=== PATIENT | male | born 1955 | race Caucasian/White ===

== ENCOUNTER 2016-07-09 15:53 | Emergency (ER) | payer MEDICARE, MEDICAID ==
[~2016-07-09] VITALS: Ht 180.3 cm; Wt 83.9 kg
[~2016-07-09 15:53] MED LIST: /DIVA50TA PO; /ERYT5OPO OS; /HALO5TAB; /HALO5TAB PO; /OL10DISTA; /QUET10TA OR; /RISPSOL3; ALLE25CA OR; AMBI5TAB; ARTANE PO; ASTE137S; ATIV0.5T; ATIV0.5T3 PO; ATIV2TAB PO; BACL10TA2; BENZ2TA PO; BENZ5TA PO; BUSP30TA; CELE100C; CELE40TA; CLAR10CA3 PO; COGE1INJ PO; DEPA250T32 PO; DEPA500T2 OR; DEPA500T2 PO; FERR325T; FOLI1TAB86 PO; HALD100I2 IM; HALDOL DECANOATE; HALO10TA PO; HALO2TA PO; HYDR-4274 PO; Haldol PO; JANT5TAB; LASI40TA; LISI10TA4; MOISCRE4 EXT; MONT10TA2 PO; MORP60TA3; MULTIVIT; NEUR100C; NEUR300C; NICO21DI26 EXT; NICO21DI4; NICO21DI5 TD; NICO21PAT TD; NYSTATIN; NYSTATIN TOP; No Historical Meds; OMEP20TA7; OXCA15HATB; REME15TA2; RISP12.5 IM; RISP1TAB3 PO; RISP37INJ IM; RISP3TAB16 OR; RISP3TAB18 PO; RISP4TAB33 PO; RISPERDAL CONSTA; RISPERDAL CONSTA IM; SERO1TAB PO; SERO200T PO; SITA50TAB PO; TRAZ50TA; TRIH2TA PO; TRIL600T OR; TRILAFON; VIST50CA; VITA100T2 PO; VITMTA PO; ZOLO50TA PO; ZYPR10TA; ZYPR10TA PO; ZYPR15TA; ZYPR15TA3; ZYPR20TA; ZYPR5TAB OR; ZYPR5TAB2 PO; no home medications
[2016-07-09] MEDS ORDERED: TRIH5TAB PO (16:15)
[2016-07-09] MEDS ORDERED: HYDR-4274 PO (16:15)
[2016-07-09] MEDS ORDERED: HALD5INJ2 IM (16:21)
[2016-07-09 18:09] VITALS: BP 133/74
== END 2016-07-09 18:12 | disposition home or self-care (01) ==
LOC: M ED 15:53
DX: F12.90 Cannabis use, unspecified, uncomplicated (principal); Z79.899 Other long term (current) drug therapy; Z88.8 Allergy status to other drugs, medicaments and biological substances; Z87.891 Personal history of nicotine dependence

== ENCOUNTER 2016-09-17 02:57 | Emergency (ER) | payer MEDICARE, MEDICAID ==
[~2016-09-17] VITALS: Ht 180.3 cm; Wt 81.6 kg
[~2016-09-17 02:57] MED LIST changes: +HALD5INJ2 IM; -TRIH2TA PO; +TRIH2TAB3 PO; +TRIH5TAB PO
[2016-09-17] MEDS ORDERED: HYDR50CA2 PO (05:13)
[2016-09-17 06:10] VITALS: BP 128/84
[2016-09-17] MEDS ORDERED: TRIHEXYPHENIDYL 2 MG TAB PO ONE ×2 (06:15→06:30)
[2016-09-17] MEDS ORDERED: hydrOXYzine 50 MG TAB PO ONE (06:15)
== END 2016-09-17 06:39 | disposition home or self-care (01) ==
LOC: M ED 03:47
DX: Z76.0 Encounter for issue of repeat prescription (principal)

== ENCOUNTER 2017-07-21 00:57 | Emergency (ER) | payer MEDICARE, MEDICAID ==
[2017-07-21] MEDS: hydrOXYzine 50 MG TAB PO (02:00)
[2017-07-21] MEDS: TRIHEXYPHENIDYL 2 MG TAB PO (02:00)
== END 2017-07-21 02:38 | disposition home or self-care (01) ==
LOC: M ED 00:57
DX: F41.1 Generalized anxiety disorder (principal); F17.210 Nicotine dependence, cigarettes, uncomplicated; Z79.899 Other long term (current) drug therapy
CPT/HCPCS: 99283

== ENCOUNTER 2017-08-05 01:55 | Emergency (ER) | payer MEDICARE, MEDICAID | END 2017-08-05 05:49 | disposition home or self-care (01) | LOC: M ED 01:55 | DX: Z76.0 Encounter for issue of repeat prescription (principal); F20.9 Schizophrenia, unspecified; F41.9 Anxiety disorder, unspecified; F17.200 Nicotine dependence, unspecified, uncomplicated; Z79.899 Other long term (current) drug therapy | CPT/HCPCS: 99283 ==

== ENCOUNTER 2018-12-31 13:17 | Inpatient (IN) | payer MEDICARE, MEDICAID ==
[~2018-12-31] VITALS: Ht 180.3 cm; Wt 82.3 kg
[~2018-12-31 13:17] MED LIST changes: -/DIVA50TA PO; -/ERYT5OPO OS; -/HALO5TAB; -/HALO5TAB PO; -/OL10DISTA; -/QUET10TA OR; -/RISPSOL3; -BENZ2TA PO; +BENZ2TAB33 PO; +DEPA1TAB3 PO; +ERYT1OIN4 OS; -HALO10TA PO; +HALO1TAB21; +HALO1TAB21 PO; +HALO1TAB29 PO; -HALO2TA PO; +HALO2TAB26 PO; -HYDR-4274 PO; +HYDR50CA2 PO; +HYDR50TA70 PO; +INVE234I IM; +NICO21DI3 TD; -NICO21DI5 TD; +NICO21DI6 TD; -NICO21PAT TD; -OXCA15HATB; +OXCA1TAB; +PROP20TA72 PO; +RISP1SOL15; +RISP2TAB3; -RISP3TAB18 PO; +RISP3TAB20 PO; +SERO1TAB OR; +ZYPR1TAB4
[2018-12-31 14:22] LABS: HEMATOCRIT 37.5 % (42.0-52.0); HEMOGLOBIN 12.8 g/dl (13.5-17.5); MEAN CORPUSCULAR HEMOGLOBIN 31.6 pg (27.0-33.0); MEAN CORPUSCULAR HGB CONC 34.1 g/dl (32.0-36.5); MEAN CORPUSCULAR VOLUME 92.6 fl (80.0-96.0); PLATELET COUNT, AUTOMATED 221 10^3/uL (150-450); RED BLOOD COUNT 4.05 10^6/uL (4.30-6.10); WHITE BLOOD COUNT 6.4 10^3/uL (4.0-10.0)
[2018-12-31 14:54] LABS: ACETAMINOPHEN LEVEL < 2.0 UG/ML (10.0-30.0); ALBUMIN 3.4 GM/DL (3.2-5.2); ALT/SGPT 24 U/L (12-78); BILIRUBIN,DIRECT 0.2 MG/DL (0.0-0.2); BILIRUBIN,TOTAL 0.4 MG/DL (0.2-1.0); BLOOD UREA NITROGEN 10 MG/DL (7-18); CALCIUM LEVEL 9.1 MG/DL (8.8-10.2); CARBON DIOXIDE LEVEL 27 MEQ/L (21-32); CHLORIDE LEVEL 108 MEQ/L (98-107); CREATININE FOR GFR 0.82 MG/DL (0.70-1.30); ETHYL ALCOHOL (ETHANOL) < 0.003 % (0.000-0.010); GLOMERULAR FILTRATION RATE > 60.0 (>49); GLUCOSE, FASTING 124 MG/DL (70-100); POTASSIUM SERUM 3.7 MEQ/L (3.5-5.1); SALICYLATE LEVEL 3.6 MG/DL (5.0-30.0); SODIUM LEVEL 139 MEQ/L (136-145); TOTAL PROTEIN 6.4 GM/DL (6.4-8.2)
[2018-12-31 14:56] LABS: AMPHETAMINES LEVEL URINE NEGATIVE (NEGATIVE); BARBITURATES URINE NEGATIVE (NEGATIVE); BENZODIAZEPINES URINE NEGATIVE (NEGATIVE); CANNABINOIDS URINE NEGATIVE (NEGATIVE); COCAINE METABOLITE URINE NEGATIVE (NEGATIVE); METHADONE URINE NEGATIVE (NEGATIVE); OPIATES URINE NEGATIVE (NEGATIVE); PHENCYCLIDINE URINE NEGATIVE (NEGATIVE)
[2018-12-31] MEDS ORDERED: MAALOX 30 ML SUSP *UDC PO PRN (15:30)
[2018-12-31] MEDS ORDERED: HALOPERIDOL 5 MG TAB PO PRN (15:30)
[2018-12-31] MEDS ORDERED: MOM 30ML SUSPENSION UDC PO PRN (15:30)
[2018-12-31] MEDS ORDERED: INVE1.75 IM (16:10)
[2018-12-31 18:30] VITALS: BP 139/87
[2018-12-31] MEDS ORDERED: PROPRANOLOL 20 MG TAB PO PRN (19:45)
[2018-12-31] MEDS: hydrOXYzine 50 MG TAB PO PRN (21:00)
[2019-01-01 06:45] VITALS: BP 115/65
--- NOTE | 2019-01-01 12:08 | MHHPEPDOC ---
General Date Of Admission: Dec 31, 2018 Legal Status: 9.39 Chief Complaint "I've got bad anxiety and a lot of anger issues." History of Present Illness HISTORY OF THE PRESENT ILLNESS: Patient is a 63 -year-old , male, with a history of paranoid schizophrenia, multiple admissions to [facility] in past with last 04/2015 for psychosis who brought to ED via police after his AOT coordinator (Aurelia Mckay) from [facility] issued the 9.60 nut picker order due to pt being psychotic, delusional, responding to internal stimuli secondary to being noncompliant on his medications, AOT intervention, and outpatient appts, refusing his invega trinza dose b/c he was "didn't want it anymore". Per AOT coordinator to ED, pt has been isolating in his apt and only leaving to frequent the muslim close to his apt while delusional and appearing to respond to internal stimuli. Pt is a very poor historian due to his current psychosis and therefore much of history gathered from previous records. Psychiatric Review of Systems Depression (2 or more weeks): denies Abbey (4 or more days of): denies Psychosis: auditory hallucination, delusions, disorganization, denies PTSD: denies Anxiety: gen/non-specific anxiety ("I get a lot of anxiety from the evil until I started helping those families"), situational anxiety, stressor related anxiety Anxiety/ 6 months or more of: restlessness, keyed up, difficulty concentrating Past Psychiatric History Previous Psychiatric Diagnosis: Paranoid Schizophrenia Previous Psychiatric Admissions: multiple admission to [facility] in past, last 04/2015 for psychosis Suicide Attempts: none known Psychiatric Follow-up: [facility] AOT Psychiatric medications: Invega Trinza Past Medical History Medical Problems denies Head Injury: No Seizures: No Hospitalizations: Yes Surgeries: Yes (Inguinal hernia repair) Family Medical/Psychiatric HX Medical Problems noncontributory Psychiatric Disorders: No Addiction: No Suicide Attemps/Completions: No Addiction History nicotine (1-2 packs/day "I could smoke 12 packs a day if they'd let me"), other (utox neg. stated in ED "uppers, downers, and ciggarettes") Social History Per previous records: Pt born and raised in [place], [place]. He denied any history of physical or sexual abuse. Currently lives alone in an apt in [facility]. No leg al history. He is single, never and has no kids. He has a high school education although do not known if he finish and graduated. Mental Status Examination General Appearance: appears stated age, hospital scubs/clothing, other (soaking wet after having just gotten out of the shower, didn't towel off, put clothes on) Build: average Demeanor: preoccupied (Needed to "protect us from the evil"), very figety Eye Contact: intense Activity: anxious Behavior: cooperative, restless Speech: rapid, reg/rate,rhythm,volume (multiple tangents), non-spontaneous Mood: anxious Mood "I've got a lot of anxiety and anger issues" Affect: full Thought Process: incoherent (Preoccupied with "the evil" and pentecostal), concrete, tangential (Frequently ), loose, associative, flight of ideas Thought Content (Delusions): grandiose, bizarre (Multiple references to " the evil," the protestant muslim and "fighting a war against 'them' "), delusions, other (religiousity) Thought Content (Other): preoccupied, ideas of reference, internal-stimuli Thought Content (Aggressive): none reported Perception (Hallucinations): auditory ("Used to hear evil voices all around me, Shinto saved me from that") Perception (Other): none reported Cognition (Impairment of): orientation (Not oriented to time), attention/concentration, ability to abstract Cognition(Intelligence Est.): borderline Oriented: Awake, Alert Insight: poor Judgment: Poor Psychosis: Associations, Abstract Thinking, Psychotic Perceptions (References to evil "voices, conspiracies, overlords") Diagnoses 1. Paranoid Schizophrenia 2. Anxiety Disorder A-FIB/CHADSVASC A-FIB History Current/History of A-Fib/PAF?: No Current PO Anticoag Therapy: No Treatment Treatment ordered: NONE Reason Anticoagulant not given: Not indicated/[id number] Assessment Pt seen and is making bizarre, delusional comments to me about being people in reference to an orange color pencil I saw in the day room. He was pleasant and cooperative. My student saw pt who stated "I was fighting in a war in the [place] ([facility]) against the evil" and referenced the police in some aspect. Came into my office soaking wet after he got out of the shower and threw clothes on without toweling off first. States he's glad to be here and is agreeable to restarting his meds and invega sustenna. Agreeable it helps him. He is delusional, bizarre, responding AH yet pleasant and cooperative. Denies SI/HI. He is not agitated and is easily directed by staff. He is a very poor historian given his level of psychosis. Initial Treatment Plan 1. Patient was admitted on a status. 2. Complete history was obtained. 3. With patients permission, family will be contacted and database will be expanded. 4. Patients medication regimen will be reviewed and changed accordingly. 5. Patient will be provided with protected environment. 6. Patient will be treated with individual, group, and milieu therapies. 7. Patient will receive supportive psych-education. 8. Discharge planning will commence immediately. 9. Outpatient follow-up treatment will be strongly recommended. 10. The initial treatment plan will focus initially on: * Depression. * Risk for suicide. * Substance abuse. 11. restart outpatient meds. ESTIMATED LENGTH OF STAY: 5-7 DAYS. TIME SPENT COUNSELING AND COORDINATING INITIAL CARE: 60 minutes. Vital Signs Vital Signs Date Time Temp Pulse Resp B/P (MAP) Pulse Ox O2 Delivery O2 Flow Rate FiO2 01/01/19 06:45 99.4 79 18 115/65 (82) 12/31/18 18:30 100 12/31/18 16:46 Room Air Laboratory Data 24H Labs Laboratory Tests 2 12/31/18 13:57: Anion Gap 4L, Glomerular Filtration Rate > 60.0, Calcium Level 9.1, Aspartate Amino Transf (AST/SGOT) 23, Alanine Aminotransferase (ALT/SGPT) 24, Alkaline Phosphatase 60, Total Bilirubin 0.4, Direct Bilirubin 0.2, Total Protein 6.4, Albumin 3.4, Albumin/Globulin Ratio 1.13, Thyroid Stimulating Hormone (TSH) 1 .090, Salicylates Level 3.6L, Acetaminophen Level < 2.0L, Ethyl Alcohol Level < 0.003 12/31/18 14:00: Nucleated Red Blood Cells % (auto) 0.0, Urine Amphetamines Screen NEGATIVE, U rine Benzodiazepines Screen NEGATIVE, Urine Opiates Screen NEGATIVE, Urine Methadone Screen NEGATIVE, Urine Barbiturates Screen NEGATIVE, Urine Phencyclidine Screen NEGATIVE, Urine Cocaine Metabolite Screen NEGATIVE, Urine Cannabinoids Screen NEGATIVE CBC/BMP Laboratory Tests 12/31/18 13:57 12/31/18 14:00 Red Blood Count 4.05 L, Mean Corpuscular Volume 92.6, Mean Corpuscular Hemoglobin 31.6, Mean Corpuscular Hemoglobin Concent 34.1, Red Cell Distribution Width 12.6 Medications Scheduled Paliperidone Palmitate (Invega Trinza) 819 Mg/2.625 Ml Syringe, 819 MG IM Q3M, (Reported) Scheduled PRN Hydroxyzine Pamoate (Hydroxyzine Pamoate) 50 Mg Cap, 50 MG PO DAILY PRN for ANXIETY, (Reported) Propranolol HCl (Propranolol HCl) 20 Mg Tab, 20 MG PO DAILY PRN for ANXIETY, (Reported) Allergies Coded Allergies: No Known Allergies (Unverified , 12/31/18) STARLA MEDINA DO Jan 01, 2019 11:44 am
[2019-01-01] MEDS ORDERED: PALIPERIDONE 6 MG ER TAB (INVEGA) PO ONE (13:00)
[2019-01-01] MEDS ORDERED: PALIPERIDONE PALMITATE 234MG/1.5ML INJ (INVEGA)(J2426)(FREE PSY INPT ONLY) IM ONE (14:00)
[2019-01-01 18:37] VITALS: BP 116/74
[2019-01-02 06:48] VITALS: BP 123/75
[2019-01-02] MEDS: HALOPERIDOL 10 MG TAB PO PRN ×2 (11:08→17:13)
[2019-01-02] MEDS: NICOTINE 21MG/24HR 1 EA TRANSDERMAL TD SCH (11:55)
--- NOTE | 2019-01-02 15:16 | MHIPNPDOC ---
[facility] Progress Note Progress Note Date of Service: 01/02/2019 History of Present Illness Patient, a 63-year-old man with an extensive history of schizophrenia who has been admitted multiple times, presents in a psychotic episode. He is currently treated by Dr. Bowden on the unit. Interval History Patient is met with. He reports that he is feeling "good" on his combination of Invega and his second antipsychotic. He denies any side effects of tremors, GI upset, or any other concerns. Staff have noted that he is generally amenable on the unit, at times he makes bizarre activity by staring outside of a window or walking other's rooms. However, he is easily redirectable and generally pleasant. No behavioral problems overnight noted. Review Of Systems Appears to continue to have bizarre ideation that he is "with Vaughn" and refers to himself in the royal "we." However, his delusions appear generally fixed, as per notes. Psychotherapy None on this visit. Vital Signs Reviewed. Mental Status Examination General: Well dressed with good hygiene Speech: Fluid Thought processes: Linear and logical MSK: Smooth and coordinated gait, no signs of tremors or involuntary orofacial movements Thought content: Bizarre Abstract reasoning, and computation: Impaired Description of associations: Loose Description of abnormal or psychotic thoughts: Denies any suicidal or homicidal ideation. Denies any auditory or visual hallucinations. Does not appear to be responding to internal stimuli Judgment: fair Insight: poor Orientation: Alert and orientated 3 Cognition: Grossly normal Recent and remote memory: Intact Attention span and concentration: Intact Fund of knowledge: Adequate Mood: "fine" Affect: Euthymic with a mildly constricted range Diagnoses Schizophrenia. Assessment and Plan Patient appears to be making sufficient progress on his current medication regimen. Will continue at this time as he has a long history of schizophrenia and will likely take some time to resolve. Disposition Patient will need a longer in-patient admission due to his psychosis that is significantly impairing, and thus will need further time in order to recover and plan for a safe discharge. Time Spent 15 minutes [id number]. Friday Vital Signs Vital Signs Date Time Temp Pulse Resp B/P (MAP) Pulse Ox O2 Delivery O2 Flow Rate FiO2 01/02/19 06:48 96.6 92 18 123/75 (91) 12/31/18 18:30 100 12/31/18 16:46 Room Air Current Medications Current Medications Medications (Trade) Dose Ordered Sig/Marcelino Route PRN Reason Start Time Stop Time Status Last Admin Dose Admin Acetaminophen (Tylenol Tab) 650 mg Q6HP PRN PO HEADACHE or DISCOMFORT 12/31/18 15:30 Al Hydrox/Mg Hydrox/Simethicone (Mylanta) 30 ml Q4HP PRN PO HEARTBURN/INDIGESTION 12/31/18 15:30 Haloperidol (Haldol) 10 mg Q6HP PRN PO ANXIETY/AGITATION 12/31/18 15:30 01/01/19 11:51 DC 01/01/19 08:54 Haloperidol (Haldol) 10 mg Q6HP PRN PO ANXIETY/AGITATION 01/01/19 12:00 01/02/19 11:08 Home Med (Med Rec Complete!) ASDIRECTED XX 12/31/18 16:15 12/31/18 16:15 DC Hydroxyzine HCl (Atarax) 50 mg DAILY PRN PO ANXIETY 12/31/18 19:45 12/31/18 21:00 Magnesium Hydroxide (Milk Of Magnesia) 30 ml DAILYPRN PRN PO CONSTIPATION 12/31/18 15:30 Nicotine (Nicoderm Cq 21mg) 1 patch DAILY TD 01/02/19 11:45 01/02/19 11:55 Propranolol HCl (Inderal) 20 mg DAILYPRN PRN PO ANXIETY 12/31/18 19:45 Trazodone HCl (Desyrel) 50 mg QHSP PRN PO INSOMNIA 12/31/18 15:30 Allergies Coded Allergies: No Known Allergies (Unverified , 12/31/18) BISHOP CLARK DO Jan 02, 2019 15:16
[2019-01-02 18:00] VITALS: BP 108/65
[2019-01-02] MEDS: hydrOXYzine 50 MG TAB PO PRN (20:48)
[2019-01-03] MEDS: ACETAMINOPHEN TAB 650MG DOSE (2X325MG) PO PRN (05:15)
[2019-01-03 06:55] VITALS: BP 108/70
[2019-01-03] MEDS: NICOTINE 21MG/24HR 1 EA TRANSDERMAL TD SCH (09:33)
--- NOTE | 2019-01-03 17:57 | MHIPNPDOC ---
[facility] Progress Note Progress Note Date of Service: 01/03/2019 History of Present Illness Patient, a 63-year-old man with an extensive history of schizophrenia who has been admitted multiple times, presents in a psychotic episode. He is currently treated by Dr. Bowden on the unit. Interval History The patient is met with today. He describes he is feeling "great" and reports feeling very thankful. He denies any tremors, GI side effects or other concerning side effects from his current medications. At times in the hallway, he does appear to make unusual and bizarre statements about the devil. At times, he becomes more distressed by them. Review Of Systems As above. Psychotherapy None on this visit. Vital Signs Reviewed. Mental Status Examination General: Well dressed with good hygiene Speech: Fluid Thought processes: Linear and logical MSK: Smooth and coordinated gait, no signs of tremors or involuntary orofacial movements Thought content: Bizarre Abstract reasoning, and computation: Impaired Description of associations: Loose Description of abnormal or psychotic thoughts: Denies any suicidal or homicidal ideation. Denies any auditory or visual hallucinations. Does not appear to be responding to internal stimuli Judgment: fair Insight: poor Orientation: Alert and orientated 3 Cognition: Grossly normal Recent and remote memory: Intact Attention span and concentration: Intact Fund of knowledge: Adequate Mood: "fine" Affect: Euthymic with a mildly constricted range Diagnoses Schizophrenia. Assessment and Plan Continue current plan as below. Disposition Patient will need a further inpatient admission as still psychotic and is currently on an AOT. Need coordination with outpatient team. Time Spent Ten minutes. Friday Vital Signs Vital Signs Date Time Temp Pulse Resp B/P (MAP) Pulse Ox O2 Delivery O2 Flow Rate FiO2 01/03/19 06:55 97.9 70 12 108/70 (83) 12/31/18 18:30 100 12/31/18 16:46 Room Air Current Medications Current Medications Medications (Trade) Dose Ordered Sig/Marcelino Route PRN Reason Start Time Stop Time Status Last Admin Dose Admin Acetaminophen (Tylenol Tab) 650 mg Q6HP PRN PO HEADACHE or DISCOMFORT 12/31/18 15:30 01/03/19 05:15 Al Hydrox/Mg Hydrox/Simethicone (Mylanta) 30 ml Q4HP PRN PO HEARTBURN/INDIGESTION 12/31/18 15:30 Haloperidol (Haldol) 10 mg Q6HP PRN PO ANXIETY/AGITATION 12/31/18 15:30 01/01/19 11:51 DC 01/01/19 08:54 Haloperidol (Haldol) 10 mg Q6HP PRN PO ANXIETY/AGITATION 01/01/19 12:00 01/02/19 17:13 Home Med (Med Rec Complete!) ASDIRECTED XX 12/31/18 16:15 12/31/18 16:15 DC Hydroxyzine HCl (Atarax) 50 mg DAILY PRN PO ANXIETY 12/31/18 19:45 01/02/19 20:48 Magnesium Hydroxide (Milk Of Magnesia) 30 ml DAILYPRN PRN PO CONSTIPATION 12/31/18 15:30 Nicotine (Nicoderm Cq 21mg) 1 patch DAILY TD 01/02/19 11:45 01/03/19 09:33 Propranolol HCl (Inderal) 20 mg DAILYPRN PRN PO ANXIETY 12/31/18 19:45 Trazodone HCl (Desyrel) 50 mg QHSP PRN PO INSOMNIA 12/31/18 15:30 Allergies Coded Allergies: No Known Allergies (Unverified , 12/31/18) BISHOP CLARK DO Jan 03, 2019 17:57
[2019-01-03 18:00] VITALS: BP 120/71
[2019-01-04 06:58] VITALS: BP 117/71
[2019-01-04] MEDS ORDERED: PALIPERIDONE PALMITATE 156MG/1ML INJ(INVEGA)(J2426)(FREE PSY INPT ONLY) IM ONE (08:00)
[2019-01-04] MEDS: NICOTINE 21MG/24HR 1 EA TRANSDERMAL TD SCH (10:24)
--- NOTE | 2019-01-04 12:28 | MHIPNPDOC ---
[facility] Progress Note Progress Note DATE OF SERVICE: 01/04/19 HISTORY: Patient is a 63 -year-old , male, with a history of paranoid schizophrenia, multiple admissions to [facility] in past with last 04/2015 for psycho sis who brought to ED via police after his AOT coordinator (Aurelia Mckay) from [facility] issued the 9.60 olive picker order due to pt being psychotic, delusional, responding to internal stimuli secondary to being noncompliant on his medications, AOT intervention, and outpatient appts, refusing his invega trinza dose b/c he was "didn't want it anymore". Per AOT coordinator to ED, pt has been isolating in his apt and only leaving to frequent the synagogue close to his apt while delusional and appearing to respond to internal stimuli. Pt is a very poor historian due to his current psychosis and therefore much of history gathered from previous records. VITAL SIGNS: See below. NEW TEST RESULTS: See below. CURRENT MEDICATIONS: See below. MENTAL STATUS EXAMINATION: Roughly little change from Friday General Appearance: appears stated age, hospital scrubs/clothing Build: average Demeanor: preoccupied (Needed to "protect us from the evil"), very fidgety Eye Contact: intense Activity: anxious Behavior: cooperative, restless Speech: rapid, reg/rate,rhythm,volume (multiple tangents), non-spontaneous Mood: anxious Mood "Your the only one I can let into my mind b/c of all the violence" Affect: full range, euthymic Thought Process: incoherent (Preoccupied with "the evil" and hyper-pentecostal), concrete, tangential, loose, associative, flight of ideas Thought Content (Delusions): grandiose, bizarre (Multiple references to " the evil," the yazidism synagogue and "fighting a war against 'them' "), delusions, other (religiousity) Thought Content (Other): preoccupied, ideas of reference, internal-stimuli Thought Content (Aggressive): none reported Perception (Hallucinations): auditory ("Just God's voice and she also believes in God" and asked who and stated "you" very random and bizarre) Perception (Other): none reported Cognition (Impairment of): orientation (Not oriented to time), attention/concentration, ability to abstract Cognition(Intelligence Est.): borderline Oriented: Awake, Alert Insight: poor Judgment: Poor Psychosis: Associations, Abstract Thinking, Psychotic Perceptions (References to evil "voices, conspiracies, overlords") DIAGNOSES: 1. Paranoid Schizophrenia 2. Anxiety Disorder ASSESSMENT:Pt seen and is continuing to make bizarre, delusional comments to me about "Your the only one I can let into my mind b/c of all the violence". Continues to reference God (States he only hears "God's voice"). He did take Invega sustenna on Friday and last dose just recently today and advised we will monitor for improvement in symptoms to see if he need to do any other med adjustments in the future. States "the serum was good" in reference to tolerating them and he feels they're helpful although really have yet to see as he is still quite psychotic and delusional. He is pleasant and cooperative. He is delusional, bizarre, responding AH. Denies SI/HI. He is not agitated and is easily directed by staff. He is a very poor historian given his level of psychosis. MANAGEMENT PLAN: Continue plan and monitor for improvement in psychosis. Continue med adjustments if there is no change in symptoms after second invega sustenna given. inderal 20mg tid invega sustenna 234mg 07/04/18 invega sustenna 156mg today haldol 10mg q6hr prn anxiety/agitation trazodone 50mg qhs prn insomnia TIME SPENT: 30 minutes. Vital Signs Vital Signs Date Time Temp Pulse Resp B/P (MAP) Pulse Ox O2 Delivery O2 Flow Rate FiO2 01/04/19 06:58 98.2 71 14 117/71 (86) 12/31/18 18:30 100 12/31/18 16:46 Room Air Current Medications Current Medications Medications (Trade) Dose Ordered Sig/Marcelino Route PRN Reason Start Time Stop Time Status Last Admin Dose Admin Acetaminophen (Tylenol Tab) 650 mg Q6HP PRN PO HEADACHE or DISCOMFORT 12/31/18 15:30 01/03/19 05:15 Al Hydrox/Mg Hydrox/Simethicone (Mylanta) 30 ml Q4HP PRN PO HEARTBURN/INDIGESTION 12/31/18 15:30 Haloperidol (Haldol) 10 mg Q6HP PRN PO ANXIETY/AGITATION 12/31/18 15:30 01/01/19 11:51 DC 01/01/19 08:54 Haloperidol (Haldol) 10 mg Q6HP PRN PO ANXIETY/AGITATION 01/01/19 12:00 01/02/19 17:13 Home Med (Med Rec Complete!) ASDIRECTED XX 12/31/18 16:15 12/31/18 16:15 DC Hydroxyzine HCl (Atarax) 50 mg DAILY PRN PO ANXIETY 12/31/18 19:45 01/02/19 20:48 Magnesium Hydroxide (Milk Of Magnesia) 30 ml DAILYPRN PRN PO CONSTIPATION 12/31/18 15:30 Nicotine (Nicoderm Cq 21mg) 1 patch DAILY TD 01/02/19 11:45 01/04/19 10:24 Propranolol HCl (Inderal) 20 mg DAILYPRN PRN PO ANXIETY 12/31/18 19:45 Trazodone HCl (Desyrel) 50 mg QHSP PRN PO INSOMNIA 12/31/18 15:30 Allergies Coded Allergies: No Known Allergies (Unverified , 12/31/18) STARLA MEDINA DO Jan 04, 2019 12:28 pm
[2019-01-04 18:18] VITALS: BP 122/76
[2019-01-04] MEDS: traZODone 50 MG TAB PO PRN (21:27)
[2019-01-05] MEDS: HALOPERIDOL 10 MG TAB PO PRN ×2 (06:00→17:15)
[2019-01-05 06:39] VITALS: BP 114/67
[2019-01-05] MEDS: ACETAMINOPHEN TAB 650MG DOSE (2X325MG) PO PRN (08:28)
[2019-01-05] MEDS: NICOTINE 21MG/24HR 1 EA TRANSDERMAL TD SCH (08:29)
--- NOTE | 2019-01-05 10:10 | MHIPNPDOC ---
[facility] Progress Note Progress Note DATE OF SERVICE: 01/05/19 HISTORY: Patient is a 63 -year-old , male, with a history of paranoid schizophrenia, multiple admissions to [facility] in past with last 04/2015 for psycho sis who brought to ED via police after his AOT coordinator (Aurelia Mckay) from [facility] issued the 9.60 pickle pumper order due to pt being psychotic, delusional, responding to internal stimuli secondary to being noncompliant on his medications, AOT intervention, and outpatient appts, refusing his invega trinza dose b/c he was "didn't want it anymore". Per AOT coordinator to ED, pt has been isolating in his apt and only leaving to frequent the sabianist close to his apt while delusional and appearing to respond to internal stimuli. Pt is a very poor historian due to his current psychosis and therefore much of history gathered from previous records. VITAL SIGNS: See below. NEW TEST RESULTS: See below. CURRENT MEDICATIONS: See below. MENTAL STATUS EXAMINATION: Roughly little change from Friday General Appearance: appears stated age, hospital scrubs/clothing Build: average Demeanor: preoccupied (Needed to "protect us from the evil"), very fidgety Eye Contact: intense Activity: anxious Behavior: cooperative, restless Speech: rapid, reg/rate,rhythm,volume (multiple tangents), non-spontaneous Mood: anxious Mood "Your the only one I can let into my mind b/c of all the violence" Affect: full range, euthymic Thought Process: incoherent (Preoccupied with "the evil" and hyper-rastafari), concrete, tangential, loose, associative, flight of ideas Thought Content (Delusions): grandiose, bizarre (Multiple references to " the evil," the buddhist sabianist and "fighting a war against 'them' "), delusions, other (religiousity) Thought Content (Other): preoccupied, ideas of reference, internal-stimuli Thought Content (Aggressive): none reported Perception (Hallucinations): auditory ("Just God's voice and she also believes in God" and asked who and stated "you" very random and bizarre) Perception (Other): none reported Cognition (Impairment of): orientation (Not oriented to time), attention/concentration, ability to abstract Cognition(Intelligence Est.): borderline Oriented: Awake, Alert Insight: poor Judgment: Poor Psychosis: Associations, Abstract Thinking, Psychotic Perceptions (References to evil "voices, conspiracies, overlords") DIAGNOSES: 1. Paranoid Schizophrenia 2. Anxiety Disorder ASSESSMENT:Pt seen and is making less bizarre, delusional comments after receiving second dose of invega sustenna yesterday that he tolerated well. Complains though that the "shots hurt a lot" which makes him ambilent about taking them outpatient and was the reason he was noncompliant on his invega sustenna prior admission. Pt may benefit from having topical lidocaine applied to his skin prior giving him his IM injections to limit pain and allow for pt to be more compliant on it outpatient. Will discuss with his AOT care outpatient about this being possible. Continues to endorse AH which he states are of his "family and friends" who telling him he's doing good. Continues to reference G od (States he only hears "God's voice"). He is still quite psychotic and delusional although it is slowly improving. He is pleasant and cooperative. He is mildly less delusional, bizarre, responding AH. Denies SI/HI. He is not agitated and is easily directed by staff. He is a very poor historian given his level of psychosis. MANAGEMENT PLAN: Continue plan and monitor for improvement in psychosis. Continue med adjustments if there is no change in symptoms after second invega sustenna given. Will add haldol 5mg bid for continued psychosis after invega sustenna given inderal 20mg tid invega sustenna 234mg 01/01/19 invega sustenna 156mg 01/04/19 Haldol 5mg bid haldol 10mg q6hr prn anxiety/agitation trazodone 50mg qhs prn insomnia TIME SPENT: 30 minutes. Vital Signs Vital Signs Date Time Temp Pulse Resp B/P (MAP) Pulse Ox O2 Delivery O2 Flow Rate FiO2 01/05/19 06:39 97.2 83 18 114/67 (83) 12/31/18 18:30 100 12/31/18 16:46 Room Air Current Medications Current Medications Medications (Trade) Dose Ordered Sig/Marcelino Route PRN Reason Start Time Stop Time Status Last Admin Dose Admin Acetaminophen (Tylenol Tab) 650 mg Q6HP PRN PO HEADACHE or DISCOMFORT 12/31/18 15:30 01/05/19 08:28 Al Hydrox/Mg Hydrox/Simethicone (Mylanta) 30 ml Q4HP PRN PO HEARTBURN/INDIGESTION 12/31/18 15:30 Haloperidol (Haldol) 10 mg Q6HP PRN PO ANXIETY/AGITATION 12/31/18 15:30 01/01/19 11:51 DC 01/01/19 08:54 Haloperidol (Haldol) 10 mg Q6HP PRN PO ANXIETY/AGITATION 01/01/19 12:00 01/05/19 06:00 Home Med (Med Rec Complete!) ASDIRECTED XX 12/31/18 16:15 12/31/18 16:15 DC Hydroxyzine HCl (Atarax) 50 mg DAILY PRN PO ANXIETY 12/31/18 19:45 01/02/19 20:48 Magnesium Hydroxide (Milk Of Magnesia) 30 ml DAILYPRN PRN PO CONSTIPATION 12/31/18 15:30 Nicotine (Nicoderm Cq 21mg) 1 patch DAILY TD 01/02/19 11:45 01/05/19 08:29 Propranolol HCl (Inderal) 20 mg DAILYPRN PRN PO ANXIETY 12/31/18 19:45 Trazodone HCl (Desyrel) 50 mg QHSP PRN PO INSOMNIA 12/31/18 15:30 01/04/19 21:27 Allergies Coded Allergies: No Known Allergies (Unverified , 12/31/18) STARLA MEDINA DO Jan 05, 2019 10:10 am
[2019-01-05] MEDS ORDERED: HALOPERIDOL 5 MG TAB PO ONE (10:15)
[2019-01-05 18:00] VITALS: BP 142/83
[2019-01-05] MEDS: HALOPERIDOL 5 MG TAB PO SCH (22:16)
[2019-01-05] MEDS: traZODone 50 MG TAB PO PRN (22:16)
[2019-01-06 06:47] VITALS: BP 141/67
[2019-01-06] MEDS: hydrOXYzine 50 MG TAB PO PRN (08:58)
[2019-01-06] MEDS: HALOPERIDOL 5 MG TAB PO SCH ×2 (08:58→21:00)
[2019-01-06] MEDS: NICOTINE 21MG/24HR 1 EA TRANSDERMAL TD SCH (08:59)
--- NOTE | 2019-01-06 11:29 | MHIPNPDOC ---
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 Per AOT coordinator to ED, pt has been isolating in his apt and only leaving to frequent the zoroastrian close to his apt while delusional and appearing to respond to internal stimuli. Pt is a very poor historian due to his current psychosis and therefore much of history gathered from previous records. VITAL SIGNS: See below. NEW TEST RESULTS: See below. CURRENT MEDICATIONS: See below. MENTAL STATUS EXAMINATION: Roughly little change from yesterday General Appearance: appears stated age, hospital scrubs/clothing Build: average Demeanor: preoccupied (Needed to "protect us from the evil"), very fidgety Eye Contact: intense Activity: anxious Behavior: cooperative, restless Speech: reg/rate,rhythm,volume (multiple tangents), non-spontaneous Mood: less anxious Mood "alright" Affect: full range, euthymic Thought Process: incoherent (Preoccupied with "the evil" and hyper-catholic), concrete. Less tangential, loose, associative, flight of ideas Thought Content (Delusions): less grandiose, bizarre (Multiple references to " the evil," the orthodoxy zoroastrian and "fighting a war against 'them' "), delusions, other (religiosity) Thought Content (Other): preoccupied, ideas of reference, internal-stimuli Thought Content (Aggressive): none reported Perception (Hallucinations): auditory ("Just God's voice and she also believes in God" and asked who and stated "you" very random and bizarre) Perception (Other): none reported Cognition (Impairment of): orientation (Not oriented to time), attention/con centration, ability to abstract Cognition(Intelligence Est.): borderline Oriented: Awake, Alert Insight: poor Judgment: Poor Psychosis: Associations, Abstract Thinking, Psychotic Perceptions (References to evil "voices, conspiracies, overlords") DIAGNOSES: 1. Paranoid Schizophrenia 2. Anxiety Disorder ASSESSMENT:Pt seen and only able to speak with me very briefly as he was attempting to get to group quickly and unwilling to stop going for a minute to continue to talk longer. Per treatment team he remains psychotic, delusions, religiously preoccupied, and responding to internal stimuli that is less with treatment. Will continue to monitor to see if symptoms continue to improve after invega sustenna given and oral haldol started. He is making less bizarre, delusional comments after receiving second dose of invega sustenna that he tolerated well. Per yesterday's note "Complains though that the "shots hurt a lot" which makes him ambilent about taking them outpatient and was the reason he was noncompliant on his invega sustenna prior admission. Pt may benefit from having topical lidocaine applied to his skin prior giving him his IM injections to limit pain and allow for pt to be more compliant on it outpatient. Will discuss with his AOT care outpatient about this being possible." Continues to endorse AH which he stated yesterday are of his "family and friends" who telling him he's doing good. Continues to reference God (States he only hears "God's voice"). He is pleasant and cooperative. He is mildly less delusional, bizarre, responding AH. Denies SI/HI. He is not agitated and is easily directed by staff. He is a very poor historian given his level of psychosis. MANAGEMENT PLAN: Continue plan and monitor for improvement in psychosis. Continue med adjustments if there is no change in symptoms after second invega sustenna given. Will add haldol 5mg bid for continued psychosis after invega sustenna given inderal 20mg tid invega sustenna 234mg 01/01/19 invega sustenna 156mg 01/04/19 Haldol 5mg bid haldol 10mg q6hr prn anxiety/agitation trazodone 50mg qhs prn insomnia TIME SPENT: 30 minutes. Vital Signs Vital Signs Date Time Temp Pulse Resp B/P (MAP) Pulse Ox O2 Delivery O2 Flow Rate FiO2 01/06/19 06:47 98.8 81 16 141/67 (91) 12/31/18 18:30 100 12/31/18 16:46 Room Air Current Medications Current Medications Medications (Trade) Dose Ordered Sig/Marcelino Route PRN Reason Start Time Stop Time Status Last Admin Dose Admin Acetaminophen (Tylenol Tab) 650 mg Q6HP PRN PO HEADACHE or DISCOMFORT 12/31/18 15:30 01/05/19 08:28 Al Hydrox/Mg Hydrox/Simethicone (Mylanta) 30 ml Q4HP PRN PO HEARTBURN/INDIGESTION 12/31/18 15:30 Haloperidol (Haldol) 5 mg BID PO 01/05/19 21:00 01/06/19 08:58 Haloperidol (Haldol) 10 mg Q6HP PRN PO ANXIETY/AGITATION 12/31/18 15:30 01/01/19 11:51 DC 01/01/19 08:54 Haloperidol (Haldol) 10 mg Q6HP PRN PO ANXIETY/AGITATION 01/01/19 12:00 01/05/19 17:15 Home Med (Med Rec Complete!) ASDIRECTED XX 12/31/18 16:15 12/31/18 16:15 DC Hydroxyzine HCl (Atarax) 50 mg DAILY PRN PO ANXIETY 12/31/18 19:45 01/06/19 08:58 Magnesium Hydroxide (Milk Of Magnesia) 30 ml DAILYPRN PRN PO CONSTIPATION 12/31/18 15:30 Nicotine (Nicoderm Cq 21mg) 1 patch DAILY TD 01/02/19 11:45 01/06/19 08:59 Propranolol HCl (Inderal) 20 mg DAILYPRN PRN PO ANXIETY 12/31/18 19:45 Trazodone HCl (Desyrel) 50 mg QHSP PRN PO INSOMNIA 12/31/18 15:30 01/05/19 22:16 Allergies Coded Allergies: No Known Allergies (Unverified , 12/31/18) STARLA MEDINA DO Jan 06, 2019 11:29 am
[2019-01-06 19:17] VITALS: BP 114/67
[2019-01-07 06:50] VITALS: BP 109/68
[2019-01-07] MEDS: NICOTINE 21MG/24HR 1 EA TRANSDERMAL TD SCH (09:04)
[2019-01-07] MEDS: HALOPERIDOL 5 MG TAB PO SCH ×2 (09:04→21:49)
--- NOTE | 2019-01-07 11:55 | MHIPNPDOC ---
[facility] Progress Note Progress Note DATE OF SERVICE: 01/07/19 HISTORY: Patient is a 63 -year-old , male, with a history of paranoid schizophrenia, multiple admissions to [facility] in past with last 04/2015 for psycho sis who brought to ED via police after his AOT coordinator (Aurelia Mckay) from [facility] issued the 9.60 chicken picker order due to pt being psychotic, delusional, responding to internal stimuli secondary to being noncompliant on his medications, AOT intervention, and outpatient appts, refusing his invega trinza dose b/c he was "didn't want it anymore". Per AOT coordinator to ED, pt has been isolating in his apt and only leaving to frequent the mosque close to his apt while delusional and appearing to respond to internal stimuli. Pt is a very poor historian due to his current psychosis and therefore much of history gathered from previous records. VITAL SIGNS: See below. NEW TEST RESULTS: See below. CURRENT MEDICATIONS: See below. MENTAL STATUS EXAMINATION: Roughly little change from yesterday General Appearance: appears stated age, hospital scrubs/clothing Build: average Demeanor: preoccupied (Needed to "protect us from the evil"), very fidgety Eye Contact: intense Activity: anxious Behavior: cooperative, restless Speech: reg/rate,rhythm,volume (multiple tangents), non-spontaneous Mood: less anxious Mood "alright" Affect: full range, euthymic Thought Process: incoherent (Preoccupied with "the evil" and hyper-confucianist), concrete. Less tangential, loose, associative, flight of ideas Thought Content (Delusions): less grandiose, bizarre (Multiple references to " the evil," the bahai mosque and "fighting a war against 'them' "), delusions, other (religiosity) Thought Content (Other): preoccupied, ideas of reference, internal-stimuli Thought Content (Aggressive): none reported Perception (Hallucinations): auditory ("Just God's voice and she also believes in God" and asked who and stated "you" very random and bizarre) Perception (Other): none reported Cognition (Impairment of): orientation (Not oriented to time), attention/conc entration, ability to abstract Cognition(Intelligence Est.): borderline Oriented: Awake, Alert Insight: poor Judgment: Poor Psychosis: Associations, Abstract Thinking, Psychotic Perceptions (References to evil "voices, conspiracies, overlords") DIAGNOSES: 1. Paranoid Schizophrenia 2. Anxiety Disorder ASSESSMENT:Pt seen and states "I have women with me" meaning those he has as friends and in relationships the he hears and sees during the day when here. Appears to being meaning he's have AH and VH with them. States he thinks he's getting better and asked me if I think so and told him we are working toward him being able to go home soon and he does appear better than he had been doing. He does remain psychotic, delusions, religiously preoccupied, and responding to internal stimuli that is less with treatment. Will continue to monitor to see if symptoms continue to improve after invega sustenna given and oral haldol started. He is making less bizarre, delusional comments after receiving second dose of invega sustenna that he tolerated well. Per yesterday's note "Complains though that the "shots hurt a lot" which makes him ambilent about taking them outpatient and was the reason he was noncompliant on his invega sustenna prior admission. Pt may benefit from having topical lidocaine applied to his skin prior giving him his IM injections to limit pain and allow for pt to be more compliant on it outpatient. Will discuss with his AOT care outpatient about this being possible." Continues to endorse AH which he stated yesterday are of his "family and friends" who telling him he's doing good. Continues to reference God (States he only hears "God's voice"). He is pleasant and cooperative. He is mildly less delusional, bizarre. He is having and responding to AH. Denies SI/HI. He is not agitated and is easily directed by staff. He is a very poor historian given his level of psychosis. MANAGEMENT PLAN: Continue plan and monitor for improvement in psychosis. inderal 20mg tid invega sustenna 234mg 01/01/19 invega sustenna 156mg 01/04/19 Haldol 5mg bid haldol 10mg q6hr prn anxiety/agitation trazodone 50mg qhs prn insomnia TIME SPENT: 30 minutes. Vital Signs Vital Signs Date Time Temp Pulse Resp B/P (MAP) Pulse Ox O2 Delivery O2 Flow Rate FiO2 01/07/19 06:50 98.4 81 14 109/68 (82) Current Medications Current Medications Medications (Trade) Dose Ordered Sig/Marcelino Route PRN Reason Start Time Stop Time Status Last Admin Dose Admin Acetaminophen (Tylenol Tab) 650 mg Q6HP PRN PO HEADACHE or DISCOMFORT 12/31/18 15:30 01/05/19 08:28 Al Hydrox/Mg Hydrox/Simethicone (Mylanta) 30 ml Q4HP PRN PO HEARTBURN/INDIGESTION 12/31/18 15:30 Haloperidol (Haldol) 5 mg BID PO 01/05/19 21:00 01/07/19 09:04 Haloperidol (Haldol) 10 mg Q6HP PRN PO ANXIETY/AGITATION 12/31/18 15:30 01/01/19 11:51 DC 01/01/19 08:54 Haloperidol (Haldol) 10 mg Q6HP PRN PO ANXIETY/AGITATION 01/01/19 12:00 01/05/19 17:15 Home Med (Med Rec Complete!) ASDIRECTED XX 12/31/18 16:15 12/31/18 16:15 DC Hydroxyzine HCl (Atarax) 50 mg DAILY PRN PO ANXIETY 12/31/18 19:45 01/06/19 08:58 Magnesium Hydroxide (Milk Of Magnesia) 30 ml DAILYPRN PRN PO CONSTIPATION 12/31/18 15:30 Nicotine (Nicoderm Cq 21mg) 1 patch DAILY TD 01/02/19 11:45 01/07/19 09:04 Propranolol HCl (Inderal) 20 mg DAILYPRN PRN PO ANXIETY 12/31/18 19:45 Trazodone HCl (Desyrel) 50 mg QHSP PRN PO INSOMNIA 12/31/18 15:30 01/05/19 22:16 Allergies Coded Allergies: No Known Allergies (Unverified , 12/31/18) STARLA MEDINA DO Jan 07, 2019 11:55 am
[2019-01-07] MEDS: hydrOXYzine 50 MG TAB PO PRN (15:29)
[2019-01-07 18:00] VITALS: BP 150/83
[2019-01-08 06:53] VITALS: BP 103/73
[2019-01-08] MEDS: NICOTINE 21MG/24HR 1 EA TRANSDERMAL TD SCH (08:38)
[2019-01-08] MEDS: HALOPERIDOL 5 MG TAB PO SCH ×2 (08:38→20:31)
--- NOTE | 2019-01-08 11:24 | MHIPNPDOC ---
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 Per AOT coordinator to ED, pt has been isolating in his apt and only leaving to frequent the gnosticist close to his apt while delusional and appearing to respond to internal stimuli. Pt is a very poor historian due to his current psychosis and therefore much of history gathered from previous records. VITAL SIGNS: See below. NEW TEST RESULTS: See below. CURRENT MEDICATIONS: See below. MENTAL STATUS EXAMINATION: Roughly little change from yesterday General Appearance: appears stated age, hospital scrubs/clothing Build: average Demeanor: preoccupied (Needed to "protect us from the evil"), very fidgety Eye Contact: intense Activity: calm, cooperative Behavior: cooperative, restless Speech: reg/rate,rhythm,volume, generalized, non-spontaneous Mood: euthymic Mood "better" Affect: full range, euthymic Thought Process: incoherent (less preoccupied with "the evil" and hyper- denominational), concrete. Less tangential, loose, associative, flight of ideas Thought Content (Delusions): less grandiose, bizarre (Multiple references to " the evil," the yarsanism gnosticist and "fighting a war against 'them' "), delusions, other (religiosity) Thought Content (Other): preoccupied, ideas of reference, internal-stimuli Thought Content (Aggressive): none reported Perception (Hallucinations): auditory ("people, family around me... tell me good things") Perception (Other): none reported Cognition (Impairment of): orientation (Not oriented to time), attention/concentration, ability to abstract Cognition(Intelligence Est.): borderline Oriented: Awake, Alert Insight: poor Judgment: Poor Psychosis: Associations, Abstract Thinking, Psychotic Perceptions (References to evil "voices, conspiracies, overlords") DIAGNOSES: 1. Paranoid Schizophrenia 2. Anxiety Disorder ASSESSMENT:Pt seen and is endorsing AH the say "good things" to him and are always with me. States that when he's in groups he hears the people in the groups and "people around me" possibly referring to AH of others in his life or that have been in his life. He is very concrete and does not answer questions specifically but rather very generalized and non-descript. States he thinks he's getting better day by day. He does remain psychotic, delusions, religiously preoccupied, and responding to internal stimuli that is less with treatment. Will continue to monitor to see if symptoms continue to improve after invega sustenna given and oral haldol started. He is making less bizarre, delusional comments after receiving second dose of invega sustenna that he tolerated well. Per yesterday's note "Complains though that the "shots hurt a lot" which makes him ambilent about taking them outpatient and was the reason he was noncompliant on his invega sustenna prior admission. Pt may benefit from having topical lidocaine applied to his skin prior giving him his IM injections to limit pain and allow for pt to be more compliant on it outpatient. Will discuss with his AOT care outpatient about this being possible." Continues to endorse AH which he stated yesterday are of his "family and friends" who telling him he's doing good. Continues to reference God (States he only hears "God's voice"). He is pleasant and cooperative. He is mildly less delusional, bizarre. He is having and responding to AH. Denies SI/HI. He is not agitated and is easily directed by staff. He is a very poor historian given his level of psychosis. MANAGEMENT PLAN: Continue plan and monitor for improvement in psychosis. inderal 20mg tid invega sustenna 234mg 01/01/19 invega sustenna 156mg 01/04/19 Haldol 5mg bid haldol 10mg q6hr prn anxiety/agitation trazodone 50mg qhs prn insomnia TIME SPENT: 30 minutes. Vital Signs Vital Signs Date Time Temp Pulse Resp B/P (MAP) Pulse Ox O2 Delivery O2 Flow Rate FiO2 8/30/19 06:53 98.2 90 12 103/73 (83) Current Medications Current Medications Medications (Trade) Dose Ordered Sig/Marcelino Route PRN Reason Start Time Stop Time Status Last Admin Dose Admin Acetaminophen (Tylenol Tab) 650 mg Q6HP PRN PO HEADACHE or DISCOMFORT 12/31/18 15:30 01/05/19 08:28 Al Hydrox/Mg Hydrox/Simethicone (Mylanta) 30 ml Q4HP PRN PO HEARTBURN/INDIGESTION 12/31/18 15:30 Haloperidol (Haldol) 5 mg BID PO 01/05/19 21:00 01/08/19 08:38 Haloperidol (Haldol) 10 mg Q6HP PRN PO ANXIETY/AGITATION 12/31/18 15:30 01/01/19 11:51 DC 01/01/19 08:54 Haloperidol (Haldol) 10 mg Q6HP PRN PO ANXIETY/AGITATION 01/01/19 12:00 01/05/19 17:15 Home Med (Med Rec Complete!) ASDIRECTED XX 12/31/18 16:15 12/31/18 16:15 DC Hydroxyzine HCl (Atarax) 50 mg DAILY PRN PO ANXIETY 12/31/18 19:45 01/07/19 15:29 Magnesium Hydroxide (Milk Of Magnesia) 30 ml DAILYPRN PRN PO CONSTIPATION 12/31/18 15:30 Nicotine (Nicoderm Cq 21mg) 1 patch DAILY TD 01/02/19 11:45 01/08/19 08:38 Propranolol HCl (Inderal) 20 mg DAILYPRN PRN PO ANXIETY 12/31/18 19:45 Trazodone HCl (Desyrel) 50 mg QHSP PRN PO INSOMNIA 12/31/18 15:30 01/05/19 22:16 Allergies Coded Allergies: No Known Allergies (Unverified , 12/31/18) STARLA MEDINA DO Jan 08, 2019 11:24 am
[2019-01-08 15:43] VITALS: BP 121/82
[2019-01-08 18:01] VITALS: BP 121/82
[2019-01-09 07:24] VITALS: BP 121/80
[2019-01-09] MEDS: NICOTINE 21MG/24HR 1 EA TRANSDERMAL TD SCH (09:00)
[2019-01-09] MEDS: HALOPERIDOL 5 MG TAB PO SCH ×2 (09:00→21:25)
[2019-01-09] MEDS: hydrOXYzine 50 MG TAB PO PRN (10:15)
[2019-01-09] MEDS: HALOPERIDOL 10 MG TAB PO PRN (14:31)
[2019-01-09 18:02] VITALS: BP 111/73
[2019-01-10 06:20] VITALS: BP 119/76
[2019-01-10] MEDS: HALOPERIDOL 5 MG TAB PO SCH ×2 (09:39→21:55)
[2019-01-10] MEDS: NICOTINE 21MG/24HR 1 EA TRANSDERMAL TD SCH (09:40)
[2019-01-10 17:49] VITALS: BP 113/72
[2019-01-10] MEDS: traZODone 50 MG TAB PO PRN (21:55)
[2019-01-11 06:51] VITALS: BP 113/76
[2019-01-11] MEDS: HALOPERIDOL 5 MG TAB PO SCH ×2 (08:35→21:25)
[2019-01-11] MEDS: NICOTINE 21MG/24HR 1 EA TRANSDERMAL TD SCH (08:36)
[2019-01-11] MEDS: HALOPERIDOL 10 MG TAB PO PRN (09:27)
[2019-01-11] MEDS: hydrOXYzine 50 MG TAB PO PRN (16:09)
[2019-01-11 17:07] VITALS: BP 127/75
[2019-01-12 06:59] VITALS: BP 112/77
[2019-01-12] MEDS: HALOPERIDOL 5 MG TAB PO SCH ×2 (09:11→21:34)
[2019-01-12] MEDS: NICOTINE 21MG/24HR 1 EA TRANSDERMAL TD SCH (09:12)
--- NOTE | 2019-01-12 11:22 | MHIPNPDOC ---
[facility] Progress Note Progress Note DATE OF SERVICE: 01/12/19 HISTORY:Patient is a 63 -year-old , male, with a history of paranoid schizophrenia, multiple admissions to [facility] in past with last 04/2015 for psychosis who brought to ED via police after his AOT coordinator (Aurelia Mckay) from [facility] issued the 9.60 shrimp picker order due to pt being psychotic, delusional, responding to internal stimuli secondary to being noncompliant on his medications, AOT intervention, and outpatient appts, refusing his invega trinza dose b/c he was "didn't want it anymore". Per AOT coordinator to ED, pt has been isolating in his apt and only leaving to frequent the buddhism close to his apt while delusional and appearing to respond to internal stimuli. Pt is a very poor historian due to his current psychosis and therefore much of history gathered from previous records. VITAL SIGNS: See below. NEW TEST RESULTS: See below. CURRENT MEDICATIONS: See below. MENTAL STATUS EXAMINATION: Roughly little change from yesterday General Appearance: appears stated age, hospital scrubs/clothing Build: average Demeanor: less preoccupied (with "evil" and "god") Eye Contact: average Activity: calm, cooperative Behavior: cooperative Speech: reg/rate,rhythm,volume, generalized, non-spontaneous Mood: euthymic Mood "good" Affect: full range, euthymic Thought Process: concrete (less preoccupied with "the evil" and hyper- oriental orthodox). Less tangential, loose, associative, flight of ideas Thought Content (Delusions): less grandiose, bizarre (Multiple references to " the evil," the islam buddhism and "fighting a war against 'them' ), delusions, other (religiosity) Thought Content (Other): less preoccupied, ideas of reference, internal-stimuli Thought Content (Aggressive): none reported Perception (Hallucinations): auditory ("people, family around me... tell me good things") Perception (Other): none reported Cognition (Impairment of): orientation (Not oriented to time), improved attention/concentration, ability to abstract Cognition(Intelligence Est.): borderline Oriented: Awake, Alert Insight: poor Judgment: Poor Psychosis: Associations, Abstract Thinking, Psychotic Perceptions (References to evil "voices, conspiracies, overlords") DIAGNOSES: 1. Paranoid Schizophrenia 2. Anxiety Disorder ASSESSMENT:Pt seen and states he feels like he's doing better. States his mood is "good." Continues to be present in the milieu and responding to internal stimuli. Continues to endorse AH that say "good things" to him and are always with him. He is very concrete and does not answer questions specifically but rather very generalized and non-descript. He does remain psychotic, delusions, religiously preoccupied, and responding to internal stimuli that is less with treatment and possibly nearing his baseline status. Will discuss with staff who know pt longer than I. Will continue to monitor to see if symptoms continue to improve after invega sustenna given and oral haldol started. He is making less bizarre, delusional comments after receiving second dose of invega sustenna that he tolerated well. Per last week's note "Complains though that the "shots hurt a lot" which makes him ambivalent about taking them outpatient and was the reason he was noncompliant on his invega sustenna prior admission. Pt may benefit from having topical lidocaine applied to his skin prior giving him his IM injections to limit pain and allow for pt to be more compliant on it outpatient. Will discuss with his AOT care outpatient about this being possible." Continues to endorse AH which he stated yesterday are of his "family and friends" who telling him he's doing good. Continues to reference God and is religiously preoccupied although less severe. He is pleasant and cooperative. He is is showing improvement in delusional, bizarre behavior and thoughts. He is having and responding to AH. Denies SI/HI. He is not agitated and is easily directed by staff. He is a very poor historian given his level of psychosis. MANAGEMENT PLAN: Continue plan and monitor for improvement in psychosis. inderal 20mg tid invega sustenna 234mg 01/01/19 invega sustenna 156mg 01/04/19 Haldol 5mg bid haldol 10mg q6hr prn anxiety/agitation trazodone 50mg qhs prn insomnia TIME SPENT: 30 minutes. Vital Signs Vital Signs Date Time Temp Pulse Resp B/P (MAP) Pulse Ox O2 Delivery O2 Flow Rate FiO2 01/12/19 06:59 97.5 89 12 112/77 (89) Current Medications Current Medications Medications (Trade) Dose Ordered Sig/Marcelino Route PRN Reason Start Time Stop Time Status Last Admin Dose Admin Acetaminophen (Tylenol Tab) 650 mg Q6HP PRN PO HEADACHE or DISCOMFORT 12/31/18 15:30 01/05/19 08:28 Al Hydrox/Mg Hydrox/Simethicone (Mylanta) 30 ml Q4HP PRN PO HEARTBURN/INDIGESTION 12/31/18 15:30 Haloperidol (Haldol) 5 mg BID PO 01/05/19 21:00 01/12/19 09:11 Haloperidol (Haldol) 10 mg Q6HP PRN PO ANXIETY/AGITATION 12/31/18 15:30 01/01/19 11:51 DC 01/01/19 08:54 Haloperidol (Haldol) 10 mg Q6HP PRN PO ANXIETY/AGITATION 01/01/19 12:00 01/11/19 09:27 Home Med (Med Rec Complete!) ASDIRECTED XX 12/31/18 16:15 12/31/18 16:15 DC Hydroxyzine HCl (Atarax) 50 mg DAILY PRN PO ANXIETY 12/31/18 19:45 01/11/19 16:09 Magnesium Hydroxide (Milk Of Magnesia) 30 ml DAILYPRN PRN PO CONSTIPATION 12/31/18 15:30 Nicotine (Nicoderm Cq 21mg) 1 patch DAILY TD 01/02/19 11:45 01/12/19 09:12 Propranolol HCl (Inderal) 20 mg DAILYPRN PRN PO ANXIETY 12/31/18 19:45 01/08/19 15:43 Trazodone HCl (Desyrel) 50 mg QHSP PRN PO INSOMNIA 12/31/18 15:30 01/10/19 21:55 Allergies Coded Allergies: No Known Allergies (Unverified , 12/31/18) STARLA MEDINA DO Jan 12, 2019 11:22 am
[2019-01-12 16:42] VITALS: BP 134/67
[2019-01-12] MEDS: traZODone 50 MG TAB PO PRN (21:34)
[2019-01-13 07:09] VITALS: BP 110/58
[2019-01-13] MEDS: HALOPERIDOL 5 MG TAB PO SCH ×2 (08:47→20:25)
[2019-01-13] MEDS: NICOTINE 21MG/24HR 1 EA TRANSDERMAL TD SCH (08:47)
--- NOTE | 2019-01-13 10:41 | MHIPNPDOC ---
[facility] Progress Note Progress Note DATE OF SERVICE: 01/13/19 HISTORY: Patient is a 63 -year-old , male, with a history of paranoid schizophrenia, multiple admissions to [facility] in past with last 04/2015 for psychos is who brought to ED via police after his AOT coordinator (Aurelia Mckay) from [facility] issued the 9.60 grain picker order due to pt being psychotic, delusional, responding to internal stimuli secondary to being noncompliant on his medications, AOT intervention, and outpatient appts, refusing his invega trinza dose b/c he was "didn't want it anymore". Per AOT coordinator to ED, pt has been isolating in his apt and only leaving to frequent the restorationism close to his apt while delusional and appearing to respond to internal stimuli. Pt is a very poor historian due to his current psychosis and therefore much of history gathered from previous records. VITAL SIGNS: See below. NEW TEST RESULTS: See below. CURRENT MEDICATIONS: See below. MENTAL STATUS EXAMINATION: Roughly little change from yesterday General Appearance: appears stated age, own clothing, clean Build: average Demeanor: less preoccupied (with "evil" and "god") Eye Contact: average Activity: calm, cooperative Behavior: cooperative Speech: reg/rate,rhythm,volume, generalized, non-spontaneous Mood: euthymic Mood "good" Affect: full range, euthymic Thought Process: concrete (less preoccupied with "the evil" and hyper- gnosticist). Less tangential, loose, associative, flight of ideas Thought Content (Delusions): less grandiose, bizarre, continues to be relig iously preoccupied Thought Content (Other): less preoccupied, ideas of reference (gnosticist). internal-stimuli are less Thought Content (Aggressive): none reported Perception (Hallucinations): auditory ("people, family around me... tell me good things") that are less and non-command Perception (Other): none reported Cognition (Impairment of): orientation (Not oriented to time), improved attention/concentration, ability to abstract Cognition(Intelligence Est.): borderline Oriented: Awake, Alert Insight: poor Judgment: Poor Psychosis: Improving Associations (gnosticist), Abstract Thinking, Psychotic Perceptions DIAGNOSES: 1. Paranoid Schizophrenia 2. Anxiety Disorder ASSESSMENT:Pt seen and states he feels like he's doing "alright". Per treatment team his AOT CM is coming to see pt today to see if he's close to his baseline status. Continues to be present in the milieu and responding to internal stimuli that he states are of his family and friends and always "good" and noncommand. He is less psychotic, delusional and continues to be religiously preoccupied. Will discuss with staff who know pt longer than I. Will continue to monitor to see if symptoms continue to improve after invega sustenna given and oral haldol started. He is making less bizarre, delusional comments after receiving second dose of invega sustenna that he tolerated well. Per last week's note "Complains though that the "shots hurt a lot" which makes him ambivalent about taking them outpatient and was the reason he was noncompliant on his invega sustenna prior admission. Pt may benefit from having topical lidocaine applied to his skin prior giving him his IM injections to limit pain and allow for pt to be more compliant on it outpatient. Will discuss with his AOT care outpatient about this being possible." He is pleasant and cooperative. He is is showing improvement in delusional, bizarre behavior and thoughts. D enies SI/HI. He is not agitated and is easily directed by staff. He is a very poor historian given his level of psychosis. MANAGEMENT PLAN: Continue plan and monitor for improvement in psychosis. inderal 20mg tid invega sustenna 234mg 01/01/19 invega sustenna 156mg 01/04/19 Haldol 5mg bid haldol 10mg q6hr prn anxiety/agitation trazodone 50mg qhs prn insomnia TIME SPENT: 30 minutes. Vital Signs Vital Signs Date Time Temp Pulse Resp B/P (MAP) Pulse Ox O2 Delivery O2 Flow Rate FiO2 01/13/19 07:09 98.7 69 12 110/58 (75) Current Medications Current Medications Medications (Trade) Dose Ordered Sig/Marcelino Route PRN Reason Start Time Stop Time Status Last Admin Dose Admin Acetaminophen (Tylenol Tab) 650 mg Q6HP PRN PO HEADACHE or DISCOMFORT 12/31/18 15:30 01/05/19 08:28 Al Hydrox/Mg Hydrox/Simethicone (Mylanta) 30 ml Q4HP PRN PO HEARTBURN/INDIGESTION 12/31/18 15:30 Haloperidol (Haldol) 5 mg BID PO 01/05/19 21:00 01/13/19 08:47 Haloperidol (Haldol) 10 mg Q6HP PRN PO ANXIETY/AGITATION 12/31/18 15:30 01/01/19 11:51 DC 01/01/19 08:54 Haloperidol (Haldol) 10 mg Q6HP PRN PO ANXIETY/AGITATION 01/01/19 12:00 01/11/19 09:27 Home Med (Med Rec Complete!) ASDIRECTED XX 12/31/18 16:15 12/31/18 16:15 DC Hydroxyzine HCl (Atarax) 50 mg DAILY PRN PO ANXIETY 12/31/18 19:45 01/11/19 16:09 Magnesium Hydroxide (Milk Of Magnesia) 30 ml DAILYPRN PRN PO CONSTIPATION 12/31/18 15:30 Nicotine (Nicoderm Cq 21mg) 1 patch DAILY TD 01/02/19 11:45 01/13/19 08:47 Propranolol HCl (Inderal) 20 mg DAILYPRN PRN PO ANXIETY 12/31/18 19:45 01/08/19 15:43 Trazodone HCl (Desyrel) 50 mg QHSP PRN PO INSOMNIA 12/31/18 15:30 01/12/19 21:34 Allergies Coded Allergies: No Known Allergies (Unverified , 12/31/18) STARLA MEDINA DO Jan 13, 2019 9:37 am
[2019-01-13] MEDS: HALOPERIDOL 10 MG TAB PO PRN (11:33)
[2019-01-13 16:35] VITALS: BP 140/70
[2019-01-13] MEDS: traZODone 50 MG TAB PO PRN (20:25)
[2019-01-13] MEDS: hydrOXYzine 50 MG TAB PO PRN (20:25)
[2019-01-14 06:48] VITALS: BP 99/55
[2019-01-14] MEDS: HALOPERIDOL 5 MG TAB PO SCH ×2 (09:07→21:39)
[2019-01-14] MEDS: NICOTINE 21MG/24HR 1 EA TRANSDERMAL TD SCH (09:07)
--- NOTE | 2019-01-14 10:12 | MHIPNPDOC ---
[facility] Progress Note Progress Note DATE OF SERVICE: 01/14/19 HISTORY: Patient is a 63 -year-old , male, with a history of paranoid schizophrenia, multiple admissions to [facility] in past with last 04/2015 for psychos is who brought to ED via police after his AOT coordinator (Aurelia Mckay) from [facility] issued the 9.60 shrimp picker order due to pt being psychotic, delusional, responding to internal stimuli secondary to being noncompliant on his medications, AOT intervention, and outpatient appts, refusing his invega trinza dose b/c he was "didn't want it anymore". Per AOT coordinator to ED, pt has been isolating in his apt and only leaving to frequent the oriental orthodox close to his apt while delusional and appearing to respond to internal stimuli. Pt is a very poor historian due to his current psychosis and therefore much of history gathered from previous records. VITAL SIGNS: See below. NEW TEST RESULTS: See below. CURRENT MEDICATIONS: See below. MENTAL STATUS EXAMINATION: Roughly little change from yesterday General Appearance: appears stated age, own clothing, clean Build: average Demeanor: less preoccupied (with "evil" and "god") Eye Contact: average Activity: calm, cooperative Behavior: cooperative Speech: reg/rate,rhythm,volume, generalized, non-spontaneous Mood: euthymic Mood "good" Affect: full range, euthymic Thought Process: concrete (less preoccupied with "the evil" and hyper- adventist). Less tangential, loose, associative, flight of ideas. Possibly near his baseline status Thought Content (Delusions): less grandiose, bizarre, continues to be religiously preoccupied Thought Content (Other): less preoccupied, ideas of reference (adventist). internal-stimuli are less Thought Content (Aggressive): none reported Perception (Hallucinations): denies AH but when observed in milieu possible still responding to some internal stimuli Perception (Other): none reported Cognition (Impairment of): improved attention/concentration, ability to abstract Cognition(Intelligence Est.): borderline Oriented: Awake, Alert, oriented x3 Insight: poor Judgment: Poor Psychosis: Improving Associations (adventist), Abstract Thinking, Psychotic Perceptions DIAGNOSES: 1. Paranoid Schizophrenia 2. Anxiety Disorder ASSESSMENT:Pt seen and states he feels like he's doing "good". Asked about his AH and states "they're all gone." Per treatment team his AOT CM is coming to see pt today to see if he's close to his baseline status. Continues to be present in the milieu and responding to less internal stimuli that he now denies. He is less psychotic, delusional and continues to be religiously preoccupied. He is possibly near his baseline status. Will discuss with staff who know pt longer than I. Will continue to monitor to see if symptoms continue to improve after invega sustenna given and oral haldol started. He is making less bizarre, delusional comments after receiving second dose of invega sustenna that he tolerated well. Per last week's note "Complains though that the "shots hurt a lot" which makes him ambivalent about taking them outpatient and was the reason he was noncompliant on his invega sustenna prior admission. Pt may benefit from having topical lidocaine applied to his skin prior giving him his IM injections to limit pain and allow for pt to be more compliant on it outpatient. Will discuss with his AOT care outpatient about this being possible." He is pleasant and cooperative. He is is showing improvement in delusional, bizarre behavior and thoughts. Denies SI/HI. He is not agitated and is easily directed by staff. He is a very poor historian given his level of psychosis. MANAGEMENT PLAN: Continue plan and monitor for improvement in psychosis. inderal 20mg tid invega sustenna 234mg 01/01/19 invega sustenna 156mg 01/04/19 Haldol 5mg bid haldol 10mg q6hr prn anxiety/agitation trazodone 50mg qhs prn insomnia TIME SPENT: 30 minutes. Vital Signs Vital Signs Date Time Temp Pulse Resp B/P (MAP) Pulse Ox O2 Delivery O2 Flow Rate FiO2 01/14/19 06:48 99.0 63 12 99/55 (70) Current Medications Current Medications Medications (Trade) Dose Ordered Sig/Marcelino Route PRN Reason Start Time Stop Time Status Last Admin Dose Admin Acetaminophen (Tylenol Tab) 650 mg Q6HP PRN PO HEADACHE or DISCOMFORT 12/31/18 15:30 01/05/19 08:28 Al Hydrox/Mg Hydrox/Simethicone (Mylanta) 30 ml Q4HP PRN PO HEARTBURN/INDIGESTION 12/31/18 15:30 Haloperidol (Haldol) 5 mg BID PO 01/05/19 21:00 01/14/19 09:07 Haloperidol (Haldol) 10 mg Q6HP PRN PO ANXIETY/AGITATION 12/31/18 15:30 01/01/19 11:51 DC 01/01/19 08:54 Haloperidol (Haldol) 10 mg Q6HP PRN PO ANXIETY/AGITATION 01/01/19 12:00 01/13/19 11:33 Home Med (Med Rec Complete!) ASDIRECTED XX 12/31/18 16:15 12/31/18 16:15 DC Hydroxyzine HCl (Atarax) 50 mg DAILY PRN PO ANXIETY 12/31/18 19:45 01/13/19 20:25 Magnesium Hydroxide (Milk Of Magnesia) 30 ml DAILYPRN PRN PO CONSTIPATION 12/31/18 15:30 Nicotine (Nicoderm Cq 21mg) 1 patch DAILY TD 01/02/19 11:45 01/14/19 09:07 Propranolol HCl (Inderal) 20 mg DAILYPRN PRN PO ANXIETY 12/31/18 19:45 01/08/19 15:43 Trazodone HCl (Desyrel) 50 mg QHSP PRN PO INSOMNIA 12/31/18 15:30 01/13/19 20:25 Allergies Coded Allergies: No Known Allergies (Unverified , 12/31/18) STARLA MEDINA DO Jan 14, 2019 10:12 am
[2019-01-14] MEDS: HALOPERIDOL 10 MG TAB PO PRN (14:29)
[2019-01-14 17:32] VITALS: BP 138/80
[2019-01-15 06:55] VITALS: BP 103/67
[2019-01-15] MEDS: HALOPERIDOL 5 MG TAB PO SCH (08:01)
[2019-01-15] MEDS: NICOTINE 21MG/24HR 1 EA TRANSDERMAL TD SCH (08:01)
--- NOTE | 2019-01-15 09:06 | MHDSPDOC ---
[facility] Discharge Summary Discharge Summary DATE OF ADMISSION: Dec 31, 2018 at 3:28 pm DATE OF DISCHARGE: Jan 15, 2019 DISCHARGE DIAGNOSES: 1. Paranoid Schizophrenia 2. Anxiety Disorder REASON FOR ADMISSION: Patient is a 63 -year-old , male, with a history of paranoid schizophrenia, multiple admissions to [facility] in past with last 04/2015 for psychosis who brought to ED via police after his AOT coordinator (Aurelia Mckay) from [facility] issued the 9.60 pickler helper order due to pt being psychotic, delusional, responding to internal stimuli secondary to being noncompliant on his medications, AOT intervention, and outpatient appts, refusing his invega trinza dose b/c he was "didn't want it anymore". Per AOT coordinator to ED, pt has been isolating in his apt and only leaving to frequent the christianity close to his apt while delusional and appearing to respond to internal stimuli. Pt is a very poor historian due to his current psychosis and therefore much of history gathered from previous records. CONSULTANTS INVOLVED: none TREATMENT AND PROGRESS ON THE UNIT : Pt was admitted to [facility], seen for psychiatric assessment and was given invega sustenna 234mg IM then 156mg IM 3 days after that he tolerated well. He had been not compliant on his invega sustenna for over 3 months and when taking was at his baseline and not psychotic per AOT team. His symptoms of psychosis improved only mildly after invega sustenna IM given so he was started on oral haldol 5mg bid that he tolerated well and was beneficial as he achieved his baseline status, which AOT team came in to see that he was at his baseline, and was deemed at baseline with denial of AH, no longer delusional, and no psychotic. He was restarted on his outpatient propranolol 20mg daily. He was provided trazodone 50mg qhs prn insomnia. Pt found his medications beneficial and tolerated them well. He attended groups daily during his stay. His symptoms improved greatly with treatment. On day of discharge he denied depression, anxiety, insomnia, SI/HI, hallucinations, delusions. He was discharged home with his AOT team with follow-up with them. He felt safe for discharge. DISCHARGE ASSESSMENT: Pt seen and states he feels like he's doing "good". He denies AH and does not appear to be responding to them. He is no longer delusional or fluidly religiously preoccupied. Per treatment team his AOT CM is came to see pt on Friday and stated he was at baseline and most likely ready to go discharge. He has been compliant on his medications thru out his stay, tolerated them well, and they appear greatly beneficial to the pt. He has been attending groups daily which he enjoys. He has been very pleasant and cooperative thru out his stay. He denies depression, anxiety, insomnia, SI/HI, hallucinations, delusions. Feels safe to go home with his AOT team to his apt. While here pt stated "Complains though that the "shots hurt a lot" which makes him ambivalent about taking them outpatient and was the reason he was noncompliant on his invega sustenna prior admission. Pt may benefit from having topical lidocaine applied to his skin prior giving him his IM injections to limit pain and allow for pt to be more compliant on it outpatient. Will discuss with his AOT care outpatient about this being possible." MENTAL STATUS EXAMINATION ON DISCHARGE: General Appearance: appears stated age, own clothing, clean Build: average Demeanor: cooperative Eye Contact: average Activity: calm, cooperative Behavior: cooperative Speech: reg/rate,rhythm,volume, generalized, non-spontaneous Mood: euthymic Mood "good" Affect: full range, euthymic Thought Process: concrete, baseline status Thought Content (Delusions): baseline status Thought Content (Other): baseline status Thought Content (Aggressive): none reported Perception (Hallucinations): denies AH but when observed in milieu and doesn't appear to beresponding to internal stimuli Perception (Other): none reported Cognition (Impairment of): greatly improved attention/concentration, ability to abstract Cognition(Intelligence Est.): borderline Oriented: Awake, Alert, oriented x3 Insight: fair Judgment: fair Psychosis: Greatly Improved Associations (hindu) MEDICATIONS ON DISCHARGE: invega sustenna 234mg 01/01/19 invega sustenna 156mg 01/04/19 Haldol 5mg bid trazodone 50mg qhs prn insomnia PLAN/FOLLOWUP ARRANGEMENTS: D/c home with follow-up with AOT team. The amount of time spent in the coordination of care for this patient was approximately 30 minutes. Vital Signs/I&Os Vital Signs Date Time Temp Pulse Resp B/P (MAP) Pulse Ox O2 Delivery O2 Flow Rate FiO2 01/15/19 06:55 97.8 93 16 103/67 (79) Medications Scheduled Haloperidol (Haloperidol) 5 Mg Tablet, 5 MG PO BID for schizophrenia, #20 Paliperidone Palmitate (Invega Sustenna) 234 Mg/1.5 Ml Syringe, 234 MG IM QMONTH for schizophrenia, #1 Scheduled PRN Hydroxyzine Pamoate (Hydroxyzine Pamoate) 50 Mg Cap, 50 MG PO DAILY PRN for ANXIETY, (Reported) Propranolol HCl (Propranolol HCl) 20 Mg Tab, 20 MG PO DAILY PRN for ANXIETY, #10 Trazodone HCl (Trazodone HCl) 50 Mg Tablet, 50 MG PO QHSP PRN for INSOMNIA, #10 Allergies Coded Allergies: No Known Allergies (Unverified , 12/31/18) STARLA MEDINA DO Jan 15, 2019 9:05 am
[2019-01-15] MEDS ORDERED: PROP20TA72 PO (09:10)
[2019-01-15] MEDS ORDERED: HALO5TA PO (09:10)
[2019-01-15] MEDS ORDERED: INVE234I IM (09:11)
[2019-01-15] MEDS ORDERED: TRAZ-252 PO (09:11)
== END 2019-01-15 11:45 | disposition home or self-care (01) | DRG 885 ==
LOC: M ED 13:17 → M ED INP 15:28 → M PSY 16:23
PROVIDERS: ADMIT Psychiatry & Neurology Psychiatry; ATTEND Psychiatry & Neurology Psychiatry
DX: F20.0 Paranoid schizophrenia (principal); F17.210 Nicotine dependence, cigarettes, uncomplicated; F41.9 Anxiety disorder, unspecified; Z79.899 Other long term (current) drug therapy; Z91.14 Patient's other noncompliance with medication regimen

== ENCOUNTER 2020-04-12 16:28 | Inpatient (IN) | payer MEDICARE, MEDICAID ==
[~2020-04-12] VITALS: Ht 172.7 cm; Wt 83.6 kg
[~2020-04-12 16:28] MED LIST changes: +HALO5TA PO; +INVE1.75 IM; +RISP-9; -RISP2TAB3; +TRAZ-252 PO
[2020-04-12 17:13] LABS: HEMATOCRIT 38.1 % (42.0-52.0); HEMOGLOBIN 12.9 g/dl (13.5-17.5); MEAN CORPUSCULAR HEMOGLOBIN 30.6 pg (27.0-33.0); MEAN CORPUSCULAR HGB CONC 33.9 g/dl (32.0-36.5); MEAN CORPUSCULAR VOLUME 90.5 fl (80.0-96.0); PLATELET COUNT, AUTOMATED 226 10^3/uL (150-450); RED BLOOD COUNT 4.21 10^6/uL (4.30-6.10); WHITE BLOOD COUNT 6.7 10^3/uL (4.0-10.0)
[2020-04-12 17:36] LABS: AMPHETAMINES LEVEL URINE NEGATIVE (NEGATIVE); BARBITURATES URINE NEGATIVE (NEGATIVE); BENZODIAZEPINES URINE NEGATIVE (NEGATIVE); CANNABINOIDS URINE NEGATIVE (NEGATIVE); COCAINE METABOLITE URINE NEGATIVE (NEGATIVE); METHADONE URINE NEGATIVE (NEGATIVE); OPIATES URINE NEGATIVE (NEGATIVE); PHENCYCLIDINE URINE NEGATIVE (NEGATIVE)
[2020-04-12 17:47] LABS: ACETAMINOPHEN LEVEL < 2.0 UG/ML (10.0-30.0); ALBUMIN 3.5 GM/DL (3.2-5.2); ALT/SGPT 22 U/L (12-78); BILIRUBIN,DIRECT 0.1 MG/DL (0.0-0.2); BILIRUBIN,TOTAL 0.3 MG/DL (0.2-1.0); BLOOD UREA NITROGEN 13 MG/DL (7-18); CALCIUM LEVEL 9.2 MG/DL (8.8-10.2); CARBON DIOXIDE LEVEL 27 MEQ/L (21-32); CHLORIDE LEVEL 110 MEQ/L (98-107); CREATININE FOR GFR 0.86 MG/DL (0.70-1.30); ETHYL ALCOHOL (ETHANOL) 0.004 % (0.000-0.010); GLOMERULAR FILTRATION RATE > 60.0 (>49); GLUCOSE, FASTING 98 MG/DL (70-100); POTASSIUM SERUM 4.1 MEQ/L (3.5-5.1); SALICYLATE LEVEL < 1.7 MG/DL (5.0-30.0); SODIUM LEVEL 141 MEQ/L (136-145)
[2020-04-12] MEDS ORDERED: HYDR50TA70 PO (18:12)
[2020-04-12] MEDS ORDERED: INVE1.75 IM (18:12)
[2020-04-12] MEDS ORDERED: PROP20TA72 PO (18:12)
[2020-04-12] MEDS ORDERED: PROPRANOLOL 20 MG TAB PO PRN (21:45)
[2020-04-12] MEDS ORDERED: MAALOX 30 ML SUSP *UDC PO PRN (21:45)
[2020-04-12] MEDS ORDERED: MOM 30ML SUSPENSION UDC PO PRN (21:45)
[2020-04-12] MEDS: PALIPERIDONE 3 MG ER TAB (INVEGA) PO SCH (23:33)
[2020-04-12 23:34] VITALS: BP 139/84
[2020-04-12] MEDS: OLANZapine ORAL DISINTEGRATING TAB 5MG PO PRN (23:48)
[2020-04-12] MEDS: traZODone 50 MG TAB PO PRN (23:48)
[2020-04-13] MEDS: hydrOXYzine 50 MG TAB PO PRN (05:42)
[2020-04-13 06:52] VITALS: BP 130/78
[2020-04-13] MEDS: PALIPERIDONE 3 MG ER TAB (INVEGA) PO SCH ×2 (10:03→20:31)
--- NOTE | 2020-04-13 10:40 | MHHPEPDOC ---
General Date Of Admission: Apr 12, 2020 Legal Status: 9.39 Chief Complaint "It was evil History of Present Illness HISTORY OF THE PRESENT ILLNESS: Patient is a 64 -year-old , male, who presents to [facility] after being brought in on AOT pickup order, he reportedly become increasingly aggressive and bizarre, when he was met with, he was still quite unusual and talked about "evil things" that he couldn't describe me in any great degree. It really bizarre behavior following me around the unit staring and then subsequently walking off, he remains fairly disorganized and not much of an interview is able to be undertaken. Psychiatric Review of Systems Psychosis: auditory hallucination, paranoia, disorganization Past Psychiatric History Previous Psychiatric Diagnosis: schizophrenia. Previous Psychiatric Admissions: multiple previous admissions last several months ago. Suicide Attempts: unclear Psychiatric Follow-up: DAYANA OLIVEIRA. Psychiatric medications: paliperidone Depot three-month injection 891 mg every 3 months. Past Medical History Medical Problems Age-related comorbidities Family Medical/Psychiatric HX Medical Problems Unable to review due to patient's disorganization Addiction History other (Reported history of cannabis use) Social History Current Living Situation: living with the mother of his children. Education: primary education. Employment: not clear. Social Support: AOT. Legal: AOT. Marital: unmarried does have some children. Mental Status Examination General Appearance: unkempt Demeanor: preoccupied Eye Contact: intense Activity: anxious Behavior: restless Speech: pressured Mood: anxious Affect: constricted Thought Process: circumstantial Thought Content (Delusions): persecutory, bizarre, paranoia Thought Content (Other): preoccupied Perception (Hallucinations): auditory Cognition (Impairment of): unable to assess Cognition(Intelligence Est.): average Oriented: Oriented times three Insight: poor Judgment: Poor Psychosis: Psychotic Perceptions Assessment The patient seems to have decompensated in terms of schizophrenia, he has been resumed on oral paliperidone, unclear if he had gotten his long-acting injectable, as is not elucidated the notes, however it's notable to have on off periods with the depot, which could have had patient symptoms recur Problem List Problems: (1) Paranoid schizophrenia Status: Chronic Problem Text: Continue paliperidone 3 mg BID (2) Marijuana use Status: Chronic Problem Specific Plan: Monitor Clinically Initial Treatment Plan 1. Patient was admitted on a [9.39] status. 2. Complete history was obtained. 3. With patients permission, family will be contacted and database will be expanded. 4. Patients medication regimen will be reviewed and changed accordingly. 5. Patient will be provided with protected environment. 6. Patient will be treated with individual, group, and milieu therapies. 7. Patient will receive supportive psych-education. 8. Discharge planning will commence immediately. 9. Outpatient follow-up treatment will be strongly recommended. 10. The initial treatment plan will focus initially on: altered thoughts ESTIMATED LENGTH OF STAY: 2-7 DAYS. TIME SPENT COUNSELING AND COORDINATING INITIAL CARE: 30 minutes. Vital Signs Vital Signs Date Time Temp Pulse Resp B/P (MAP) Pulse Ox O2 Delivery O2 Flow Rate FiO2 04/13/20 06:52 97.4 64 16 130/78 (95) 99 Room Air Laboratory Data 24H Labs Laboratory Tests 2 04/12/20 16:58: Nucleated Red Blood Cells % (auto) 0.0, Anion Gap 4L, Glomerular Filtration Rate > 60.0, Calcium Level 9.2, Total Bilirubin 0.3, Direct Bilirubin 0.1, Aspartate Amino Transf (AST/SGOT) 17, Alanine Aminotransferase (ALT/SGPT) 22, Alkaline Phosphatase 77, Total Protein 7.0, Albumin 3.5, Albumin/Globulin Ratio 1.0, Thyroid Stimulating Hormone (TSH) 3.550, Salicylates Level < 1.7L, Urine Opiates Screen NEGATIVE, Urine Methadone Screen NEGATIVE, Acetaminophen Level < 2.0L, Urine Barbiturates Screen NEGATIVE, Urine Phencyclidine Screen NEGATIVE, Urine Amphetamines Screen NEGATIVE, Urine Benzodiazepines Screen NEGATIVE, Urine Cocaine Metabolite Screen NEGATIVE, Urine Cannabinoids Screen NEGATIVE, Ethyl Alcohol Level 0.004 04/12/20 18:50: Coronavirus (COVID-19)(PCR) NEGATIVE CBC/BMP Laboratory Tests 04/12/20 16:58 Medications Scheduled Paliperidone Palmitate (Invega Trinza) 819 Mg/2.625 Ml Syringe, 819 MG IM Q3M, (Reported) Scheduled PRN Hydroxyzine HCl (Hydroxyzine HCl) 50 Mg Tablet, 50 MG PO BID PRN for ANXIETY, (Reported) Propranolol HCl (Propranolol HCl) 20 Mg Tablet, 20 MG PO DAILY PRN for ANXIETY, (Reported) Allergies Coded Allergies: No Known Allergies (Unverified , 12/31/18) BISHOP CLARK DO Apr 13, 2020 10:40
--- NOTE | 2020-04-13 13:39 | HPEPDOC ---
General Date of Admission Apr 12, 2020 at 21:37 Date of Service: Apr 13, 2020 Chief Complaint The patient is a 64-year-old male admitted with a reason for visit of Unspecified Psychotic Disorder. History of Present Illness 64 year old male with Schizophrenia was admitted to [facility] for acute psychosis. Patient was at his counsellor's office when he became aggressive and started saying he was being injected with poison Vaughn was telling him so he was sent to the ED. I am seeing the patient for medical history and physical. Today he complained of right lower chest pain at the front. He reports that he fell on that side about a month ago when he was trying to get "beer from dumpster where his friend had stacked it". Repots its dull aching in nature and worse when he coughs. He rated the pain about a 4/10/ He also complains of chronic cough with some whitish phlegm production which he says is from his smoking. He denied any other complains. Home Medications Scheduled Paliperidone Palmitate (Invega Trinza) 819 Mg/2.625 Ml Syringe, 819 MG IM Q3M, (Reported) Scheduled PRN Hydroxyzine HCl (Hydroxyzine HCl) 50 Mg Tablet, 50 MG PO BID PRN for ANXIETY, (Reported) Propranolol HCl (Propranolol HCl) 20 Mg Tablet, 20 MG PO DAILY PRN for ANXIETY, (Reported) Allergies Coded Allergies: No Known Allergies (Unverified , 12/31/18) Past Medical History Medical History Paranoid Schizophrenia Anxiety Disorder Surgical History Right inguinal hernia repair. Family History Significant Family History: No pertinent family hx FATHER ALIVE AND HEALTHY MOTHER FROM PNEUMONIA SISTER NO HEALTH PROBLEMS Social History * Smoker: current smoker Alcohol: occationally Drugs: denies A-FIB/CHADSVASC A-FIB History Current/History of A-Fib/PAF?: No Review of Systems Constitutional: Denies: Chills, Fever, Night Sweats Eyes: Denies: Pain, Vision change ENT: Denies: Head Aches, Ear Pain, Dysphagia Skin: Denies: Rash, Lesions, Breakdown Pulmonary: Reports: Cough; Denies: Dyspnea Cardiovascular: Reports: Chest Pain; Denies: Palpitations, Orthopnea, Paroxysmal Noc. Dyspnea, Lt Headedness Gastrointestinal: Reports: Constipation; Denies: Nausea, Vomiting, Abdominal Pain, Diarrhea Genitourinary: Denies: Dysuria, Frequency, Incontinence, Retention Hematologic: Denies: Bruising, Bleeding Excessively Physical Examination General Exam: Positive: Alert, No Acute Distress Eye Exam: Positive: PERRLA, Conjunctiva & lids normal, EOMI; Negative: Sclera icteric ENT Exam: Positive: Atraumatic, Mucous membr. moist/pink, Pharynx Normal Neck Exam: Positive: Supple; Negative: JVD, thyromegaly Chest Exam: Positive: Normal air movement, Wheezing (few scattered wheezes on deep expiration) Heart Exam: Positive: Rate Normal, Regular Rhythm, Normal S1, Normal S2; Negative: Murmurs, Rubs Abdomen Exam: Positive: Normal bowel sounds, Soft; Negative: Tenderness, Hepatospenomegaly Extremity Exam: Positive: Normal pulses; Negative: Clubbing, Cyanosis, Edema Vital Signs Vital Signs Date Time Temp Pulse Resp B/P (MAP) Pulse Ox O2 Delivery O2 Flow Rate FiO2 04/13/20 06:52 97.4 64 16 130/78 (95) 99 Room Air Laboratory Data Labs 24H Laboratory Tests 2 04/12/20 16:58: Nucleated Red Blood Cells % (auto) 0.0, Anion Gap 4L, Glomerular Filtration Rate > 60.0, Calcium Level 9.2, Total Bilirubin 0.3, Direct Bilirubin 0.1, Aspartate Amino Transf (AST/SGOT) 17, Alanine Aminotransferase (ALT/SGPT) 22, Alkaline Phosphatase 77, Total Protein 7.0, Albumin 3.5, Albumin/Globulin Ratio 1.0, Thyroid Stimulating Hormone (TSH) 3.550, Salicylates Level < 1.7L, Urine Opiates Screen NEGATIVE, Urine Methadone Screen NEGATIVE, Acetaminophen Level < 2.0L, Urine Barbiturates Screen NEGATIVE, Urine Phencyclidine Screen NEGATIVE, Urine Amphetamines Screen NEGATIVE, Urine Benzodiazepines Screen NEGATIVE, Urine Cocai ne Metabolite Screen NEGATIVE, Urine Cannabinoids Screen NEGATIVE, Ethyl Alcohol Level 0.004 04/12/20 18:50: Coronavirus (COVID-19)(PCR) NEGATIVE CBC/BMP Laboratory Tests 04/12/20 16:58 Assessment/Plan 64 year old male with Schizophrenia was admitted to [facility] for acute psychosis. Patient was at his counsellor's office when he became aggressive and started saying he was being injected with poison Vaughn was telling him so he was sent to the ED. I am seeing the patient for medical history and physical. Schizophrenia as per psychiatry Persistent Chest pain after a mechanical fall will get a CXR. Chronic bronchitis from smoking Plan / VTE VTE Prophylaxis Ordered?: No (freely ambulatory) RADHA ROTHMAN MD Apr 13, 2020 11:08
--- NOTE | 2020-04-13 15:56 | REP ---
INDICATION: chest trauma. COMPARISON: Comparison chest x-ray May 29, 2012.. TECHNIQUE: Sitting AP portable chest x-ray. Two views. FINDINGS: There is a centrally calcified benign granuloma in the left lung base. The lungs are somewhat hyperinflated but otherwise clear. Pleural angles are sharp. The heart is not enlarged. Pulmonary vasculature is not increased. No significant bony abnormality is seen. IMPRESSION: No active cardiopulmonary disease. Mild hyperinflation. <Electronically signed by Mikhail Bhagat > 04/13/20 2646
[2020-04-13 16:45] VITALS: BP 133/81
[2020-04-14 06:29] VITALS: BP 137/83
[2020-04-14 06:31] VITALS: BP 128/80
[2020-04-14] MEDS: PALIPERIDONE 3 MG ER TAB (INVEGA) PO SCH ×2 (08:25→22:22)
[2020-04-14] MEDS: hydrOXYzine 50 MG TAB PO PRN ×2 (08:25→23:06)
[2020-04-14] MEDS: **UNRESOLVED NON-FORMULARY MED ORDER XX SCH (09:00)
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
[2020-04-14] MEDS: OXYMETAZOLINE 0.05% NASAL SPRAY (AFRIN) SCH ×2 (13:42→22:22)
[2020-04-14 16:00] VITALS: BP 135/78
[2020-04-14] MEDS: ACETAMINOPHEN TAB 650MG DOSE (2X325MG) PO PRN (23:06)
[2020-04-15] MEDS: ACETAMINOPHEN TAB 650MG DOSE (2X325MG) PO PRN (08:36)
[2020-04-15] MEDS: OXYMETAZOLINE 0.05% NASAL SPRAY (AFRIN) SCH ×2 (08:36→20:45)
[2020-04-15] MEDS: PALIPERIDONE 3 MG ER TAB (INVEGA) PO SCH ×2 (08:36→20:45)
[2020-04-15] MEDS: **UNRESOLVED NON-FORMULARY MED ORDER XX SCH (08:38)
[2020-04-15] MEDS: hydrOXYzine 50 MG TAB PO PRN (11:41)
[2020-04-15] MEDS: NICOTINE 7 MG/24 HR TRANSDERMAL TD SCH (14:10)
[2020-04-15 16:40] VITALS: BP 155/84
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
[2020-04-15] MEDS: traZODone 50 MG TAB PO PRN (20:45)
[2020-04-16 06:30] VITALS: BP 128/84
[2020-04-16] MEDS: PALIPERIDONE 3 MG ER TAB (INVEGA) PO SCH ×2 (08:01→22:01)
[2020-04-16] MEDS: OLANZapine ORAL DISINTEGRATING TAB 5MG PO PRN (08:02)
[2020-04-16] MEDS: NICOTINE 7 MG/24 HR TRANSDERMAL TD SCH (08:02)
[2020-04-16] MEDS: OXYMETAZOLINE 0.05% NASAL SPRAY (AFRIN) SCH ×2 (08:02→21:00)
[2020-04-16] MEDS: **UNRESOLVED NON-FORMULARY MED ORDER XX SCH (08:02)
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
[2020-04-16 18:22] VITALS: BP 145/84
[2020-04-17 06:32] VITALS: BP 148/86
[2020-04-17] MEDS: **UNRESOLVED NON-FORMULARY MED ORDER XX SCH (09:00)
[2020-04-17] MEDS: PALIPERIDONE 3 MG ER TAB (INVEGA) PO SCH ×2 (09:52→20:23)
[2020-04-17] MEDS: NICOTINE 7 MG/24 HR TRANSDERMAL TD SCH (09:52)
--- NOTE | 2020-04-17 09:53 | MHIPNPDOC ---
[facility] Progress Note Progress Note DATE OF SERVICE: 04/17/20 HISTORY: The patient is attempted to be met with, however he is horribly disorganized, he is unable to really engage in much of the discussion other than to continuously but usually prays the hospital and this provider, he walks around staring at various others and making strange statements. He when asked about how he is feeling only states that he "cannot talk about it" due to "the evil". He remains bizarre and generally unable to engage in any reasonable discussion. The patient's Invega Trinza has not been able to be obtained as it is unclear where the dose he was intended to get prior to coming in have been placed. VITAL SIGNS: See below. NEW TEST RESULTS: None CURRENT MEDICATIONS: See below. MENTAL STATUS EXAMINATION: General: poor Speech: rapid Thought processes: tangential Thought content: psychotic delusions Abstract reasoning, and computation: impaired Description of associations: imparied Description of abnormal or psychotic thoughts:Unclear, appears to have psychotic processes going on. Judgment: poor Insight: poor Orientation: Alert and orientated 3 Recent and remote memory: Intact Attention span and concentration: impaired secondary to thought process Fund of knowledge: unable to determine Mood: "[facility] [place]" Affect: flat, little reactivity DIAGNOSES: 1. Schizophrenia ASSESSMENT: We will continue oral supplementation, pharmacy unable to obtain Invega Trinza at this time MANAGEMENT PLAN: Continue Invega 3 mg twice daily TIME SPENT: 15 minutes. Vital Signs Vital Signs Date Time Temp Pulse Resp B/P (MAP) Pulse Ox O2 Delivery O2 Flow Rate FiO2 04/17/20 06:32 97.3 104 18 148/86 (106) Room Air 04/16/20 18:22 97 Current Medications Current Medications Medications (Trade) Dose Ordered Sig/Marcelino Route PRN Reason Start Time Stop Time Status Last Admin Dose Admin Acetaminophen (Tylenol Tab) 650 mg Q6HP PRN PO HEADACHE or DISCOMFORT 04/12/20 21:45 04/15/20 08:36 Al Hydrox/Mg Hydrox/Simethicone (Mylanta) 30 ml Q4HP PRN PO HEARTBURN/INDIGESTION 04/12/20 21:45 Home Med (Med Rec Complete!) ASDIRECTED XX 04/12/20 18:15 04/12/20 18:14 DC Hydroxyzine HCl (Atarax) 50 mg BIDP PRN PO ANXIETY 04/12/20 21:45 04/15/20 11:41 Magnesium Hydroxide (Milk Of Magnesia) 30 ml DAILYPRN PRN PO CONSTIPATION 04/12/20 21:45 Miscellaneous (Unresolved Non-Formulary Med Order) SEE LABEL COMMENTS DAILY XX 04/14/20 09:00 Nicotine (Nicoderm Cq 7 Mg) 1 patch DAILY TD 04/15/20 09:00 04/16/20 08:02 Olanzapine (ZyPREXA ZYDIS) 5 mg Q6HP PRN PO AGITATION 04/12/20 21:45 04/16/20 08:02 Oxymetazoline HCl (Afrin) 2 spray BID NA 04/14/20 09:00 04/16/20 08:02 Paliperidone (Invega) 3 mg BID PO 04/12/20 21:00 04/16/20 22:01 Propranolol HCl (Inderal) 20 mg DAILYPRN PRN PO ANXIETY 04/12/20 21:45 Trazodone HCl (Desyrel) 50 mg QHSP PRN PO INSOMNIA 04/12/20 21:45 04/15/20 20:45 Allergies Coded Allergies: No Known Allergies (Unverified , 12/31/18) BISHOP CLARK DO Apr 17, 2020 09:53
[2020-04-17] MEDS: OXYMETAZOLINE 0.05% NASAL SPRAY (AFRIN) SCH ×2 (09:54→20:23)
[2020-04-17] MEDS: PREVNAR 13 VACCINE SYRINGE IM ONE ×2 (09:56→12:30)
[2020-04-17 16:00] VITALS: BP 132/82
[2020-04-17] MEDS: traZODone 50 MG TAB PO PRN (20:23)
[2020-04-18] MEDS: hydrOXYzine 50 MG TAB PO PRN ×2 (00:08→11:47)
[2020-04-18] MEDS: ACETAMINOPHEN TAB 650MG DOSE (2X325MG) PO PRN (00:09)
[2020-04-18 06:16] VITALS: BP 137/74
[2020-04-18] MEDS: OXYMETAZOLINE 0.05% NASAL SPRAY (AFRIN) SCH ×2 (08:16→21:40)
[2020-04-18] MEDS: NICOTINE 7 MG/24 HR TRANSDERMAL TD SCH (08:16)
[2020-04-18] MEDS: PALIPERIDONE 3 MG ER TAB (INVEGA) PO SCH ×2 (08:16→21:40)
[2020-04-18] MEDS: **UNRESOLVED NON-FORMULARY MED ORDER XX SCH (09:00)
[2020-04-18 12:38] VITALS: BP 138/89
[2020-04-18] MEDS: OLANZapine ORAL DISINTEGRATING TAB 5MG PO PRN (15:02)
--- NOTE | 2020-04-18 15:40 | MHIPNPDOC ---
[facility] Progress Note Progress Note DATE OF SERVICE: 04/18/20 HISTORY: Patient is a 64 year old Single, Disabled, Male with a history of Schizophrenia, Paranoid type Diagnosis and Multiple Psychiatric Hospitalizations. He was initially brought to the ED by [facility] on a 9.60 (AOT order picker/assembler order) due to patient being very agitated at his appointment with his therapist. According the the therapist, patient was agitated, delusional, and very religiously preoccupied and it appeared that he was decompensating and needed to be stabilized. He believed that he was being poisoned and needed the help of Vaughn Perez. VITAL SIGNS: See below. NEW TEST RESULTS: CURRENT MEDICATIONS: See below. MENTAL STATUS EXAMINATION: Patient is a 64 year old Single, Disabled, Male with a history of Schizophrenia, Paranoid type Diagnosis and Multiple Psychiatric Hospitalizations. Speech: Is fast, loud tone, bizarre statements Language skills are intact Thought processes including: non-linear, not-reality based, bahai preoccupa tion Thought content: Hyper bahai Abstract reasoning, and computation: unable to assess Description of associations: Impaired Description of abnormal or psychotic thoughts: Hyperfocused on Germaine and Vaughn Judgment: Poor Insight: Poor Orientation: Alert and oriented Recent and remote memory: unable to assess Attention span and concentration: poor/impaired Language: unable to assess Fund of knowledge: unable to assess Mood: "I feel good because Vaughn and Germanie are inside me." Affect: Flat DIAGNOSES: Schizophrenia Disorder ASSESSMENT: Patient continues to be quite pleasantly psychotic with hyper focus on denominational and the women of his past. He states that he is happy because he feels and hears Germaine and Vaughn and that hey are inside him, this makes him feel happy. Patient is not able to veer his focus away from any bahai ideation as it inevitably returns to some topic of Jehovah'S Witness, Vaughn or Germaine. MANAGEMENT PLAN: Continue medications as ordered. TIME SPENT: 25 minutes. Vital Signs Vital Signs Date Time Temp Pulse Resp B/P (MAP) Pulse Ox O2 Delivery O2 Flow Rate FiO2 04/18/20 12:38 102 138/89 04/18/20 06:16 97.3 18 Room Air 04/17/20 16:00 98 Current Medications Current Medications Medications (Trade) Dose Ordered Sig/Marcelino Route PRN Reason Start Time Stop Time Status Last Admin Dose Admin Acetaminophen (Tylenol Tab) 650 mg Q6HP PRN PO HEADACHE or DISCOMFORT 04/12/20 21:45 04/18/20 00:09 Al Hydrox/Mg Hydrox/Simethicone (Mylanta) 30 ml Q4HP PRN PO HEARTBURN/INDIGESTION 04/12/20 21:45 Home Med (Med Rec Complete!) ASDIRECTED XX 04/12/20 18:15 04/12/20 18:14 DC Hydroxyzine HCl (Atarax) 50 mg BIDP PRN PO ANXIETY 04/12/20 21:45 04/18/20 11:47 Magnesium Hydroxide (Milk Of Magnesia) 30 ml DAILYPRN PRN PO CONSTIPATION 04/12/20 21:45 Miscellaneous (Unresolved Non-Formulary Med Order) SEE LABEL COMMENTS DAILY XX 04/14/20 09:00 Nicotine (Nicoderm Cq 7 Mg) 1 patch DAILY TD 04/15/20 09:00 04/18/20 08:16 Olanzapine (ZyPREXA ZYDIS) 5 mg Q6HP PRN PO AGITATION 04/12/20 21:45 04/18/20 15:02 Oxymetazoline HCl (Afrin) 2 spray BID NA 04/14/20 09:00 04/18/20 08:16 Paliperidone (Invega) 3 mg BID PO 04/12/20 21:00 04/18/20 08:16 Propranolol HCl (Inderal) 20 mg DAILYPRN PRN PO ANXIETY 04/12/20 21:45 04/18/20 12:38 Trazodone HCl (Desyrel) 50 mg QHSP PRN PO INSOMNIA 04/12/20 21:45 04/17/20 20:23 Allergies Coded Allergies: No Known Allergies (Unverified , 12/31/18) MARIELY FLAHERTY NP Apr 18, 2020 15:40
[2020-04-18 16:11] VITALS: BP 130/83
[2020-04-19 06:19] VITALS: BP 114/59
[2020-04-19] MEDS: **UNRESOLVED NON-FORMULARY MED ORDER XX SCH (09:00)
[2020-04-19] MEDS: OXYMETAZOLINE 0.05% NASAL SPRAY (AFRIN) SCH ×2 (10:40→21:49)
[2020-04-19] MEDS: PALIPERIDONE 3 MG ER TAB (INVEGA) PO SCH ×2 (10:40→21:49)
[2020-04-19] MEDS: NICOTINE 7 MG/24 HR TRANSDERMAL TD SCH (10:40)
--- NOTE | 2020-04-19 12:44 | MHIPNPDOC ---
[facility] Progress Note Progress Note DATE OF SERVICE: 04/19/20 HISTORY: The patient is met with today, he is still quite bizarre and paranoid, saying that he cannot talk about what brought him in because he did not want to "burden" anyone with what had happened to him. He still is very religiously preoccupied feeling that he hears angels that speak to him. We were able to obtain his Invega Trinza from his significant other Madhu, who reported that she would bring it in so that we can give him his next dose as we would not be able to obtain another one for a number of months VITAL SIGNS: See below. NEW TEST RESULTS: None CURRENT MEDICATIONS: See below. MENTAL STATUS EXAMINATION: General: poor Speech: rapid Thought processes: tangential Thought content: psychotic delusions Abstract reasoning, and computation: impaired Description of associations: imparied Description of abnormal or psychotic thoughts: Delusional and paranoid Judgment: poor Insight: poor Orientation: Alert and orientated 3 Recent and remote memory: Intact Attention span and concentration: impaired secondary to thought process Fund of knowledge: unable to determine Mood: "I hear angels" Affect: flat, little reactivity DIAGNOSES: 1. Schizophrenia ASSESSMENT: We will administer Invega Trinza 891 mg, continue oral supplementation till crossover. Is completed MANAGEMENT PLAN: Continue Invega 3 mg twice daily, monitor for improvement if does not improve will need to augment TIME SPENT: 15 minutes. Vital Signs Vital Signs Date Time Temp Pulse Resp B/P (MAP) Pulse Ox O2 Delivery O2 Flow Rate FiO2 04/19/20 06:19 98.8 78 19 114/59 (77) 95 Room Air Current Medications Current Medications Medications (Trade) Dose Ordered Sig/Marcelino Route PRN Reason Start Time Stop Time Status Last Admin Dose Admin Acetaminophen (Tylenol Tab) 650 mg Q6HP PRN PO HEADACHE or DISCOMFORT 04/12/20 21:45 04/18/20 00:09 Al Hydrox/Mg Hydrox/Simethicone (Mylanta) 30 ml Q4HP PRN PO HEARTBURN/INDIGESTION 04/12/20 21:45 Home Med (Med Rec Complete!) ASDIRECTED XX 04/12/20 18:15 04/12/20 18:14 DC Hydroxyzine HCl (Atarax) 50 mg BIDP PRN PO ANXIETY 04/12/20 21:45 04/18/20 11:47 Magnesium Hydroxide (Milk Of Magnesia) 30 ml DAILYPRN PRN PO CONSTIPATION 04/12/20 21:45 Miscellaneous (Unresolved Non-Formulary Med Order) SEE LABEL COMMENTS DAILY XX 04/14/20 09:00 Nicotine (Nicoderm Cq 7 Mg) 1 patch DAILY TD 04/15/20 09:00 04/19/20 10:40 Olanzapine (ZyPREXA ZYDIS) 5 mg Q6HP PRN PO AGITATION 04/12/20 21:45 04/18/20 15:02 Oxymetazoline HCl (Afrin) 2 spray BID NA 04/14/20 09:00 04/19/20 10:40 Paliperidone (Invega) 3 mg BID PO 04/12/20 21:00 04/19/20 10:40 Propranolol HCl (Inderal) 20 mg DAILYPRN PRN PO ANXIETY 04/12/20 21:45 04/18/20 12:38 Trazodone HCl (Desyrel) 50 mg QHSP PRN PO INSOMNIA 04/12/20 21:45 04/17/20 20:23 Allergies Coded Allergies: No Known Allergies (Unverified , 12/31/18) BISHOP CLARK DO Apr 19, 2020 12:44
[2020-04-19] MEDS ORDERED: PALIPERIDONE PALMITATE 234MG/1.5ML INJ (INVEGA)(FREE PSY INPT ONLY) IM ONE (13:30)
[2020-04-19] MEDS ORDERED: INVEGA TRINZA 819 MG IM ONE (17:00)
[2020-04-19 17:05] VITALS: BP 135/80
[2020-04-19] MEDS ORDERED: INVEGA TRINZA 819 MG IM SCH (18:00)
[2020-04-19] MEDS: OLANZapine ORAL DISINTEGRATING TAB 5MG PO PRN (18:24)
[2020-04-20 05:55] VITALS: BP 139/81
[2020-04-20] MEDS: OXYMETAZOLINE 0.05% NASAL SPRAY (AFRIN) SCH ×2 (08:15→20:28)
[2020-04-20] MEDS: PALIPERIDONE 3 MG ER TAB (INVEGA) PO SCH ×2 (08:15→20:27)
[2020-04-20] MEDS: NICOTINE 7 MG/24 HR TRANSDERMAL TD SCH (08:15)
--- NOTE | 2020-04-20 12:42 | MHIPNPDOC ---
[facility] Progress Note Progress Note DATE OF SERVICE: 04/20/20 HISTORY: Patient is a 64 year old Single, Disabled, Male with a history of Schizophrenia, Paranoid type Diagnosis and Multiple Psychiatric Hospitalizations. He was initially brought to the ED by [facility] on a 9.60 (AOT orange picker machine operator order) due to patient being very agitated at his appointment with his therapist. According the the therapist, patient was agitated, delusional, and very religiously preoccupied and it appeared that he was decompensating and needed to be stabilized. He believed that he was being poisoned and needed the help of Vaughn Perez. VITAL SIGNS: See below. NEW TEST RESULTS: CURRENT MEDICATIONS: See below. MENTAL STATUS EXAMINATION: Patient is a 64 year old Single, Disabled, Male with a history of Schizophrenia, Paranoid type Diagnosis and Multiple Psychiatric Hospitalizations. He is dressed appropriately, in hospital scrubs, his hygiene and grooming is fair. He makes good eye contact and laughs nonsensically in the interview Speech: Is slow, low tone, bizarre statements Language skills are intact Thought processes including: non-linear, not-reality based, cheondoism preoccupation Thought content: Hyper cheondoism Abstract reasoning, and computation: unable to assess Description of associations: Impaired Description of abnormal or psychotic thoughts: Hyperfocused on Germaine and Vaughn Judgment: Poor Insight: Poor Orientation: Alert and oriented Recent and remote memory: unable to assess Attention span and concentration: poor/impaired Language: unable to assess Fund of knowledge: unable to assess Mood: "I am demon possessed." Affect: Flat DIAGNOSES: Schizophrenia Disorder ASSESSMENT: Patient continues to be quite religiously preoccupied focused on demons today. He talks about "[place] Slaves." He reports that he doesn't hear any other voices but God's. He states, "Love is the answer and she transcribed it anyways despite the old - I am delirious and want to eat lunch but I am losing track of my days and time. He states that he is happy because he feels and hears Germaine and Vaughn. Again, all of the patient's conversations do not divert from his cheondoism obsessions. He denies depression and anxiety, but states that he does get anxiety when he feels that he is not within God's care. MANAGEMENT PLAN: Continue medications as ordered. Patient is non-complaint with PRICE and would benefit from this injection. Although he is compliant with the milieu the patient may need more stabilization due to his hyper cheondoism preoccupation he may not be stable for discharge at this time. He exhibits poor insight and poor judgment. TIME SPENT: 25 minutes. Vital Signs Vital Signs Date Time Temp Pulse Resp B/P (MAP) Pulse Ox O2 Delivery O2 Flow Rate FiO2 04/20/20 05:55 98.7 113 18 139/81 (100) Room Air 04/19/20 17:05 96 Current Medications Current Medications Medications (Trade) Dose Ordered Sig/Marcelino Route PRN Reason Start Time Stop Time Status Last Admin Dose Admin Acetaminophen (Tylenol Tab) 650 mg Q6HP PRN PO HEADACHE or DISCOMFORT 04/12/20 21:45 04/18/20 00:09 Al Hydrox/Mg Hydrox/Simethicone (Mylanta) 30 ml Q4HP PRN PO HEARTBURN/INDIGESTION 04/12/20 21:45 Home Med (Med Rec Complete!) ASDIRECTED XX 04/12/20 18:15 04/12/20 18:14 DC Hydroxyzine HCl (Atarax) 50 mg BIDP PRN PO ANXIETY 04/12/20 21:45 04/18/20 11:47 Magnesium Hydroxide (Milk Of Magnesia) 30 ml DAILYPRN PRN PO CONSTIPATION 04/12/20 21:45 Miscellaneous (Unresolved Clarification Entry) SEE LABEL COMMENTS DAILY XX 04/19/20 09:00 Miscellaneous (Unresolved Non-Formulary Med Order) SEE LABEL COMMENTS DAILY XX 04/14/20 09:00 04/19/20 15:22 DC Nicotine (Nicoderm Cq 7 Mg) 1 patch DAILY TD 04/15/20 09:00 04/20/20 08:15 Olanzapine (ZyPREXA ZYDIS) 5 mg Q6HP PRN PO AGITATION 04/12/20 21:45 04/19/20 18:24 Oxymetazoline HCl (Afrin) 2 spray BID NA 04/14/20 09:00 04/20/20 08:15 Paliperidone (Invega) 3 mg BID PO 04/12/20 21:00 04/20/20 08:15 Patient Own Medication (Patient'S Own Med) Invega Trinza 819mg injecti... ASDIRECTED IM 04/19/20 18:00 Propranolol HCl (Inderal) 20 mg DAILYPRN PRN PO ANXIETY 04/12/20 21:45 04/18/20 12:38 Trazodone HCl (Desyrel) 50 mg QHSP PRN PO INSOMNIA 04/12/20 21:45 04/17/20 20:23 Allergies Coded Allergies: No Known Allergies (Unverified , 12/31/18) MRAIELY FLAHERTY NP Apr 20, 2020 12:41
[2020-04-20] MEDS: OLANZapine ORAL DISINTEGRATING TAB 5MG PO PRN (15:19)
[2020-04-20] MEDS: hydrOXYzine 50 MG TAB PO PRN (15:19)
[2020-04-20 16:21] VITALS: BP 167/90
[2020-04-20] MEDS ORDERED: chlorproMAZINE 25 MG TABLET PO ONE (21:00)
[2020-04-21] MEDS: PALIPERIDONE 3 MG ER TAB (INVEGA) PO SCH ×2 (09:42→22:41)
[2020-04-21] MEDS: NICOTINE 7 MG/24 HR TRANSDERMAL TD SCH (09:42)
[2020-04-21] MEDS: OXYMETAZOLINE 0.05% NASAL SPRAY (AFRIN) SCH ×2 (09:42→23:06)
[2020-04-21] MEDS: OLANZapine ORAL DISINTEGRATING TAB 5MG PO PRN (14:35)
[2020-04-21] MEDS: ACETAMINOPHEN TAB 650MG DOSE (2X325MG) PO PRN (14:39)
--- NOTE | 2020-04-21 15:07 | MHIPNPDOC ---
[facility] Progress Note Progress Note DATE OF SERVICE: 04/21/20 ISTORY: Patient is a 64 year old Single, Disabled, Male with a history of Schizophrenia, Paranoid type Diagnosis and Multiple Psychiatric Hospitali zations. He was initially brought to the ED by [facility] on a 9.60 (AOT brick picker order) due to patient being very agitated at his appointment with his therapist. According the the therapist, patient was agitated, delusional, and very religiously preoccupied and it appeared that he was decompensating and needed to be stabilized. He believed that he was being poisoned and needed the help of Vaughn Perez. VITAL SIGNS: See below. NEW TEST RESULTS: CURRENT MEDICATIONS: See below. MENTAL STATUS EXAMINATION: Patient is a 64 year old Single, Disabled, Male with a history of Schizophrenia, Paranoid type Diagnosis and Multiple Psychiatric Hospitalizations. He is dressed appropriately, in hospital scrubs, his hygiene and grooming is fair. He makes hypervigilant eye contact and makes nonsensical statements in the hallway. He is endorsing visual hallucinations of Vaughn and points out Vaughn in a window on the unit. Speech: Is normal low tone, bizarre statements Language skills are intact Thought processes including: non-linear, not-reality based, jewish p reoccupation Thought content: Hyper jewish Abstract reasoning, and computation: unable to assess Description of associations: Impaired Description of abnormal or psychotic thoughts: Loose, hyperfocused on Germaine and Vaughn Judgment: Poor Insight: Poor Orientation: Alert and oriented Recent and remote memory: unable to assess Attention span and concentration: poor/impaired Language: unable to assess Fund of knowledge: unable to assess Mood: "I am doing good, I have Vaughn with me" Affect: Flat DIAGNOSES: Schizophrenia Disorder ASSESSMENT: Patient continues to be quite religiously preoccupied. While in the hallway he asked me to look through a window from the hallway and he stated that the reflection of the window was Vaughn presenting to himself. While on the unit, he is pleasantly delusional. He has been cooperative on the unit, stays m ostly to himself, much of any of his conversation is filled with jewish preoccupation and it is very difficult to engage him in normal conversation without his interpretation reverting back to Yarsani. MANAGEMENT PLAN: Continue medications as ordered. the patient may need more stabilization due to his hyper jewish preoccupation he may not be stable for discharge at this time. He exhibits poor insight and poor judgment. TIME SPENT: 25 minutes. Vital Signs Vital Signs Date Time Temp Pulse Resp B/P (MAP) Pulse Ox O2 Delivery O2 Flow Rate FiO2 04/20/20 16:21 98.1 82 16 167/90 (115) 04/20/20 05:55 Room Air 04/19/20 17:05 96 Current Medications Current Medications Medications (Trade) Dose Ordered Sig/Marcelino Route PRN Reason Start Time Stop Time Status Last Admin Dose Admin Acetaminophen (Tylenol Tab) 650 mg Q6HP PRN PO HEADACHE or DISCOMFORT 04/12/20 21:45 04/18/20 00:09 Al Hydrox/Mg Hydrox/Simethicone (Mylanta) 30 ml Q4HP PRN PO HEARTBURN/INDIGESTION 04/12/20 21:45 Home Med (Med Rec Complete!) ASDIRECTED XX 04/12/20 18:15 04/12/20 18:14 DC Hydroxyzine HCl (Atarax) 50 mg BIDP PRN PO ANXIETY 04/12/20 21:45 04/20/20 15:19 Magnesium Hydroxide (Milk Of Magnesia) 30 ml DAILYPRN PRN PO CONSTIPATION 04/12/20 21:45 Miscellaneous (Unresolved Clarification Entry) SEE LABEL COMMENTS DAILY XX 04/19/20 09:00 Miscellaneous (Unresolved Non-Formulary Med Order) SEE LABEL COMMENTS DAILY XX 04/14/20 09:00 04/19/20 15:22 DC Nicotine (Nicoderm Cq 7 Mg) 1 patch DAILY TD 04/15/20 09:00 04/21/20 09:42 Olanzapine (ZyPREXA ZYDIS) 5 mg Q6HP PRN PO AGITATION 04/12/20 21:45 04/20/20 15:19 Oxymetazoline HCl (Afrin) 2 spray BID NA 04/14/20 09:00 04/21/20 09:42 Paliperidone (Invega) 3 mg BID PO 04/12/20 21:00 04/21/20 09:42 Patient Own Medication (Patient'S Own Med) Invega Trinza 819mg injecti... ASDIRECTED IM 04/19/20 18:00 Propranolol HCl (Inderal) 20 mg DAILYPRN PRN PO ANXIETY 04/12/20 21:45 04/18/20 12:38 Trazodone HCl (Desyrel) 50 mg QHSP PRN PO INSOMNIA 04/12/20 21:45 04/17/20 20:23 Allergies Coded Allergies: No Known Allergies (Unverified , 12/31/18) MARIELY FLAHERTY NP Apr 21, 2020 14:00
[2020-04-21 16:59] VITALS: BP 130/83
[2020-04-21 17:00] VITALS: BP 123/64
[2020-04-22 06:34] VITALS: BP 134/75
[2020-04-22] MEDS: OXYMETAZOLINE 0.05% NASAL SPRAY (AFRIN) SCH ×2 (08:10→21:04)
[2020-04-22] MEDS: PALIPERIDONE 3 MG ER TAB (INVEGA) PO SCH ×2 (08:10→21:04)
[2020-04-22] MEDS: NICOTINE 7 MG/24 HR TRANSDERMAL TD SCH (08:11)
[2020-04-22] MEDS: OLANZapine ORAL DISINTEGRATING TAB 5MG PO PRN (15:43)
[2020-04-22 16:20] VITALS: BP 122/86
[2020-04-23 06:00] VITALS: BP 132/62
[2020-04-23] MEDS: OXYMETAZOLINE 0.05% NASAL SPRAY (AFRIN) SCH ×2 (07:46→21:00)
[2020-04-23] MEDS: PALIPERIDONE 3 MG ER TAB (INVEGA) PO SCH ×2 (07:47→21:34)
[2020-04-23] MEDS: NICOTINE 7 MG/24 HR TRANSDERMAL TD SCH (07:47)
[2020-04-23 16:32] VITALS: BP 116/69
[2020-04-24 06:24] VITALS: BP 123/91
--- NOTE | 2020-04-24 08:05 | MHIPNPDOC ---
[facility] Progress Note Progress Note DATE OF SERVICE: 04/24/20 HISTORY: The patient is met with today, he reports that he is open to trying to go to TLS, as reports that he is feeling better since getting the injection du ring my absence. He otherwise describes that his voices are back to the regular amount and frequency, and that he no longer has the disparaging voices or fear of the devil and associated paranoia. He is a chronic history of being tangential and having auditory hallucinations but has been fairly pleasant and engaged as is his baseline behavior. Patient's open to trying an alternative option as it appears his significant other is actively attempting to disparage treatment. VITAL SIGNS: See below. NEW TEST RESULTS: None CURRENT MEDICATIONS: See below. MENTAL STATUS EXAMINATION: General: Fair hygiene Speech: Less rapid Thought processes: tangential Thought content: More compressed delusions Abstract reasoning, and computation: Improved Description of associations: Improved Description of abnormal or psychotic thoughts: Delusional content closer to baseline Judgment: Improved Insight: Improved Orientation: Alert and orientated 3 Recent and remote memory: Intact Attention span and concentration: impaired secondary to thought process Fund of knowledge: unable to determine Mood: "I'm doing great" Affect: More smiling, arrange DIAGNOSES: 1. Schizophrenia ASSESSMENT: Patient making good progress and is getting close to his baseline, the patient has a history of living with a significant other that specifically interferes with his AOT, will attempt to work with AOT coordinator and treatment team in order to [facility] safe discharge, it appears he is open to changing up these difficulties as it appears that when he does well he is able to keep himself. MANAGEMENT PLAN: Continue Invega 3 mg twice daily, will attempt to do TLS referral TIME SPENT: 15 minutes. Vital Signs Vital Signs Date Time Temp Pulse Resp B/P (MAP) Pulse Ox O2 Delivery O2 Flow Rate FiO2 04/24/20 06:24 97.0 92 16 123/91 (102) 97 Room Air Current Medications Current Medications Medications (Trade) Dose Ordered Sig/Marcelino Route PRN Reason Start Time Stop Time Status Last Admin Dose Admin Acetaminophen (Tylenol Tab) 650 mg Q6HP PRN PO HEADACHE or DISCOMFORT 04/12/20 21:45 04/21/20 14:39 Al Hydrox/Mg Hydrox/Simethicone (Mylanta) 30 ml Q4HP PRN PO HEARTBURN/INDIGESTION 04/12/20 21:45 Home Med (Med Rec Complete!) ASDIRECTED XX 04/12/20 18:15 04/12/20 18:14 DC Hydroxyzine HCl (Atarax) 50 mg BIDP PRN PO ANXIETY 04/12/20 21:45 04/20/20 15:19 Magnesium Hydroxide (Milk Of Magnesia) 30 ml DAILYPRN PRN PO CONSTIPATION 04/12/20 21:45 Miscellaneous (Unresolved Clarification Entry) SEE LABEL COMMENTS DAILY XX 04/19/20 09:00 04/23/20 16:46 DC Miscellaneous (Unresolved Non-Formulary Med Order) SEE LABEL COMMENTS DAILY XX 04/14/20 09:00 04/19/20 15:22 DC Nicotine (Nicoderm Cq 7 Mg) 1 patch DAILY TD 04/15/20 09:00 04/23/20 07:47 Olanzapine (ZyPREXA ZYDIS) 5 mg Q6HP PRN PO AGITATION 04/12/20 21:45 04/22/20 15:43 Oxymetazoline HCl (Afrin) 2 spray BID NA 04/14/20 09:00 04/23/20 07:46 Paliperidone (Invega) 3 mg BID PO 04/12/20 21:00 04/23/20 21:34 Patient Own Medication (Patient'S Own Med) Invega Trinza 819mg injecti... ASDIRECTED IM 04/19/20 18:00 04/23/20 16:44 Propranolol HCl (Inderal) 20 mg DAILYPRN PRN PO ANXIETY 04/12/20 21:45 04/18/20 12:38 Trazodone HCl (Desyrel) 50 mg QHSP PRN PO INSOMNIA 04/12/20 21:45 04/17/20 20:23 Allergies Coded Allergies: No Known Allergies (Unverified , 12/31/18) BISHOP CLARK DO Apr 24, 2020 08:05
[2020-04-24] MEDS: OXYMETAZOLINE 0.05% NASAL SPRAY (AFRIN) SCH ×2 (08:17→21:15)
[2020-04-24] MEDS: PALIPERIDONE 3 MG ER TAB (INVEGA) PO SCH ×2 (08:18→21:14)
[2020-04-24] MEDS: NICOTINE 7 MG/24 HR TRANSDERMAL TD SCH (08:19)
[2020-04-24] MEDS: hydrOXYzine 50 MG TAB PO PRN ×2 (09:25→18:30)
[2020-04-24] MEDS: OLANZapine ORAL DISINTEGRATING TAB 5MG PO PRN (14:25)
[2020-04-24 17:50] VITALS: BP 154/84
[2020-04-25 06:25] VITALS: BP 122/77
--- NOTE | 2020-04-25 09:09 | MHIPNPDOC ---
[facility] Progress Note Progress Note DATE OF SERVICE: 04/25/20 HISTORY: The patient is met with today, he reports that he is amenable to having his payee changed. He reports that he feels much improved on the Invega Trinza feeling that the voices are more amenable friendly as he has had been prior, he is more engaged and feeling improved in terms of his mood. He has been pleasant and amenable without any major behavioral problems. He does not appear to be as internally preoccupied, he is isolative at times but does not appear to be overly concerned. VITAL SIGNS: See below. NEW TEST RESULTS: None CURRENT MEDICATIONS: See below. MENTAL STATUS EXAMINATION: General: Fair hygiene Speech: Less rapid Thought processes: tangential Thought content: More compressed delusions Abstract reasoning, and computation: Improved Description of associations: Improved Description of abnormal or psychotic thoughts: Delusional content closer to baseline Judgment: Improved Insight: Improved Orientation: Alert and orientated 3 Recent and remote memory: Intact Attention span and concentration: impaired secondary to thought process Fund of knowledge: unable to determine Mood: "I'm doing great" Affect: More smiling, More euthymic DIAGNOSES: 1. Schizophrenia ASSESSMENT: We will continue the Invega supplementation, with likely taper off, will need to ascertain whether we can help him change his payee, as his discharge returning to his significant other who is made clear she will do everything she can to prevent him from improving, is unsafe and after discussion with AOT coordinator it is much recommended that he not continue with this. MANAGEMENT PLAN: Continue Invega 3 mg twice daily, will attempt to do TLS referral TIME SPENT: 15 minutes. Vital Signs Vital Signs Date Time Temp Pulse Resp B/P (MAP) Pulse Ox O2 Delivery O2 Flow Rate FiO2 04/25/20 06:25 98.1 95 18 122/77 (92) 96 Room Air Current Medications Current Medications Medications (Trade) Dose Ordered Sig/Marcelino Route PRN Reason Start Time Stop Time Status Last Admin Dose Admin Acetaminophen (Tylenol Tab) 650 mg Q6HP PRN PO HEADACHE or DISCOMFORT 04/12/20 21:45 04/21/20 14:39 Al Hydrox/Mg Hydrox/Simethicone (Mylanta) 30 ml Q4HP PRN PO HEARTBURN/INDIGESTION 04/12/20 21:45 Home Med (Med Rec Complete!) ASDIRECTED XX 12/2/20 18:15 04/12/20 18:14 DC Hydroxyzine HCl (Atarax) 50 mg BIDP PRN PO ANXIETY 04/12/20 21:45 04/24/20 18:30 Magnesium Hydroxide (Milk Of Magnesia) 30 ml DAILYPRN PRN PO CONSTIPATION 04/12/20 21:45 Miscellaneous (Unresolved Clarification Entry) SEE LABEL COMMENTS DAILY XX 04/19/20 09:00 04/23/20 16:46 DC Miscellaneous (Unresolved Non-Formulary Med Order) SEE LABEL COMMENTS DAILY XX 04/14/20 09:00 04/19/20 15:22 DC Nicotine (Nicoderm Cq 7 Mg) 1 patch DAILY TD 04/15/20 09:00 04/24/20 08:19 Olanzapine (ZyPREXA ZYDIS) 5 mg Q6HP PRN PO AGITATION 04/12/20 21:45 04/24/20 14:25 Oxymetazoline HCl (Afrin) 2 spray BID NA 04/14/20 09:00 04/24/20 21:15 Paliperidone (Invega) 3 mg BID PO 04/12/20 21:00 04/24/20 21:14 Patient Own Medication (Patient'S Own Med) Invega Trinza 819mg injecti... ASDIRECTED IM 04/19/20 18:00 04/23/20 16:44 Propranolol HCl (Inderal) 20 mg DAILYPRN PRN PO ANXIETY 04/12/20 21:45 04/18/20 12:38 Trazodone HCl (Desyrel) 50 mg QHSP PRN PO INSOMNIA 04/12/20 21:45 04/17/20 20:23 Allergies Coded Allergies: No Known Allergies (Unverified , 12/31/18) BISHOP CLARK DO Apr 25, 2020 09:09
[2020-04-25] MEDS: NICOTINE 7 MG/24 HR TRANSDERMAL TD SCH (10:11)
[2020-04-25] MEDS: OXYMETAZOLINE 0.05% NASAL SPRAY (AFRIN) SCH ×2 (10:11→20:52)
[2020-04-25] MEDS: PALIPERIDONE 3 MG ER TAB (INVEGA) PO SCH ×2 (10:11→20:51)
[2020-04-25 16:00] VITALS: BP 135/83
[2020-04-26 06:28] VITALS: BP 133/90
[2020-04-26] MEDS: OXYMETAZOLINE 0.05% NASAL SPRAY (AFRIN) SCH ×2 (08:23→20:54)
[2020-04-26] MEDS: PALIPERIDONE 3 MG ER TAB (INVEGA) PO SCH ×2 (08:23→20:54)
[2020-04-26] MEDS: NICOTINE 7 MG/24 HR TRANSDERMAL TD SCH (08:23)
[2020-04-26] MEDS: hydrOXYzine 50 MG TAB PO PRN (09:07)
[2020-04-26] MEDS: OLANZapine ORAL DISINTEGRATING TAB 5MG PO PRN (09:07)
[2020-04-26] MEDS ORDERED: PROPRANOLOL 10 MG TAB PO PRN (09:15)
--- NOTE | 2020-04-26 11:12 | MHIPNPDOC ---
[facility] Progress Note Progress Note DATE OF SERVICE: 04/26/20 HISTORY: The patient is met with today, he reports he is doing well he is describing the isolation that he is now on due to possibly being exposed to Covid as somewhat difficult but overall something that he can cope with. He has been pleasant and cooperative although having difficulty with his mask, he is always amenable to placing it back on his face when reminded. He reports that he is open to changing his payee and feels that we are here to "help him" and he is been nothing but pleasant with the staff. Mildly disorganized he still is very amenable to all interventions, reporting that the medicine is very helpful being thankful in general. VITAL SIGNS: See below. NEW TEST RESULTS: None CURRENT MEDICATIONS: See below. MENTAL STATUS EXAMINATION: General: [Well dressed with good hygiene] Speech: Somewhat rapid Thought processes: [Linear and logical] Thought content: [Future orientated] Abstract reasoning, and computation: [Intact] Description of associations: [Intact] Description of abnormal or psychotic thoughts: Denies SI HI, AVH, some mildly grandiose delusion but otherwise engaged Judgment: Improved Insight: Improved Orientation: [Alert and orientated 3] Recent and remote memory: [Intact] Attention span and concentration: [Intact] Fund of knowledge: [Adequate] Mood: ["okay"] Affect: Smiling DIAGNOSES: 1. Schizophrenia ASSESSMENT: Will continue the current plan of Invega, will likely taper off the oral dose shortly, his outpatient disposition is most critical currently waiting on whether social media assistant can tell us if we can help him change his payee while he is here so that then we can have his AOT coordinator help us position him in a much better position with TLS MANAGEMENT PLAN: Continue Invega 3 mg twice daily TIME SPENT: 15 minutes. Vital Signs Vital Signs Date Time Temp Pulse Resp B/P (MAP) Pulse Ox O2 Delivery O2 Flow Rate FiO2 04/26/20 06:28 98.1 87 18 133/90 (104) 98 Room Air Current Medications Current Medications Medications (Trade) Dose Ordered Sig/Marcelino Route PRN Reason Start Time Stop Time Status Last Admin Dose Admin Acetaminophen (Tylenol Tab) 650 mg Q6HP PRN PO HEADACHE or DISCOMFORT 04/12/20 21:45 04/21/20 14:39 Al Hydrox/Mg Hydrox/Simethicone (Mylanta) 30 ml Q4HP PRN PO HEARTBURN/INDIGESTION 04/12/20 21:45 Home Med (Med Rec Complete!) ASDIRECTED XX 04/12/20 18:15 04/12/20 18:14 DC Hydroxyzine HCl (Atarax) 50 mg BIDP PRN PO ANXIETY 04/12/20 21:45 04/26/20 09:07 Magnesium Hydroxide (Milk Of Magnesia) 30 ml DAILYPRN PRN PO CONSTIPATION 04/12/20 21:45 Miscellaneous (Unresolved Clarification Entry) SEE LABEL COMMENTS DAILY XX 04/19/20 09:00 04/23/20 16:46 DC Miscellaneous (Unresolved Non-Formulary Med Order) SEE LABEL COMMENTS DAILY XX 04/14/20 09:00 04/19/20 15:22 DC Nicotine (Nicoderm Cq 7 Mg) 1 patch DAILY TD 04/15/20 09:00 04/26/20 08:23 Olanzapine (ZyPREXA ZYDIS) 5 mg Q6HP PRN PO AGITATION 04/12/20 21:45 04/26/20 09:07 Oxymetazoline HCl (Afrin) 2 spray BID NA 04/14/20 09:00 04/26/20 08:23 Paliperidone (Invega) 3 mg BID PO 04/12/20 21:00 04/26/20 08:23 Patient Own Medication (Patient'S Own Med) Invega Trinza 819mg injecti... ASDIRECTED IM 04/19/20 18:00 04/26/20 09:12 DC 04/23/20 16:44 Propranolol HCl (Inderal) 20 mg DAILYPRN PRN PO ANXIETY 04/26/20 09:15 Propranolol HCl (Inderal) 20 mg DAILYPRN PRN PO ANXIETY 04/12/20 21:45 04/26/20 09:12 DC 04/18/20 12:38 Trazodone HCl (Desyrel) 50 mg QHSP PRN PO INSOMNIA 04/12/20 21:45 04/17/20 20:23 Allergies Coded Allergies: No Known Allergies (Unverified , 12/31/18) BISHOP CLARK DO Apr 26, 2020 11:12
[2020-04-27 06:47] VITALS: BP 109/58
[2020-04-27] MEDS: PALIPERIDONE 3 MG ER TAB (INVEGA) PO SCH ×2 (09:39→21:46)
[2020-04-27] MEDS: OXYMETAZOLINE 0.05% NASAL SPRAY (AFRIN) SCH ×2 (09:39→21:46)
[2020-04-27] MEDS: NICOTINE 7 MG/24 HR TRANSDERMAL TD SCH (09:40)
--- NOTE | 2020-04-27 14:25 | MHIPNPDOC ---
[facility] Progress Note Progress Note DATE OF SERVICE: 04/27/20 HISTORY: The patient is met with today, he reports he is generally feeling better and is amenable to all interactions with staff. Still is difficulty with his mask and some mild disorganization, some grandiose ideation is present but nothing too concerning giving his baseline behaviors. He is open to changing his payee which appears to be of formal complicated problem than we originally anticipated. He otherwise has been doing well is pleasant with nurses although difficult to organize him in a way that is effective to keep him on quarantine, he is always amenable to redirection. VITAL SIGNS: See below. NEW TEST RESULTS: None CURRENT MEDICATIONS: See below. MENTAL STATUS EXAMINATION: General: [Well dressed with good hygiene] Speech: Somewhat rapid Thought processes: [Linear and logical] Thought content: [Future orientated] Abstract reasoning, and computation: [Intact] Description of associations: [Intact] Description of abnormal or psychotic thoughts: Denies SI HI, AVH, no significant ideation elicited today Judgment: Fair Insight: Fair Orientation: [Alert and orientated 3] Recent and remote memory: [Intact] Attention span and concentration: [Intact] Fund of knowledge: [Adequate] Mood: ["okay"] Affect: Smiling, euthymic DIAGNOSES: 1. Schizophrenia ASSESSMENT: We'll continue to try to create a safe discharge plan, it's likely that he may even need to go to [facility] for not able to, as he does have chronic disorganization and poor insight at baseline, his significant other's medically that she will not support his mental illness and if we are unable to [facility] safe discharge plan he may need to have a longer term plan we'll continue to coordinate with AOT coordinator if there are not able to get him to [facility] MANAGEMENT PLAN: Continue Invega 3 mg twice daily TIME SPENT: 15 minutes. Vital Signs Vital Signs Date Time Temp Pulse Resp B/P (MAP) Pulse Ox O2 Delivery O2 Flow Rate FiO2 04/27/20 06:47 97.8 62 16 109/58 (75) 99 Room Air Current Medications Current Medications Medications (Trade) Dose Ordered Sig/Marcelino Route PRN Reason Start Time Stop Time Status Last Admin Dose Admin Acetaminophen (Tylenol Tab) 650 mg Q6HP PRN PO HEADACHE or DISCOMFORT 04/12/20 21:45 04/21/20 14:39 Al Hydrox/Mg Hydrox/Simethicone (Mylanta) 30 ml Q4HP PRN PO HEARTBURN/INDIGESTION 04/12/20 21:45 Home Med (Med Rec Complete!) ASDIRECTED XX 04/12/20 18:15 04/12/20 18:14 DC Hydroxyzine HCl (Atarax) 50 mg BIDP PRN PO ANXIETY 04/12/20 21:45 04/26/20 09:07 Magnesium Hydroxide (Milk Of Magnesia) 30 ml DAILYPRN PRN PO CONSTIPATION 04/12/20 21:45 Miscellaneous (Unresolved Clarification Entry) SEE LABEL COMMENTS DAILY XX 04/19/20 09:00 04/23/20 16:46 DC Miscellaneous (Unresolved Non-Formulary Med Order) SEE LABEL COMMENTS DAILY XX 04/14/20 09:00 04/19/20 15:22 DC Nicotine (Nicoderm Cq 7 Mg) 1 patch DAILY TD 04/15/20 09:00 04/27/20 09:40 Olanzapine (ZyPREXA ZYDIS) 5 mg Q6HP PRN PO AGITATION 04/12/20 21:45 04/26/20 09:07 Oxymetazoline HCl (Afrin) 2 spray BID NA 04/14/20 09:00 04/27/20 09:39 Paliperidone (Invega) 3 mg BID PO 04/12/20 21:00 04/27/20 09:39 Patient Own Medication (Patient'S Own Med) Invega Trinza 819mg injecti... ASDIRECTED IM 04/19/20 18:00 04/26/20 09:12 DC 04/23/20 16:44 Propranolol HCl (Inderal) 20 mg DAILYPRN PRN PO ANXIETY 04/26/20 09:15 Propranolol HCl (Inderal) 20 mg DAILYPRN PRN PO ANXIETY 04/12/20 21:45 04/26/20 09:12 DC 04/18/20 12:38 Trazodone HCl (Desyrel) 50 mg QHSP PRN PO INSOMNIA 04/12/20 21:45 04/17/20 20:23 Allergies Coded Allergies: No Known Allergies (Unverified , 12/31/18) BISHOP CLARK DO Apr 27, 2020 14:25
[2020-04-27] MEDS: OLANZapine ORAL DISINTEGRATING TAB 5MG PO PRN (15:34)
[2020-04-27 16:00] VITALS: BP 141/85
[2020-04-28] MEDS: OXYMETAZOLINE 0.05% NASAL SPRAY (AFRIN) SCH ×2 (08:58→20:37)
[2020-04-28] MEDS: PALIPERIDONE 3 MG ER TAB (INVEGA) PO SCH ×2 (08:58→20:37)
[2020-04-28] MEDS: NICOTINE 7 MG/24 HR TRANSDERMAL TD SCH (08:59)
--- NOTE | 2020-04-28 12:15 | MHIPNPDOC ---
[facility] Progress Note Progress Note DATE OF SERVICE: 04/28/20 HISTORY: The patient has met with today, he reports that he is doing otherwise well on the medication, he has had some bizarre ideations talking about some so rt of lawsuit or other thing that we should be worried about. He is friendly but fairly bizarre spouting off about strange things at this time, he still amenable to changing his payee and remains in his room on quarantine, having difficulty with his mask. VITAL SIGNS: See below. NEW TEST RESULTS: None CURRENT MEDICATIONS: See below. MENTAL STATUS EXAMINATION: General: [Well dressed with good hygiene] Speech: Somewhat rapid Thought processes: [Linear and logical] Thought content: [Future orientated] Abstract reasoning, and computation: [Intact] Description of associations: [Intact] Description of abnormal or psychotic thoughts: Denies SI HI, AVH, no significant ideation elicited today Judgment: Fair Insight: Fair Orientation: [Alert and orientated 3] Recent and remote memory: [Intact] Attention span and concentration: [Intact] Fund of knowledge: [Adequate] Mood: ["okay"] Affect: Smiling, euthymic DIAGNOSES: 1. Schizophrenia ASSESSMENT: We will need to figure out plan if payee is not able to be changed, as him returning to his previous housing situation with significant other is fairly dicey as she has made it clear that she will attempt to intervene on his treatment MANAGEMENT PLAN: Continue Invega 3 mg twice daily TIME SPENT: 15 minutes. Vital Signs Vital Signs Date Time Temp Pulse Resp B/P (MAP) Pulse Ox O2 Delivery O2 Flow Rate FiO2 04/27/20 16:00 95.9 103 16 141/85 (103) 04/27/20 06:47 99 Room Air Current Medications Current Medications Medications (Trade) Dose Ordered Sig/Marcelino Route PRN Reason Start Time Stop Time Status Last Admin Dose Admin Acetaminophen (Tylenol Tab) 650 mg Q6HP PRN PO HEADACHE or DISCOMFORT 04/12/20 21:45 04/21/20 14:39 Al Hydrox/Mg Hydrox/Simethicone (Mylanta) 30 ml Q4HP PRN PO HEARTBURN/INDIGESTION 04/12/20 21:45 Home Med (Med Rec Complete!) ASDIRECTED XX 04/12/20 18:15 04/12/20 18:14 DC Hydroxyzine HCl (Atarax) 50 mg BIDP PRN PO ANXIETY 04/12/20 21:45 04/26/20 09:07 Magnesium Hydroxide (Milk Of Magnesia) 30 ml DAILYPRN PRN PO CONSTIPATION 04/12/20 21:45 Miscellaneous (Unresolved Clarification Entry) SEE LABEL COMMENTS DAILY XX 04/19/20 09:00 04/23/20 16:46 DC Miscellaneous (Unresolved Non-Formulary Med Order) SEE LABEL COMMENTS DAILY XX 04/14/20 09:00 04/19/20 15:22 DC Nicotine (Nicoderm Cq 7 Mg) 1 patch DAILY TD 04/15/20 09:00 04/28/20 08:59 Olanzapine (ZyPREXA ZYDIS) 5 mg Q6HP PRN PO AGITATION 04/12/20 21:45 04/27/20 15:34 Oxymetazoline HCl (Afrin) 2 spray BID NA 04/14/20 09:00 04/28/20 08:58 Paliperidone (Invega) 3 mg BID PO 04/12/20 21:00 04/28/20 08:58 Patient Own Medication (Patient'S Own Med) Invega Trinza 819mg injecti... ASDIRECTED IM 04/19/20 18:00 04/26/20 09:12 DC 04/23/20 16:44 Propranolol HCl (Inderal) 20 mg DAILYPRN PRN PO ANXIETY 04/26/20 09:15 Propranolol HCl (Inderal) 20 mg DAILYPRN PRN PO ANXIETY 04/12/20 21:45 04/26/20 09:12 DC 04/18/20 12:38 Trazodone HCl (Desyrel) 50 mg QHSP PRN PO INSOMNIA 04/12/20 21:45 04/17/20 20:23 Allergies Coded Allergies: No Known Allergies (Unverified , 12/31/18) BISHOP CLARK DO Apr 28, 2020 12:14
[2020-04-28 18:00] VITALS: BP 142/86
[2020-04-28] MEDS: OLANZapine ORAL DISINTEGRATING TAB 5MG PO PRN (18:07)
[2020-04-29] MEDS: OXYMETAZOLINE 0.05% NASAL SPRAY (AFRIN) SCH ×2 (09:12→20:00)
[2020-04-29] MEDS: PALIPERIDONE 3 MG ER TAB (INVEGA) PO SCH ×2 (09:12→19:59)
[2020-04-29] MEDS: NICOTINE 7 MG/24 HR TRANSDERMAL TD SCH (09:12)
[2020-04-29] MEDS: OLANZapine ORAL DISINTEGRATING TAB 5MG PO PRN (17:01)
[2020-04-29] MEDS: traZODone 50 MG TAB PO PRN (19:59)
[2020-04-30] MEDS: PALIPERIDONE 3 MG ER TAB (INVEGA) PO SCH ×2 (09:20→21:23)
[2020-04-30] MEDS: OXYMETAZOLINE 0.05% NASAL SPRAY (AFRIN) SCH ×2 (09:20→21:23)
[2020-04-30] MEDS: NICOTINE 7 MG/24 HR TRANSDERMAL TD SCH (09:21)
[2020-04-30] MEDS: hydrOXYzine 50 MG TAB PO PRN (09:21)
[2020-04-30] MEDS: OLANZapine ORAL DISINTEGRATING TAB 5MG PO PRN (16:06)
[2020-04-30 18:00] VITALS: BP 150/80
[2020-05-01 06:14] VITALS: BP 104/59
[2020-05-01] MEDS: PALIPERIDONE 3 MG ER TAB (INVEGA) PO SCH ×2 (09:49→20:38)
[2020-05-01] MEDS: OXYMETAZOLINE 0.05% NASAL SPRAY (AFRIN) SCH ×2 (09:50→20:38)
[2020-05-01] MEDS: NICOTINE 7 MG/24 HR TRANSDERMAL TD SCH (09:50)
--- NOTE | 2020-05-01 10:00 | MHIPNPDOC ---
[facility] Progress Note Progress Note DATE OF SERVICE: 05/01/20 HISTORY: The patient has met with today he continues to report some bizarre ideation, although still amenable to working on trying to get the TLS. He does not engage much in discussion and generally focuses on grandiose flattery. He reports no problems with his medications and otherwise has been staying in his room obeying the precautionary quarantine. VITAL SIGNS: See below. NEW TEST RESULTS: None CURRENT MEDICATIONS: See below. MENTAL STATUS EXAMINATION: General: [Well dressed with good hygiene] Speech: Somewhat rapid Thought processes: [Linear and logical] Thought content: [Future orientated] Abstract reasoning, and computation: [Intact] Description of associations: [Intact] Description of abnormal or psychotic thoughts: Denies SI HI, AVH, Some bizarre ideation primarily grandiose "[place] is the best place in the world" Judgment: Limited Insight: Limited Orientation: Alert and orientated 3 Recent and remote memory: [Intact] Attention span and concentration: [Intact] Fund of knowledge: [Adequate] Mood: ["okay"] Affect: Smiling, euthymic DIAGNOSES: 1. Schizophrenia ASSESSMENT:We will continue to pursue treatment, however he may need to be transferred to long-term treatment at [place], as if we are not able to get him to [facility], his home situation has made it clear that they will do everything they can to impair his ability to work with treatment and attempt to interfere with his wellness, thus I cannot in good conscience send him home to that situation as it is certain that he will decompensate MANAGEMENT PLAN: Continue Invega 3 mg twice daily TIME SPENT: 15 minutes. Vital Signs Vital Signs Date Time Temp Pulse Resp B/P (MAP) Pulse Ox O2 Delivery O2 Flow Rate FiO2 05/01/20 06:14 97.9 59 14 104/59 (74) Room Air 04/27/20 06:47 99 Current Medications Current Medications Medications (Trade) Dose Ordered Sig/Marcelino Route PRN Reason Start Time Stop Time Status Last Admin Dose Admin Acetaminophen (Tylenol Tab) 650 mg Q6HP PRN PO HEADACHE or DISCOMFORT 04/12/20 21:45 04/21/20 14:39 Al Hydrox/Mg Hydrox/Simethicone (Mylanta) 30 ml Q4HP PRN PO HEARTBURN/INDIGESTION 04/12/20 21:45 Home Med (Med Rec Complete!) ASDIRECTED XX 04/12/20 18:15 04/12/20 18:14 DC Hydroxyzine HCl (Atarax) 50 mg BIDP PRN PO ANXIETY 04/12/20 21:45 04/30/20 09:21 Magnesium Hydroxide (Milk Of Magnesia) 30 ml DAILYPRN PRN PO CONSTIPATION 04/12/20 21:45 Miscellaneous (Unresolved Clarification Entry) SEE LABEL COMMENTS DAILY XX 04/19/20 09:00 04/23/20 16:46 DC Miscellaneous (Unresolved Non-Formulary Med Order) SEE LABEL COMMENTS DAILY XX 04/14/20 09:00 04/19/20 15:22 DC Nicotine (Nicoderm Cq 7 Mg) 1 patch DAILY TD 04/15/20 09:00 05/01/20 09:50 Olanzapine (ZyPREXA ZYDIS) 5 mg Q6HP PRN PO AGITATION 04/12/20 21:45 04/30/20 16:06 Oxymetazoline HCl (Afrin) 2 spray BID NA 04/14/20 09:00 05/01/20 09:50 Paliperidone (Invega) 3 mg BID PO 04/12/20 21:00 05/01/20 09:49 Patient Own Medication (Patient'S Own Med) Invega Trinza 819mg injecti... ASDIRECTED IM 04/19/20 18:00 04/26/20 09:12 DC 04/23/20 16:44 Propranolol HCl (Inderal) 20 mg DAILYPRN PRN PO ANXIETY 04/26/20 09:15 Propranolol HCl (Inderal) 20 mg DAILYPRN PRN PO ANXIETY 04/12/20 21:45 04/26/20 09:12 DC 04/18/20 12:38 Trazodone HCl (Desyrel) 50 mg QHSP PRN PO INSOMNIA 04/12/20 21:45 04/29/20 19:59 Allergies Coded Allergies: No Known Allergies (Unverified , 12/31/18) BISHOP CLARK DO May 01, 2020 10:00
[2020-05-01 16:00] VITALS: BP 129/78
[2020-05-02 06:21] VITALS: BP 139/79
[2020-05-02] MEDS: hydrOXYzine 50 MG TAB PO PRN (07:24)
[2020-05-02] MEDS: PALIPERIDONE 3 MG ER TAB (INVEGA) PO SCH ×2 (08:15→20:32)
[2020-05-02] MEDS: OXYMETAZOLINE 0.05% NASAL SPRAY (AFRIN) SCH ×2 (08:16→20:33)
[2020-05-02] MEDS: NICOTINE 7 MG/24 HR TRANSDERMAL TD SCH (08:16)
[2020-05-02] MEDS ORDERED: **PENDING PPD ENTRY XX SCH (09:00)
--- NOTE | 2020-05-02 10:31 | MHIPNPDOC ---
[facility] Progress Note Progress Note DATE OF SERVICE: 05/02/20 HISTORY: The patient has met with today, he reports no major issues today, had reported a rash on his stomach which the hospitalist examined, otherwise and th at he has not had any other issues, has generally been amenable friendly although bizarre at times with grandiose ideation. He has been taking the medication without incident and today just tells me that "I think you right" about staying longer and generally has been in his room with soothing music. He appears to be doing well and is open to staying longer to try to sort out a more safe discharge plan VITAL SIGNS: See below. NEW TEST RESULTS: None CURRENT MEDICATIONS: See below. MENTAL STATUS EXAMINATION: General: [Well dressed with good hygiene] Speech: Somewhat rapid Thought processes: [Linear and logical] Thought content: [Future orientated] Abstract reasoning, and computation: [Intact] Description of associations: [Intact] Description of abnormal or psychotic thoughts: Denies SI HI, AVH, Some bizarre ideation primarily grandiose "[facility] is the best place in the world" Judgment: Limited Insight: Limited Orientation: Alert and orientated 3 Recent and remote memory: [Intact] Attention span and concentration: [Intact] Fund of knowledge: [Adequate] Mood: ["okay"] Affect: Smiling, euthymic DIAGNOSES: 1. Schizophrenia ASSESSMENT:Referral to [place] will be placed in progress with EKG and TB test ordered MANAGEMENT PLAN: Continue Invega 3 mg twice daily TIME SPENT: 15 minutes. Vital Signs Vital Signs Date Time Temp Pulse Resp B/P (MAP) Pulse Ox O2 Delivery O2 Flow Rate FiO2 05/02/20 06:21 98.9 63 18 139/79 (99) 96 Room Air Current Medications Current Medications Medications (Trade) Dose Ordered Sig/Marcelino Route PRN Reason Start Time Stop Time Status Last Admin Dose Admin Acetaminophen (Tylenol Tab) 650 mg Q6HP PRN PO HEADACHE or DISCOMFORT 04/12/20 21:45 04/21/20 14:39 Al Hydrox/Mg Hydrox/Simethicone (Mylanta) 30 ml Q4HP PRN PO HEARTBURN/INDIGESTION 04/12/20 21:45 Home Med (Med Rec Complete!) ASDIRECTED XX 04/12/20 18:15 04/12/20 18:14 DC Hydroxyzine HCl (Atarax) 50 mg BIDP PRN PO ANXIETY 04/12/20 21:45 05/02/20 07:24 Magnesium Hydroxide (Milk Of Magnesia) 30 ml DAILYPRN PRN PO CONSTIPATION 04/12/20 21:45 Miscellaneous (Unresolved Clarification Entry) SEE LABEL COMMENTS DAILY XX 04/19/20 09:00 04/23/20 16:46 DC Miscellaneous (Unresolved Non-Formulary Med Order) SEE LABEL COMMENTS DAILY XX 04/14/20 09:00 04/19/20 15:22 DC Nicotine (Nicoderm Cq 7 Mg) 1 patch DAILY TD 04/15/20 09:00 05/02/20 08:16 Olanzapine (ZyPREXA ZYDIS) 5 mg Q6HP PRN PO AGITATION 04/12/20 21:45 04/30/20 16:06 Oxymetazoline HCl (Afrin) 2 spray BID NA 04/14/20 09:00 05/02/20 08:16 Paliperidone (Invega) 3 mg BID PO 04/12/20 21:00 05/02/20 08:15 Patient Own Medication (Patient'S Own Med) Invega Trinza 819mg injecti... ASDIRECTED IM 04/19/20 18:00 04/26/20 09:12 DC 04/23/20 16:44 Propranolol HCl (Inderal) 20 mg DAILYPRN PRN PO ANXIETY 04/26/20 09:15 Propranolol HCl (Inderal) 20 mg DAILYPRN PRN PO ANXIETY 04/12/20 21:45 04/26/20 09:12 DC 04/18/20 12:38 Trazodone HCl (Desyrel) 50 mg QHSP PRN PO INSOMNIA 04/12/20 21:45 04/29/20 19:59 Allergies Coded Allergies: No Known Allergies (Unverified , 12/31/18) BISHOP CLARK DO May 02, 2020 10:31
[2020-05-02] MEDS ORDERED: TUBERCULIN PPD 5 UNITS/0.1 ML ID ONE ×2 (11:30→15:00)
[2020-05-02 16:39] VITALS: BP 140/76
--- NOTE | 2020-05-02 17:10 | HPEPDOC ---
[facility] Medical History & Physical Date of Admission Apr 13, 2020 Date of Service: May 02, 2020 Attending Physician: JACK TAM MD History and Physical CHIEF COMPLAINT: Truncal rash HISTORY OF PRESENT ILLNESS: 64 yo M with schizophrenia who was admitted to the [facility] with margarita psychosis on 04/13 recently in isolation because he had unmasked close contact with a covid+ patient, and currently covid negative on testing, without respiratory symptoms, for whom psychiatry is consulting medicine for a nonpruritic truncal rash in his upper abdomen. PAST MEDICAL HISTORY: Paranoid Schizophrenia Anxiety Disorder Surgical History: Right inguinal hernia repair. Family History Mother from complications of pneumonia Father is alive Sister is alive Social History: Smoker: current smoker Alcohol: occasionally Drugs: denies ALLERGIES: Please see below. REVIEW OF SYSTEMS: 10 point ROS was grossly negative except for the noted upper abdomen rash that appeared ~2d ago. HOME MEDICATIONS: Please see below. PHYSICAL EXAMINATION: VITAL SIGNS: see below GENERAL APPEARANCE: NAD HEENT: NCAT, EOMI, MMM CARDIOVASCULAR: RRR, no mrg LUNGS: CTAB ABDOMEN: Normoactive sounds, soft, NTND MUSCULOSKELETAL: 5/5 strength, tone throughout with FROM EXTREMITIES: WWP, no edema NEUROLOGICAL: normal gait, CN3-12 intact SKIN: small pustular lesions with central scabbing likely from being scratched, with erythematous, circumferential immediate perimeter rash. LABORATORY DATA: See below. IMAGING: None MICROBIOLOGY: Please see below. ASSESSMENT: 64 yo M with schizophrenia who was admitted to the [facility] with margarita psychosis on 04/13 recently in isolation because he had unmasked close contact with a covid+ patient, and currently covid negative on testing, without respiratory symptoms, for whom psychiatry is consulting medicine for a nonpruritic truncal rash in his upper abdomen. PLAN: 1. Upper abdominal rash: -Appears more like a heat rash vs. unlikely drug eruption -will order 0.1% triamcinolone cream for BID use for 1 week. Nursing to give feedback if worsening. Schizophrenia: per psych Will sign off at this time. Please do contact me with any further questions or worsening of rash. Vital Signs Vital Signs Date Time Temp Pulse Resp B/P (MAP) Pulse Ox O2 Delivery O2 Flow Rate FiO2 05/02/20 16:39 98.9 82 16 140/76 (97) 98 Room Air Home Medications Scheduled Paliperidone Palmitate (Invega Trinza) 819 Mg/2.625 Ml Syringe, 819 MG IM Q3M for SCHIZOPHRENIA Scheduled PRN Hydroxyzine HCl (Hydroxyzine HCl) 50 Mg Tablet, 50 MG PO BID PRN for ANXIETY Propranolol HCl (Propranolol HCl) 20 Mg Tablet, 20 MG PO DAILY PRN for ANXIETY Allergies Coded Allergies: No Known Allergies (Unverified , 12/31/18) A-FIB/CHADSVASC A-FIB History Current/History of A-Fib/PAF?: No Current PO Anticoag Therapy: No Age/Risk Factor Scoring CHADSVASC: CHADSVASC Response (Comments) Value Age Risk Factor Age 65-74 years old 1 Gender Risk Factor Male 0 Hx of CHF No 0 Hx of HTN No 0 Hx of Stroke/TIA/or VTE No 0 Hx of Diabetes No 0 Hx of Vascular Disease No 0 Total 1 Treatment Treatment ordered: NONE Reason Anticoagulant not given: Not indicated/[id number] JACK TAM MD May 02, 2020 17:10
[2020-05-02] MEDS: TRIAMCINOLONE ACET 0.1% CREAM 80 GM TOP SCH (20:33)
[2020-05-03 06:16] VITALS: BP 129/85
--- NOTE | 2020-05-03 07:40 | ECGEPIP ---
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
--- NOTE | 2020-05-03 09:26 | MHIPNPDOC ---
[facility] Progress Note Progress Note DATE OF SERVICE: 05/03/20 HISTORY: The patient is met with today, he reports that he still having some bizarre thoughts, he is very grandiose and complementarity, he is pleasant but needs redirection for his mask. He is drinking very large coffee, however he is open to staying longer and to trying to do better at home, has no complaints today. VITAL SIGNS: See below. NEW TEST RESULTS: None CURRENT MEDICATIONS: See below. MENTAL STATUS EXAMINATION: General: [Well dressed with good hygiene] Speech: Somewhat rapid Thought processes: [Linear and logical] Thought content: [Future orientated] Abstract reasoning, and computation: [Intact] Description of associations: [Intact] Description of abnormal or psychotic thoughts: Denies SI HI, AVH, Some bizarre ideation primarily grandiose "your my hero " Judgment: Limited Insight: Limited Orientation: Alert and orientated 3 Recent and remote memory: [Intact] Attention span and concentration: [Intact] Fund of knowledge: [Adequate] Mood: ["okay"] Affect: Smiling, euthymic DIAGNOSES: 1. Schizophrenia ASSESSMENT: Continue with placement for long-term MANAGEMENT PLAN: Continue Invega 3 mg twice daily TIME SPENT: 15 minutes. Vital Signs Vital Signs Date Time Temp Pulse Resp B/P (MAP) Pulse Ox O2 Delivery O2 Flow Rate FiO2 05/03/20 06:16 97.7 71 18 129/85 (100) 98 Room Air Current Medications Current Medications Medications (Trade) Dose Ordered Sig/Marcelino Route PRN Reason Start Time Stop Time Status Last Admin Dose Admin Acetaminophen (Tylenol Tab) 650 mg Q6HP PRN PO HEADACHE or DISCOMFORT 04/12/20 21:45 04/21/20 14:39 Al Hydrox/Mg Hydrox/Simethicone (Mylanta) 30 ml Q4HP PRN PO HEARTBURN/INDIGESTION 04/12/20 21:45 Home Med (Med Rec Complete!) ASDIRECTED XX 04/12/20 18:15 04/12/20 18:14 DC Hydroxyzine HCl (Atarax) 50 mg BIDP PRN PO ANXIETY 04/12/20 21:45 05/02/20 07:24 Magnesium Hydroxide (Milk Of Magnesia) 30 ml DAILYPRN PRN PO CONSTIPATION 04/12/20 21:45 Miscellaneous (Unresolved Clarification Entry) SEE LABEL COMMENTS DAILY XX 04/19/20 09:00 04/23/20 16:46 DC Miscellaneous (Unresolved Non-Formulary Med Order) SEE LABEL COMMENTS DAILY XX 04/14/20 09:00 04/19/20 15:22 DC Nicotine (Nicoderm Cq 7 Mg) 1 patch DAILY TD 04/15/20 09:00 05/02/20 08:16 Non-Formulary Medication ( See Comment Field Below ) SEE COMMENTS SECTION 1T@10 XX 05/04/20 10:00 05/05/20 09:59 UNV Non-Formulary Medication ( See Comment Field Below ) SEE LABEL COMMENTS DAILY XX 05/02/20 09:00 05/02/20 14:42 DC Olanzapine (ZyPREXA ZYDIS) 5 mg Q6HP PRN PO AGITATION 04/12/20 21:45 04/30/20 16:06 Oxymetazoline HCl (Afrin) 2 spray BID NA 04/14/20 09:00 05/02/20 20:33 Paliperidone (Invega) 3 mg BID PO 04/12/20 21:00 05/02/20 20:32 Patient Own Medication (Patient'S Own Med) Invega Trinza 819mg injecti... ASDIRECTED IM 04/19/20 18:00 04/26/20 09:12 DC 04/23/20 16:44 Propranolol HCl (Inderal) 20 mg DAILYPRN PRN PO ANXIETY 04/26/20 09:15 Propranolol HCl (Inderal) 20 mg DAILYPRN PRN PO ANXIETY 04/12/20 21:45 04/26/20 09:12 DC 04/18/20 12:38 Trazodone HCl (Desyrel) 50 mg QHSP PRN PO INSOMNIA 04/12/20 21:45 04/29/20 19:59 Triamcinolone Acetonide (Kenalog 0.1% Cream) 1 dose BID TOP 05/02/20 21:00 05/09/20 21:00 05/02/20 20:33 Allergies Coded Allergies: No Known Allergies (Unverified , 12/31/18) BISHOP CLARK DO May 03, 2020 09:26
[2020-05-03] MEDS: NICOTINE 7 MG/24 HR TRANSDERMAL TD SCH (09:33)
[2020-05-03] MEDS: OXYMETAZOLINE 0.05% NASAL SPRAY (AFRIN) SCH ×2 (09:33→20:32)
[2020-05-03] MEDS: PALIPERIDONE 3 MG ER TAB (INVEGA) PO SCH ×2 (09:33→20:32)
[2020-05-03] MEDS: TRIAMCINOLONE ACET 0.1% CREAM 80 GM TOP SCH ×2 (09:34→20:32)
[2020-05-03] MEDS: hydrOXYzine 50 MG TAB PO PRN (15:46)
[2020-05-03 16:22] VITALS: BP 135/79
[2020-05-04 06:04] VITALS: BP 133/64
[2020-05-04] MEDS: PALIPERIDONE 3 MG ER TAB (INVEGA) PO SCH ×2 (09:07→20:52)
[2020-05-04] MEDS: NICOTINE 7 MG/24 HR TRANSDERMAL TD SCH (09:07)
[2020-05-04] MEDS: TRIAMCINOLONE ACET 0.1% CREAM 80 GM TOP SCH ×2 (09:07→20:52)
[2020-05-04] MEDS: OXYMETAZOLINE 0.05% NASAL SPRAY (AFRIN) SCH ×2 (09:08→20:52)
[2020-05-04] MEDS ORDERED: PPD DOCUMENTATION ENTRY MISC XX SCH (10:00)
--- NOTE | 2020-05-04 10:36 | MHIPNPDOC ---
[facility] Progress Note Progress Note DATE OF SERVICE: 05/04/20 HISTORY: The patient is met with today, he reports no issues and currently has has no complaints. He is been friendly and amenable, although grandiose he has no major issues or complaints today. VITAL SIGNS: See below. NEW TEST RESULTS: None CURRENT MEDICATIONS: See below. MENTAL STATUS EXAMINATION: General: [Well dressed with good hygiene] Speech: Somewhat rapid Thought processes: [Linear and logical] Thought content: [Future orientated] Abstract reasoning, and computation: [Intact] Description of associations: [Intact] Description of abnormal or psychotic thoughts: Denies SI HI, AVH, Some bizarre ideation primarily grandiose "your my hero " Judgment: Limited Insight: Limited Orientation: Alert and orientated 3 Recent and remote memory: [Intact] Attention span and concentration: [Intact] Fund of knowledge: [Adequate] Mood: ["okay"] Affect: Smiling, euthymic DIAGNOSES: 1. Schizophrenia ASSESSMENT: Continue with placement for long-term MANAGEMENT PLAN: Continue Invega 3 mg twice daily TIME SPENT: 15 minutes. Vital Signs Vital Signs Date Time Temp Pulse Resp B/P (MAP) Pulse Ox O2 Delivery O2 Flow Rate FiO2 05/04/20 06:04 98.6 66 16 133/64 (87) 94 Room Air Current Medications Current Medications Medications (Trade) Dose Ordered Sig/Marcelino Route PRN Reason Start Time Stop Time Status Last Admin Dose Admin Acetaminophen (Tylenol Tab) 650 mg Q6HP PRN PO HEADACHE or DISCOMFORT 04/12/20 21:45 04/21/20 14:39 Al Hydrox/Mg Hydrox/Simethicone (Mylanta) 30 ml Q4HP PRN PO HEARTBURN/INDIGESTION 04/12/20 21:45 Home Med (Med Rec Complete!) ASDIRECTED XX 04/12/20 18:15 04/12/20 18:14 DC Hydroxyzine HCl (Atarax) 50 mg BIDP PRN PO ANXIETY 04/12/20 21:45 05/03/20 15:46 Magnesium Hydroxide (Milk Of Magnesia) 30 ml DAILYPRN PRN PO CONSTIPATION 04/12/20 21:45 Miscellaneous (Unresolved Clarification Entry) SEE LABEL COMMENTS DAILY XX 04/19/20 09:00 04/23/20 16:46 DC Miscellaneous (Unresolved Non-Formulary Med Order) SEE LABEL COMMENTS DAILY XX 04/14/20 09:00 04/19/20 15:22 DC Nicotine (Nicoderm Cq 7 Mg) 1 patch DAILY TD 04/15/20 09:00 05/04/20 09:07 Non-Formulary Medication ( See Comment Field Below ) SEE COMMENTS SECTION 1T@10 XX 05/04/20 10:00 05/05/20 09:59 UNV Non-Formulary Medication ( See Comment Field Below ) SEE LABEL COMMENTS DAILY XX 05/02/20 09:00 05/02/20 14:42 DC Olanzapine (ZyPREXA ZYDIS) 5 mg Q6HP PRN PO AGITATION 04/12/20 21:45 04/30/20 16:06 Oxymetazoline HCl (Afrin) 2 spray BID NA 04/14/20 09:00 05/04/20 09:08 Paliperidone (Invega) 3 mg BID PO 04/12/20 21:00 05/04/20 09:07 Patient Own Medication (Patient'S Own Med) Invega Trinza 819mg injecti... ASDIRECTED IM 04/19/20 18:00 04/26/20 09:12 DC 04/23/20 16:44 Propranolol HCl (Inderal) 20 mg DAILYPRN PRN PO ANXIETY 04/26/20 09:15 Propranolol HCl (Inderal) 20 mg DAILYPRN PRN PO ANXIETY 04/12/20 21:45 04/26/20 09:12 DC 04/18/20 12:38 Trazodone HCl (Desyrel) 50 mg QHSP PRN PO INSOMNIA 04/12/20 21:45 04/29/20 19:59 Triamcinolone Acetonide (Kenalog 0.1% Cream) 1 dose BID TOP 05/02/20 21:00 05/09/20 21:00 05/04/20 09:07 Allergies Coded Allergies: No Known Allergies (Unverified , 12/31/18) BISHOP CLARK DO May 04, 2020 10:36
[2020-05-04] MEDS: hydrOXYzine 50 MG TAB PO PRN (14:26)
[2020-05-04] MEDS ORDERED: PPD DOCUMENTATION ENTRY MISC XX ONE (15:00)
[2020-05-04 16:49] VITALS: BP 130/82
[2020-05-05 06:29] VITALS: BP 112/78
[2020-05-05] MEDS: NICOTINE 7 MG/24 HR TRANSDERMAL TD SCH (08:17)
[2020-05-05] MEDS: OXYMETAZOLINE 0.05% NASAL SPRAY (AFRIN) SCH ×2 (08:17→20:08)
[2020-05-05] MEDS: PALIPERIDONE 3 MG ER TAB (INVEGA) PO SCH ×2 (08:17→20:08)
[2020-05-05] MEDS: TRIAMCINOLONE ACET 0.1% CREAM 80 GM TOP SCH ×2 (08:17→20:08)
[2020-05-05] MEDS: hydrOXYzine 50 MG TAB PO PRN (13:36)
[2020-05-05 16:52] VITALS: BP 139/84
[2020-05-06 06:24] VITALS: BP 109/71
[2020-05-06] MEDS: NICOTINE 7 MG/24 HR TRANSDERMAL TD SCH (08:29)
[2020-05-06] MEDS: OXYMETAZOLINE 0.05% NASAL SPRAY (AFRIN) SCH ×2 (08:29→20:13)
[2020-05-06] MEDS: PALIPERIDONE 3 MG ER TAB (INVEGA) PO SCH ×2 (08:29→20:13)
[2020-05-06] MEDS: TRIAMCINOLONE ACET 0.1% CREAM 80 GM TOP SCH ×2 (08:30→20:13)
[2020-05-06 16:51] VITALS: BP 123/90
[2020-05-06] MEDS: traZODone 50 MG TAB PO PRN (20:20)
[2020-05-07 06:23] VITALS: BP 146/80
[2020-05-07] MEDS: PALIPERIDONE 3 MG ER TAB (INVEGA) PO SCH ×2 (08:49→21:04)
[2020-05-07] MEDS: OXYMETAZOLINE 0.05% NASAL SPRAY (AFRIN) SCH ×2 (08:50→21:04)
[2020-05-07] MEDS: NICOTINE 7 MG/24 HR TRANSDERMAL TD SCH (08:50)
[2020-05-07] MEDS: TRIAMCINOLONE ACET 0.1% CREAM 80 GM TOP SCH ×2 (08:56→21:05)
[2020-05-07] MEDS: OLANZapine ORAL DISINTEGRATING TAB 5MG PO PRN (13:20)
[2020-05-07 14:40] VITALS: BP 136/87
[2020-05-07] MEDS: traZODone 50 MG TAB PO PRN (21:04)
[2020-05-08 06:49] VITALS: BP 141/80
[2020-05-08] MEDS: NICOTINE 7 MG/24 HR TRANSDERMAL TD SCH (08:49)
[2020-05-08] MEDS: PALIPERIDONE 3 MG ER TAB (INVEGA) PO SCH ×2 (08:49→20:15)
[2020-05-08] MEDS: OXYMETAZOLINE 0.05% NASAL SPRAY (AFRIN) SCH ×2 (08:50→20:16)
[2020-05-08] MEDS: TRIAMCINOLONE ACET 0.1% CREAM 80 GM TOP SCH ×2 (08:50→20:15)
--- NOTE | 2020-05-08 10:14 | MHIPNPDOC ---
[facility] Progress Note Progress Note DATE OF SERVICE: 05/08/20 HISTORY: The patient is met with today, he continues to be, although grandiose, he doesn't have much else in terms of complaints and is open to [facility] for housing, he had reported to the systems planner that he did not want to do so, however when I asked him he was open to this. He does appear to be inconsistent with his presentation generally rapid and somewhat distorted times losing track of some of the information that had been given to him the day prior. He reports no problems with his medications and otherwise denies any side effects. He has not had any major behavioral problems but tends to spend quite a bit of time asking questions. VITAL SIGNS: See below. NEW TEST RESULTS: None CURRENT MEDICATIONS: See below. MENTAL STATUS EXAMINATION: General: [Well dressed with good hygiene] Speech: Somewhat rapid Thought processes: [Linear and logical] Thought content: [Future orientated] Abstract reasoning, and computation: Appears more impaired today Description of associations: Appears more impaired today Description of abnormal or psychotic thoughts: Denies SI HI, AVH, some continued grandiose delusions Judgment: Limited Insight: Limited Orientation: Alert and orientated 3 Recent and remote memory: [Intact] Attention span and concentration: Somewhat impaired Fund of knowledge: [Adequate] Mood: ["okay"] Affect: Elated DIAGNOSES: 1. Schizophrenia ASSESSMENT: We'll continue with placement for long-term, there are some difficulty and ambivalence as to whether he would meet full criteria he does appear to return to baseline state, however his home situation as I said before is still very difficult and will be unlikely to produce a positive affect, especially with his partner Madhu making it clear that she will interfere with his AOT and further making it clear that she will not allow him to get his care, this is not a safe discharge plan and if I cannot find a more suitable plan then he will need to have long-term treatment opinion. MANAGEMENT PLAN: Continue Invega 3 mg twice daily, put a call into the AOT coordinator no answer left a message, hopefully she might have some resources or help coordinate a more safe discharge and she is of the same opinion. TIME SPENT: 15 minutes. Vital Signs Vital Signs Date Time Temp Pulse Resp B/P (MAP) Pulse Ox O2 Delivery O2 Flow Rate FiO2 05/08/20 06:49 97.9 74 16 141/80 (100) 98 Room Air Current Medications Current Medications Medications (Trade) Dose Ordered Sig/Marcelino Route PRN Reason Start Time Stop Time Status Last Admin Dose Admin Acetaminophen (Tylenol Tab) 650 mg Q6HP PRN PO HEADACHE or DISCOMFORT 04/12/20 21:45 04/21/20 14:39 Al Hydrox/Mg Hydrox/Simethicone (Mylanta) 30 ml Q4HP PRN PO HEARTBURN/INDIGESTION 04/12/20 21:45 Home Med (Med Rec Complete!) ASDIRECTED XX 04/12/20 18:15 04/12/20 18:14 DC Hydroxyzine HCl (Atarax) 50 mg BIDP PRN PO ANXIETY 04/12/20 21:45 05/05/20 13:36 Magnesium Hydroxide (Milk Of Magnesia) 30 ml DAILYPRN PRN PO CONSTIPATION 04/12/20 21:45 Miscellaneous (Unresolved Clarification Entry) SEE LABEL COMMENTS DAILY XX 04/19/20 09:00 04/23/20 16:46 DC Miscellaneous (Unresolved Non-Formulary Med Order) SEE LABEL COMMENTS DAILY XX 04/14/20 09:00 04/19/20 15:22 DC Nicotine (Nicoderm Cq 7 Mg) 1 patch DAILY TD 04/15/20 09:00 05/08/20 08:49 Non-Formulary Medication ( See Comment Field Below ) SEE COMMENTS SECTION 1T@10 XX 05/04/20 10:00 05/05/20 09:59 UNV Non-Formulary Medication ( See Comment Field Below ) SEE LABEL COMMENTS DAILY XX 05/02/20 09:00 05/02/20 14:42 DC Olanzapine (ZyPREXA ZYDIS) 5 mg Q6HP PRN PO AGITATION 04/12/20 21:45 05/07/20 13:20 Oxymetazoline HCl (Afrin) 2 spray BID NA 04/14/20 09:00 05/08/20 08:50 Paliperidone (Invega) 3 mg BID PO 04/12/20 21:00 05/08/20 08:49 Patient Own Medication (Patient'S Own Med) Invega Trinza 819mg injecti... ASDIRECTED IM 04/19/20 18:00 04/26/20 09:12 DC 04/23/20 16:44 Propranolol HCl (Inderal) 20 mg DAILYPRN PRN PO ANXIETY 04/26/20 09:15 Propranolol HCl (Inderal) 20 mg DAILYPRN PRN PO ANXIETY 04/12/20 21:45 04/26/20 09:12 DC 04/18/20 12:38 Trazodone HCl (Desyrel) 50 mg QHSP PRN PO INSOMNIA 04/12/20 21:45 05/07/20 21:04 Triamcinolone Acetonide (Kenalog 0.1% Cream) 1 dose BID TOP 05/02/20 21:00 05/09/20 21:00 05/08/20 08:50 Allergies Coded Allergies: No Known Allergies (Unverified , 12/31/18) BISHOP CLARK DO May 08, 2020 10:14
[2020-05-08] MEDS: hydrOXYzine 50 MG TAB PO PRN (10:29)
[2020-05-08 17:56] VITALS: BP 127/85
[2020-05-09 06:21] VITALS: BP 146/68
[2020-05-09] MEDS: TRIAMCINOLONE ACET 0.1% CREAM 80 GM TOP SCH ×2 (09:17→20:27)
[2020-05-09] MEDS: PALIPERIDONE 3 MG ER TAB (INVEGA) PO SCH ×2 (09:17→20:26)
[2020-05-09] MEDS: OXYMETAZOLINE 0.05% NASAL SPRAY (AFRIN) SCH ×2 (09:17→20:26)
[2020-05-09] MEDS: NICOTINE 7 MG/24 HR TRANSDERMAL TD SCH (09:18)
--- NOTE | 2020-05-09 10:22 | MHIPNPDOC ---
[facility] Progress Note Progress Note DATE OF SERVICE: 05/09/20 HISTORY: The patient is met with today, he continues to be quite grandiose and disorganized today, he generally continues to ask unusual questions, but is nick te complementarity and appears confused asking to talk to the psychiatrist, completely unaware that I was his psychiatrist have been for the last several weeks. He is still somewhat confused at times but overall is receptive to discussion, he reports no problems with his medications but it appears that time seemed to simply agrees with everything asked of him. VITAL SIGNS: See below. NEW TEST RESULTS: None CURRENT MEDICATIONS: See below. MENTAL STATUS EXAMINATION: General: [Well dressed with good hygiene] Speech: Somewhat rapid Thought processes: More tangential Thought content: [Future orientated] Abstract reasoning, and computation: Appears more impaired today Description of associations: Appears more impaired today Description of abnormal or psychotic thoughts: Denies SI HI, AVH, some continued grandiose delusions Judgment: Limited Insight: Limited Orientation: Alert and orientated 3 Recent and remote memory: [Intact] Attention span and concentration: Somewhat impaired Fund of knowledge: [Adequate] Mood: ["okay"] Affect: Elated DIAGNOSES: 1. Schizophrenia ASSESSMENT: Discussed case with AOT coordinator, I would be best if the patient is detained until the when this is renewed, as TLS can be placed in the referral and he can be placed in the system where he can avoid being in a dangerous situation with his significant other who is make clear that she will interfere with his care MANAGEMENT PLAN: Continue Invega 3 mg twice a day, will taper off shortly as patient is making some progress appears reproaching psychotic baseline Vital Signs Vital Signs Date Time Temp Pulse Resp B/P (MAP) Pulse Ox O2 Delivery O2 Flow Rate FiO2 05/09/20 06:21 98.4 66 18 146/68 (94) 95 Room Air Current Medications Current Medications Medications (Trade) Dose Ordered Sig/Marcelino Route PRN Reason Start Time Stop Time Status Last Admin Dose Admin Acetaminophen (Tylenol Tab) 650 mg Q6HP PRN PO HEADACHE or DISCOMFORT 04/12/20 21:45 04/21/20 14:39 Al Hydrox/Mg Hydrox/Simethicone (Mylanta) 30 ml Q4HP PRN PO HEARTBURN/INDIGESTION 04/12/20 21:45 Home Med (Med Rec Complete!) ASDIRECTED XX 04/12/20 18:15 04/12/20 18:14 DC Hydroxyzine HCl (Atarax) 50 mg BIDP PRN PO ANXIETY 04/12/20 21:45 05/08/20 10:29 Magnesium Hydroxide (Milk Of Magnesia) 30 ml DAILYPRN PRN PO CONSTIPATION 04/12/20 21:45 Miscellaneous (Unresolved Clarification Entry) SEE LABEL COMMENTS DAILY XX 04/19/20 09:00 04/23/20 16:46 DC Miscellaneous (Unresolved Non-Formulary Med Order) SEE LABEL COMMENTS DAILY XX 04/14/20 09:00 04/19/20 15:22 DC Nicotine (Nicoderm Cq 7 Mg) 1 patch DAILY TD 04/15/20 09:00 05/09/20 09:18 Non-Formulary Medication ( See Comment Field Below ) SEE COMMENTS SECTION 1T@10 XX 05/04/20 10:00 05/05/20 09:59 UNV Non-Formulary Medication ( See Comment Field Below ) SEE LABEL COMMENTS DAILY XX 05/02/20 09:00 05/02/20 14:42 DC Olanzapine (ZyPREXA ZYDIS) 5 mg Q6HP PRN PO AGITATION 04/12/20 21:45 05/07/20 13:20 Oxymetazoline HCl (Afrin) 2 spray BID NA 04/14/20 09:00 05/09/20 09:17 Paliperidone (Invega) 3 mg BID PO 04/12/20 21:00 05/09/20 09:17 Patient Own Medication (Patient'S Own Med) Invega Trinza 819mg injecti... ASDIRECTED IM 04/19/20 18:00 04/26/20 09:12 DC 04/23/20 16:44 Propranolol HCl (Inderal) 20 mg DAILYPRN PRN PO ANXIETY 04/26/20 09:15 Propranolol HCl (Inderal) 20 mg DAILYPRN PRN PO ANXIETY 04/12/20 21:45 04/26/20 09:12 DC 04/18/20 12:38 Trazodone HCl (Desyrel) 50 mg QHSP PRN PO INSOMNIA 04/12/20 21:45 05/07/20 21:04 Triamcinolone Acetonide (Kenalog 0.1% Cream) 1 dose BID TOP 05/02/20 21:00 05/09/20 21:00 05/09/20 09:17 Allergies Coded Allergies: No Known Allergies (Unverified , 12/31/18) BISHOP CLARK DO May 09, 2020 10:22
[2020-05-09] MEDS: OLANZapine ORAL DISINTEGRATING TAB 5MG PO PRN (10:56)
[2020-05-09 18:00] VITALS: BP 149/88
[2020-05-09] MEDS: traZODone 50 MG TAB PO PRN (20:30)
[2020-05-10 05:49] VITALS: BP 122/68
[2020-05-10] MEDS: PALIPERIDONE 3 MG ER TAB (INVEGA) PO SCH ×2 (09:07→21:04)
[2020-05-10] MEDS: NICOTINE 7 MG/24 HR TRANSDERMAL TD SCH (09:07)
[2020-05-10] MEDS: OXYMETAZOLINE 0.05% NASAL SPRAY (AFRIN) SCH ×2 (09:08→21:05)
--- NOTE | 2020-05-10 11:32 | MHIPNPDOC ---
[facility] Progress Note Progress Note DATE OF SERVICE: 05/10/20 HISTORY: The patient is met with today, he is still somewhat confused and grandiose, reports medications are doing well and denies any side effects. He reports that he is happy about getting off of 14 this evening, and reports that he feels "great", he still confused at times unclear of the plan, he still isn't able to retain any information relative to the plan for [place] as a potential long-term option. He is generally agreeing with everything makes little for 2 disagreeing any statement. VITAL SIGNS: See below. NEW TEST RESULTS: None CURRENT MEDICATIONS: See below. MENTAL STATUS EXAMINATION: General: [Well dressed with good hygiene] Speech: Somewhat rapid Thought processes: More tangential Thought content: [Future orientated] Abstract reasoning, and computation: Appears more impaired today Description of associations: Appears more impaired today Description of abnormal or psychotic thoughts: Denies SI HI, AVH, some continued grandiose delusions Judgment: Limited Insight: Limited Orientation: Alert and orientated 3 Recent and remote memory: [Intact] Attention span and concentration: Somewhat impaired Fund of knowledge: [Adequate] Mood: ["okay"] Affect: Elated DIAGNOSES: 1. Schizophrenia ASSESSMENT: Recommend holding patient into the 15th when AOT can more effectively make sure that he gets the TLS program program with safer than living with his current significant other who has made it clear uncertain terms that she will interfere with his care and he will likely be brought back in and it is my opinion a very unsafe discharge MANAGEMENT PLAN: Continue Invega 3 mg twice a day, will taper off shortly as patient is making some progress appears reproaching psychotic baseline in the next week Vital Signs Vital Signs Date Time Temp Pulse Resp B/P (MAP) Pulse Ox O2 Delivery O2 Flow Rate FiO2 05/10/20 05:49 97.7 75 18 122/68 (86) 94 Room Air Current Medications Current Medications Medications (Trade) Dose Ordered Sig/Marcelino Route PRN Reason Start Time Stop Time Status Last Admin Dose Admin Acetaminophen (Tylenol Tab) 650 mg Q6HP PRN PO HEADACHE or DISCOMFORT 04/12/20 21:45 04/21/20 14:39 Al Hydrox/Mg Hydrox/Simethicone (Mylanta) 30 ml Q4HP PRN PO HEARTBURN/INDIGESTION 04/12/20 21:45 Home Med (Med Rec Complete!) ASDIRECTED XX 04/12/20 18:15 04/12/20 18:14 DC Hydroxyzine HCl (Atarax) 50 mg BIDP PRN PO ANXIETY 04/12/20 21:45 05/08/20 10:29 Magnesium Hydroxide (Milk Of Magnesia) 30 ml DAILYPRN PRN PO CONSTIPATION 04/12/20 21:45 Miscellaneous (Unresolved Clarification Entry) SEE LABEL COMMENTS DAILY XX 04/19/20 09:00 04/23/20 16:46 DC Miscellaneous (Unresolved Non-Formulary Med Order) SEE LABEL COMMENTS DAILY XX 04/14/20 09:00 04/19/20 15:22 DC Nicotine (Nicoderm Cq 7 Mg) 1 patch DAILY TD 04/15/20 09:00 05/10/20 09:07 Non-Formulary Medication ( See Comment Field Below ) SEE COMMENTS SECTION 1T@10 XX 05/04/20 10:00 05/05/20 09:59 UNV Non-Formulary Medication ( See Comment Field Below ) SEE LABEL COMMENTS DAILY XX 05/02/20 09:00 05/02/20 14:42 DC Olanzapine (ZyPREXA ZYDIS) 5 mg Q6HP PRN PO AGITATION 04/12/20 21:45 05/09/20 10:56 Oxymetazoline HCl (Afrin) 2 spray BID NA 04/14/20 09:00 05/10/20 09:08 Paliperidone (Invega) 3 mg BID PO 04/12/20 21:00 05/10/20 09:07 Patient Own Medication (Patient'S Own Med) Invega Trinza 819mg injecti... ASDIRECTED IM 04/19/20 18:00 04/26/20 09:12 DC 04/23/20 16:44 Propranolol HCl (Inderal) 20 mg DAILYPRN PRN PO ANXIETY 04/26/20 09:15 Propranolol HCl (Inderal) 20 mg DAILYPRN PRN PO ANXIETY 04/12/20 21:45 04/26/20 09:12 DC 04/18/20 12:38 Trazodone HCl (Desyrel) 50 mg QHSP PRN PO INSOMNIA 04/12/20 21:45 05/09/20 20:30 Triamcinolone Acetonide (Kenalog 0.1% Cream) 1 dose BID TOP 05/02/20 21:00 05/09/20 21:00 CA 05/09/20 20:27 Allergies Coded Allergies: No Known Allergies (Unverified , 12/31/18) BISHOP CLARK DO May 10, 2020 11:32
[2020-05-10] MEDS: hydrOXYzine 50 MG TAB PO PRN (12:20)
[2020-05-10 17:59] VITALS: BP 142/82
[2020-05-11 05:44] VITALS: BP 127/72
[2020-05-11] MEDS: PALIPERIDONE 3 MG ER TAB (INVEGA) PO SCH ×2 (08:58→20:02)
[2020-05-11] MEDS: OXYMETAZOLINE 0.05% NASAL SPRAY (AFRIN) SCH ×2 (08:58→20:02)
[2020-05-11] MEDS: NICOTINE 7 MG/24 HR TRANSDERMAL TD SCH (08:59)
[2020-05-11] MEDS: OLANZapine ORAL DISINTEGRATING TAB 5MG PO PRN ×2 (08:59→16:00)
--- NOTE | 2020-05-11 10:53 | MHIPNPDOC ---
[facility] Progress Note Progress Note DATE OF SERVICE: 05/11/20 HISTORY:The patient is met with today, he reports having no major problems and still somewhat confused and grandiose today. He has no other major issues today with medications and is complementary, he is able to engage and is going to groups although complementary he is still quite distorted and disorganized having difficulty making fully appropriate interactions. VITAL SIGNS: See below. NEW TEST RESULTS: None CURRENT MEDICATIONS: See below. MENTAL STATUS EXAMINATION: General: [Well dressed with good hygiene] Speech: Somewhat rapid Thought processes: More tangential Thought content: [Future orientated] Abstract reasoning, and computation: Appears more impaired today Description of associations: Appears more impaired today Description of abnormal or psychotic thoughts: Denies SI HI, AVH, some continued grandiose delusions Judgment: Limited Insight: Limited Orientation: Alert and orientated 3 Recent and remote memory: [Intact] Attention span and concentration: Somewhat impaired Fund of knowledge: [Adequate] Mood: ["okay"] Affect: Elated DIAGNOSES: 1. Schizophrenia ASSESSMENT: Recommend continuing to work with AOT versus long-term for proper disposition MANAGEMENT PLAN: Continue Invega 3 mg twice daily, recommend tapering off over the next week Vital Signs Vital Signs Date Time Temp Pulse Resp B/P (MAP) Pulse Ox O2 Delivery O2 Flow Rate FiO2 05/11/20 05:44 98.6 60 18 127/72 (90) 96 Room Air Current Medications Current Medications Medications (Trade) Dose Ordered Sig/Marcelino Route PRN Reason Start Time Stop Time Status Last Admin Dose Admin Acetaminophen (Tylenol Tab) 650 mg Q6HP PRN PO HEADACHE or DISCOMFORT 04/12/20 21:45 04/21/20 14:39 Al Hydrox/Mg Hydrox/Simethicone (Mylanta) 30 ml Q4HP PRN PO HEARTBURN/INDIGESTION 04/12/20 21:45 Home Med (Med Rec Complete!) ASDIRECTED XX 04/12/20 18:15 04/12/20 18:14 DC Hydroxyzine HCl (Atarax) 50 mg BIDP PRN PO ANXIETY 04/12/20 21:45 05/10/20 12:20 Magnesium Hydroxide (Milk Of Magnesia) 30 ml DAILYPRN PRN PO CONSTIPATION 04/12/20 21:45 Miscellaneous (Unresolved Clarification Entry) SEE LABEL COMMENTS DAILY XX 04/19/20 09:00 04/23/20 16:46 DC Miscellaneous (Unresolved Non-Formulary Med Order) SEE LABEL COMMENTS DAILY XX 04/14/20 09:00 04/19/20 15:22 DC Nicotine (Nicoderm Cq 7 Mg) 1 patch DAILY TD 04/15/20 09:00 05/11/20 08:59 Non-Formulary Medication ( See Comment Field Below ) SEE COMMENTS SECTION 1T@10 XX 05/04/20 10:00 05/05/20 09:59 UNV Non-Formulary Medication ( See Comment Field Below ) SEE LABEL COMMENTS DAILY XX 05/02/20 09:00 05/02/20 14:42 DC Olanzapine (ZyPREXA ZYDIS) 5 mg Q6HP PRN PO AGITATION 04/12/20 21:45 05/11/20 08:59 Oxymetazoline HCl (Afrin) 2 spray BID NA 04/14/20 09:00 05/11/20 08:58 Paliperidone (Invega) 3 mg BID PO 04/12/20 21:00 05/11/20 08:58 Patient Own Medication (Patient'S Own Med) Invega Trinza 819mg injecti... ASDIRECTED IM 04/19/20 18:00 04/26/20 09:12 DC 04/23/20 16:44 Propranolol HCl (Inderal) 20 mg DAILYPRN PRN PO ANXIETY 04/26/20 09:15 Propranolol HCl (Inderal) 20 mg DAILYPRN PRN PO ANXIETY 04/12/20 21:45 04/26/20 09:12 DC 04/18/20 12:38 Trazodone HCl (Desyrel) 50 mg QHSP PRN PO INSOMNIA 04/12/20 21:45 05/09/20 20:30 Triamcinolone Acetonide (Kenalog 0.1% Cream) 1 dose BID TOP 05/02/20 21:00 05/09/20 21:00 DC 05/09/20 20:27 Allergies Coded Allergies: No Known Allergies (Unverified , 12/31/18) BISHOP CLARK DO May 11, 2020 10:53
[2020-05-11 17:30] VITALS: BP 140/89
[2020-05-11] MEDS: traZODone 50 MG TAB PO PRN (20:04)
[2020-05-12 06:31] VITALS: BP 126/85
[2020-05-12] MEDS: OXYMETAZOLINE 0.05% NASAL SPRAY (AFRIN) SCH ×2 (08:39→21:04)
[2020-05-12] MEDS: PALIPERIDONE 3 MG ER TAB (INVEGA) PO SCH ×2 (08:39→21:04)
[2020-05-12] MEDS: NICOTINE 7 MG/24 HR TRANSDERMAL TD SCH (08:40)
[2020-05-12] MEDS: OLANZapine ORAL DISINTEGRATING TAB 5MG PO PRN (12:28)
[2020-05-12] MEDS: hydrOXYzine 50 MG TAB PO PRN (16:22)
[2020-05-12] MEDS: traZODone 50 MG TAB PO PRN (23:36)
[2020-05-13 06:00] VITALS: BP 121/75
[2020-05-13] MEDS: PALIPERIDONE 3 MG ER TAB (INVEGA) PO SCH ×2 (08:48→21:51)
[2020-05-13] MEDS: NICOTINE 7 MG/24 HR TRANSDERMAL TD SCH (08:48)
[2020-05-13] MEDS: OXYMETAZOLINE 0.05% NASAL SPRAY (AFRIN) SCH ×2 (08:49→21:51)
[2020-05-13] MEDS: hydrOXYzine 50 MG TAB PO PRN (16:04)
[2020-05-13 18:00] VITALS: BP 138/89
[2020-05-14 05:32] VITALS: BP 136/76
[2020-05-14] MEDS: PALIPERIDONE 3 MG ER TAB (INVEGA) PO SCH ×2 (08:06→20:33)
[2020-05-14] MEDS: NICOTINE 7 MG/24 HR TRANSDERMAL TD SCH (08:11)
[2020-05-14] MEDS: hydrOXYzine 50 MG TAB PO PRN (09:51)
[2020-05-14] MEDS: OLANZapine ORAL DISINTEGRATING TAB 5MG PO PRN (14:18)
[2020-05-14 17:23] VITALS: BP 133/81
[2020-05-15 06:01] VITALS: BP 125/75
[2020-05-15] MEDS: NICOTINE 7 MG/24 HR TRANSDERMAL TD SCH ×2 (08:09→09:00)
[2020-05-15] MEDS: PALIPERIDONE 3 MG ER TAB (INVEGA) PO SCH ×2 (08:10→21:04)
[2020-05-15] MEDS: hydrOXYzine 50 MG TAB PO PRN (09:55)
[2020-05-15] MEDS: OLANZapine ORAL DISINTEGRATING TAB 5MG PO PRN (14:45)
[2020-05-15] MEDS: ACETAMINOPHEN TAB 650MG DOSE (2X325MG) PO PRN (17:00)
[2020-05-15 17:44] VITALS: BP 145/82
[2020-05-16 06:02] VITALS: BP 146/86
[2020-05-16] MEDS: NICOTINE 7 MG/24 HR TRANSDERMAL TD SCH (08:45)
[2020-05-16] MEDS: PALIPERIDONE 3 MG ER TAB (INVEGA) PO SCH ×2 (08:45→20:12)
[2020-05-16] MEDS: hydrOXYzine 50 MG TAB PO PRN (14:05)
[2020-05-16] MEDS: ACETAMINOPHEN TAB 650MG DOSE (2X325MG) PO PRN ×2 (14:07→15:14)
[2020-05-16 15:31] VITALS: BP 122/88
[2020-05-16] MEDS: traZODone 50 MG TAB PO PRN (20:32)
[2020-05-17 06:26] VITALS: BP 126/68
[2020-05-17] MEDS: PALIPERIDONE 3 MG ER TAB (INVEGA) PO SCH ×2 (09:01→21:21)
[2020-05-17] MEDS: NICOTINE 7 MG/24 HR TRANSDERMAL TD SCH (09:01)
[2020-05-17 16:47] VITALS: BP 157/92
[2020-05-17] MEDS: hydrOXYzine 50 MG TAB PO PRN (19:31)
[2020-05-18 06:49] VITALS: BP 147/98
[2020-05-18] MEDS: hydrOXYzine 50 MG TAB PO PRN (07:44)
[2020-05-18] MEDS: NICOTINE 7 MG/24 HR TRANSDERMAL TD SCH (09:04)
[2020-05-18] MEDS: PALIPERIDONE 3 MG ER TAB (INVEGA) PO SCH (09:04)
[2020-05-18 18:12] VITALS: BP 138/72
[2020-05-19] MEDS: PALIPERIDONE 3 MG ER TAB (INVEGA) PO SCH ×3 (00:51→20:54)
[2020-05-19 05:52] VITALS: BP 126/76
[2020-05-19] MEDS: NICOTINE 7 MG/24 HR TRANSDERMAL TD SCH (09:14)
[2020-05-19 17:46] VITALS: BP 151/91
[2020-05-20 06:13] VITALS: BP 122/79
[2020-05-20] MEDS: hydrOXYzine 50 MG TAB PO PRN (07:31)
[2020-05-20] MEDS: NICOTINE 7 MG/24 HR TRANSDERMAL TD SCH (07:32)
[2020-05-20] MEDS: PALIPERIDONE 3 MG ER TAB (INVEGA) PO SCH ×2 (07:32→21:02)
[2020-05-20 16:20] VITALS: BP 137/97
[2020-05-20] MEDS: OLANZapine ORAL DISINTEGRATING TAB 5MG PO PRN (17:58)
[2020-05-21 06:19] VITALS: BP 132/94
[2020-05-21] MEDS: NICOTINE 7 MG/24 HR TRANSDERMAL TD SCH (08:24)
[2020-05-21] MEDS: PALIPERIDONE 3 MG ER TAB (INVEGA) PO SCH ×2 (08:25→21:30)
[2020-05-21 15:55] VITALS: BP 162/89
[2020-05-22 06:29] VITALS: BP 131/68
[2020-05-22] MEDS: PALIPERIDONE 3 MG ER TAB (INVEGA) PO SCH (08:37)
[2020-05-22] MEDS: NICOTINE 7 MG/24 HR TRANSDERMAL TD SCH (08:37)
[2020-05-22] MEDS ORDERED: PALI1TAB2 PO (09:23)
[2020-05-22] MEDS ORDERED: BENZ0.5T23 PO (09:23)
--- NOTE | 2020-05-22 10:23 | MHDSPDOC ---
[facility] Discharge Summary Discharge Summary DATE OF ADMISSION: Apr 12, 2020 at 21:37 DATE OF DISCHARGE: May 22, 2020 at 10:18 DISCHARGE DIAGNOSES: 1. paranoid schizophrenia 2. marijuana use disorder REASON FOR ADMISSION: s a 64 year old Single, Disabled, Male with a history of Schizophrenia, Paranoid type Diagnosis and Multiple Psychiatric Hospitalizations. He was initially brought to the ED by [facility] on a 9.60 (AOT pickle cutter order) due to patient being very agitated at his appointment with his therapist. According the the therapist, patient was agitated, delusional, and very religiously preoccupied and it appeared that he was decompensating and needed to be stabilized. He believed that he was being poisoned and needed the help of Vaughn Perez. CONSULTANTS INVOLVED: see hospitalist h&p TREATMENT AND PROGRESS ON THE UNIT : Patient was admitted to the [facility] on a 9.39 legal status he was afforded the following treatment modalities: 1) Individual Therapy 2) Group Therapy 3) Medication Management 4) Milieu Therapy 5) Safe Environment HOSPITAL COURSE: Beka was brought into the emergency via a 9.41 from AOT. He was admitted to [facility] for further stabilization. Upon arrival, he was bizarre, p aranoid, delusional, and religiously preoccupied. Invega trinza was administered and he began to improve. Throughout stay, sister and girlfriend (Madhu) were contacted for collateral. He began to show improvement and appears to be at baseline per staff and sister reports. He is not religiously preoccupied, does not express any delusions, thoughts are linear. DISCHARGE ASSESSMENT: Beka was agreeable to meet for interview. He is pleasant, cooperative, able to engage in reality based interview. He is neat, clean, dressed in personal clothing, reported he feels good today. Beka reports that before admission he felt himself begin to decompensate reported that his head needed space and that he wasn't giving himself the space he needed and subsequently missed his scheduled invega trinza injection. He reported that his girlfriend and sister saw that he was beginning to decompensate and so had him brought to the emergency room for an evaluation. Beka reports that when he came in he was seeing "evil" and gave an example where he believed that his good friend was the devil, which he now knows isn't true because he has been taking his medications. He reports, "I know I have a chemical imbalance in my brain, I don't know if its from my age, drugs, a hard life or what but this is all part of the illness and I need to take medications." He reports he has spoken to Aurelia at [facility] and that he has a court date coming up to renew his AOT order. He states, "I'm not going to fight it, I know I need it." He states he will go home to his girlfriend Mira house, who is a good support system from it and continue to take his medications as prescribed. He denies si/hi and meets discharge criteria. MENTAL STATUS EXAMINATION ON DISCHARGE: Patient is a 64-year old male, white, domiciled male who is A&Ox3. He is pleasant, cooperative, easy to engage in reality based interview. He is neat, clean, dressed in personal clothing Speech is normal rate, rhythm, tone, appropriate Language skills average. Thought processes including: linear, goal oriented, reality based Thought content: denies ah/vh, does not appear to be internally preoccupied Abstract reasoning, and computation: average Description of associations: none Description of abnormal or psychotic thoughts: denies, not observed Judgment: good Insight: good Orientation to A&Ox3 Recent and remote memory: intact Attention span and concentration: average Language: average Fund of knowledge: average Mood: euthymic, "good" Affect: congruent with mood, animated, full range MEDICATIONS ON DISCHARGE: - invega Trinza - q 3 months - invega 3 mg po qhs Will continue following home medications Hydroxyzine HCl50 Mg TPO BID PRN for ANXIETY, Propranolol HCl ( 20 MG PO DAILY PRN for ANXIETY, The amount of time spent in the coordination of care for this patient was approximately 30 minutes. Vital Signs/I&Os Vital Signs Date Time Temp Pulse Resp B/P (MAP) Pulse Ox O2 Delivery O2 Flow Rate FiO2 05/22/20 06:29 98.8 66 14 131/68 (89) 95 Room Air Medications Scheduled Paliperidone (Paliperidone ER) 3 Mg Tab.er.24, 3 MG PO BID for mood, #7 Paliperidone Palmitate (Invega Trinza) 819 Mg/2.625 Ml Syringe, 819 MG IM Q3M for SCHIZOPHRENIA, (Reported) Scheduled PRN Benztropine Mesylate (Benztropine Mesylate) 0.5 Mg Tablet, 1 TAB PO BIDP PRN for EPS side effects, #14 Hydroxyzine HCl (Hydroxyzine HCl) 50 Mg Tablet, 50 MG PO BID PRN for ANXIETY, (Reported) Propranolol HCl (Propranolol HCl) 20 Mg Tablet, 20 MG PO DAILY PRN for ANXIETY, (Reported) Allergies Coded Allergies: No Known Allergies (Unverified , 12/31/18) MARIELY FLAHERTY NP May 22, 2020 10:23
[2020-05-22] MEDS: hydrOXYzine 50 MG TAB PO PRN (11:56)
== END 2020-05-22 12:12 | disposition home or self-care (01) | DRG 885 ==
LOC: M ED 16:28 → M ED INP 21:37 → M PSY 22:30
PROVIDERS: ADMIT Psychiatry & Neurology Psychiatry; ATTEND Psychiatry & Neurology Psychiatry
DX: F20.0 Paranoid schizophrenia (principal); F12.10 Cannabis abuse, uncomplicated; Z79.899 Other long term (current) drug therapy; F17.200 Nicotine dependence, unspecified, uncomplicated; Z20.822 Contact with and (suspected) exposure to COVID-19; R07.89 Other chest pain; L74.0 Miliaria rubra

== ENCOUNTER 2021-02-22 13:09 | Inpatient (IN) | payer MEDICARE, MEDICAID ==
[~2021-02-22] VITALS: Ht 182.9 cm; Wt 74.8 kg
[~2021-02-22 13:09] MED LIST changes: +BENZ0.5T23 PO; +PALI1TAB2 PO
--- OUTSIDE RECORDS SUMMARY | 2021-02-22 13:14 | CCD ---
Author Author Beka Dodson Organization Unknown Address [address] [address] Phone Care Team Providers Care Vendette Name Role Phone Gertrudis Dodsonchary PCP Allergies, Adverse Reactions, Alerts Concept Allergy Name Reaction Severity Onset Date Status Documentation Date Phone Number Npid Taxonomy Code Taxonomy Desc Author Last Name Author Fi rst Name Concept Type 903383 haloperidol akathisia, akathisia 06/29/2015 Active 06/12 [id number] Psychiatric/Mental Health Ana Morton RXNORM Problem List Concept Problem Description Status Start Date Created Date Resolv ed Date Snomed Code F20.9 Schizophrenia Active 07/27/2015 07/27/2015 Z72.0 Tobacco Use Disorder, Mild Active 12/21/2020 Medications Rx Norm Medication Route Route Concept Start Date Stop Date Dosage Micky quency Duration Formula Strength Dosage Form Dosage Form Code Dosage Description Medication Id Account Npid Author First Name Author Last Name Taxonomy Code Taxonomy Desc Phone Number [phone] Invega Trinza intramuscularly 07/26/2019 every t hree months 819 mg/2.625 mL syringe 65248 [id number] Simona Ron [id number] Psychiatric/Mental Health [phone] 792397 propranolol by mouth [id number] 12/14/2019 20 mg tablet as needed 53140 804142 [id number] Simona Ariadne [id number] Psychiatric/Mental Health [id number] 768253 hydroxyzine HCl 02/16/2020 50 mg tablet 52313 784575 [id number] Simona Ariadne [id number] Psychiatric/Mental Health [phone] 274161 paliperidone by mouth [id number] 05/31/2020 at bedtime 3 mg tablet extended release 24hr 04296 374612 [id number] Simona Ron [id number] Psychiatric/Mental Health [id number] Social History Social History Element Description Concept Effective Date Smoking Status Unknown if ever smoked [id number] Immunizations No Data in Section Vital Signs No Data in Section Procedures Date Concept Id Description Targeted Site Concept Targeted Site Concept Type 12/21/2020 36516-84 [facility] Telemed E/M Lvl 3--Est pt CPT Patient has no history of implantable de vices Encounters Encounter Start Date End Date Encounter Type Description Diagnosis Di agnosis Desc Location Author First Name Author Last Name Npid Taxonomy Cod e Taxonomy Desc Phone Number Location Addr1 Location Addr2 Location [facility] Location Sta te Location Zip [address] 12/21/2020 12/21/2020 01847-04 [facility] Telemed E/M Lvl 3--Est p t F20.9 Schizophrenia, unspecified [facility] [id number] Nurse Practitioner [id number] [address] [address] Plan of Treatment No Data in Section Lab Results No Data in Section Instructions No Data in Section Functional Cognitive Status No Data in Section Insurance Providers Insurance Id Policy Effective Date Policy Thru Date Company N jose [id number] 2017 [facility] e Dual Complete RP [id number] 2013 MEDICAID
--- OUTSIDE RECORDS SUMMARY | 2021-02-22 13:14 | CCD ---
Author Author Beka Dodson Organization Unknown Address [address] [address] Phone Care Team Providers Care Customer Support Manager Name Role Phone DodsonGertrudisBharat PCP Allergies, Adverse Reactions, Alerts Concept Allergy Name Reaction Severity Onset Date Status Documentation Date Phone Number Npid Taxonomy Code Taxonomy Desc Author Last Name Author Fi rst Name Concept Type 881141 haloperidol akathisia, akathisia 06/29/2015 Active 06/12 [id number] Psychiatric/Mental Health Ana Morton RXNORM Problem List Concept Problem Description Status Start Date Created Date Resolv ed Date Snomed Code F20.9 Schizophrenia Active 07/27/2015 07/27/2015 Z72.0 Tobacco Use Disorder, Mild Active 01/31/2021 Medications Rx Norm Medication Route Route Concept Start Date Stop Date Dosage Micky quency Duration Formula Strength Dosage Form Dosage Form Code Dosage Description Medication Id Account Npid Author First Name Author Last Name Taxonomy Code Taxonomy Desc Phone Number [phone] Invega Trinza intramuscularly 07/26/2019 every t hree months 819 mg/2.625 mL syringe 63977 [id number] [id number] Bharat Dodson [id number] Nurse Practitioner [phone] 519187 propranolol by mouth [id number] 12/14/2019 20 mg tablet as needed 79407 774504 [id number] Bharat Dodson [id number] Nurse Practitioner [phone] 263782 hydroxyzine HCl 02/16/2020 50 mg tablet 00331 597362 [id number] Bharat Dodson [id number] Nurse Practitioner [id number] [phone] 519884 paliperidone by mouth [id number] 05/31/2020 at bedtime 3 mg tablet extended release 24hr 57971 379266 [id number] Bharat Dodson [id number] Nurse Practitioner [id number] Social History Social History Element Description Concept Effective Date Smoking Status Unknown if ever smoked [id number] Immunizations No Data in Section Vital Signs No Data in Section Procedures Date Concept Id Description Targeted Site Concept Targeted Site Concept Type 01/31/2021 63642-36 [facility]CTelemed E/M Lvl 4--Est pt CPT Patient has no history of implantable de vices Encounters Encounter Start Date End Date Encounter Type Description Diagnosis Di agnosis Desc Location Author First Name Author Last Name Npid Taxonomy Cod e Taxonomy Desc Phone Number Location Addr1 Location Addr2 Location [facility] Location Sta te Location Zip [address] 01/31/2021 01/31/2021 53096-39 MHCTelemed E/M Lvl 4--Est pt F20.9 Schizophrenia, unspecified [facility] Bharat [id number] Nurse Practitioner [phone] [address] [address] Plan of Treatment No Data in Section Lab Results No Data in Section Instructions No Data in Section Functional Cognitive Status No Data in Section Insurance Providers Insurance Id Policy Effective Date Policy Thru Date Company N jose [id number] 2017 [facility] e Dual Complete RP [id number] 2013 MEDICAID
--- OUTSIDE RECORDS SUMMARY | 2021-02-22 13:14 | CCD ---
Author Author Beka Lomas Organization Unknown Address [address] [address] Phone Care Team Providers Care Math And Science Division Chair Name Role Phone No Lomas PCP Allergies, Adverse Reactions, Alerts Concept Allergy Name Reaction Severity Onset Date Status Documentation Date Phone Number Npid Taxonomy Code Taxonomy Desc Author Last Name Author rst Name Concept Type 007836 haloperidol akathisia, akathisia 06/29/2015 Active 06/12 [id number] Psychiatric/Mental Health Ana Morton RXNORM Problem List Concept Problem Description Status Start Date Created Date Resolv ed Date Snomed Code F20.9 Schizophrenia Active 07/27/2015 07/27/2015 Z72.0 Tobacco Use Disorder, Mild Active 02/20/2021 Medications Rx Norm Medication Route Route Concept Start Date Stop Date Dosage Micky quency Duration Formula Strength Dosage Form Dosage Form Code Dosage Description Medication Id Account Npid Author First Name Author Last Name Taxonomy Code Taxonomy Desc Phone Number [phone] Invega Trinza intramuscularly 07/26/2019 every t hree months 819 mg/2.625 mL syringe 55624 [id number] [id number] Bharat Dodson [id number] Nurse Practitioner [phone] 153427 propranolol by mouth [id number] 12/14/2019 20 mg tablet as needed 63662 962985 [id number] Bharat Dodson [id number] Nurse Practitioner [phone] 785066 hydroxyzine HCl 02/16/2020 50 mg tablet 74376 114868 [id number] Bharat Dodson [id number] Nurse Practitioner [phone] [phone] 063309 paliperidone by mouth [id number] 05/31/2020 at bedtime 3 mg tablet extended release 24hr 23180 584426 [id number] Bharat Dodson [id number] Nurse Practitioner [phone] Social History Social History Element Description Concept Effective Date Smoking Status Unknown if ever smoked [id number] Immunizations No Data in Section Vital Signs No Data in Section Procedures Date Concept Id Description Targeted Site Concept Targeted Site Concept Type 02/20/2021 33257 Brief Individual Psychotherapy - 30 min CPT Patient has no history of implantable de vices Encounters Encounter Start Date End Date Encounter Type Description Diagnosis Di agnosis Desc Location Author First Name Author Last Name Npid Taxonomy Cod e Taxonomy Desc Phone Number Location Addr1 Location Addr2 Location [facility] Location [facility] te Location [facility] [id number] 02/20/2021 02/20/2021 89181 Brief Individual Psychoth erapy - 30 min F20.9 Schizophrenia, unspecified [facility] Johnathon norma Sarabia [id number] Graphite Disk Assembler [phone] [address] [address] Plan of Treatment No Data in Section Lab Results No Data in Section Instructions No Data in Section Insurance Providers Insurance Id Policy Effective Date Policy Thru Date Company N jose [id number] 2017 [facility] e Dual Complete RP [id number] 2013 MEDICAID
--- OUTSIDE RECORDS SUMMARY | 2021-02-22 13:14 | CCD ---
Author Author Beka Lomas Organization Unknown Address [address] [address] Phone Care Team Providers Care Urban Renewal Manager Name Role Phone No Lomas PCP Allergies, Adverse Reactions, Alerts Concept Allergy Name Reaction Severity Onset Date Status Documentation Date Phone Number Npid Taxonomy Code Taxonomy Desc Author Last Name Author rst Name Concept Type 166657 haloperidol akathisia, akathisia 06/29/2015 Active 06/12 [id number] Psychiatric/Mental Health Ana Morton RXNORM Problem List Concept Problem Description Status Start Date Created Date Resolv ed Date Snomed Code F20.9 Schizophrenia Active 07/27/2015 07/27/2015 Z72.0 Tobacco Use Disorder, Mild Active 01/19/2021 Medications Rx Norm Medication Route Route Concept Start Date Stop Date Dosage Micky quency Duration Formula Strength Dosage Form Dosage Form Code Dosage Description Medication Id Account Npid Author First Name Author Last Name Taxonomy Code Taxonomy Desc Phone Number [phone] Invega Trinza intramuscularly 07/26/2019 every t hree months 819 mg/2.625 mL syringe 81410 845492 [id number] Bharat Dodson [id number] Nurse Practitioner [phone] 484347 propranolol by mouth [id number] 12/14/2019 20 mg tablet as needed 90781 635098 [id number] Bharat Dodson [id number] Nurse Practitioner [id number] 111417 hydroxyzine HCl 02/16/2020 50 mg tablet 59019 430709 [id number] Bharat Dodson [id number] Nurse Practitioner [id number] [phone] 982981 paliperidone by mouth [id number] 05/31/2020 at bedtime 3 mg tablet extended release 24hr 83065 945958 [id number] Bharat Dodson [id number] Nurse Practitioner [phone] Social History Social History Element Description Concept Effective Date Smoking Status Unknown if ever smoked [id number] Immunizations No Data in Section Vital Signs No Data in Section Procedures Date Concept Id Description Targeted Site Concept Targeted Site Concept Type 01/18/2021 32678 Brief Individual Psychotherapy - 30 min CPT Patient has no history of implantable de vices Encounters Encounter Start Date End Date Encounter Type Description Diagnosis Di agnosis Desc Location Author First Name Author Last Name Npid Taxonomy Cod e Taxonomy Desc Phone Number Location Addr1 Location Addr2 Location [facility] Location Sta te Location Zip [address] 01/18/2021 01/18/2021 62568 Brief Individual Psychoth erapy - 30 min F20.9 Schizophrenia, unspecified [facility] Santiago Sarabia [phone] [id number] Roller Print Tender [phone] [address] [address] Plan of Treatment No Data in Section Lab Results No Data in Section Instructions No Data in Section Insurance Providers Insurance Id Policy Effective Date Policy Thru Date Company N jose [id number] 2017 [facility] e Dual Complete RP [id number] 2013 MEDICAID
--- OUTSIDE RECORDS SUMMARY | 2021-02-22 13:14 | CCD ---
Author Author Beka Lomas Organization Unknown Address [address] [address] Phone Care Team Providers Care Public Relations Coordinator Name Role Phone No Lomas PCP Allergies, Adverse Reactions, Alerts Concept Allergy Name Reaction Severity Onset Date Status Documentation Date Phone Number Npid Taxonomy Code Taxonomy Desc Author Last Name Author rst Name Concept Type 218593 haloperidol akathisia, akathisia 06/29/2015 Active 06/12 [id number] Psychiatric/Mental Health Ana Morton RXNORM Problem List Concept Problem Description Status Start Date Created Date Resolv ed Date Snomed Code F20.9 Schizophrenia Active 07/27/2015 07/27/2015 Z72.0 Tobacco Use Disorder, Mild Active 12/26/2020 Medications Rx Norm Medication Route Route Concept Start Date Stop Date Dosage Micky quency Duration Formula Strength Dosage Form Dosage Form Code Dosage Description Medication Id Account Npid Author First Name Author Last Name Taxonomy Code Taxonomy Desc Phone Number [phone] Invega Trinza intramuscularly 07/26/2019 every t hree months 819 mg/2.625 mL syringe 75193 [id number] [id number] Simona Ron [id number] Psychiatric/Mental Health [phone] 699161 propranolol by mouth [id number] 12/14/2019 20 mg tablet as needed 52173 074201 [id number] Simona Ariadne [id number] Psychiatric/Mental Health [id number] 621190 hydroxyzine HCl 02/16/2020 50 mg tablet 74311 155864 [id number] Simona Helper [id number] Psychiatric/Mental Health [phone] [id number] 517594 paliperidone by mouth A27068 05/31/2020 at bedtime 3 mg tablet extended release 24hr 49458 886655 [id number] Simona Ron [id number] Psychiatric/Mental Health [id number] Social History Social History Element Description Concept Effective Date Smoking Status Unknown if ever smoked [id number] Immunizations No Data in Section Vital Signs No Data in Section Procedures Date Concept Id Description Targeted Site Concept Targeted Site Concept Type 12/26/2020 98598 Brief Individual Psychotherapy - 30 min CPT Patient has no history of implantable de vices Encounters Encounter Start Date End Date Encounter Type Description Diagnosis Di agnosis Desc Location Author First Name Author Last Name Npid Taxonomy Cod e Taxonomy Desc Phone Number Location Addr1 Location Addr2 Location [facility] Location Sta te Location Zip [address] 12/26/2020 12/26/2020 09788 Brief Individual Psychoth erapy - 30 min F20.9 Schizophrenia, unspecified [facility] Santiago Sarabia [phone] [id number] [employer] [id number] [address] [address] Plan of Treatment No Data in Section Lab Results No Data in Section Instructions No Data in Section Insurance Providers Insurance Id Policy Effective Date Policy Thru Date Company Nohemy garcia [id number] 2017 [facility] e Dual Complete RP [id number] 2013 MEDICAID
--- OUTSIDE RECORDS SUMMARY | 2021-02-22 13:14 | CCD ---
Author Author Beka Lomas Organization Unknown Address [address] [address] Phone Care Team Providers Care Inspector Subassemblies Name Role Phone No Lomas PCP Allergies, Adverse Reactions, Alerts Concept Allergy Name Reaction Severity Onset Date Status Documentation Date Phone Number Npid Taxonomy Code Taxonomy Desc Author Last Name Author rst Name Concept Type 130748 haloperidol akathisia, akathisia 06/29/2015 Active 06/12 [id number] [facility] [id number] Problem List Concept Problem Description Status Start Date Created Date Resolv ed Date Snomed Code F20.9 Schizophrenia Active 07/27/2015 07/27/2015 Z72.0 Tobacco Use Disorder, Mild Active 02/08/2021 Medications Rx Norm Medication Route Route Concept Start Date Stop Date Dosage Micky quency Duration Formula Strength Dosage Form Dosage Form Code Dosage Description Medication Id Account Npid Author First Name Author Last Name Taxonomy Code Taxonomy Desc Phone Number [id number] Invega Trinza intramuscularly 07/26/2019 every t hree months 819 mg/2.625 mL syringe 23612 [id number] Bharat Dodson [id number] Nurse Practitioner [phone] propranolol by mouth [id number] 12/14/2019 20 mg tablet as needed 63150 [id number] Bharat Dodson [id number] Nurse Practitioner [id number] 790441 hydroxyzine HCl 02/16/2020 50 mg tablet 52388 [id number] Bharat Dodson [id number] Nurse Practitioner [phone] [phone] 932229 paliperidone by mouth [id number] 05/31/2020 at bedtime 3 mg tablet extended release 24hr 67312 [id number] [id number] Bharat Dodson [id number] Nurse Practitioner [phone] Social History Social History Element Description Concept Effective Date Smoking Status Unknown if ever smoked [id number] Immunizations No Data in Section Vital Signs No Data in Section Procedures Date Concept Id Description Targeted Site Concept Targeted Site Concept Type 02/06/2021 [id number] Brief Individual Psychotherapy - 30 min CPT Patient has no history of implantable de vices Encounters Encounter Start Date End Date Encounter Type Description Diagnosis Di agnosis Desc Location Author First Name Author Last Name Npid Taxonomy Cod e Taxonomy Desc Phone Number Location Addr1 Location Addr2 Location [facility] Location Sta te Location Zip [id number] 02/06/2021 02/06/2021 94890 Brief Individual Psychoth erapy - 30 min F20.9 Schizophrenia, unspecified [facility] Johnathon norma Sarabia [phone] [id number] Abalone Fisherman [phone] [address] [address] Plan of Treatment No Data in Section Lab Results No Data in Section Instructions No Data in Section Insurance Providers Insurance Id Policy Effective Date Policy Thru Date Company N jose [id number] 2017 [facility] e Dual Complete RP [id number] MEDICAID
--- OUTSIDE RECORDS SUMMARY | 2021-02-22 13:15 | CCD ---
Author Author [facility] Organization [facility] Address Unknown Phone Unavailable Care Team Providers Care Commercial Loan Manager Name Role Phone Rossana Dodson NP Unavailable Unavailable Rossana Dodson NP Unavailable Unavailable Rossana Dodson NP Unavailable Unavailable TORIE SETH MD Unavailable Unavailable TORIE SETH MD Unavailable Unavailable TORIE SETH MD Unavailable Unavailable TORIE SETH MD Unavailable Unavailable TORIE SETH MD Unavailable Unavailable TORIE SETH MD Unavailable Unavailable TOIRE SETH MD Unavailable Unavailable TORIE SETH MD Unavailable Unavailable TORIE SETH MD Unavailable Unavailable TORIE SETH MD Unavailable Unavailable TORIE SETH MD Unavailable Unavailable TORIE SETH MD Unavailable Unavailable TORIE SETH MD Unavailable Unavailable TORIE SETH MD Unavailable Unavailable Kathy Aldridge Unavailable No Mar Unavailable Amara, M Mery PA-C Unavailable Unavailable Amara, M Mery PA-C Unavailable Unavailable Amara, M Mery PA-C Unavailable Unavailable Amara, M Mery PA-C Unavailable Unavailable Maara, M Mery PA-C Unavailable Unavailable Amara, M Mery PA-C Unavailable Unavailable Amara, M Mery PA-C Unavailable Unavailable Amara, M Mery PA-C Unavailable Unavailable Amara, M Mery PA-C Unavailable Unavailable Amara, M Mery PA-C Unavailable Unavailable Amara, M Mery PA-C Unavailable Unavailable Amara, M Mery PA-C Unavailable Unavailable Amara, M Mery PA-C Unavailable Unavailable Amara, M Mery PA-C Unavailable Unavailable Amara, M Mery PA-C Unavailable Unavailable Amara, M Mery PA-C Unavailable Unavailable Amara, M Mery PA-C Unavailable Unavailable Amara, M Mery PA-C Unavailable Unavailable Amara, M Mery PA-C Unavailable Unavailable Amara, M Mery PA-C Unavailable Unavailable Amara, M Mery PA-C Unavailable Unavailable Amara, M Mery PA-C Unavailable Unavailable Amara, M Mery PA-C Unavailable Unavailable Amara, M Mery PA-C Unavailable Unavailable Amara, M Mery PA-C Unavailable Unavailable Amara, M Mery PA-C Unavailable Unavailable Amara, M Mery PA-C Unavailable Unavailable Amara, M Mery PA-C Unavailable Unavailable Amara, M Emry PA-C Unavailable Unavailable Amara, M Mery PA-C Unavailable Unavailable Amara, M Mery PA-C Unavailable Unavailable Amara, M Mery PA-C Unavailable Unavailable Amara, M Mery PA-C Unavailable Unavailable Amara, M Mery PA-C Unavailable Unavailable Amara, M Mery PA-C Unavailable Unavailable Rotella, Elena Unavailable Unavailable [facility], [facility] CULLET CRUSHER-C Unavailable Unavailabl e Annette, [facility] Donta Fleminge CULLET CRUSHER-C Unavailable Unavailabl e Annette, [facility] Donta Fleminge CULLET CRUSHER-C Unavailable Unavailabl e Annette, [facility] Donta Fleminge CULLET CRUSHER-C Unavailable Unavailabl e Annette, [facility] Donta Fleminge CULLET CRUSHER-C Unavailable Unavailabl e Annette, [facility] Donta Fleminge CULLET CRUSHER-C Unavailable Unavailabl e Annette, [facility] Donta Fleminge CULLET CRUSHER-C Unavailable Unavailabl e Annette, [facility] Donta Fleminge CULLET CRUSHER-C Unavailable Unavailabl e Annette, [facility] Donta Fleminge CULLET CRUSHER-C Unavailable Unavailabl e Annette, [facility] Donta Fleminge CULLET CRUSHER-C Unavailable Unavailabl e Annette, [facility] oDnta Fleminge CULLET CRUSHER-C Unavailable Unavailabl e Annette, David Fleminge CULLET CRUSHER-C Unavailable Unavailabl e Annette, David Leon CULLET CRUSHER-C Unavailable Unavailabl e Annette, David Fleminge CULLET CRUSHER-C Unavailable Unavailabl e Annette, David Fleminge CULLET CRUSHER-C Unavailable Unavailabl e Annette, David Fleminge CULLET CRUSHER-C Unavailable Unavailabl e Annette, David Fleminge CULLET CRUSHER-C Unavailable Unavailabl e Annette, David Fleminge CULLET CRUSHER-C Unavailable Unavailabl e Annette, David Fleminge CULLET CRUSHER-C Unavailable Unavailabl e Annette, David Fleminge CULLET CRUSHER-C Unavailable Unavailabl e Annette, David Fleminge CULLET CRUSHER-C Unavailable Unavailabl e Annette, David Fleminge CULLET CRUSHER-C Unavailable Unavailabl e Annette, David Leon CULLET CRUSHER-C Unavailable Unavailabl e Annette, David Fleminge CULLET CRUSHER-C Unavailable Unavailabl e Annette, David Fleminge CULLET CRUSHER-C Unavailable Unavailabl e Annette, David Leon CULLET CRUSHER-C Unavailable Unavailabl e Annette, David Leon CULLET CRUSHER-C Unavailable Unavailabl e Annette, David Fleminge CULLET CRUSHER-C Unavailable Unavailabl e Annette, David Fleminge CULLET CRUSHER-C Unavailable Unavailabl e Annette, David Leon CULLET CRUSHER-C Unavailable Unavailabl e Annette, David Fleminge CULLET CRUSHER-C Unavailable Unavailabl e Annette, David Turneryce CULLET CRUSHER-C Unavailable Unavailabl e Debbie Hills Unavailable RaffiHerbt Unavailable Kwadwo Orellana MD Unavailable Unavailable Kwadwo Orellana MD Unavailable Unavailable Kwadwo Orellana MD Unavailable Unavailable Lyle Ayde Unavailable Timothy Putnam PA-C Unavailable Putnam, Timothy PA-C Unavailable Jersey Timothy PA-C Unavailable Jersey Timothy PA-C Unavailable Timothy Putnam PA-C Unavailable Ariadne, Zack MeadowsSimona PMH-THIRD GRADE TEACHER Unavailable Unavailable Ariadne, K Simona PMH-THIRD GRADE TEACHER Unavailable Unavailable Ariadne, K Simona PMH-THIRD GRADE TEACHER Unavailable Unavailable Aledo, K Simona PMH-THIRD GRADE TEACHER Unavailable Unavailable Aledo, K Simona PMH-THIRD GRADE TEACHER Unavailable Unavailable Aledo, K Simona PMH-THIRD GRADE TEACHER Unavailable Unavailable Ariadne, K Simona PMH-THIRD GRADE TEACHER Unavailable Unavailable Ariadne, K Simona PMH-THIRD GRADE TEACHER Unavailable Unavailable Re-disclosure Warning The records that you are about to access may contain information from federally-assisted alcohol or drug abuse programs. If such information is present, then the following federally mandated warning applies: This information has been disclosed to you from records protected by federal confidentiality rules (42 CFR part 2). The federal rules prohibit you from making any further disclosure of this information unless further disclosure is expressly permitted by the written consent of the person to whom it pertains or as otherwise permitted by 42 CFR part 2. A general authorization for the release of medical or other information is NOT sufficient for this purpose. The Federal rules restrict any use of the information to criminally investigate or prosecute any alcohol or drug abuse patient.The records that you are about to access may contain highly sensitive health information, the redisclosure of which is protected by Article 27-F of the [facility] Public Health law. If you continue you may have access to information: Regarding HIV / AIDS; Provided by facilities licensed or operated by the [facility] Office of Mental Health; or Provided by the [facility] Office for People With Developmental Disabilities. If such information is present, then the following [facility] mandated warning applies: This information has been disclosed to you from confidential records which are protected by state law. State law prohibits you from making any further disclosure of this information without the specific written consent of the person to whom it pertains, or as otherwise permitted by law. Any unauthorized further disclosure in violation of state law may result in a fine or assisted sentence or both. A general authorization for the release of medical or other information is NOT sufficient authorization for further disc losure. Allergies and Adverse Reactions Type Description Substance Reaction Status Data Source(s ) Propensity to adverse reactions to substance haloperidol Haloperidol 10 MG Oral Tablet Active [facility] No Allergies No Allergies [facility] ([facility]) trazodone trazodone [facility] ([facility]) NKDA NKDA [facility] ([facility]) lithium lithium [facility] ([facility]) environmental environmental [facility] ([facility]) haldol haldol [facility] ([facility]) Prolixin Prolixin Contortions Unknown [facility] S ([facility]) Propensity to adverse reactions to substance haloperidol Haloperidol 10 MG Oral Tablet Active [facility]) Encounters Encounter Providers Location Date Indications Data Source(s ) Brief Individual Psychotherapy - 30 min Attender: No fox [facility] 02/20/2021 10:45:00 AM EDT - 02/20/2021 10:45:00 AM EDT [facility] ([facility]) Attender: No Mar 02/20/2021 12:00:00 A M EDT [facility] ([facility]) Outpatient [address] [place] [address]-Mobile Integration Team 02/13/2021 01:00:00 PM EDT [facility] ([facility]) Patient admitted. Attender: No Mar 02/08/2021 12:00:00 A M EDT [facility] ([facility]) Emergency Attender: TORIE SETH MD 02/07/2021 1 1:40:00 AM EDT - 02/07/2021 01:00:00 PM EDT [facility] Patient discharged. Brief Individual Psychotherapy - 30 min Attender: No fox [facility] 02/06/2021 10:45:00 AM EDT - 02/06/2021 10:45:00 AM EDT [facility] ([facility]) Outpatient Attender: Bharat Dodson NP [facility] 01/31/2021 02:00:00 AM EDT - 01/31/2021 02:00:00 AM EDT [facility] ([facility]) Attender: Bharat Dodson NP 01/31/2021 12:00:00 AM EDT [facility] ([facility]) Brief Individual Psychotherapy - 30 min Attender: No Galo [facility] 01/18/2021 01:00:00 AM EDT - 01/18/2021 01:00:00 AM EDT [facility] ([facility]) Attender: No Mar 01/18/2021 12:00:00 A M EDT [facility] ([facility]) Brief Individual Psychotherapy - 30 min Attender: No Galo [facility] 12/26/2020 01:15:00 AM EDT - 12/26/2020 01:15:00 AM EDT [facility] ([facility]) Attender: No Mar 12/26/2020 12:00:00 A M EDT [facility] ([facility]) Outpatient Attender: Bharat Dodson NP [facility] 12/21/2020 02:00:00 AM EDT - 12/21/2020 02:00:00 AM EDT [facility] ([facility]) Attender: Bharat Dodson NP 12/21/2020 12:00:00 AM EDT [facility] ([facility]) Outpatient Attender: Carolyn BECKMANP-Luis 11/14/2020 09:06:0 0 AM EDT [facility] Outpatient [facility] 11/14/2020 12:00:00 AM EDT eCW1 ([facility]) Brief Individual Psychotherapy - 30 min Attender: No Galo [facility] 11/10/2020 01:15:00 AM EDT - 11/10/2020 01:15:00 AM EDT [facility] ([facility]) Attender: No Mar 11/10/2020 12:00:00 A M EDT [facility] ([facility]) Outpatient Attender: Simona [facility] 11/09/2020 11:30:00 AM EDT - 11/09/2020 11:30:00 AM EDT [facility] ([facility]) Attender: Simona BYERS 11/09/2020 12: 00:00 AM EDT [facility] ([facility]) Emergency Attender: Timothy Peoples: Mery Anaya ra, PA-C 11/08/2020 04:05:00 PM EDT - 11/08/2020 05:06:00 PM EDT [facility] Patient discharged. Injectable Medication Administration w/ Monitoring & E ducation [facility] 02:00:00 AM EDT - 10/10/2020 02:00:00 AM EDT [facility] ([facility]) Attender: Ayde Alvarenga 10/10/2020 12:00:00 AM EDT [facility] ([facility]) Outpatient Attender: Simona BYERS [facility] 09/20/2020 09:30:00 AM EDT - 09/20/2020 09:30:00 AM EDT [facility] ([facility]) Attender: Simona BYERS 09/20/2020 12: 00:00 AM EDT [facility] ([facility]) Brief Individual Psychotherapy - 30 min Attender: No fox [facility] 08/31/2020 09:00:00 AM EDT - 08/31/2020 09:00:00 AM EDT [facility] ([facility]) Attender: No Mar 08/31/2020 12:00:00 A M EDT [facility] ([facility]) Outpatient Attender: Simona BYERS Jose Count [facility] 08/16/2020 09:30:00 AM EDT - 08/16/2020 09:30:00 AM EDT [facility] ([facility]) Attender: Simona BYERS 08/16/2020 12: 00:00 AM EDT [facility] ([facility]) [facility]patient [facility] 08/02/2020 12:00:00 AM EDT eCW1 ([facility]) Outpatient Attender: Simona BYERS Jose Vincent [facility] 07/19/2020 11:00:00 AM EST - 07/19/2020 11:00:00 AM EST [facility] ([facility]) Attender: Simona BYERS 07/19/2020 12: 00:00 AM EST [facility] ([facility]) Injectable Psychotropic Medication Administration (Inj ection Only) Attender: Debbie Hills [facility] 07/11/2020 01:00:00 AM EST - 07/11/2020 01:00:00 AM EST [facility] ([facility]) Attender: Debbie Hills 07/11/2020 12:00:00 AM EST [facility] ([facility]) TEMPMHCTelemed 30" Psychotherapy Attender: Roma Nugent [facility] 06/30/2020 11:00:00 AM EST - 06/30/2020 11:00:00 AM EST [facility] ([facility]) Attender: Roma Nugent 06/30/2020 12:00:00 AM EST [facility] ([facility]) Outpatient Attender: Simona HARRYMARY [facility] 06/21/2020 11:30:00 AM EST - 06/21/2020 11:30:00 AM EST [facility] ([facility]) Attender: Simona BYERS 06/21/2020 12: 00:00 AM EST [facility] ([facility]) Outpatient Attender: Mery Maloney PA-C 06/16/2020 07:00 :00 AM EST [facility] 06/16/2020 12:00:00 AM EST eCW1 ([facility]) Outpatient Attender: Mery Jacksonrer: Mery Maloney PA-C EMERGENCY ROOM-LAB 06/12/2020 07:14:00 AM EST - 06/12/2020 07:14:00 AM [facility] Brief Individual Psychotherapy - 30 min Attender: Roma burnett [facility] 06/09/2020 11:00:00 AM EST - 06/09/2020 11:00:00 AM EST [facility] ([facility]) Attender: Roma Nugent 06/09/2020 12:00:00 AM EST [facility] ([facility]) [facility] 05/31/2020 10:30:00 AM EST - 05/31/2020 10:30:00 AM EST [facility] ([facility]) Attender: Simona HARRYMARY 05/31/2020 12: 00:00 AM EST [facility] ([facility]) Outpatient Attender: Mery Maloney PA-C 05/24/2020 07:55 :00 AM [facility] (TCM) TCM/Hospital Follow Up [facility] 05/24/2020 12:00:00 AM EST eCW1 ([facility]) Brief Individual Psychotherapy - 30 min Attender: Kathy cardona [facility] 05/23/2020 01:30:00 AM EST - 05/23/2020 01:30:00 AM EST [facility] ([facility]) AOT Evaluation Attender: Son Orellana MD [facility] Aston dayana 05/23/2020 01:00:00 AM EST - 05/23/2020 01:00:00 AM EST [facility] ([facility]) Attender: Son Orellana MD 05/23/2020 12:00:00 AM EST [facility] ([facility]) Attender: Kathy Aldridge 05/23/2020 12:00:00 AM EST [facility] ([facility]) Outpatient Attender: Simona HARRYMARY [facility] 04/12/2020 11:00:00 AM EST - 04/12/2020 11:00:00 AM EST [facility] ([facility]) Attender: Simona BYERS 04/12/2020 12: 00:00 AM EST [facility] ([facility]) Injectable Psychotropic Medication Administration (Inj ection Only) Attender: Elean West [facility] 04/10/2020 01:00:00 AM EST - 04/10/2020 01:00:00 AM EST [facility] ([facility]) Attender: Elena West 04/10/2020 12:00:00 AM EST [facility] ([facility]) Attender: Roma Nugent 02/23/2020 12:00:00 AM EDT [facility] ([facility]) Outpatient Attender: Simona HARRYMARY [facility] 02/16/2020 11:00:00 AM EDT - 02/16/2020 11:00:00 AM EDT [facility] ([facility]) Attender: Simona BYERS 02/16/2020 12: 00:00 AM EDT [facility] ([facility]) Brief Individual Psychotherapy - 30 min Attender: Roma Nesbitt lex [facility] 02/09/2020 01:00:00 AM EDT - 02/09/2020 01:00:00 AM EDT [facility] ([facility]) Brief Individual Psychotherapy - 30 min Attender: Roma Nesbitt lex [facility] 01/19/2020 03:00:00 AM EDT - 01/19/2020 03:00:00 AM EDT [facility] ([facility]) Attender: Roma Nugent 01/19/2020 12:00:00 AM EDT [facility] ([facility]) Functional Status Immunizations Vaccine Date Status Description Data Source(s) COVID-19 VACCINE Moderna 08/15/2020 12:00:00 AM EDT completed [facility] Vaccine Series Complete: YESThis Data wa s Submitted to [facility]. COVID-19 VACCINE, MRNA-1273, LNP-S (MODERNA)/PF 08/15/2020 1 2:00:00 AM EDT completed [facility] COVID-19 VACCINE Moderna 07/14/2020 12:00:00 AM EST completed [facility] Vaccine Series Complete: NOThis Data was Submitted to [facility]. COVID-19 VACCINE, MRNA-1273, LNP-S (MODERNA)/PF 07/14/2020 1 2:00:00 AM EST completed [facility] New in 2011. IIV4 05/24/2020 08:02:00 AM EST completed eCW1 ([facility]) New in 2011. IIV4 05/24/2020 08:02:00 AM EST completed eCW1 ([facility]) New in 2011. IIV4 05/24/2020 08:02:00 AM EST completed eCW1 ([facility]) New in 2011. IIV4 05/24/2020 08:02:00 AM EST completed eCW1 ([facility]) Medications Medication Brand Name Start Date Product Form Dose Route Admi nistrative Instructions Pharmacy Instructions Status Indications Reaction Description Data Source(s) 90 mcg/actuation 11/08/2020 12:00:00 AM EDT HFA aerosol inha ler 8 INHALE 1-2 PUFFS BY MOUTH EVERY 4-6 HOURS NEEDED FOR DIFFICULTY BREATHING INHALE 1-2 PUFFS BY MOUTH EVERY 4-6 HOURS NEEDED FOR DIFFICULTY BREATHING SOLD: 11/08/2020 [facility] 24 HR paliperidone 3 MG Extended Release Oral Tablet paliper idone 05/31/2020 12:00:00 AM EST 3 mg by mouth completed <td ID="MedicationRxNorm_4">293400</td><td ID="MedicationMedication_4">paliperidone</td><td ID="MedicationRoute_4">by mouth</td><td ID="MedicationRouteConcept_4">N69250</td><td ID="MedicationStartDate_4">05/31/2020</td><td ID="MedicationStopDate_4"></td><td ID="MedicationDosageFrequency_4">at bedtime</td><td ID="MedicationDuration_4"></td><td ID="MedicationFormulaStrength_4">3 mg</td><td ID="MedicationDosageForm_4">tablet extended release 24hr</td><td ID="MedicationDosageFormCode_4"></td><td ID="MedicationDosageDescription_4"></td><td ID="MedicationMedicationId_4">[id number]</td><td ID="MedicationAccount_4">[id number]</td><td ID="MedicationNpid_4">[id number]</td><td ID="MedicationAuthorFirstName_4">Bharat</td><td ID="MedicationAuthorLastName_4">Dodson</td><td ID="MedicationTaxonomyCode_4">[id number]</td><td ID="MedicationTaxonomyDesc_4"> Nurse Practitioner</td><td ID="MedicationPhoneNumber_4">[phone]</td> [facility] ([facility]) 3 mg 05/26/2020 12:00:00 AM EST tablet extended release 24hr 7 TAKE ONE TABLET BY MOUTH TWICE A DAY FOR MOOD TAKE ONE TABLET BY MOUTH TWICE A DAY FOR MOOD SOLD: 05/26/2020 [facility] 3 mg 05/26/2020 12:00:00 AM EST tablet extended release 24hr 7 TAKE ONE TABLET BY MOUTH TWICE A DAY FOR MOOD TAKE ONE TABLET BY MOUTH TWICE A DAY FOR MOOD SOLD: 05/30/2020 [facility] 0.5 mg 05/22/2020 12:00:00 AM EST tablet 14 TAKE ONE TABLET BY MOUTH TWICE A DAY NEEDED FOR EPS SIDE EFFECTS TAKE ONE TABLET BY MOUTH TWICE A DAY NEEDED FOR EPS SIDE EFFECTS SOLD: 05/23/2020 [facility] 50 mg 02/16/2020 12:00:00 AM EDT tablet 60 TAKE ONE TABLET BY MOUTH TWICE A DAY NEEDED TAKE ONE TABLET BY MOUTH TWICE A DAY NEEDED SOLD: 02/17/2020 [facility] 20 mg 02/16/2020 12:00:00 AM EDT tablet 30 TAKE ONE TABLET BY MOUTH EVERY DAY NEEDED TAKE ONE TABLET BY MOUTH EVERY DAY NEEDED SOLD: 02/17/2020 [facility] 24 HR Nicotine 0.583 MG/HR Transdermal Patch nicotine 02/16/2020 12:00:00 AM EDT 14 mg/24 completed <td I D="MedicationRxNorm_4">017407</td><td ID="MedicationMedication_4">nicotine</td><td ID="MedicationRoute_4">to skin</td><td ID="MedicationRouteConcept_4"></td><td ID="MedicationStartDate_4">02/16/2020</td><td ID="MedicationStopDate_4">05/16/2020</td><td ID="MedicationDosageFrequency_4">once a day</td><td ID="MedicationDuration_4">30</td><td ID="MedicationFormulaStrength_4">14 mg/24 hr</td><td ID="MedicationDosageForm_4">patch 24 hour</td><td ID="MedicationDosageFormCode_4"></td><td ID="MedicationDosageDescription_4"> </td><td ID="MedicationMedicationId_4">[id number]</td><td ID="MedicationAccount_4">[id number]</td><td ID="MedicationNpid_4">[id number]</td><td ID="MedicationAuthorFirstName_4">Simona</td><td ID="MedicationAuthorLastName_4">Aledo</td><td ID="MedicationTaxonomyCode_4">[id number]</td><td ID="MedicationTaxonomyDesc_4">Psychiatric/Mental Health</td><td ID="MedicationPhoneNumber_4">[phone]</td> [facility] ([facility]) 20 mg 02/16/2020 12:00:00 AM EDT tablet 30 TAKE ONE TABLET BY MOUTH EVERY DAY NEEDED TAKE ONE TABLET BY MOUTH EVERY DAY NEEDED SOLD: 03/31/2020 [facility] 50 mg 02/16/2020 12:00:00 AM EDT tablet 60 TAKE ONE TABLET BY MOUTH TWICE A DAY NEEDED TAKE ONE TABLET BY MOUTH TWICE A DAY NEEDED SOLD: 03/31/2020 [facility] Hydroxyzine Hydrochloride 50 MG Oral Tablet hydroxyzine HCl 02/16/2020 12:00:00 AM EDT 50 mg completed <td ID ="MedicationRxNorm_3">617688</td><td ID="MedicationMedication_3">hydroxyzine HCl</td><td ID="MedicationRoute_3"></td><td ID="MedicationRouteConcept_3"></td><td ID="MedicationStartDate_3">02/16/2020</td><td ID="MedicationStopDate_3"></td><td ID="MedicationDosageFrequency_3"></td><td ID="MedicationDuration_3"></td><td ID="MedicationFormulaStrength_3">50 mg</td><td ID="MedicationDosageForm_3">tablet</td><td ID="MedicationDosageFormCode_3"></td><td ID="MedicationDosageDescription_3"></td><td ID="MedicationMedicationId_3">[id number]</td><td ID="MedicationAccount_3">[id number]</td><td ID="MedicationNpid_3">[id number]</td><td ID="MedicationAuthorFirstName_3">Bharat</td><td ID="MedicationAuthorLastName_3">Dodson</td><td ID="MedicationTaxonomyCode_3">[id number]</td><td ID="MedicationTaxonomyDesc_3">Nurse Practitioner</td><td ID="MedicationPhoneNumber_3">[phone]</td> [facility] ([facility]) 819 mg/2.625 mL 12/24/2019 12:00:00 AM EDT syringe 2 INJECT THE CONTENTS OF ONE SYRINGE INTRAMUSCULARLY EVERY THREE MONTHS INJECT THE CONTENTS OF ONE SYRINGE INTRAMUSCULARLY EVERY THREE MONTHS SOLD: 01/04/2020 [facility] 819 mg/2.625 mL 12/24/2019 12:00:00 AM EDT syringe 2 INJECT THE CONTENTS OF ONE SYRINGE INTRAMUSCULARLY EVERY THREE MONTHS INJECT THE CONTENTS OF ONE SYRINGE INTRAMUSCULARLY EVERY THREE MONTHS SOLD: 03/27/2020 [facility] Insurance Providers Payer name Policy type / Coverage type Policy ID Covered alliance party ID Covered alliance party's relationship to mcconnell Policy [place] Plan Information [place] [id number] S [id number] MEDICARE [id number] SP [id number] A [employer] [id number] S [id number] MEDICARE [id number] SP [id number] A MEDICAID [id number] S [id number] [facility] DUAL COMPLET [id number] S [id number] [facility] DUAL COMPLET [id number] S [id number] [facility] DUAL COMPLET [id number] S [id number] MEDICAID [id number] S [id number] MEDICAID [id number] S [id number] [facility] DUAL COMPLET [id number] S [id number] [facility] DUAL [facility] [id number] S [id number] ANSI-Commercial [id number] ANSI-Medicaid [id number] [facility]-Medicare Part B [id number] ANSI-Commercial [id number] ANSI-Medicaid [id number] ANSI-Commercial [id number] ANSI-Medicare Part B [id number] ANSI-Medicare Part B [id number] ANSI-Commercial [id number] ANSI-Commercial [id number] ANSI-Medicaid [id number] [facility] DUAL COMPLET [id number] S [id number] [facility] MEDICARE DIVISION [id number] S [id number] MEDICARE - [place] [id number] S [id number] [facility] [id number] SP [id number] MEDICAID [id number] SP [id number] [facility] OFFICE OF MENTAL HEALTH [id number] S [id number] MEDICARE [id number] S [id number] MEDICAID [id number] S [id number] MEDICAID [id number] [facility] DUAL COMPLET [id number] S [id number] MEDICAID [id number] S [id number] [facility] [id number] SP [id number] [facility] [id number] SP [id number] MEDICAID [id number] S [id number] [facility](MCAID) O [id number] S [id number] MEDICARE [id number] SP [id number] MEDICAID [id number] SP [id number] [facility] [id number] SP [id number] ANSI-Commercial [id number] Problems, Conditions, and Diagnoses Code Display Name Description Problem Type Effective Dates Data Source(s) I10 Essential (primary) hypertension Essential (primary) h ypertension Diagnosis 02/13/2021 12:00:00 AM EDT [facility] ([facility]) F20.9 Schizophrenia, unspecified Schizophrenia Diagnosis 02/13/2021 12:00:00 AM EDT [facility] ([facility]) Z53.20 Procedure and treatment not carried out because of patient's decision for unspecified reasons PROC/TRTMT NOT CRD OUT BEC PT DECISION FOR UNSP RE Luz gnosis 02/07/2021 12:59:00 PM [facility] R09.81 Nasal congestion NASAL CONGESTION Diagnosis 02/07/2021 12 :59:00 PM [facility] B34.9 Viral infection, unspecified VIRAL INFECTION, UNSPECIF IED Diagnosis 11/14/2020 09:06:00 AM [facility] 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 Diagnosis 11/08/2020 04:05:00 PM EDT [facility] F17.210 Nicotine dependence, cigarettes, uncompl icated NICOTINE DEPENDENCE, CIGARETTES, UNCOMPLICATED Diagnosis 11/08/2020 04:05:00 PM EDT [facility]ital R05 Cough COUGH Diagnosis 11/08/2020 04:05:00 PM ED [facility] Z71.89 Other specified counseling OTHER SPECIFIED COUNSELING Diagnosis 06/16/2020 07:00:00 AM [facility] Z86.59 Personal history of other mental and beh avioral disorders PERSONAL HISTORY OF OTHER MENTAL AND BEHAVIORAL DI Diagnosis 06/16/2020 07:00:0 0 AM [facility] Z68.26 Body mass index (BMI) 26.0-26.9, adult B NOELLE MASS INDEX [BMI] 26.0-26.9, ADULT Diagnosis 06/16/2020 07:00:00 AM [facility] E66.3 Overweight OVERWEIGHT Diagnosis 06/16/2020 07:00:00 AM [facility] H57.03 Miosis MIOSIS Diagnosis 06/16/2020 07:00:00 AM [facility] E78.2 Mixed hyperlipidemia MIXED HYPERLIPIDEMIA Diagnosis 06/16/2020 07:00:00 AM [facility] Z00.00 Encounter for general adult medical examination without abnormal findings ENCNTR FOR GENERAL ADULT MEDICAL EXAM W/O ABNORMAL FINDINGS Diagnosis 06/16/2020 07:00:00 AM [facility] 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, in r emission OTHER PSYCHOACTIVE SUBSTANCE ABUSE, IN R Diagnosis 06/12/2020 07:14:[facility].81 Encounter for therapeutic drug level mon itoring ENCOUNTER FOR THERAPEUTIC DRUG LEVEL MON Diagnosis 06/12/2020 07:14:00 [facility] H61.23 Impacted cerumen, bilateral IMPACTED CERUMEN, BILATERA L Diagnosis 05/24/2020 07:55:00 AM [facility] F20.9 Schizophrenia, unspecified SCHIZOPHRENIA, UNSPECIFIED Diagnosis 05/24/2020 07:55:00 AM [facility] Z72.0 Tobacco use Tobacco Use Disorder, Mild Condition 1 12:00:00 AM EDT [facility] ([facility]) F20.9 Schizophrenia, unspecified Schizophrenia Condition 02/20/2021 12:00:00 AM EDT [facility] ([facility]) H57.03 [id number] Miosis Problem 05/24/2020 12:00:00 AM ES T eCW1 ([facility]) F19.11 History of drug abuse History of drug abuse Problem 05/24/2020 12:00:00 AM EST eCW1 ([facility]) 295.90 UNSPECIFIED TYPE SCHIZOPHRENIA UNSPECIFIED STATE Schiz ophrenia Condition 02/16/2020 12:00:00 AM EDT [facility] ([facility]) F25.9 Schizoaffective disorder, unspecified Schizoaffective Disorder Condition 01/19/2020 12:00:00 AM EDT [facility] ([facility]) Surgeries/Procedures Procedure Description Date Indications Data Source(s) Brief Individual Psychotherapy - 30 min 02/20/2021 12:00:00 AM EDT - 02/20/2021 12:00:00 AM EDT [facility] ([facility]) Brief Individual Psychotherapy - 30 min 02/20/2021 12: 00:00 AM EDT [facility] ([facility]) Brief Individual Psychotherapy - 30 min 02/08/2021 12:00:00 AM EDT - 02/08/2021 12:00:00 AM EDT [facility] ([facility]) Brief Individual Psychotherapy - 30 min 02/06/2021 12: 00:00 AM EDT [facility] ([facility]) MHCTelemed E/M Lvl 4--Est pt 01/31/2021 12:00:00 AM EDT - 01/31/2021 12:00:00 AM EDT [facility] ([facility]) MHCTelemed E/M Lvl 4--Est pt 01/31/2021 12:00:00 AM ED T [facility] ([facility]) Brief Individual Psychotherapy - 30 min 01/18/2021 12:00:00 AM EDT - 01/18/2021 12:00:00 AM EDT [facility] ([facility]) Brief Individual Psychotherapy - 30 min 01/18/2021 12: 00:00 AM EDT [facility] ([facility]) Brief Individual Psychotherapy - 30 min 12/26/2020 12:00:00 AM EDT - 12/26/2020 12:00:00 AM EDT [facility] ([facility]) Brief Individual Psychotherapy - 30 min 12/26/2020 12: 00:00 AM EDT [facility] ([facility]) [facility] Telemed E/M Lvl 3--Est pt 12/21/2020 12:00:00 AM EDT - 12/21/2020 12:00:00 AM EDT [facility] ([facility]) [facility] Telemed E/M Lvl 3--Est pt 12/21/2020 12:00:00 AM E DT [facility] ([facility]) Brief Individual Psychotherapy - 30 min 11/10/2020 12:00:00 AM EDT - 11/10/2020 12:00:00 AM EDT [facility] ([facility]) Brief Individual Psychotherapy - 30 min 11/10/2020 12: 00:00 AM EDT [facility] ([facility]) OFFICE OUTPATIENT VISIT 15 MINUTES 11/09 12:00:00 AM EDT - 11/09/2020 12:00:00 AM EDT [facility] ([facility]) OFFICE OUTPATIENT VISIT 15 MINUTES 11/09/2020 12:00:00 AM EDT [facility] ([facility]) Comprehensive medication services, per 15 minutes 10/10/2020 12:00:00 AM EDT - 10/10/2020 12:00:00 AM EDT [facility] ([facility]) Comprehensive medication services, per 15 minutes 10/10/2020 12:00:00 AM EDT [facility] ([facility]) OFFICE OUTPATIENT VISIT 10 MINUTES 09/20 12:00:00 AM EDT - 09/20/2020 12:00:00 AM EDT [facility] ([facility]) OFFICE OUTPATIENT VISIT 10 MINUTES 09/20/2020 12:00:00 AM EDT [facility] ([facility]) Brief Individual Psychotherapy - 30 min 08/31/2020 12:00:00 AM EDT - 08/31/2020 12:00:00 AM EDT [facility] ([facility]) Brief Individual Psychotherapy - 30 min 08/31/2020 12: 00:00 AM EDT [facility] ([facility]) OFFICE OUTPATIENT VISIT 15 MINUTES 08/16 12:00:00 AM EDT - 08/16/2020 12:00:00 AM EDT [facility] ([facility]) OFFICE OUTPATIENT VISIT 15 MINUTES 08/16/2020 12:00:00 AM EDT [facility] ([facility]) OFFICE OUTPATIENT VISIT 15 MINUTES 07/19 12:00:00 AM EST - 07/19/2020 12:00:00 AM EST [facility] ([facility]) Telemed A/O 30" 07/19/2020 12:00:00 AM EST [facility] ([facility]) OFFICE OUTPATIENT VISIT 15 MINUTES 07/19/2020 12:00:00 AM EST [facility] ([facility]) THERAPEUTIC PROPHYLACTIC/DX INJECTION SUBQ/IM 07/11/2020 12:00:00 AM EST - 07/11/2020 12:00:00 AM EST [facility] ([facility]) THERAPEUTIC PROPHYLACTIC/DX INJECTION SUBQ/IM 07/12/19 12:00:00 AM EST [facility] ([facility]) TEMPMHCTelemed 30" Psychotherapy 021 12:00:00 AM EST - 06/30/2020 12:00:00 AM EST [facility] ([facility]) TEMPMHCTelemed 30" Psychotherapy 06/30/2020 12:00:00 A M EST [facility] ([facility]) MHC Telemed E/M Lvl 3--Est pt 06/21/2020 12:00:00 AM EST - 06/21/2020 12:00:00 AM EST [facility] ([facility]) Telemed A/O 30" 06/21/2020 12:00:00 AM EST [facility] ([facility]) MHC Telemed E/M Lvl 3--Est pt 06/21/2020 12:00:[address] [facility] ([facility]) Brief Individual Psychotherapy - 30 min 06/09/2020 12:00:00 AM EST - 06/09/2020 12:00:00 AM EST [facility] ([facility]) Brief Individual Psychotherapy - 30 min 06/09/2020 12: 00:00 AM EST [facility] ([facility]) [facility] Telemed E/M Lvl 3--Est pt 05/31/2020 12:00:00 AM EST - 05/31/2020 12:00:00 AM EST [facility] ([facility]) Telemed A/O 30" 05/31/2020 12:00:00 AM EST [facility] ([facility]) [facility] Telemed E/M Lvl 3--Est pt 05/31/2020 12:00:[address] [facility] ([facility]) AOT Evaluation 05/23/2020 12:00:00 AM EST - 05/23/2020 12:00:00 AM EST [facility] ([facility]) AOT Evaluation 05/23/2020 12:00:00 AM EST [facility] ([facility]) Brief Individual Psychotherapy - 30 min 05/23/2020 12:00:00 AM EST - 05/23/2020 12:00:00 AM EST [facility] ([facility]) Brief Individual Psychotherapy - 30 min 05/23/2020 12: 00:00 AM EST [facility] ([facility]) OFFICE OUTPATIENT VISIT 15 MINUTES 04/12 12:00:00 AM EST - 04/12/2020 12:00:00 AM EST [facility] ([facility]) OFFICE OUTPATIENT VISIT 15 MINUTES 04/12/2020 12:00:00 AM EST [facility] ([facility]) THERAPEUTIC PROPHYLACTIC/DX INJECTION SUBQ/IM 04/10/2020 12:00:00 AM EST - 04/10/2020 12:00:00 AM EST [facility] ([facility]) THERAPEUTIC PROPHYLACTIC/DX INJECTION SUBQ/IM 04/10/20 12:00:00 AM EST [facility] ([facility]) Brief Individual Psychotherapy - 30 min 02/23/2020 12:00:00 AM EDT - 02/23/2020 12:00:00 AM EDT [facility] ([facility]) MHC Telemed E/M Lvl 3--Est pt 02/16/2020 12:00:00 AM EDT - 02/16/2020 12:00:00 AM EDT [facility] ([facility]) Telemed A/O 30" 02/16/2020 12:00:00 AM EDT [facility] ([facility]) MHC Telemed E/M Lvl 3--Est pt 02/16/2020 12:00:00 AM E DT [facility] ([facility]) Brief Individual Psychotherapy - 30 min 02/09/2020 12: 00:00 AM EDT [facility] ([facility]) Brief Individual Psychotherapy - 30 min 01/19/2020 12:00:00 AM EDT - 01/19/2020 12:00:00 AM EDT [facility] ([facility]) Brief Individual Psychotherapy - 30 min 01/19/2020 12: 00:00 AM EDT [facility] ([facility]) Results ID Date Data Source [id number] 11/08/2020 05:26:00 PM EDT [facility] Patient: CROW DOCKERY Herminio Murilloo rt - Physicians/Mid [place] [address].VisitID: [id number] [place] [address] [phone], MRegistration Date/Time: 11/08/2020 15:31 Weight:81.6 kg (S). Height/Length:71 inches (S). BMI:25.1 PAST HISTORYProblems:Depression.Anxiety Reaction.Schizophrenia. Additional Surgeries:Hernia Repair. Medications:Propranolol HCl ER Oral unk, daily as needed, last dose today.hydrOXYzine HCl Oral 25 mg, daily as needed, last dose yesterday.Invega Carmenza Intramuscular, q 3 months, last dose October. Allergies:No Known Drug Allergy. FAMILY HISTORYNo significant family medical history. (Electronically signed by Timothy Putnam PA-C 11/08/2020 17:24) Name Value Range Interpretation Code Description Data Diane rce(s) Supporting Document(s) ID Date Data Source [id number] 11/08/2020 04:45:00 PM EDT [facility] DATE OF EXAMINATION: 11/08/2020 15:59 EDT CHEST 2 VIEWS HISTORY: Cough TECHNIQUE: PA and lateral radiographs of the chest COMPARISON: None. FINDINGS: No evidence of focal consolidation, pneumothorax or large pleural effusion.Lungs are clear. Mediastinal structures are unremarkable. No aggressive osseouslesions. There is a calcified granuloma in the left lower lobe. IMPRESSION: No focal consolidation. Electronically signed in PS360 by: Elder Cruz M.D. 11/08/2020 16:40 EDT Name Value Range Interpretation Code Description Data Idane rce(s) Supporting Document(s) ID Date Data Source [id number] 06/13/2020 04:05:00 PM EST [facility] Name Value Range Interpretation Code Description Data Diane rce(s) Supporting Document(s) AMPHETAMINES, URINE Negative ng/mL Kvnecz=8778 [facility] Amphetamine test includes Amphetamine an d Methamphetamine. BARBITURATE Negative ng/mL Rghxyu=593 [facility] BENZODIAZEPINES Negative ng/mL Ifufwg=194 [facility] CANNABINOID Negative ng/mL Cutoff=50 [facility] COCAINE (METAB.) Negative ng/mL Ochppf=363 [facility] OPIATES Negative ng/mL Bvcqdf=554 [facility] Opiate test includes Codeine and Morphin e only. PHENCYCLIDINE Negative ng/mL Cutoff=25 [facility] ETHANOL Negative % Cutoff=0.020 [facility] Performed at: RN - [facility] [address] [id number] Director: Janette Dunham MD, Phone: [phone] ID Date Data Source [id number] 06/13/2020 04:05:00 PM EST [facility] Name Value Range Interpretation Code Description Data Diane rce(s) Supporting Document(s) Amphetamines, Urine Negative ng/mL Bxhqbn=7952 [facility] Amphetamine test includes Amphetamine an d Methamphetamine. Barbiturate Negative ng/mL Rkagag=662 [facility] Benzodiazepines Negative ng/mL Bvoavh=198 [facility] Cannabinoid Negative ng/mL Cutoff=50 [facility] Cocaine (Metab.) Negative ng/mL Vtfukx=243 [facility] Opiates Negative ng/mL Snswbn=748 [facility] Opiate test includes Codeine and Morphin e only. Phencyclidine Negative ng/mL Cutoff=25 [facility] Ethanol, Urine Negative % Cutoff=0.020 [facility] ID Date Data Source [id number] 06/12/2020 07:58:00 AM [facility] Name Value Range Interpretation Code Description Data Dinae rce(s) Supporting Document(s) CHOLESTEROL 236 mg/dL 0-200 H [facility] TRIGLYCERIDES 122 mg/dL 0-150 [facility] LDL CHOLESTEROL 143 mg/dL 0-100 H [facility] HDL CHOLESTEROL 69 mg/dL 40-60 H [facility] CHOL/HDL RATIO 3.4 0.0-5.0 [facility] ID Date Data Source [id number] 06/12/2020 07:58:00 AM [facility] Name Value Range Interpretation Code Description Data Diane rce(s) Supporting Document(s) GLUCOSE 90 mg/dL 74-106 [facility] BLOOD UREA NITROGEN 14 mg/dL 7-18 [facility] ital CREATININE 1.05 mg/dL 0.7-1.3 [facility] SODIUM 141 mmol/L 136-145 [facility] POTASSIUM 4.3 mmol/L 3.5-5.1 [facility] CHLORIDE 104 mmol/L 98-107 [facility] CO2 31 mmol/L 21-32 [facility] CALCIUM 9.4 mg/dL 8.5-10.1 [facility] ANION GAP 6.0 mmol/L 5-12 [facility] GLOMERULAR FILTRATION RATE 71 mL/min [facility] GFR IS CALCULATED IN mL/min/1.73m2 JEREMIAH L FUNCTION: >90MILDLY DECREASED: 60-89MILDY TO MODERATELY DECREASED: 45-59 MODERATELY TO SEVERELY DECREASED: 30-44SEVERELY DECREASED: 15-29RENAL FAILURE: <15 AST 18 U/L 15-37 [facility] ALT 27 U/L 12-78 [facility] ALKALINE PHOSPHATASE 78 U/L 46-116 [facility] pital TOTAL BILIRUBIN 0.5 mg/dL 0.2-1.0 [facility] TOTAL PROTEIN 6.7 g/dl 6.4-8.2 [facility] ALBUMIN 3.3 gm/dL 3.4-5.0 L [facility] ID Date Data Source [id number] 06/12/2020 07:27:00 AM [facility] Name Value Range Interpretation Code Description Data [facility] rce(s) Supporting Document(s) WHITE BLOOD COUNT 6.6 K/mm3 4.0-10.0 [facility] al RED BLOOD COUNT 4.62 M/mm3 4.50-6.00 [facility] HEMOGLOBIN 14.4 gm/dL 14.0-18.0 [facility] HEMATOCRIT 41.3 % 42.0-54.0 L [facility] MEAN CELL VOLUME 89.4 fl 80-96 [facility] MEAN CORPUSCULAR HEMOGLOBIN 31.2 pg 27.0-31.0 H [facility] MEAN CORPUSCULAR HGB CONC 34.9 g/dl 32.0-36.0 [facility] RED CELL DISTRIBUTION WIDTH 12.4 % 10.0-14.5 [facility] PLATELET COUNT 219 K/mm3 172-450 [facility] ID Date Data Source [id number] 04/26/2020 02:15:00 PM EST [facility] Name Value Range Interpretation Code Description Data Diane rce(s) Supporting Document(s) SARS coronavirus 2 RNA [Presence] in Res piratory specimen by LINDA with probe detection [facility] This lab was ordered by [facility] a nd reported by [facility]. ID Date Data Source [id number] 04/12/2020 06:50:00 PM EST [facility] Name Value Range Interpretation Code Description Data Diane rce(s) Supporting Document(s) SARS coronavirus 2 RNA [Presence] in Res piratory specimen by LINDA with probe detection [facility] This lab was ordered by [facility] a nd reported by [facility]. Procedure Social History Code Duration Value Status Description Data Source(s ) Smoking 02/20/2021 12:00:00 AM EDT Unknown if ever smoked comp leted Unknown if ever smoked [facility] ([facility]) Smoking 02/08/2021 12:00:00 AM EDT Unknown if ever smoked comp leted Unknown if ever smoked [facility] ([facility]) Smoking 01/31/2021 12:00:00 AM EDT Unknown if ever smoked comp leted Unknown if ever smoked [facility] ([facility]) Smoking 01/18/2021 12:00:00 AM EDT Unknown if ever smoked comp leted Unknown if ever smoked [facility] ([facility]) Smoking 12/26/2020 12:00:00 AM EDT Unknown if ever smoked comp leted Unknown if ever smoked [facility] ([facility]) Smoking 12/21/2020 12:00:00 AM EDT Unknown if ever smoked comp leted Unknown if ever smoked [facility] ([facility]) Smoking 11/14/2020 12:00:00 AM EDT Current Smoker completed Marla nt Smoker eCW1 ([facility]) Smoking 11/10/2020 12:00:00 AM EDT Unknown if ever smoked comp leted Unknown if ever smoked [facility] ([facility]) Smoking 11/09/2020 12:00:00 AM EDT Unknown if ever smoked comp leted Unknown if ever smoked [facility] ([facility]) Smoking 10/10/2020 12:00:00 AM EDT Unknown if ever smoked comp leted Unknown if ever smoked [facility] ([facility]) Smoking 09/20/2020 12:00:00 AM EDT Unknown if ever smoked comp leted Unknown if ever smoked [facility] ([facility]) Smoking 08/31/2020 12:00:00 AM EDT Unknown if ever smoked comp leted Unknown if ever smoked [facility] ([facility]) Smoking 08/16/2020 12:00:00 AM EDT Unknown if ever smoked comp leted Unknown if ever smoked [facility] ([facility]) Smoking 07/19/2020 12:00:00 AM EST Unknown if ever smoked comp leted Unknown if ever smoked [facility] ([facility]) Smoking 07/11/2020 12:00:00 AM EST Unknown if ever smoked comp leted Unknown if ever smoked [facility] ([facility]) Smoking 06/30/2020 12:00:00 AM EST Unknown if ever smoked comp leted Unknown if ever smoked [facility] ([facility]) Smoking 06/21/2020 12:00:00 AM EST Unknown if ever smoked comp leted Unknown if ever smoked [facility] ([facility]) Smoking 06/16/2020 12:00:00 AM EST Former Smoker completed Former Smoker eCW1 ([facility]) Smoking 06/16/2020 12:00:00 AM EST Former Smoker completed Former Smoker eCW1 ([facility]) Smoking 06/09/2020 12:00:00 AM EST Unknown if ever smoked comp leted Unknown if ever smoked [facility] ([facility]) Smoking 05/31/2020 12:00:00 AM EST Unknown if ever smoked comp leted Unknown if ever smoked [facility] ([facility]) Smoking 05/24/2020 12:00:00 AM EST Former Smoker completed Former Smoker eCW1 ([facility]) Smoking 05/23/2020 12:00:00 AM EST Unknown if ever smoked comp leted Unknown if ever smoked [facility] ([facility]) Smoking 04/12/2020 12:00:00 AM EST Unknown if ever smoked comp leted Unknown if ever smoked [facility] ([facility]) Smoking 04/10/2020 12:00:00 AM EST Unknown if ever smoked comp leted Unknown if ever smoked [facility] ([facility]) Smoking 02/23/2020 12:00:00 AM EDT Unknown if ever smoked comp leted Unknown if ever smoked [facility] ([facility]) Smoking 02/16/2020 12:00:00 AM EDT Unknown if ever smoked comp leted Unknown if ever smoked [facility] ([facility]) Smoking 01/19/2020 12:00:00 AM EDT Unknown if ever smoked comp leted Unknown if ever smoked [facility] ([facility]) Vital Signs ID Date Data Source UNK Name Value Range Interpretation Code Description Data Source(s) Body height 70 [in_i] 70 [in_i] eCW1 ([facility]) Body weight 183 [lb_av] 183 [lb_av] eCW1 ([facility]) Body mass index (BMI) [Ratio] 26.25 kg/m2 26.25 kg/m2 eCW1 ([facility]) Body temperature 99.2 [degF] 99.2 [degF] eCW1 ( [facility]) Heart rate 73 /min 73 /min eCW1 ([facility]) Respiratory rate 19 /min 19 /min eCW1 ([facility]) Oxygen saturation in Arterial blood by Pulse oximetry 97 % 97 % eCW1 ([facility]) Body height 0.00 in Normal (applies to non-numeric resu lts) 0.00 in [facility] ([facility]) Body weight Measured 0.00 lbs Normal (applies to n on-numeric results) 0.00 lbs [facility] ([facility]) Body mass index (BMI) [Ratio] 0.00 kg/m2 No rmal (applies to non-numeric results) 0.00 kg/m2 [facility] ([facility]) Systolic blood pressure 0 mm[Hg] Normal (applies t o non-numeric results) 0 mm[Hg] [facility] ([facility]) Diastolic blood pressure 0 mm[Hg] Normal (applies to non-numeric results) 0 mm[Hg] [facility] ([facility]) Body height 0.00 in Normal (applies to non-numeric resu lts) 0.00 in [facility] ([facility]) Body weight Measured 0.00 lbs Normal (applies to n on-numeric results) 0.00 lbs [facility] ([facility]) Body mass index (BMI) [Ratio] 0.00 kg/m2 No rmal (applies to non-numeric results) 0.00 kg/m2 [facility] ([facility]) Systolic blood pressure 0 mm[Hg] Normal (applies t o non-numeric results) 0 mm[Hg] [facility] ([facility]) Diastolic blood pressure 0 mm[Hg] Normal (applies to non-numeric results) 0 mm[Hg] [facility] ([facility]) Body height 0.00 in Normal (applies to non-numeric resu lts) 0.00 in [facility] ([facility]) Body weight Measured 0.00 lbs Normal (applies to n on-numeric results) 0.00 lbs [facility] ([facility]) Body mass index (BMI) [Ratio] 0.00 kg/m2 No rmal (applies to non-numeric results) 0.00 kg/m2 [facility] ([facility]) Systolic blood pressure 0 mm[Hg] Normal (applies t o non-numeric results) 0 mm[Hg] [facility] ([facility]) Diastolic blood pressure 0 mm[Hg] Normal (applies to non-numeric results) 0 mm[Hg] [facility] ([facility]) Body height 0.00 in Normal (applies to non-numeric resu lts) 0.00 in [facility] ([facility]) Body weight Measured 0.00 lbs Normal (applies to n on-numeric results) 0.00 lbs [facility] ([facility]) Body mass index (BMI) [Ratio] 0.00 kg/m2 No rmal (applies to non-numeric results) 0.00 kg/m[facility] Systolic blood pressure 0 mm[Hg] Normal (applies t o non-numeric results) 0 mm[Hg] [facility] ([facility]) Diastolic blood pressure 0 mm[Hg] Normal (applies to non-numeric results) 0 mm[Hg] [facility] ([facility]) Body height 70 [in_i] 70 [in_i] eCW1 ([facility]) Body weight 183.8 [lb_av] 183.8 [lb_av] eCW1 ([facility]) Body mass index (BMI) [Ratio] 26.37 kg/m2 26.37 kg/m2 eCW1 ([facility]) Body temperature 98.6 [degF] 98.6 [degF] eCW1 ( [facility]) Heart rate 68 /min 68 /min eCW1 ([facility]) Respiratory rate 18 /min 18 /min eCW1 ([facility]) Oxygen saturation in Arterial blood by Pulse oximetry 99 % 99 % eCW1 ([facility]) Body height 0.00 in Normal (applies to non-numeric resu lts) 0.00 in [facility] ([facility]) Body weight Measured 0.00 lbs Normal (applies to n on-numeric results) 0.00 lbs [facility] ([facility]) Body mass index (BMI) [Ratio] 0.00 kg/m2 No rmal (applies to non-numeric results) 0.00 kg/m2 [facility] ([facility]) Systolic blood pressure 0 mm[Hg] Normal (applies t o non-numeric results) 0 mm[Hg] [facility] ([facility]) Diastolic blood pressure 0 mm[Hg] Normal (applies to non-numeric results) 0 mm[Hg] [facility]) Body height 70 [in_i] 70 [in_i] eCW1 ([facility]) Body weight 180.6 [lb_av] 180.6 [lb_av] eCW1 ([facility]) Body mass index (BMI) [Ratio] 25.91 kg/m2 25.91 kg/m2 eCW1 ([facility]) Body temperature 98.6 [degF] 98.6 [degF] eCW1 ( [facility]) Heart rate 77 /min 77 /min eCW1 ([facility]) Respiratory rate 18 /min 18 /min eCW1 ([facility]) Oxygen saturation in Arterial blood by Pulse oximetry 98 % 98 % eCW1 ([facility]) Body height 0.00 in Normal (applies to non-numeric resu lts) 0.00 in [facility] ([facility]) Body weight Measured 0.00 lbs Normal (applies to n on-numeric results) 0.00 [facility]) Body mass index (BMI) [Ratio] 0.00 kg/m2 No rmal (applies to non-numeric results) 0.00 kg/m2 [facility] ([facility]) Systolic blood pressure 0 mm[Hg] Normal (applies t o non-numeric results) 0 mm[Hg] [facility] ([facility]) Diastolic blood pressure 0 mm[Hg] Normal (applies to non-numeric results) 0 mm[Hg] [facility] ([facility]) Body height 0.00 in Normal (applies to non-numeric resu lts) 0.00 in [facility] ([facility]) Body weight Measured 0.00 lbs Normal (applies to n on-numeric results) 0.00 lbs [facility] ([facility]) Body mass index (BMI) [Ratio] 0.00 kg/m2 No rmal (applies to non-numeric results) 0.00 kg/m2 [facility] ([facility]) Systolic blood pressure 0 mm[Hg] Normal (applies t o non-numeric results) 0 mm[Hg] [facility] ([facility]) Diastolic blood pressure 0 mm[Hg] Normal (applies to non-numeric results) 0 mm[Hg] [facility] ([facility]) Body height 0.00 in Normal (applies to non-numeric resu lts) 0.00 in [facility] ([facility]) Body weight Measured 0.00 lbs Normal (applies to n on-numeric results) 0.00 lbs [facility] ([facility]) Body mass index (BMI) [Ratio] 0.00 kg/m2 No rmal (applies to non-numeric results) 0.00 kg/m2 [facility] ([facility]) Systolic blood pressure 0 mm[Hg] Normal (applies t o non-numeric results) 0 mm[Hg] [facility] ([facility]) Diastolic blood pressure 0 mm[Hg] Normal (applies to non-numeric results) 0 mm[Hg] [facility] ([facility])
[2021-02-22 14:13] LABS: HEMATOCRIT 39.1 % (42.0-52.0); HEMOGLOBIN 13.2 g/dl (13.5-17.5); MEAN CORPUSCULAR HEMOGLOBIN 31.4 pg (27.0-33.0); MEAN CORPUSCULAR HGB CONC 33.8 g/dl (32.0-36.5); MEAN CORPUSCULAR VOLUME 93.1 fl (80.0-96.0); PLATELET COUNT, AUTOMATED 228 10^3/uL (150-450); WHITE BLOOD COUNT 6.5 10^3/uL (4.0-10.0)
--- OUTSIDE RECORDS SUMMARY | 2021-02-22 14:29 | CCD ---
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 Name Role Phone Rossana Dodson LEATHER LEVELER Unavailable Unavailable Rossana Dodson NP Unavailable Unavailable [...] Aldridge Unavailable No Mar Unavailable Amara, M Emry PA-C Unavailable Unavailable [...] Unavailable Unavailable Rotella, Elena Unavailable Unavailable Annette, [facility] Carolyn MARINE RIGGER-C Unavailable Unavailabl e Annette, [facility] Carolyn MARINE RIGGER-C Unavailable Unavailabl e Annette, [facility] Carolyn MARINE RIGGER-C Unavailable Unavailabl e Annette, [facility] Carolyn MARINE RIGGER-C Unavailable Unavailabl e Annette, [facility] Carolyn MARINE RIGGER-C Unavailable Unavailabl e Annette, [facility] Carolyn MARINE RIGGER-C Unavailable Unavailabl e Annette, [facility] Carolyn MARINE RIGGER-C Unavailable Unavailabl e Annette, [facility] Carolyn MARINE RIGGER-C Unavailable Unavailabl e Annette, [facility] Carolyn MARINE RIGGER-C Unavailable Unavailabl e Annette, David Fleminge MARINE RIGGER-C Unavailable Unavailabl e Annette, David Fleminge MARINE RIGGER-C Unavailable Unavailabl e Annette, David Fleminge MARINE RIGGER-C Unavailable Unavailabl e Annette, David Fleminge MARINE RIGGER-C Unavailable Unavailabl e Annette, David Fleminge MARINE RIGGER-C Unavailable Unavailabl e Annette, David Fleminge MARINE RIGGER-C Unavailable Unavailabl e Annette, David Fleminge MARINE RIGGER-C Unavailable Unavailabl e Annette, David Fleminge MARINE RIGGER-C Unavailable Unavailabl e Annette, David Fleminge MARINE RIGGER-C Unavailable Unavailabl e Annette, David Fleminge MARINE RIGGER-C Unavailable Unavailabl e Annette, David Fleminge MARINE RIGGER-C Unavailable Unavailabl e Annette, David Fleminge MARINE RIGGER-C Unavailable Unavailabl e Annette, David Fleminge MARINE RIGGER-C Unavailable Unavailabl e Annette, David Fleminge MARINE RIGGER-C Unavailable Unavailabl e Annette, David Fleminge MARINE RIGGER-C Unavailable Unavailabl e Annette, David Fleminge MARINE RIGGER-C Unavailable Unavailabl e Annette, David Fleminge MARINE RIGGER-C Unavailable Unavailabl e Annette, David Fleminge MARINE RIGGER-C Unavailable Unavailabl e Annette, David Fleminge MARINE RIGGER-C Unavailable Unavailabl e Annette, David Fleminge MARINE RIGGER-C Unavailable Unavailabl e Annette, David Turneryce MARINE RIGGER-C Unavailable Unavailabl e Annette, David Turneryce MARINE RIGGER-C Unavailable Unavailabl e Annette, David Turneryce MARINE RIGGER-C Unavailable Unavailabl e Debbie Hills Unavailable NugentHerb manzanarest Unavailable Kwadwo Orellana MD Unavailable Unavailable Kwadwo Orellana MD Unavailable Unavailable Kwadwo Orellana MD Unavailable Unavailable Ayde Alvarenga Unavailable Timothy Putnam PA-C Unavailable [place] Timothy PA-C Unavailable [place] Timothy PA-C Unavailable [place] Timothy PA-C Unavailable Timothy Putnam PA-C Unavailable [place], K Simona PMH-LEATHER LEVELER Unavailable Unavailable Ariadne, K Simona PMH-LEATHER LEVELER Unavailable Unavailable [place], K Simona PMH-LEATHER LEVELER Unavailable Unavailable [place], K Simona PMH-LEATHER LEVELER Unavailable Unavailable [place], K Simona PMH-LEATHER LEVELER Unavailable Unavailable Ariadne, K Simona PMH-LEATHER LEVELER Unavailable Unavailable [place], K Simona PMH-LEATHER LEVELER Unavailable Unavailable Ariadne, K Simona PMH-LEATHER LEVELER Unavailable Unavailable Re-disclosure Warning The records that [...] is protected by Article 27-F of the [facility] Public Health law. If you continue you may have access to information: Regarding HIV / AIDS; Provided by facilities licensed or operated by the [facility] Office of Mental Health; or Provided by the [facility] Office for People With Developmental Disabilities. If such information is present, then the following [facility] mandated warning applies: This information has been [...] law may result in a fine or [place] health care facility sentence or both. A general authorization for the release of medical or other information is NOT sufficient authorization for further disc losure. Allergies and Adverse Reactions Type Description Substance Reaction Status Data Source(s ) Propensity to adverse reactions to substance haloperidol Haloperidol 10 MG Oral Tablet Active [facility] ([facility]) No Allergies No Allergies [facility] ([facility]) trazodone trazodone [facility] ([facility]) NKDA NKDA [facility] ([facility]) lithium lithium [facility] ([facility]) environmental environmental [facility] ([facility]) haldol haldol [facility] ([facility]) Prolixin Prolixin Contortions Unknown MHAR S ([facility]) Propensity to adverse reactions to substance haloperidol Haloperidol 10 MG Oral Tablet Active [facility] ([facility]) Encounters Encounter Providers Location Date Indications Data Source(s ) Brief Individual Psychotherapy - 30 min Att[facility]: [facility] 10:45:00 AM EDT - 02/20/2021 10:45:00 AM EDT [facility] ([facility]) Attender: No Mar 02/20/2021 12:00:00 A M EDT [facility] ([facility]) Outpatient [address] [address]-Mobile Integration Team 02/13/2021 01:00:00 PM EDT [facility] [place] Patient admitted. Attender: No Mar 02/08/2021 12:00:00 A M EDT [facility] ([facility]) Emergency Attender: TORIE SETH MD 02/07/2021 1 1:40:00 AM EDT - 02/07/2021 01:00:00 PM EDT [facility] Patient discharged. Brief Individual Psychotherapy - 30 min Attender: No fox [facility] 02/06/2021 10:45:00 AM EDT - 02/06/2021 10:45:00 AM EDT [facility] ([facility]) Outpatient Attender: Bharat Dodson NP [facility] 01/31/2021 02:00:00 AM EDT - 01/31/2021 02:00:00 AM EDT [facility] ([facility]) Attender: Bharat Dodson NP 01/31/2021 12:00:00 AM EDT [facility] ([facility]) Brief Individual Psychotherapy - 30 min Attender: No Galo [facility] 01/18/2021 01:00:00 AM EDT - 01/18/2021 01:00:00 AM EDT [facility] ([facility]) Attender: No Mar 01/18/2021 12:00:00 A M EDT [facility] ([facility]) Brief Individual Psychotherapy - 30 min Attender: No Galo [facility] 12/26/2020 01:15:00 AM EDT - 12/26/2020 01:15:00 AM EDT [facility] ([facility]) Attender: No Mar 12/26/2020 12:00:00 A M EDT [facility] ([facility]) Outpatient Attender: Bharat Dodson NP [facility] 12/21/2020 02:00:00 AM EDT - 12/21/2020 02:00:00 AM EDT [facility] ([facility]) Attender: Bharat Dodson NP 12/21/2020 12:00:00 AM EDT [facility] ([facility]) Outpatient Attender: Carolyn BECKMANPRupert 11/14/2020 09:06:0 0 AM EDT [facility] 11/14/2020 12:00:00 AM EDT eCW1 ([facility]) Brief Individual Psychotherapy - 30 min [facility]10[facility] 01:15:00 AM EDT - 11/10/2020 01:15:00 AM EDT [facility] ([facility]) Attender: No Mar 11/10/2020 12:00:00 A M EDT [facility] ([facility]) Outpatient Attender: Simona B[facility] 11/09/2020 11:30:00 AM EDT - 11/09/2020 11:30:00 AM EDT [facility] ([facility]) Attender: Simona BYERS 11/09/2020 12: 00:00 AM EDT [facility] ([facility]) Emergency Attender: Timothy Torresr: Mery Anaya ra, PA-C 11/08/2020 04:05:00 PM EDT - 11/08/2020 05:06:00 PM EDT [facility] Patient discharged. Injectable Medication Administration w/ Monitoring & E ducation Attender: Ayde Alvarenga [facility] 10/10/2020 02:00:00 AM EDT - 10/10/2020 02:00:00 AM EDT [facility] ([facility]) Attender: Ayde Alvarenga 10/10/2020 12:00:00 AM EDT [facility] ([facility]) Outpatient Attender: Simona BYERS Josebj claros [facility] 09/20/2020 09:30:00 AM EDT - 09/20/2020 09:30:00 AM EDT [facility] ([facility]) Attender: Simona BYERS 09/20/2020 12: 00:00 AM EDT [facility] ([facility]) Brief Individual Psychotherapy - 30 min Attender: No fox [facility] 08/31/2020 09:00:00 AM EDT - 08/31/2020 09:00:00 AM EDT [facility] ([facility]) Attender: No Mar 08/31/2020 12:00:00 A M EDT [facility] ([facility]) Outpatient Attender: Simona Vincent y [facility] 08/16/2020 09:30:00 AM EDT - 08/16/2020 09:30:00 AM EDT [facility] ([facility]) Attender: Simona BYERS 08/16/2020 12: 00:00 AM EDT [facility] ([facility]) [facility] 08/02/2020 12:00:00 AM EDT eCW1 ([facility]) Outpatient Attender: Simona Vincent [facility] 07/19/2020 11:00:00 AM EST - 07/19/2020 11:00:00 AM EST [facility] ([facility]) Attender: Simona BYERS 07/19/2020 12: 00:00 AM EST [facility] ([facility]) Injectable Psychotropic Medication Administration (Inj ection Only) Attender: Debbie Hills [facility] 07/11/2020 01:00:00 AM EST - 07/11/2020 01:00:00 AM EST [facility] ([facility]) Attender: Debbie Hills 07/11/2020 12:00:00 AM EST [facility] ([facility]) TEMPMHCTelemed 30" Psych[facility] 11:00:00 AM EST - 06/30/2020 11:00:00 AM EST [facility] ([facility]) Attender: Roma Nugent 06/30/2020 12:00:00 AM EST [facility] ([facility]) Outpatient Attender: Simona [facility]abb [facility] 06/21/2020 11:30:00 AM EST - 06/21/2020 11:30:00 AM EST [facility] ([facility]) Attender: Simona BYERS 06/21/2020 12: 00:00 AM EST [facility] ([facility]) Outpatient Attender: Mery Maloney PA-C 06/16/2020 07:00 :00 AM [facility]patient [facility] 06/16/2020 12:00:00 AM EST eCW1 ([facility]) Outpatient Attender: Mery Manningferrer: Mery Maloney PA-C EMERGENCY ROOM-LAB 06/12/2020 07:14:00 AM EST - 06/12/2020 07:14:00 AM [facility] Brief Individual Psychotherapy - 30 min Attender: Roma burnett [facility] 06/09/2020 11:00:00 AM EST - 06/09/2020 11:00:00 AM EST [facility] ([facility]) Attender: Roma Nugent 06/09/2020 12:00:00 AM EST [facility] ([facility]) Outpatient Attender: Simona Ron [facility]LEATH[facility] LEVEL[facility] 05/31/2020 10:30:00 AM EST - 05/31/2020 10:30:00 AM EST [facility] ([facility]) Attender: Simona HARRY-LEATHER LEVELER 05/31/2020 12: 00:00 AM EST [facility] ([facility]) Outpatient Attender: Mery Malnoey PA-C 05/24/2020 07:55 :00 AM [facility] (TCM) TCM/Hospital Follow Up [facility] 05/24/2020 12:00:00 AM EST eCW1 ([facility]) Brief Individual Psychotherapy - 30 min Attender: Kathy cardona [facility] 05/23/2020 01:30:00 AM EST - 05/23/2020 01:30:00 AM EST [facility] ([facility]) AOT Evaluation Attender: Son Orellana MD [facility] [place] 05/23/2020 01:00:00 AM EST - 05/23/2020 01:00:00 AM EST [facility] ([facility]) Attender: Son Orellana MD 05/23/2020 12:00:00 AM EST [facility] ([facility]) Attender: Kathy Aldridge 05/23/2020 12:00:00 AM EST [facility] ([facility]) Outpatient Attender: Simona HARRYMARY Jose [facility] 04/12/2020 11:00:00 AM EST - 04/12/2020 11:00:00 AM EST [facility] ([facility]) Attender: Simona HARRYMARY 04/12/2020 12: 00:00 AM EST [facility] ([facility]) Injectable Psychotropic Medication Administration (Inj ection Only) Attender: Elena West [facility] 04/10/2020 01:00:00 AM EST - 04/10/2020 01:00:00 AM EST [facility] ([facility]) Attender: Elena West 04/10/2020 12:00:00 AM EST [facility] ([facility]) Attender: Roma Nugent 02/23/2020 12:00:00 AM EDT [facility] ([facility]) Outpatient Attender: Simona HARRYMARY Jose claros [facility] 02/16/2020 11:00:00 AM EDT - 02/16/2020 11:00:00 AM EDT [facility] ([facility]) Attender: Simona HARRYMARY 02/16/2020 12: 00:00 AM EDT [facility] ([facility]) Brief Individual Psychotherapy - 30 min Attender: Roma Nesbitt rashimary [facility] 02/09/2020 01:00:00 AM EDT - 02/09/2020 01:00:00 AM EDT [facility] ([facility]) Brief Individual Psychotherapy - 30 min [facility] 01/19/2020 03:00:00 AM EDT - 01/19/2020 03:00:00 AM EDT [facility] ([facility]) Attender: Roma Nugent 01/19/2020 12:00:00 AM EDT [facility] ([facility]) Functional Status Immunizations Vaccine Date Status Description Data Source(s) COVID-19 VACCINE Moderna 08/15/2020 12:00:00 AM EDT completed [facility] Vaccine Series Complete: YESThis Data wa s Submitted to [facility] [employer]. COVID-19 VACCINE, MRNA-1273, LNP-S (MODERNA)/PF 08/15/2020 1 2:00:00 AM EDT completed [facility] COVID-19 VACCINE Moderna 07/14/2020 12:00:00 AM EST completed [facility] Vaccine Series Complete: NOThis Data was Submitted to [facility] [employer]. COVID-19 VACCINE, MRNA-1273, LNP-S (MODERNA)/PF 07/14/2020 1 2:00:00 AM EST completed [facility] New in 2011. IIV4 05/24/2020 08:02:00 AM EST completed eCW1 ([facility]) New in 2011. IIV4 05/24/2020 08:02:00 AM EST completed eCW1 ([facility]) New in 2011. IIV4 05/24/2020 08:02:00 AM EST completed eCW1 ([facility]) New in 2011. IIV4 05/24/2020 08:02:00 AM EST completed eCW1 ([facility]) Medications Medication Brand Name Start Date Product [...] EST 3 mg by mouth completed <td ID="MedicationRxNorm_4">630760</td><td ID="MedicationMedication_4">paliperidone</td><td ID="MedicationRoute_4">by mouth</td><td ID="MedicationRouteConcept_4">V12161</td><td ID="MedicationStartDate_4">05/31/2020</td><td ID="MedicationStopDate_4"></td><td ID="MedicationDosageFrequency_4">at bedtime</td><td ID="MedicationDuration_4"></td><td ID="MedicationFormulaStrength_4">3 mg</td><td ID="MedicationDosageForm_4">tablet extended release 24hr</td><td ID="MedicationDosageFormCode_4"></td><td ID="MedicationDosageDescription_4"></td><td ID="MedicationMedicationId_4">[id number]</td><td ID="MedicationAccount_4">[id number]</td><td ID="MedicationNpid_4">[id number]</td><td ID="MedicationAuthorFirstName_4">Bharat</td><td ID="MedicationAuthorLastName_4">Dodson</td><td ID="MedicationTaxonomyCode_4">[id number]</td><td ID="MedicationTaxonomyDesc_4"> Nurse Practitioner</td><td ID="MedicationPhoneNumber_4">[phone]</td> [facility] ([facility]) 3 mg 05/26/2020 12:00:00 AM EST tablet [...] AM EDT 14 mg/24 completed <td I D="MedicationRxNorm_4">737568</td><td ID="MedicationMedication_4">nicotine</td><td ID="MedicationRoute_4">to skin</td><td ID="MedicationRouteConcept_4"></td><td ID="MedicationStartDate_4">02/16/2020</td><td ID="MedicationStopDate_4">05/16/2020</td><td ID="MedicationDosageFrequency_4">once a day</td><td ID="MedicationDuration_4">30</td><td ID="MedicationFormulaStrength_4">14 mg/24 hr</td><td ID="MedicationDosageForm_4">patch 24 hour</td><td ID="MedicationDosageFormCode_4"></td><td ID="MedicationDosageDescription_4"> </td><td ID="MedicationMedicationId_4">[id number]</td><td ID="MedicationAccount_4">[id number]</td><td ID="MedicationNpid_4">[id number]</td><td ID="MedicationAuthorFirstName_4">Simona</td><td ID="MedicationAuthorLastName_4">Ariadne</td><td ID="MedicationTaxonomyCode_4">[id number]</td><td ID="MedicationTaxonomyDesc_4">Psychiatric/Mental Health</td><td ID="MedicationPhoneNumber_4">[phone]</td> [facility] ([facility]) 20 mg 02/16/2020 12:00:00 AM EDT tablet [...] AM EDT 50 mg completed <td ID ="MedicationRxNorm_3">200394</td><td ID="MedicationMedication_3">hydroxyzine HCl</td><td ID="MedicationRoute_3"></td><td ID="MedicationRouteConcept_3"></td><td ID="MedicationStartDate_3">02/16/2020</td><td ID="MedicationStopDate_3"></td><td ID="MedicationDosageFrequency_3"></td><td ID="MedicationDuration_3"></td><td ID="MedicationFormulaStrength_3">50 mg</td><td ID="MedicationDosageForm_3">tablet</td><td ID="MedicationDosageFormCode_3"></td><td ID="MedicationDosageDescription_3"></td><td ID="MedicationMedicationId_3">[id number]</td><td ID="MedicationAccount_3">[id number]</td><td ID="MedicationNpid_3">[id number]</td><td ID="MedicationAuthorFirstName_3">Bharat</td><td ID="MedicationAuthorLastName_3">Dodson</td><td ID="MedicationTaxonomyCode_3">[id number]</td><td ID="MedicationTaxonomyDesc_3">Nurse Practitioner</td><td ID="MedicationPhoneNumber_3">[phone]</td> [facility] ([facility]) 819 mg/2.625 mL 12/24/2019 12:00:00 AM [...] type / Coverage type Policy ID Covered republican ID Covered republican's relationship to mcconnell Policy [place] Plan Information [place] [id number] S [id number] [facility] [id number] S [id number] MEDICARE [id number] SP [id number] A MEDICARE [id number] SP [id number] A MEDICAID [id number] S [id number] [facility] D[facility] [id number] S [id number] [facility] DUAL COMPLET [id number] S [id number] [facility] DUAL COMPLET [id number] S [id number] MEDICAID [id number] S [id number] MEDICAID [id number] S [id number] [facility] DUAL COMPLET [id number] S [id number] [facility] DUAL COMPLET [id number] S [id number] ANSI-Commercial [id number] ANSI-Medicaid [id number] ANSI-Medicare Part B [id number] ANSI-Commercial [id number] ANSI-Medicaid [id number] ANSI-Commercial [id number] ANSI-Medicare Part B [id number] ANSI-Medicare Part B [id number] ANSI-Commercial [id number] ANSI-Commercial [id number] ANSI-Medicaid [id number] [place] [id number] SP [id number] E [facility] MEDICARE DIVISION [id number] S [id number] [place]ICARE [place] [id number] S [id number] [facility] [id number] SP [id number] MEDICAID [id number] SP [id number] [facility] OFFICE OF MENTAL HEALTH [id number] S [id number] MEDICARE [id number] S [id number] A MEDICAID [id number] S [id number] A [facility] DUAL COMPLET [id number] S [id number] [facility] [id number] SP [id number] MEDICAID [id number] S [id number] [facility] DUAL COMPLET [id number] S [id number] MEDICAID [id number] S [id number] [facility] [id number] SP [id number] MEDICAID M [id number] S [id number] [facility](MCAID) O [id number] S [id number] MEDICARE [id number] SP [id number] MEDICAID [id number] SP [id number] [facility] [id number] SP [id number] ANSI-Commercial [id number] Problems, Conditions, and Diagnoses Code Display Name Description Problem Type Effective Dates Data Source(s) I10 Essential (primary) hypertension Essential (primary) h ypertension Diagnosis 02/13/2021 12:00:00 AM EDT [facility] ([facility]) F20.9 Schizophrenia, unspecified Schizophrenia Diagnosis 02/13/2021 12:00:00 AM EDT [facility] ([facility]) Z53.20 Procedure and treatment not carried out because of patient's decision for unspecified reasons PROC/TRTMT NOT CRD OUT BEC PT DECISION FOR UNSP RE Luz gnosis 02/07/2021 12:59:00 PM EDT [facility] R09.81 Nasal congestion NASAL CONGESTION Diagnosis 02/07/2021 12 :59:00 PM EDT [facility] B34.9 Viral infection, unspecified VIRAL INFECTION, UNSPECIF IED Diagnosis 11/14/2020 09:06:00 AM EDT [facility] Z79.899 Other penitentiary (current) drug therapy O THER STATUARY PAINTER (CURRENT) DRUG THERAPY Diagnosis 11/08/2020 04:05:00 PM EDT [facility] F17.210 Nicotine dependence, cigarettes, uncompl icated NICOTINE DEPENDENCE, CIGARETTES, UNCOMPLICATED Diagnosis 11/08/2020 04:05:00 PM EDT [facility] R05 Cough COUGH Diagnosis 11/08/2020 04:05:00 PM [facility] Z71.89 Other specified counseling OTHER SPECIFIED COUNSELING Diagnosis 06/16/2020 07:00:00 AM [facility] Z86.59 Personal history of other mental and beh avioral disorders PERSONAL HISTORY OF OTHER MENTAL AND BEHAVIORAL DI Diagnosis 06/16/2020 07:00:0 0 AM [facility] Z68.26 Body mass index (BMI) 26.0-26.9, adult B NOELLE MASS INDEX [BMI] 26.0-26.9, ADULT Diagnosis 06/16/2020 07:00:00 AM [facility] l E66.3 Overweight OVERWEIGHT Diagnosis 06/16/2020 07:00:00 AM [facility] H57.03 Miosis MIOSIS Diagnosis 06/16/2020 07:00:00 AM [facility] E78.2 Mixed hyperlipidemia MIXED HYPERLIPIDEMIA Diagnosis 06/16/2020 07:00:00 AM [facility] Z00.00 Encounter for general adult medical examination without abnormal findings ENCNTR FOR GENERAL ADULT MEDICAL EXAM W/O ABNORMAL FINDINGS Diagnosis 06/16/2020 07:00:00 AM [facility] 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, in r emission OTHER PSYCHOACTIVE SUBSTANCE ABUSE, IN R Diagnosis 06/12/2020 07:14[facility] Encounter for therapeutic drug level mon itoring ENCOUNTER FOR THERAPEUTIC DRUG LEVEL MON Diagnosis 06/12/2020 07:14:00 AM [facility] l H61.23 Impacted cerumen, bilateral IMPACTED CERUMEN, BILATERA L Diagnosis 05/24/2020 07:55:00 AM [facility] F20.9 Schizophrenia, unspecified SCHIZOPHRENIA, UNSPECIFIED Diagnosis 05/24/2020 07:55:00 AM [facility] Z72.0 Tobacco use Tobacco Use Disorder, Mild Condition 1 12:00:00 AM EDT [facility] ([facility] F20.9 Schizophrenia, unspecified Schizophrenia Condition 02/20/2021 12:00:00 AM EDT [facility] ([facility]) H57.03 [id number] Miosis Problem 05/24/2020 12:00:00 AM ES T eCW1 ([facility]) F19.11 History of drug abuse History of drug abuse Problem 05/24/2020 12:00:00 AM EST eCW1 ([facility]) 295.90 UNSPECIFIED TYPE SCHIZOPHRENIA UNSPECIFIED STATE Schiz ophrenia Condition 02/16/2020 12:00:00 AM EDT [facility] ([facility]) F25.9 Schizoaffective disorder, unspecified Schizoaffective Disorder Condition 01/19/2020 12:00:00 AM EDT [facility] ([facility]) Surgeries/Procedures Procedure Description Date Indications Data Source(s) Brief Individual Psychotherapy - 30 min 02/20/2021 12:00:00 AM EDT - 02/20/2021 12:00:00 AM EDT [facility] ([facility]) Brief Individual Psychotherapy - 30 min 02/20/2021 12: 00:00 AM EDT [facility] ([facility]) Brief Individual Psychotherapy - 30 min 02/08/2021 12:00:00 AM EDT - 02/08/2021 12:00:00 AM EDT [facility] ([facility]) Brief Individual Psychotherapy - 30 min 02/06/2021 12: 00:00 AM EDT [facility] ([facility]) MHCTelemed E/M Lvl 4--Est pt 01/31/2021 12:00:00 AM EDT - 01/31/2021 12:00:00 AM EDT [facility] ([facility]) MHCTelemed E/M Lvl 4--Est pt 01/31/2021 12:00:00 AM ED T [facility] ([facility]) Brief Individual Psychotherapy - 30 min 01/18/2021 12:00:00 AM EDT - 01/18/2021 12:00:00 AM EDT [facility] ([facility]) Brief Individual Psychotherapy - 30 min 01/18/2021 12: 00:00 AM EDT [facility] ([facility]) Brief Individual Psychotherapy - 30 min 12/26/2020 12:00:00 AM EDT - 12/26/2020 12:00:00 AM EDT [facility] ([facility]) Brief Individual Psychotherapy - 30 min 12/26/2020 12: 00:00 AM EDT [facility] ([facility]) MHC Telemed E/M Lvl 3--Est pt 12/21/2020 12:00:00 AM EDT - 12/21/2020 12:00:00 AM EDT [facility] ([facility]) MHC Telemed E/M Lvl 3--Est pt 12/21/2020 12:00:00 AM E DT [facility] ([facility]) Brief Individual Psychotherapy - 30 min 11/10/2020 12:00:00 AM EDT - 11/10/2020 12:00:00 AM EDT [facility] ([facility]) Brief Individual Psychotherapy - 30 min 11/10/2020 12: 00:00 AM EDT [facility] ([facility]) OFFICE OUTPATIENT VISIT 15 MINUTES 11/09 12:00:00 AM EDT - 11/09/2020 12:00:00 AM EDT [facility] ([facility]) OFFICE OUTPATIENT VISIT 15 MINUTES 11/09/2020 12:00:00 AM EDT [facility] ([facility]) Comprehensive medication services, per 15 minutes 10/10/2020 12:00:00 AM EDT - 10/10/2020 12:00:00 AM EDT [facility] ([facility]) Comprehensive medication services, per 15 minutes 10/10/2020 12:00:00 AM EDT [facility] ([facility]) OFFICE OUTPATIENT VISIT 10 MINUTES 09/20 12:00:00 AM EDT - 09/20/2020 12:00:00 AM EDT [facility] ([facility]) OFFICE OUTPATIENT VISIT 10 MINUTES 09/20/2020 12:00:00 AM EDT [facility] ([facility]) Brief Individual Psychotherapy - 30 min 08/31/2020 12:00:00 AM EDT - 08/31/2020 12:00:00 AM EDT [facility] ([facility]) Brief Individual Psychotherapy - 30 min 08/31/2020 12: 00:00 AM EDT [facility] ([facility]) OFFICE OUTPATIENT VISIT 15 MINUTES 08/16 12:00:00 AM EDT - 08/16/2020 12:00:00 AM EDT [facility] ([facility]) OFFICE OUTPATIENT VISIT 15 MINUTES 08/16/2020 12:00:00 AM EDT [facility] ([facility]) OFFICE OUTPATIENT VISIT 15 MINUTES 07/19 12:00:00 AM EST - 07/19/2020 12:00:00 AM EST [facility] ([facility]) Telemed A/O 30" 07/19/2020 12:00:00 AM EST [facility] ([facility]) OFFICE OUTPATIENT VISIT 15 MINUTES 07/19/2020 12:00:00 AM EST [facility] ([facility]) THERAPEUTIC PROPHYLACTIC/DX INJECTION SUBQ/IM 07/11/2020 12:00:00 AM EST - 07/11/2020 12:00:00 AM EST [facility] ([facility]) THERAPEUTIC PROPHYLACTIC/DX INJECTION SUBQ/IM 07/12/19 21 12:00:00 AM EST [facility] ([facility]) TEMPMHCTelemed 30" Psychotherapy 021 12:00:00 AM EST - 06/30/2020 12:00:00 AM EST [facility] ([facility]) TEMPMHCTelemed 30" Psychotherapy 06/30/2020 12:00:00 A M EST [facility] ([facility]) [facility] [place] E/M Lvl 3--Est pt 06/21/2020 12:00:00 AM EST - 06/21/2020 12:00:00 AM EST [facility] ([facility]) Telemed A/O 30" 06/21/2020 12:00:00 AM EST [facility] ([facility]) [facility] [place] E/M Lvl 3--Est pt 06/21/2020 12:00:[address] [facility] ([facility]) Brief Individual Psychotherapy - 30 min 06/09/2020 12:00:00 AM EST - 06/09/2020 12:00:00 AM EST [facility] ([facility]) Brief Individual Psychotherapy - 30 min 06/09/2020 12: 00:00 AM EST [facility] ([facility]) MHC Telemed E/M Lvl 3--Est pt 05/31/2020 12:00:00 AM EST - 05/31/2020 12:00:00 AM EST [facility] ([facility]) Telemed A/O 30" 05/31/2020 12:00:00 AM EST [facility] ([facility]) [facility] [place] E/M Lvl 3--Est pt 05/31/2020 12:00:[address] [facility] ([facility]) AOT Evaluation 05/23/2020 12:00:00 AM EST - 05/23/2020 12:00:00 AM EST [facility] ([facility]) AOT Evaluation 05/23/2020 12:00:00 AM EST [facility] ([facility]) Brief Individual Psychotherapy - 30 min 05/23/2020 12:00:00 AM EST - 05/23/2020 12:00:00 AM EST [facility] ([facility]) Brief Individual Psychotherapy - 30 min 05/23/2020 12: 00:00 AM EST [facility] ([facility]) OFFICE OUTPATIENT VISIT 15 MINUTES 04/12 12:00:00 AM EST - 04/12/2020 12:00:00 AM EST [facility] ([facility]) OFFICE OUTPATIENT VISIT 15 MINUTES 04/12/2020 12:00:00 AM EST [facility] ([facility]) THERAPEUTIC PROPHYLACTIC/DX INJECTION SUBQ/IM 04/10/2020 12:00:00 AM EST - 04/10/2020 12:00:00 AM EST [facility] ([facility]) THERAPEUTIC PROPHYLACTIC/DX INJECTION SUBQ/IM 04/10/20 20 12:00:00 AM EST [facility] ([facility]) Brief Individual Psychotherapy - 30 min 02/23/2020 12:00:00 AM EDT - 02/23/2020 12:00:00 AM EDT [facility] ([facility]) MHC Telemed E/M Lvl 3--Est pt 02/16/2020 12:00:00 AM EDT - 02/16/2020 12:00:00 AM EDT [facility] ([facility]) Telemed A/O 30" 02/16/2020 12:00:00 AM EDT [facility] ([facility]) MHC Telemed E/M Lvl 3--Est pt 02/16/2020 12:00:00 AM E DT [facility] ([facility]) Brief Individual Psychotherapy - 30 min 02/09/2020 12: 00:00 AM EDT [facility] ([facility]) Brief Individual Psychotherapy - 30 min 01/19/2020 12:00:00 AM EDT - 01/19/2020 12:00:00 AM EDT [facility] ([facility]) Brief Individual Psychotherapy - 30 min 01/19/2020 12: 00:00 AM EDT [facility] ([facility]) Results ID Date Data Source [id number] 11/08/2020 05:26:00 PM EDT [facility] Patient: CROW DOCKERY Herminio [facility].VisitID: [id number] [place] [address] [phone], MRegistration Date/Time: 11/08/2020 15:31 Weight:81.6 kg (S). Height/Length:71 inches (S). BMI:25.1 PAST HISTORYProblems:Depression.Anxiety Reaction.Schizophrenia. Additional Surgeries:Hernia Repair. Medications:Propranolol HCl ER Oral unk, daily as needed, last dose today.hydrOXYzine HCl Oral 25 mg, daily as needed, last dose yesterday.Invega Trinza Intramuscular, q 3 months, last dose October. Allergies:No Known Drug Allergy. FAMILY HISTORYNo significant family medical history. (Electronically signed by Timothy Putnam PA-C 11/08/2020 17:24) Name Value Range Interpretation Code Description Data Diane rce(s) Supporting Document(s) ID Date Data Source [id number] 11/08/2020 04:45:00 PM EDT [facility] DATE OF EXAMINATION: 11/08/2020 15:59 EDT [...] Name Value Range Interpretation Code Description Data [facility] rce(s) Supporting Document(s) ID Date Data Source [id number] 06/13/2020 04:05:00 PM EST [facility] Name Value Range Interpretation Code Description Data [facility] rce(s) Supporting Document(s) AMPHETAMINES, URINE Negative ng/mL Yueevg=1354 [facility] [place] 2[facility] Amphetamine test includes Amphetamine an d Methamphetamine. BARBITURATE Negative ng/mL Wxmuxx=822 [facility] al BENZODIAZEPINES Negative ng/mL Xuqhvg=683 [facility] spital CANNABINOID Negative ng/mL Cutoff=50 [facility] l COCAINE (METAB.) Negative ng/mL Ivejwd=123 [facility] OPIATES Negative ng/mL Nrygee=653 [facility] Opiate test includes Codeine and Morphin e only. PHENCYCLIDINE Negative ng/mL Cutoff=25 [facility] esa ETHANOL Negative % Cutoff=0.020 [facility] Performed at: [facility] [address] [id number] Director: Janette Dunham MD, Phone: [phone] ID Date Data Source [id number] 06/13/2020 04:05:00 PM EST [facility] Name Value Range Interpretation Code Description Data Diane rce(s) Supporting Document(s) Amphetamines, Urine Negative ng/mL Mqqufv=6059 [facility] Amphetamine test includes Amphetamine an d Methamphetamine. Barbiturate Negative ng/mL Uwzwlf=332 [facility] Benzodiazepines Negative ng/mL Uujfnm=279 [facility] Cannabinoid Negative ng/mL Cutoff=50 [facility] Cocaine (Metab.) Negative ng/mL Qjbxhl=297 [facility] Opiates Negative ng/mL Exohrv=206 [facility] Opiate test includes Codeine and Morphin e only. Phencyclidine Negative ng/mL Cutoff=25 [facility] Ethanol, Urine Negative % Cutoff=0.020 [facility] ID Date Data Source [id number] 06/12/2020 07:58:00 AM EST [facility] Name Value Range Interpretation Code Description Data [facility] rce(s) Supporting Document(s) CHOLESTEROL 236 mg/dL 0-200 H [facility] TRIGLYCERIDES 122 mg/dL 0-150 [facility] LDL CHOLESTEROL 143 mg/dL 0-100 [facility] HDL CHOLESTEROL 69 mg/dL 40-60 H [facility] CHOL/HDL RATIO 3.4 0.0-5.0 [facility] ID Date Data Source [id number] 06/12/2020 07:58:00 AM [facility] l Name Value Range Interpretation Code Description [facility](s) GLUCOSE 90 mg/dL 74-106 [facility] BLOOD UREA NITROGEN 14 mg/dL 7-18 [facility] ital CREATININE 1.05 mg/dL 0.7-1.3 [facility] SODIUM 141 mmol/L 136-145 [facility] POTASSIUM 4.3 mmol/L 3.5-5.1 [facility] CHLORIDE 104 mmol/L 98-107 [facility] CO2 31 mmol/L 21-32 [facility] CALCIUM 9.4 mg/dL 8.5-10.1 [facility] ANION GAP 6.0 mmol/L 5-12 [facility] GLOMERULAR FILTRATION RATE 71 mL/min [facility] GFR IS CALCULATED IN mL/min/1.73m2 JEREMIAH L FUNCTION: >90MILDLY DECREASED: 60-89MILDY TO MODERATELY DECREASED: 45-59 MODERATELY TO SEVERELY DECREASED: 30-44SEVERELY DECREASED: 15-29RENAL FAILURE: <15 AST 18 U/L 15-37 [facility] ALT 27 U/L 12-78 [facility] ALKALINE PHOSPHATASE 78 U/L 46-116 [facility] pital TOTAL BILIRUBIN 0.5 mg/dL 0.2-1.0 [facility] TOTAL PROTEIN 6.7 g/dl 6.4-8.2 [facility] ALBUMIN 3.3 gm/dL 3.4-5.0 L [facility] ID Date Data Source [id number] 06/12/2020 07:27:00 AM EST [facility] Name Value Range Interpretation Code Description Data Diane rce(s) Supporting Document(s) WHITE BLOOD COUNT 6.6 K/mm3 4.0-10.0 [facility] al RED BLOOD COUNT 4.62 M/mm3 4.50-6.00 [facility] HEMOGLOBIN 14.4 gm/dL 14.0-18.0 [facility] HEMATOCRIT 41.3 % 42.0-54.0 L [facility] MEAN CELL VOLUME 89.4 fl 80-96 [facility] MEAN CORPUSCULAR HEMOGLOBIN 31.2 pg 27.0-31.0 H [facility] MEAN CORPUSCULAR HGB CONC 34.9 g/dl 32.0-36.0 [facility] RED CELL DISTRIBUTION WIDTH 12.4 % 10.0-14.5 [facility] PLATELET COUNT 219 K/mm3 172-450 [facility] ID Date Data Source [id number] 04/26/2020 02:15:00 PM EST [facility] Name Value Range Interpretation Code Description Data Diane rce(s) Supporting Document(s) SARS coronavirus 2 RNA [Presence] in Res piratory specimen by LINDA with probe detection [facility] This lab was ordered by [facility] a nd reported by [facility]. ID Date Data Source [id number] 04/12/2020 06:50:00 PM EST [facility] Name Value Range Interpretation Code Description Data Diane rce(s) Supporting Document(s) SARS coronavirus 2 RNA [Presence] in Res piratory specimen by LINDA with probe detection [facility] This lab was ordered by [facility] a nd reported by [facility]. Procedure Social History Code Duration Value Status Description Data Source(s ) Smoking 02/20/2021 12:00:00 AM EDT Unknown if ever smoked comp leted Unknown if ever smoked [facility] ([facility]) Smoking 02/08/2021 12:00:00 AM EDT Unknown if ever smoked comp leted Unknown if ever smoked [facility] ([facility]) Smoking 01/31/2021 12:00:00 AM EDT Unknown if ever smoked comp leted Unknown if ever smoked [facility] ([facility]) Smoking 01/18/2021 12:00:00 AM EDT Unknown if ever smoked comp leted Unknown if ever smoked [facility] ([facility]) Smoking 12/26/2020 12:00:00 AM EDT Unknown if ever smoked comp leted Unknown if ever smoked [facility] ([facility]) Smoking 12/21/2020 12:00:00 AM EDT Unknown if ever smoked comp leted Unknown if ever smoked [facility] ([facility]) Smoking 11/14/2020 12:00:00 AM EDT Current Smoker completed Marla nt Smoker eCW1 ([facility]) Smoking 11/10/2020 12:00:00 AM EDT Unknown if ever smoked comp leted Unknown if ever smoked [facility] ([facility]) Smoking 11/09/2020 12:00:00 AM EDT Unknown if ever smoked comp leted Unknown if ever smoked [facility] ([facility]) Smoking 10/10/2020 12:00:00 AM EDT Unknown if ever smoked comp leted Unknown if ever smoked [facility] ([facility]) Smoking 09/20/2020 12:00:00 AM EDT Unknown if ever smoked comp leted Unknown if ever smoked [facility] ([facility]) Smoking 08/31/2020 12:00:00 AM EDT Unknown if ever smoked comp leted Unknown if ever smoked [facility] ([facility]) Smoking 08/16/2020 12:00:00 AM EDT Unknown if ever smoked comp leted Unknown if ever smoked [facility] ([facility]) Smoking 07/19/2020 12:00:00 AM EST Unknown if ever smoked comp leted Unknown if ever smoked [facility] ([facility]) Smoking 07/11/2020 12:00:00 AM EST Unknown if ever smoked comp leted Unknown if ever smoked [facility] ([facility]) Smoking 06/30/2020 12:00:00 AM EST Unknown if ever smoked comp leted Unknown if ever smoked [facility] ([facility]) Smoking 06/21/2020 12:00:00 AM EST Unknown if ever smoked comp leted Unknown if ever smoked [facility] ([facility]) Smoking 06/16/2020 12:00:00 AM EST Former Smoker completed Former Smoker eCW1 ([facility]) Smoking 06/16/2020 12:00:00 AM EST Former Smoker completed Former Smoker eCW1 ([facility]) Smoking 06/09/2020 12:00:00 AM EST Unknown if ever smoked comp leted Unknown if ever smoked [facility] ([facility]) Smoking 05/31/2020 12:00:00 AM EST Unknown if ever smoked comp leted Unknown if ever smoked [facility] ([facility]) Smoking 05/24/2020 12:00:00 AM EST Former Smoker completed Former Smoker eCW1 ([facility]) Smoking 05/23/2020 12:00:00 AM EST Unknown if ever smoked comp leted Unknown if ever smoked [facility] ([facility]) Smoking 04/12/2020 12:00:00 AM EST Unknown if ever smoked comp leted Unknown if ever smoked [facility] ([facility]) Smoking 04/10/2020 12:00:00 AM EST Unknown if ever smoked comp leted Unknown if ever smoked [facility] ([facility]) Smoking 02/23/2020 12:00:00 AM EDT Unknown if ever smoked comp leted Unknown if ever smoked [facility] ([facility]) Smoking 02/16/2020 12:00:00 AM EDT Unknown if ever smoked comp leted Unknown if ever smoked [facility] ([facility]) Smoking 01/19/2020 12:00:00 AM EDT Unknown if ever smoked comp leted Unknown if ever smoked [facility] ([facility]) Vital Signs ID Date Data Source [id number] Name Value Range Interpretation Code Description Data Source(s) Body height 70 [in_i] 70 [in_i] eCW1 ([facility]) Body weight 183 [lb_av] 183 [lb_av] eCW1 ([facility]) Body mass index (BMI) [Ratio] 26.25 kg/m2 26.25 kg/m2 eCW1 ([facility]) Body temperature 99.2 [degF] 99.2 [degF] eCW1 ( [facility]) Heart rate 73 /min 73 /min eCW1 ([facility]) Respiratory rate 19 /min 19 /min eCW1 ([facility]) Oxygen saturation in Arterial blood by Pulse oximetry 97 % 97 % eCW1 ([facility]) Body height 0.00 in Normal (applies to non-numeric resu lts) 0.00 in [facility] ([facility]) Body weight Measured 0.00 lbs Normal (applies to n on-numeric results) 0.00 lbs [facility] ([facility]) Body mass index (BMI) [Ratio] 0.00 kg/m2 No rmal (applies to non-numeric results) 0.00 kg/m2 [facility] ([facility]) Systolic blood pressure 0 mm[Hg] Normal (applies t o non-numeric results) 0 mm[Hg] [facility] ([facility]) Diastolic blood pressure 0 mm[Hg] Normal (applies to non-numeric results) 0 mm[Hg] [facility] ([facility]) Body height 0.00 in Normal (applies to non-numeric resu lts) 0.00 in [facility] ([facility]) Body weight Measured 0.00 lbs Normal (applies to n on-numeric results) 0.00 lbs [facility] ([facility]) Body mass index (BMI) [Ratio] 0.00 kg/m2 No rmal (applies to non-numeric results) 0.00 kg/m2 [facility] ([facility]) Systolic blood pressure 0 mm[Hg] Normal (applies t o non-numeric results) 0 mm[Hg] [facility] ([facility]) Diastolic blood pressure 0 mm[Hg] Normal (applies to non-numeric results) 0 mm[Hg] [facility] ([facility]) Body height 0.00 in Normal (applies to non-numeric resu lts) 0.00 in [facility] ([facility]) Body weight Measured 0.00 lbs Normal (applies to n on-numeric results) 0.00 lbs [facility] ([facility]) Body mass index (BMI) [Ratio] 0.00 kg/m2 No rmal (applies to non-numeric results) 0.00 kg/m2 [facility] ([facility]) Systolic blood pressure 0 mm[Hg] Normal (applies t o non-numeric results) 0 mm[Hg] [facility] ([facility]) Diastolic blood pressure 0 mm[Hg] Normal (applies to non-numeric results) 0 mm[Hg] [facility] ([facility]) Body height 0.00 in Normal (applies to non-numeric resu lts) 0.00 in [facility] ([facility]) Body weight Measured 0.00 lbs Normal (applies to n on-numeric results) 0.00 lbs [facility] ([facility]) Body mass index (BMI) [Ratio] 0.00 kg/m2 No rmal (applies to non-numeric results) 0.00 kg/m2 [facility] ([facility]) Systolic blood pressure 0 mm[Hg] Normal (applies t o non-numeric results) 0 mm[Hg] [facility] ([facility]) Diastolic blood pressure 0 mm[Hg] Normal (applies to non-numeric results) 0 mm[Hg] [facility] ([facility]) Body height 70 [in_i] 70 [in_i] eCW1 ([facility]) Body weight 183.8 [lb_av] 183.8 [lb_av] eCW1 ([facility]) Body mass index (BMI) [Ratio] 26.37 kg/m2 26.37 kg/m2 eCW1 ([facility]) Body temperature 98.6 [degF] 98.6 [degF] eCW1 ( [facility]) Heart rate 68 /min 68 /min eCW1 ([facility]) Respiratory rate 18 /min 18 /min eCW1 ([facility]) Oxygen saturation in Arterial blood by Pulse oximetry 99 % 99 % eCW1 ([facility]) Body height 0.00 in Normal (applies to non-numeric resu lts) 0.00 in [facility] ([facility]) Body weight Measured 0.00 lbs Normal (applies to n on-numeric results) 0.00 lbs [facility] ([facility]) Body mass index (BMI) [Ratio] 0.00 kg/m2 No rmal (applies to non-numeric results) 0.00 kg/m2 [facility] ([facility]) Systolic blood pressure 0 mm[Hg] Normal (applies t o non-numeric results) 0 mm[Hg] [facility] ([facility]) Diastolic blood pressure 0 mm[Hg] Normal (applies to non-numeric results) 0 mm[Hg] [facility] ([facility]) Body height 70 [in_i] 70 [in_i] eCW1 ([facility]) Body weight 180.6 [lb_av] 180.6 [lb_av] eCW1 ([facility]) Body mass index (BMI) [Ratio] 25.91 kg/m2 25.91 kg/m2 eCW1 ([facility]) Body temperature 98.6 [degF] 98.6 [degF] eCW1 ( [facility]) Heart rate 77 /min 77 /min eCW1 ([facility]) Respiratory rate 18 /min 18 /min eCW1 ([facility]) Oxygen saturation in Arterial blood by Pulse oximetry 98 % 98 % eCW1 ([facility]) Body height 0.00 in Normal (applies to non-numeric resu lts) 0.00 in [facility] ([facility]) Body weight Measured 0.00 lbs Normal (applies to n on-numeric results) 0.00 lbs [facility] ([facility]) Body mass index (BMI) [Ratio] 0.00 kg/m2 No rmal (applies to non-numeric results) 0.00 kg/m2 [facility] ([facility]) Systolic blood pressure 0 mm[Hg] Normal (applies t o non-numeric results) 0 mm[Hg] [facility] ([facility]) Diastolic blood pressure 0 mm[Hg] Normal (applies to non-numeric results) 0 mm[Hg] [facility] ([facility]) Body height 0.00 in Normal (applies to non-numeric resu lts) 0.00 in [facility] ([facility]) Body weight Measured 0.00 lbs Normal (applies to n on-numeric results) 0.00 lbs [facility] ([facility]) Body mass index (BMI) [Ratio] 0.00 kg/m2 No rmal (applies to non-numeric results) 0.00 kg/m2 [facility] ([facility]) Systolic blood pressure 0 mm[Hg] Normal (applies t o non-numeric results) 0 mm[Hg] [facility] ([facility]) Diastolic blood pressure 0 mm[Hg] Normal (applies to non-numeric results) 0 mm[Hg] [facility] ([facility]) Diastolic blood pressure 0 mm[Hg] Normal (applies to non-numeric results) 0 mm[Hg] [facility] ([facility]) Body height 0.00 in Normal (applies to non-numeric resu lts) 0.00 in [facility] ([facility]) Body weight Measured 0.00 lbs Normal (applies to n on-numeric results) 0.00 lbs [facility] ([facility]) Body mass index (BMI) [Ratio] 0.00 kg/m2 No rmal (applies to non-numeric results) 0.00 kg/m2 [facility] ([facility]) Systolic blood pressure 0 mm[Hg] Normal (applies t o non-numeric results) 0 mm[Hg] [facility] ([facility])
[2021-02-22 14:31] LABS: AMPHETAMINES LEVEL URINE NEGATIVE (NEGATIVE); BARBITURATES URINE NEGATIVE (NEGATIVE); BENZODIAZEPINES URINE NEGATIVE (NEGATIVE); CANNABINOIDS URINE POSITIVE (NEGATIVE); COCAINE METABOLITE URINE NEGATIVE (NEGATIVE); METHADONE URINE NEGATIVE (NEGATIVE); OPIATES URINE NEGATIVE (NEGATIVE); PHENCYCLIDINE URINE NEGATIVE (NEGATIVE)
[2021-02-22 14:39] LABS: ALBUMIN 3.4 GM/DL (3.2-5.2); ALT/SGPT 30 U/L (12-78); BILIRUBIN,DIRECT < 0.1 MG/DL (0.0-0.2); BILIRUBIN,TOTAL 0.3 MG/DL (0.2-1.0); BLOOD UREA NITROGEN 7 MG/DL (7-18); CALCIUM LEVEL 9.2 MG/DL (8.8-10.2); CARBON DIOXIDE LEVEL 26 MEQ/L (21-32); CHLORIDE LEVEL 109 MEQ/L (98-107); CREATININE FOR GFR 0.84 MG/DL (0.70-1.30); ETHYL ALCOHOL (ETHANOL) 0.004 % (0.000-0.010); GLOMERULAR FILTRATION RATE > 60.0 (>49); GLUCOSE, FASTING 121 MG/DL (70-100); POTASSIUM SERUM 3.9 MEQ/L (3.5-5.1); SALICYLATE LEVEL 2.8 MG/DL (5.0-30.0); SODIUM LEVEL 140 MEQ/L (136-145); TOTAL PROTEIN 6.8 GM/DL (6.4-8.2)
[2021-02-22] MEDS ORDERED: ACETAMINOPHEN TAB 650MG DOSE (2X325MG) PO ONE (16:00)
[2021-02-22 17:53] LABS: RSV AMPLIFICATION NEGATIVE (NEGATIVE)
--- NOTE | 2021-02-22 17:58 | MHIPNPDOC ---
[facility] Progress Note Progress Note DATE OF SERVICE: 02/22/21 Patient presented by PSA, meets criteria for involuntary admission, patient has hx of schizophrenia and had decompensated recently, reports poor compliance with medications, was disorganized at AOT meeting on zoom, police were called to bring patient in due to psychotic hallucinations and level of disorganization.. Vital Signs Vital Signs Date Time Temp Pulse Resp B/P (MAP) Pulse Ox O2 Delivery O2 Flow Rate FiO2 02/22/21 13:15 99.5 104 16 148/84 (105) 96 Room Air Laboratory Data 24H Labs Laboratory Tests 2 02/22/21 13:56: Nucleated Red Blood Cells % (auto) 0.0, Anion Gap 5L, Glomerular Filtration Rate > 60.0, Calcium Level 9.2, Total Bilirubin 0.3, Direct Bilirubin < 0.1, Aspartate Amino Transf (AST/SGOT) 23, Alanine Aminotransferase (ALT/SGPT) 30, Alkaline Phosphatase 62, Total Protein 6.8, Albumin 3.4, Albumin/Globulin Ratio 1.0, Thyroid Stimulating Hormone (TSH) 1.930, Salicylates Level 2.8L, Urine Opiates Screen NEGATIVE, Urine Methadone Screen NEGATIVE, Acetaminophen Level 3.0L, Urine Barbiturates Screen NEGATIVE, Urine Phencyclidine Screen NEGATIVE, Urine Amphetamines Screen NEGATIVE, Urine Benzodiazepines Screen NEGATIVE, Urine Cocaine Metabolite Screen NEGATIVE, Urine Cannabinoids Screen POSITIVEH, Ethyl Alcohol Level 0.004 02/22/21 16:56: Coronavirus (COVID-19)(PCR) NEGATIVE, Influenza Type A (RT-PCR) NEGATIVE, Influenza Type B (RT-PCR) NEGATIVE, Respiratory Syncytial Virus (PCR) NEGATIVE CBC/BMP Laboratory Tests 02/22/21 13:56 Allergies Coded Allergies: No Known Allergies (Unverified , 02/22/21) SILVIA MAHMOOD MD Feb 22, 2021 17:58
[2021-02-22] MEDS ORDERED: MOM 30ML SUSPENSION UDC PO PRN (18:25)
[2021-02-22] MEDS ORDERED: MAALOX 30 ML SUSP *UDC PO PRN (18:25)
--- OUTSIDE RECORDS SUMMARY | 2021-02-22 18:43 | CCD ---
Author Author [facility] Organization [facility] Address Unknown Phone Unavailable Care Team Providers Care Gyroscopic Instrument Tester Name Role Phone Rossana Dodson CITY WELLNESS COORDINATOR Unavailable Unavailable Rossana Dodson NP Unavailable Unavailable [...] Unavailable Unavailable Rotella, Elena Unavailable Unavailable Annette, [facility] Carolyn INTERNET SALES CONSULTANT-C Unavailable Unavailabl e Annette, [facility] Carolyn INTERNET SALES CONSULTANT-C Unavailable Unavailabl e Annette, [facility] Carolyn INTERNET SALES CONSULTANT-C Unavailable Unavailabl e Annette, [facility] Carolyn INTERNET SALES CONSULTANT-C Unavailable Unavailabl e Annette, [facility] Carolyn INTERNET SALES CONSULTANT-C Unavailable Unavailabl e Annette, [facility] Carolyn INTERNET SALES CONSULTANT-C Unavailable Unavailabl e Annette, [facility] Carolyn INTERNET SALES CONSULTANT-C Unavailable Unavailabl e Annette, [facility] Carolyn INTERNET SALES CONSULTANT-C Unavailable Unavailabl e Annette, [facility] Carolyn INTERNET SALES CONSULTANT-C Unavailable Unavailabl e Annette, David Fleminge INTERNET SALES CONSULTANT-C Unavailable Unavailabl e Annette, David Fleminge INTERNET SALES CONSULTANT-C Unavailable Unavailabl e Annette, David Fleminge INTERNET SALES CONSULTANT-C Unavailable Unavailabl e Annette, David Fleminge INTERNET SALES CONSULTANT-C Unavailable Unavailabl e Annette, David Fleminge INTERNET SALES CONSULTANT-C Unavailable Unavailabl e Annette, David Fleminge INTERNET SALES CONSULTANT-C Unavailable Unavailabl e Annette, David Fleminge INTERNET SALES CONSULTANT-C Unavailable Unavailabl e Annette, David Fleminge INTERNET SALES CONSULTANT-C Unavailable Unavailabl e Annette, David Fleminge INTERNET SALES CONSULTANT-C Unavailable Unavailabl e Annette, David Fleminge INTERNET SALES CONSULTANT-C Unavailable Unavailabl e Annette, David Fleminge INTERNET SALES CONSULTANT-C Unavailable Unavailabl e Annette, David Fleminge INTERNET SALES CONSULTANT-C Unavailable Unavailabl e Annette, David Fleminge INTERNET SALES CONSULTANT-C Unavailable Unavailabl e Annette, David Fleminge INTERNET SALES CONSULTANT-C Unavailable Unavailabl e Annette, David Fleminge INTERNET SALES CONSULTANT-C Unavailable Unavailabl e Annette, David Fleminge INTERNET SALES CONSULTANT-C Unavailable Unavailabl e Annette, David Fleminge INTERNET SALES CONSULTANT-C Unavailable Unavailabl e Annette, David Fleminge INTERNET SALES CONSULTANT-C Unavailable Unavailabl e Annette, David Fleminge INTERNET SALES CONSULTANT-C Unavailable Unavailabl e Annette, David Fleminge INTERNET SALES CONSULTANT-C Unavailable Unavailabl e Annette, David Turneryce INTERNET SALES CONSULTANT-C Unavailable Unavailabl e Annette, David Turneryce INTERNET SALES CONSULTANT-C Unavailable Unavailabl e Annette, David Turneryce INTERNET SALES CONSULTANT-C Unavailable Unavailabl e Debbie Hills Unavailable NugentHerb manzanarest Unavailable Kwadwo Orellana MD Unavailable Unavailable Kwadwo Orellana MD Unavailable Unavailable Kwadwo Orellana MD Unavailable Unavailable Ayde Alvarenga Unavailable Timothy Putnam PA-C Unavailable Jersey Timothy PA-C Unavailable Jersey Timothy PA-C Unavailable Jersey Timothy PA-C Unavailable Timothy Putnam PA-C Unavailable Millington, K Simona PMH-CITY WELLNESS COORDINATOR Unavailable Unavailable Ariadne, K Simona PMH-CITY WELLNESS COORDINATOR Unavailable Unavailable Millington, K Simona PMH-CITY WELLNESS COORDINATOR Unavailable Unavailable Millington, K Simona PMH-CITY WELLNESS COORDINATOR Unavailable Unavailable Millington, K Simona PMH-CITY WELLNESS COORDINATOR Unavailable Unavailable Ariadne, K Simona PMH-CITY WELLNESS COORDINATOR Unavailable Unavailable Millington, K Simona PMH-CITY WELLNESS COORDINATOR Unavailable Unavailable Ariadne, K Simona PMH-CITY WELLNESS COORDINATOR Unavailable Unavailable Re-disclosure Warning The records that [...] is protected by Article 27-F of the [facility] Public Health law. If you continue you may have access to information: Regarding HIV / AIDS; Provided by facilities licensed or operated by the [facility] Office of Mental Health; or Provided by the [facility] Office for People With Developmental Disabilities. If such information is present, then the following [facility] mandated warning applies: This information [...] law may result in a fine or care home sentence or both. A general authorization for the release of medical or other information is NOT sufficient authorization for further disc losure. Allergies and Adverse Reactions Type Description Substance Reaction Status Data Source(s ) Propensity to adverse reactions to substance haloperidol Haloperidol 10 MG Oral Tablet Active [facility] ([facility]) No Allergies No Allergies [facility] ([facility]) trazodone trazodone [facility] ([facility]) NKDA NKDA [facility] ([facility]) lithium lithium [facility] ([facility]) environmental environmental [facility] ([facility]) haldol haldol [facility] ([facility]) Prolixin Prolixin Contortions Unknown [facility]AR S ([facility]) Propensity to adverse reactions to substance haloperidol Haloperidol 10 MG Oral Tablet Active [facility] ([facility]) Encounters Encounter Providers Location Date Indications Data Source(s ) Brief Individual Psychotherapy - 30 min Att[facility] 10:45:00 AM EDT - 02/20/2021 10:45:00 AM EDT [facility] ([facility]) Attender: No Mar 02/20/2021 12:00:00 A M EDT [facility] ([facility]) Outpatient [address] [address]-Mobile Integration Team 02/13/2021 01:00:00 PM EDT [facility] [facility] [facility] [place] Patient admitted. Attender: No Mar 02/08/2021 12:00:00 A M EDT [facility] ([facility]) Emergency Attender: TORIE SETH MD 02/07/2021 1 1:40:00 AM EDT - 02/07/2021 01:00:00 PM EDT [facility] Patient discharged. Brief Individual Psychotherapy - 30 min Attender: No fox [facility] 02/06/2021 10:45:00 AM EDT - 02/06/2021 10:45:00 AM EDT [facility] ([facility]) Outpatient Attender: Bharat Dodson NP [facility] 01/31/2021 02:00:00 AM EDT - 01/31/2021 02:00:00 AM EDT [facility] ([facility]) Attender: Bharat Dodson NP 01/31/2021 12:00:00 AM EDT [facility] ([facility]) Brief Individual Psychotherapy - 30 min Attender: No Galo [facility] 01/18/2021 01:00:00 AM EDT - 01/18/2021 01:00:00 AM EDT [facility] ([facility]) Attender: No Mar 01/18/2021 12:00:00 A M EDT [facility] ([facility]) Brief Individual Psychotherapy - 30 min Attender: No Galo [facility] 12/26/2020 01:15:00 AM EDT - 12/26/2020 01:15:00 AM EDT [facility] ([facility]) Attender: No Mar 12/26/2020 12:00:00 A M EDT [facility] ([facility]) Outpatient Attender: Bharat Dodson NP [facility] 12/21/2020 02:00:00 AM EDT - 12/21/2020 02:00:00 AM EDT [facility] ([facility]) Attender: Bharat Dodson NP 12/21/2020 12:00:00 AM EDT [facility] ([facility]) Outpatient Attender: Carolyn BECKMANPRupert 11/14/2020 09:06:0 0 AM EDT [facility] Outpatient [facility] 11/14/2020 12:00:00 AM EDT eCW1 ([facility]) Brief Individual Psychotherapy - 30 min [facility] 01:15:00 AM EDT - 11/10/2020 01:15:00 AM EDT [facility] ([facility]) Attender: No Mar 11/10/2020 12:00:00 A M EDT [facility] ([facility]) Outpatient Attender: Simona [facility] 11/09/2020 11:30:00 AM EDT - 11/09/2020 11:30:00 AM EDT [facility] ([facility]) Attender: Simona BYERS 11/09/2020 12: 00:00 AM EDT [facility] ([facility]) Emergency Attender: Timothy Torresr: Mery Anaya ra, PA-C 11/08/2020 04:05:00 PM EDT - 11/08/2020 05:06:00 PM EDT [facility] Patient discharged. Injectable Medication Administration w/ Monitoring & E ducation Attender: Ayde Alvarenga [facility] 10/10/2020 02:00:00 AM EDT - 10/10/2020 02:00:00 AM EDT [facility] ([facility]) Attender: Ayde Alvarenga 10/10/2020 12:00:00 AM EDT [facility] ([facility]) Outpatient Attender: Simona [facility]ERS [facility] 09/20/2020 09:30:00 AM EDT - 09/20/2020 09:30:00 AM EDT [facility] ([facility]) Attender: Simona BYERS 09/20/2020 12: 00:00 AM EDT [facility] ([facility]) Brief Individual Psychotherapy - 30 min Attender: No fox [facility] 08/31/2020 09:00:00 AM EDT - 08/31/2020 09:00:00 AM EDT [facility] ([facility]) Attender: No Mar 08/31/2020 12:00:00 A M EDT [facility] ([facility]) Outpatient Attender: Simona [facility] 08/16/2020 09:30:00 AM EDT - 08/16/2020 09:30:00 AM EDT [facility] ([facility]) Attender: Simona BYERS 08/16/2020 12: 00:00 AM EDT [facility] ([facility]) Outpatient [facility] 08/02/2020 12:00:00 AM EDT eCW1 ([facility]) Outpatient Attender: Simona [facility] 07/19/2020 11:00:00 AM EST - 07/19/2020 11:00:00 AM EST [facility] ([facility]) Attender: Simona BYERS 07/19/2020 12: 00:00 AM EST [facility] ([facility]) Injectable Psychotropic Medication Administration (Inj ection Only) Attender: Debbie Hills [facility] 07/11/2020 01:00:00 AM EST - 07/11/2020 01:00:00 AM EST [facility] ([facility]) Attender: Debbie Hills 07/11/2020 12:00:00 AM EST [facility] ([facility]) TEMPMHCTelemed 30" Psychotherapy [facility]30[facility] 11:00:00 AM EST - 06/30/2020 11:00:00 AM EST [facility] ([facility]) Attender: Roma Nugent 06/30/2020 12:00:00 AM EST [facility] ([facility]) Outpatient Attender: Simona [facility] 06/21/2020 11:30:00 AM EST - 06/21/2020 11:30:00 AM EST [facility] ([facility]) Attender: Simona BYERS 06/21/2020 12: 00:00 AM EST [facility] ([facility]) Outpatient Attender: Mery Maloney PA-C 06/16/2020 07:00 :00 AM [facility] Outpatient [facility] 06/16/2020 12:00:00 AM EST eCW1 ([facility]) Outpatient Attender: Mery Manningferrer: Mery Maloney PA-C EMERGENCY ROOM-LAB 06/12/2020 07:14:00 AM EST - 06/12/2020 07:14:00 AM [facility] Brief Individual Psychotherapy - 30 min Attender: Roma burnett [facility] 06/09/2020 11:00:00 AM EST - 06/09/2020 11:00:00 AM EST [facility] ([facility]) Attender: Roma Nugent 06/09/2020 12:00:00 AM EST [facility] ([facility]) Outpatient Attender: Simona Ron [facility]-CITY WELLNESS COORDINATOR [facility] 05/31/2020 10:30:00 AM EST - 05/31/2020 10:30:00 AM EST [facility] ([facility]) Attender: Simona HARRY-CITY WELLNESS COORDINATOR 05/31/2020 12: 00:00 AM EST [facility] ([facility]) Outpatient Attender: Mery Maloney PA-C 05/24/2020 07:55 :00 AM [facility] (TCM) TCM/Hospital Follow Up [facility] 05/24/2020 12:00:00 AM EST eCW1 ([facility]) Brief Individual Psychotherapy - 30 min Attender: Kathy cardona [facility] 05/23/2020 01:30:00 AM EST - 05/23/2020 01:30:00 AM EST [facility] ([facility]) AOT Evaluation Attender: Son Orellana MD [facility] [place] 05/23/2020 01:00:00 AM EST - 05/23/2020 01:00:00 AM EST [facility] ([facility]) Attender: Son Orellana MD 05/23/2020 12:00:00 AM EST [facility] ([facility]) Attender: Kathy Aldridge 05/23/2020 12:00:00 AM EST [facility] ([facility]) Outpatient Attender: Simona HARRYMARY [facility] 04/12/2020 11:00:00 AM EST - 04/12/2020 11:00:00 AM EST [facility] ([facility]) Attender: Simona HARRYMARY 04/12/2020 12: 00:00 AM EST [facility] ([facility]) Injectable Psychotropic Medication Administration (Inj ection Only) Attender: Elena West [facility] 04/10/2020 01:00:00 AM EST - 04/10/2020 01:00:00 AM EST [facility] ([facility]) Attender: Elena West 04/10/2020 12:00:00 AM EST [facility] ([facility]) Attender: Roma Nugent 02/23/2020 12:00:00 AM EDT [facility] ([facility]) Outpatient Attender: Simona HARRYMARY [facility] 02/16/2020 11:00:00 AM EDT - 02/16/2020 11:00:00 AM EDT [facility] ([facility]) Attender: Simona HARRYMARY 02/16/2020 12: 00:00 AM EDT [facility] ([facility]) Brief Individual Psychotherapy - 30 min Attender: Roma Nesbitt rashimary [facility] 02/09/2020 01:00:00 AM EDT - 02/09/2020 01:00:00 AM EDT [facility] ([facility]) Brief Individual Psychotherapy - 30 min [facility] 01/19/2020 03:00:00 AM EDT - 01/19/2020 03:00:00 AM EDT [facility] ([facility]) Attender: Roma Nugent 01/19/2020 12:00:00 AM EDT [facility] ([facility]) Functional Status Immunizations Vaccine Date Status Description Data Source(s) COVID-19 VACCINE Moderna 08/15/2020 12:00:00 AM EDT completed [facility] Vaccine Series Complete: YESThis Data wa s Submitted to [facility] Via [employer]. COVID-19 VACCINE, MRNA-1273, LNP-S (MODERNA)/PF 08/15/2020 1 2:00:00 AM EDT completed [facility] COVID-19 VACCINE Moderna 07/14/2020 12:00:00 AM EST completed [facility] Vaccine Series Complete: NOThis Data was Submitted to [facility] Via [employer]. COVID-19 VACCINE, MRNA-1273, LNP-S (MODERNA)/PF 07/14/2020 1 2:00:00 AM EST completed [facility] New in 2011. IIV4 05/24/2020 08:02:00 AM EST completed eCW1 ([facility]) New in 2011. IIV4 05/24/2020 08:02:00 AM EST completed eCW1 ([facility]) New in 2011. IIV4 05/24/2020 08:02:00 AM EST completed eCW1 ([facility]) New in 2011. IIV4 05/24/2020 08:02:00 AM EST completed eCW1 ([facility]) Medications Medication Brand Name Start Date Product [...] EST 3 mg by mouth completed <td ID="MedicationRxNorm_4">563769</td><td ID="MedicationMedication_4">paliperidone</td><td ID="MedicationRoute_4">by mouth</td><td ID="MedicationRouteConcept_4">U98040</td><td ID="MedicationStartDate_4">05/31/2020</td><td ID="MedicationStopDate_4"></td><td ID="MedicationDosageFrequency_4">at bedtime</td><td ID="MedicationDuration_4"></td><td ID="MedicationFormulaStrength_4">3 mg</td><td ID="MedicationDosageForm_4">tablet extended release 24hr</td><td ID="MedicationDosageFormCode_4"></td><td ID="MedicationDosageDescription_4"></td><td ID="MedicationMedicationId_4">[id number]</td><td ID="MedicationAccount_4">[id number]</td><td ID="MedicationNpid_4">[id number]</td><td ID="MedicationAuthorFirstName_4">Bharat</td><td ID="MedicationAuthorLastName_4">Dodson</td><td ID="MedicationTaxonomyCode_4">[id number]</td><td ID="MedicationTaxonomyDesc_4"> Nurse Practitioner</td><td ID="MedicationPhoneNumber_4">[phone]</td> [facility] ([facility]) 3 mg 05/26/2020 12:00:00 AM EST tablet [...] AM EDT 14 mg/24 completed <td I D="MedicationRxNorm_4">517619</td><td ID="MedicationMedication_4">nicotine</td><td ID="MedicationRoute_4">to skin</td><td ID="MedicationRouteConcept_4"></td><td ID="MedicationStartDate_4">02/16/2020</td><td ID="MedicationStopDate_4">05/16/2020</td><td ID="MedicationDosageFrequency_4">once a day</td><td ID="MedicationDuration_4">30</td><td ID="MedicationFormulaStrength_4">14 mg/24 hr</td><td ID="MedicationDosageForm_4">patch 24 hour</td><td ID="MedicationDosageFormCode_4"></td><td ID="MedicationDosageDescription_4"> </td><td ID="MedicationMedicationId_4">[id number]</td><td ID="MedicationAccount_4">[id number]</td><td ID="MedicationNpid_4">[id number]</td><td ID="MedicationAuthorFirstName_4">Simona</td><td ID="MedicationAuthorLastName_4">Ariadne</td><td ID="MedicationTaxonomyCode_4">[id number]</td><td ID="MedicationTaxonomyDesc_4">Psychiatric/Mental Health</td><td ID="MedicationPhoneNumber_4">[phone]</td> [facility] ([facility]) 20 mg 02/16/2020 12:00:00 AM EDT tablet [...] AM EDT 50 mg completed <td ID ="MedicationRxNorm_3">973909</td><td ID="MedicationMedication_3">hydroxyzine HCl</td><td ID="MedicationRoute_3"></td><td ID="MedicationRouteConcept_3"></td><td ID="MedicationStartDate_3">02/16/2020</td><td ID="MedicationStopDate_3"></td><td ID="MedicationDosageFrequency_3"></td><td ID="MedicationDuration_3"></td><td ID="MedicationFormulaStrength_3">50 mg</td><td ID="MedicationDosageForm_3">tablet</td><td ID="MedicationDosageFormCode_3"></td><td ID="MedicationDosageDescription_3"></td><td ID="MedicationMedicationId_3">[id number]</td><td ID="MedicationAccount_3">[id number]</td><td ID="MedicationNpid_3">[id number]</td><td ID="MedicationAuthorFirstName_3">Bharat</td><td ID="MedicationAuthorLastName_3">Dodson</td><td ID="MedicationTaxonomyCode_3">[id number]</td><td ID="MedicationTaxonomyDesc_3">Nurse Practitioner</td><td ID="MedicationPhoneNumber_3">[phone]</td> [facility] ([facility]) 819 mg/2.625 mL 12/24/2019 12:00:00 AM EDT [...] type / Coverage type Policy ID Covered green party ID Covered green party's relationship to mcconnell Policy [place] Plan Information [place] [id number] S [id number] [facility] [id number] S [id number] MEDICARE [id number] SP [id number] A MEDICARE [id number] SP [id number] A MEDICAID [id number] S [id number] [facility] DUAL COMPLET [id number] S [id number] [facility] DUAL COMPLET [id number] S [id number] [facility] DUAL COMPLET [id number] S [id number] MEDICAID [id number] S [id number] MEDICAID [id number] S [id number] [facility] DUAL COMPLET [id number] S [id number] [facility] DUAL COMPLET [id number] S [id number] ANSI-Commercial [id number] ANSI-Medicaid [id number] ANSI-Medicare Part B [id number] ANSI-Commercial [id number] ANSI-Medicaid [id number] ANSI-Commercial [id number] ANSI-Medicare Part B [id number] ANSI-Medicare Part B [id number] ANSI-Commercial [id number] ANSI-Commercial [id number] ANSI-Medicaid [id number] [place] [id number] SP [id number] E [facility] MEDICARE DIVISION [id number] S [id number] [place]IC[place] [id number] S [id number] [facility] [id number] SP [id number] MEDICAID [id number] SP [id number] [facility] OFFICE [facility] MENTAL [facility] [id number] S [id number] MEDICARE [id number] S [id number] A MEDICAID [id number] S [id number] A [facility] DUAL COMPLET [id number] S [id number] [facility] [id number] SP [id number] MEDICAID [id number] S [id number] [facility] DUAL COMPLET [id number] S [id number] MEDICAID [id number] S [id number] [id number] SP [id number] MEDICAID M [id number] S [id number] [facility](MCAID) O [id number] S [id number] MEDICARE [id number] SP [id number] MEDICAID [id number] SP [id number] [facility] [id number] SP [id number] ANSI-Commercial [id number] Problems, Conditions, and Diagnoses Code Display Name Description Problem Type Effective Dates Data Source(s) I10 Essential (primary) hypertension Essential (primary) h ypertension Diagnosis 02/13/2021 12:00:00 AM EDT [facility] ([facility]) F20.9 Schizophrenia, unspecified Schizophrenia Diagnosis 02/13/2021 12:00:00 AM EDT [facility] ([facility]) Z53.20 Procedure and treatment not carried [...] Health Services / [facility] Z79.899 Other care home (current) drug therapy O THER FIELD 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 l F17.210 Nicotine dependence, cigarettes, uncompl icated NICOTINE DEPENDENCE, CIGARETTES, UNCOMPLICATED Diagnosis 11/08/2020 04:05:00 PM EDT [facility] R05 Cough COUGH Diagnosis 11/08/2020 04:05:00 PM [facility] Z71.89 Other specified counseling OTHER SPECIFIED COUNSELING Diagnosis 06/16/2020 07:00:00 AM [facility] Z86.59 Personal history of other mental and beh avioral disorders PERSONAL HISTORY OF OTHER MENTAL AND BEHAVIORAL DI Diagnosis 06/16/2020 07:00:0 0 AM [facility] Z68.26 Body mass index (BMI) 26.0-26.9, adult B NOELLE MASS INDEX [BMI] 26.0-26.9, ADULT Diagnosis 06/16/2020 07:00:00 AM [facility] l E66.3 Overweight OVERWEIGHT Diagnosis 06/16/2020 07:00:00 AM [facility] H57.03 Miosis MIOSIS Diagnosis 06/16/2020 07:00:00 AM [facility] E78.2 Mixed hyperlipidemia MIXED HYPERLIPIDEMIA Diagnosis 06/16/2020 07:00:00 AM [facility] Z00.00 Encounter for general adult medical examination without abnormal findings ENCNTR FOR GENERAL ADULT MEDICAL EXAM W/O ABNORMAL FINDINGS Diagnosis 06/16/2020 07:00:00 AM [facility] 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, in r emission OTHER PSYCHOACTIVE SUBSTANCE ABUSE, IN R Diagnosis 06/12/2020 07:14[facility]81 Encounter for therapeutic drug level mon itoring ENCOUNTER FOR THERAPEUTIC DRUG LEVEL MON Diagnosis 06/12/2020 07:14:00 AM [facility] l H61.23 Impacted cerumen, bilateral IMPACTED CERUMEN, BILATERA L Diagnosis 05/24/2020 07:55:00 AM [facility] F20.9 Schizophrenia, unspecified SCHIZOPHRENIA, UNSPECIFIED Diagnosis 05/24/2020 07:55:00 AM [facility] Z72.0 Tobacco use Tobacco Use Disorder, Mild Condition 1 12:00:00 AM EDT [facility] ([facility] F20.9 Schizophrenia, unspecified Schizophrenia Condition 02/20/2021 12:00:00 AM EDT [facility] ([facility]) H57.03 [id number] Miosis Problem 05/24/2020 12:00:00 AM ES T eCW1 ([facility]) F19.11 History of drug abuse History of drug abuse Problem 05/24/2020 12:00:00 AM EST eCW1 ([facility]) 295.90 UNSPECIFIED TYPE SCHIZOPHRENIA UNSPECIFIED STATE Schiz ophrenia Condition 02/16/2020 12:00:00 AM EDT [facility] ([facility]) F25.9 Schizoaffective disorder, unspecified Schizoaffective Disorder Condition 01/19/2020 12:00:00 AM EDT [facility] ([facility]) Surgeries/Procedures Procedure Description Date Indications Data Source(s) Brief Individual Psychotherapy - 30 min 02/20/2021 12:00:00 AM EDT - 02/20/2021 12:00:00 AM EDT [facility] ([facility]) Brief Individual Psychotherapy - 30 min 02/20/2021 12: 00:00 AM EDT [facility] ([facility]) Brief Individual Psychotherapy - 30 min 02/08/2021 12:00:00 AM EDT - 02/08/2021 12:00:00 AM EDT [facility] ([facility]) Brief Individual Psychotherapy - 30 min 02/06/2021 12: 00:00 AM EDT [facility] ([facility]) MHCTelemed E/M Lvl 4--Est pt 01/31/2021 12:00:00 AM EDT - 01/31/2021 12:00:00 AM EDT [facility] ([facility]) MHCTelemed E/M Lvl 4--Est pt 01/31/2021 12:00:00 AM ED T [facility] ([facility]) Brief Individual Psychotherapy - 30 min 01/18/2021 12:00:00 AM EDT - 01/18/2021 12:00:00 AM EDT [facility] ([facility]) Brief Individual Psychotherapy - 30 min 01/18/2021 12: 00:00 AM EDT [facility] ([facility]) Brief Individual Psychotherapy - 30 min 12/26/2020 12:00:00 AM EDT - 12/26/2020 12:00:00 AM EDT [facility] ([facility]) Brief Individual Psychotherapy - 30 min 12/26/2020 12: 00:00 AM EDT [facility] ([facility]) MHC Telemed E/M Lvl 3--Est pt 12/21/2020 12:00:00 AM EDT - 12/21/2020 12:00:00 AM EDT [facility] ([facility]) MHC Telemed E/M Lvl 3--Est pt 12/21/2020 12:00:00 AM E DT [facility] ([facility]) Brief Individual Psychotherapy - 30 min 11/10/2020 12:00:00 AM EDT - 11/10/2020 12:00:00 AM EDT [facility] ([facility]) Brief Individual Psychotherapy - 30 min 11/10/2020 12: 00:00 AM EDT [facility] ([facility]) OFFICE OUTPATIENT VISIT 15 MINUTES 11/09 12:00:00 AM EDT - 11/09/2020 12:00:00 AM EDT [facility] ([facility]) OFFICE OUTPATIENT VISIT 15 MINUTES 11/09/2020 12:00:00 AM EDT [facility] ([facility]) Comprehensive medication services, per 15 minutes 10/10/2020 12:00:00 AM EDT - 10/10/2020 12:00:00 AM EDT [facility] ([facility]) Comprehensive medication services, per 15 minutes 10/10/2020 12:00:00 AM EDT [facility] ([facility]) OFFICE OUTPATIENT VISIT 10 MINUTES 09/20 12:00:00 AM EDT - 09/20/2020 12:00:00 AM EDT [facility] ([facility]) OFFICE OUTPATIENT VISIT 10 MINUTES 09/20/2020 12:00:00 AM EDT [facility] ([facility]) Brief Individual Psychotherapy - 30 min 08/31/2020 12:00:00 AM EDT - 08/31/2020 12:00:00 AM EDT [facility] ([facility]) Brief Individual Psychotherapy - 30 min 08/31/2020 12: 00:00 AM EDT [facility] ([facility]) OFFICE OUTPATIENT VISIT 15 MINUTES 08/16 12:00:00 AM EDT - 08/16/2020 12:00:00 AM EDT [facility] ([facility]) OFFICE OUTPATIENT VISIT 15 MINUTES 08/16/2020 12:00:00 AM EDT [facility] ([facility]) OFFICE OUTPATIENT VISIT 15 MINUTES 07/19 12:00:00 AM EST - 07/19/2020 12:00:00 AM EST [facility] ([facility]) Telemed A/O 30" 07/19/2020 12:00:00 AM EST [facility] ([facility]) OFFICE OUTPATIENT VISIT 15 MINUTES 07/19/2020 12:00:00 AM EST [facility] ([facility]) THERAPEUTIC PROPHYLACTIC/DX INJECTION SUBQ/IM 07/11/2020 12:00:00 AM EST - 07/11/2020 12:00:00 AM EST [facility] ([facility]) THERAPEUTIC PROPHYLACTIC/DX INJECTION SUBQ/IM 07/12/19 21 12:00:00 AM EST [facility] ([facility]) TEMPMHCTelemed 30" Psychotherapy 021 12:00:00 AM EST - 06/30/2020 12:00:00 AM EST [facility] ([facility]) TEMPMHCTelemed 30" Psychotherapy 06/30/2020 12:00:00 A M EST [facility] ([facility]) [facility] Telemed E/M Lvl 3--Est pt 06/21/2020 12:00:00 AM EST - 06/21/2020 12:00:00 AM EST [facility] ([facility]) Telemed A/O 30" 06/21/2020 12:00:00 AM EST [facility] ([facility]) [facility] Telemed E/M Lvl 3--Est pt 06/21/2020 12:00:[address] [facility] ([facility]) Brief Individual Psychotherapy - 30 min 06/09/2020 12:00:00 AM EST - 06/09/2020 12:00:00 AM EST [facility] ([facility]) Brief Individual Psychotherapy - 30 min 06/09/2020 12: 00:00 AM EST [facility] ([facility]) MHC Telemed E/M Lvl 3--Est pt 05/31/2020 12:00:00 AM EST - 05/31/2020 12:00:00 AM EST [facility] ([facility]) Telemed A/O 30" 05/31/2020 12:00:00 AM EST [facility] ([facility]) [facility] Telemed E/M Lvl 3--Est pt 05/31/2020 12:00:[address] [facility] ([facility]) AOT Evaluation 05/23/2020 12:00:00 AM EST - 05/23/2020 12:00:00 AM EST [facility] ([facility]) AOT Evaluation 05/23/2020 12:00:00 AM EST [facility] ([facility]) Brief Individual Psychotherapy - 30 min 05/23/2020 12:00:00 AM EST - 05/23/2020 12:00:00 AM EST [facility] ([facility]) Brief Individual Psychotherapy - 30 min 05/23/2020 12: 00:00 AM EST [facility] ([facility]) OFFICE OUTPATIENT VISIT 15 MINUTES 04/12 12:00:00 AM EST - 04/12/2020 12:00:00 AM EST [facility] ([facility]) OFFICE OUTPATIENT VISIT 15 MINUTES 04/12/2020 12:00:00 AM EST [facility] ([facility]) THERAPEUTIC PROPHYLACTIC/DX INJECTION SUBQ/IM 04/10/2020 12:00:00 AM EST - 04/10/2020 12:00:00 AM EST [facility] ([facility]) THERAPEUTIC PROPHYLACTIC/DX INJECTION SUBQ/IM 04/10/20 20 12:00:00 AM EST [facility] ([facility]) Brief Individual Psychotherapy - 30 min 02/23/2020 12:00:00 AM EDT - 02/23/2020 12:00:00 AM EDT [facility] ([facility]) MHC Telemed E/M Lvl 3--Est pt 02/16/2020 12:00:00 AM EDT - 02/16/2020 12:00:00 AM EDT [facility] ([facility]) Telemed A/O 30" 02/16/2020 12:00:00 AM EDT [facility] ([facility]) MHC Telemed E/M Lvl 3--Est pt 02/16/2020 12:00:00 AM E DT [facility] ([facility]) Brief Individual Psychotherapy - 30 min 02/09/2020 12: 00:00 AM EDT [facility] ([facility]) Brief Individual Psychotherapy - 30 min 01/19/2020 12:00:00 AM EDT - 01/19/2020 12:00:00 AM EDT [facility] ([facility]) Brief Individual Psychotherapy - 30 min 01/19/2020 12: 00:00 AM EDT [facility] ([facility]) Results ID Date Data Source [id number] 11/08/2020 05:26:00 PM EDT [facility] Patient: CROW DOCKERY Herminio Repo rt [facility] [place] [facility].VisitID: [id number] [place] [address] [phone], MRegistration Date/Time: 11/08/2020 15:31 Weight:81.6 kg (S). [...] rce(s) Supporting Document(s) ID Date Data Source [id number] 11/08/2020 04:45:00 PM EDT [facility] DATE OF EXAMINATION: 11/08/2020 15:59 EDT [...] Name Value Range Interpretation Code Description Data [facility] rce(s) Supporting Document(s) ID Date Data Source [id number] 06/13/2020 04:05:00 PM EST [facility] Name Value Range Interpretation Code Description Data [facility] rce(s) Supporting Document(s) AMPHETAMINES, URINE Negative ng/mL Tsbdmb=2161 [facility] Amphetamine test includes Amphetamine an d Methamphetamine. BARBITURATE Negative ng/mL Xaiqze=557 [facility] al BENZODIAZEPINES Negative ng/mL Jzxoge=384 [facility] spital CANNABINOID Negative ng/mL Cutoff=[address] [facility] l COCAINE (METAB.) Negative ng/mL Xrcsqo=935 [facility] OPIATES Negative ng/mL Jmkdwh=526 [facility] Opiate test includes Codeine and Morphin e only. PHENCYCLIDINE Negative ng/mL Cutoff=25 [facility] esa ETHANOL Negative % Cutoff=0.020 [facility] Performed at: [facility] [address] [id number] Director: Janette Dunham MD, Phone: [phone] ID Date Data Source [id number] 06/13/2020 04:05:00 PM EST [facility] Name Value Range Interpretation Code Description Data Diane rce(s) Supporting Document(s) Amphetamines, Urine Negative ng/mL Ltledg=[id number] [facility] Amphetamine test includes Amphetamine an d Methamphetamine. Barbiturate Negative ng/mL Iolivv=752 [facility] Benzodiazepines Negative ng/mL Ndinav=650 [facility] Cannabinoid Negative ng/mL Cutoff=50 [facility] Cocaine (Metab.) Negative ng/mL Ducpvy=038 [facility] Opiates Negative ng/mL Cjsnul=362 [facility] Opiate test includes Codeine and Morphin e only. Phencyclidine Negative ng/mL Cutoff=25 [facility] Ethanol, Urine Negative % Cutoff=0.020 [facility] ID Date Data Source [id number] 06/12/2020 07:58:[address] [facility] l Name Value Range Interpretation Code Description Data [facility] rce(s) Supporting Document(s) CHOLESTEROL 236 mg/dL 0-200 [...] / [facility] ID Date Data Source [id number] 06/12/2020 07:58:00 AM [facility] l Name Value Range Interpretation Code Description Data [facility] Document(s) GLUCOSE 90 mg/dL 74-106 [facility] BLOOD UREA NITROGEN 14 mg/dL 7-18 [facility] ital CREATININE 1.05 mg/dL 0.7-1.3 [facility] GLOMERULAR FILTRATION RATE 71 mL/min [facility] GFR IS CALCULATED IN mL/min/1.73m2 JEREMIAH L FUNCTION: >90MILDLY DECREASED: 60-89MILDY TO MODERATELY DECREASED: 45-59 MODERATELY TO SEVERELY DECREASED: 30-44SEVERELY DECREASED: 15-29RENAL FAILURE: <15 AST 18 U/L 15-37 [facility] ALT 27 U/L 12-78 [facility] ALKALINE PHOSPHATASE 78 U/L 46-116 [facility] pital TOTAL BILIRUBIN 0.5 mg/dL 0.2-1.0 [facility] TOTAL PROTEIN 6.7 g/dl 6.4-8.2 [facility] ALBUMIN 3.3 gm/dL 3.4-5.0 L [facility] ID Date Data Source [id number] 06/12/2020 07:27:00 AM EST [facility] Name Value Range Interpretation Code Description Data Diane rce(s) Supporting Document(s) WHITE BLOOD COUNT 6.6 K/mm3 4.0-10.0 [facility] al RED BLOOD COUNT 4.62 M/mm3 4.50-6.00 [facility] HEMOGLOBIN 14.4 gm/dL 14.0-18.0 [facility] HEMATOCRIT 41.3 % 42.0-54.0 L [facility] MEAN CELL VOLUME 89.4 fl 80-96 [facility] MEAN CORPUSCULAR HEMOGLOBIN 31.2 pg 27.0-31.0 H [facility] MEAN CORPUSCULAR HGB CONC 34.9 g/dl 32.0-36.0 [facility] RED CELL DISTRIBUTION WIDTH 12.4 % 10.0-14.5 [facility] PLATELET COUNT 219 K/mm3 172-450 [facility] ID Date Data Source [id number] 04/26/2020 02:15:00 PM EST [facility] Name Value Range Interpretation Code Description Data Diane rce(s) Supporting Document(s) SARS coronavirus 2 RNA [Presence] in Res piratory specimen by LINDA with probe detection [facility] This lab was ordered by [facility] a nd reported by [facility]. ID Date Data Source [id number] 04/12/2020 06:50:00 PM EST [facility] Name Value Range Interpretation Code Description Data Diane rce(s) Supporting Document(s) SARS coronavirus 2 RNA [Presence] in Res piratory specimen by LINDA with probe detection [facility] This lab was ordered by [facility] a nd reported by [facility]. Procedure Social History Code Duration Value Status Description Data Source(s ) Smoking 02/20/2021 12:00:00 AM EDT Unknown if ever smoked comp leted Unknown if ever smoked [facility] ([facility]) Smoking 02/08/2021 12:00:00 AM EDT Unknown if ever smoked comp leted Unknown if ever smoked [facility] ([facility]) Smoking 01/31/2021 12:00:00 AM EDT Unknown if ever smoked comp leted Unknown if ever smoked [facility] ([facility]) Smoking 01/18/2021 12:00:00 AM EDT Unknown if ever smoked comp leted Unknown if ever smoked [facility] ([facility]) Smoking 12/26/2020 12:00:00 AM EDT Unknown if ever smoked comp leted Unknown if ever smoked [facility] ([facility]) Smoking 12/21/2020 12:00:00 AM EDT Unknown if ever smoked comp leted Unknown if ever smoked [facility] ([facility]) Smoking 11/14/2020 12:00:00 AM EDT Current Smoker completed Marla nt Smoker eCW1 ([facility]) Smoking 11/10/2020 12:00:00 AM EDT Unknown if ever smoked comp leted Unknown if ever smoked [facility] ([facility]) Smoking 11/09/2020 12:00:00 AM EDT Unknown if ever smoked comp leted Unknown if ever smoked [facility] ([facility]) Smoking 10/10/2020 12:00:00 AM EDT Unknown if ever smoked comp leted Unknown if ever smoked [facility] ([facility]) Smoking 09/20/2020 12:00:00 AM EDT Unknown if ever smoked comp leted Unknown if ever smoked [facility] ([facility]) Smoking 08/31/2020 12:00:00 AM EDT Unknown if ever smoked comp leted Unknown if ever smoked [facility] ([facility]) Smoking 08/16/2020 12:00:00 AM EDT Unknown if ever smoked comp leted Unknown if ever smoked [facility] ([facility]) Smoking 07/19/2020 12:00:00 AM EST Unknown if ever smoked comp leted Unknown if ever smoked [facility] ([facility]) Smoking 07/11/2020 12:00:00 AM EST Unknown if ever smoked comp leted Unknown if ever smoked [facility] ([facility]) Smoking 06/30/2020 12:00:00 AM EST Unknown if ever smoked comp leted Unknown if ever smoked [facility] ([facility]) Smoking 06/21/2020 12:00:00 AM EST Unknown if ever smoked comp leted Unknown if ever smoked [facility] ([facility]) Smoking 06/16/2020 12:00:00 AM EST Former Smoker completed Former Smoker eCW1 ([facility]) Smoking 06/16/2020 12:00:00 AM EST Former Smoker completed Former Smoker eCW1 ([facility]) Smoking 06/09/2020 12:00:00 AM EST Unknown if ever smoked comp leted Unknown if ever smoked [facility] ([facility]) Smoking 05/31/2020 12:00:00 AM EST Unknown if ever smoked comp leted Unknown if ever smoked [facility] ([facility]) Smoking 05/24/2020 12:00:00 AM EST Former Smoker completed Former Smoker eCW1 ([facility]) Smoking 05/23/2020 12:00:00 AM EST Unknown if ever smoked comp leted Unknown if ever smoked [facility] ([facility]) Smoking 04/12/2020 12:00:00 AM EST Unknown if ever smoked comp leted Unknown if ever smoked [facility] ([facility]) Smoking 04/10/2020 12:00:00 AM EST Unknown if ever smoked comp leted Unknown if ever smoked [facility] ([facility]) Smoking 02/23/2020 12:00:00 AM EDT Unknown if ever smoked comp leted Unknown if ever smoked [facility] ([facility]) Smoking 02/16/2020 12:00:00 AM EDT Unknown if ever smoked comp leted Unknown if ever smoked [facility] ([facility]) Smoking 01/19/2020 12:00:00 AM EDT Unknown if ever smoked comp leted Unknown if ever smoked [facility] ([facility]) Vital Signs ID Date Data Source UNK Name Value Range Interpretation Code Description Data Source(s) Body height 70 [in_i] 70 [in_i] eCW1 ([facility]) Body weight 183 [lb_av] 183 [lb_av] eCW1 ([facility]) Body mass index (BMI) [Ratio] 26.25 kg/m2 26.25 kg/m2 eCW1 ([facility]) Body temperature 99.2 [degF] 99.2 [degF] eCW1 ( [facility]) Heart rate 73 /min 73 /min eCW1 ([facility]) Respiratory rate 19 /min 19 /min eCW1 ([facility]) Oxygen saturation in Arterial blood by Pulse oximetry 97 % 97 % eCW1 ([facility]) Body height 0.00 in Normal (applies to non-numeric resu lts) 0.00 in [facility] ([facility]) Body weight Measured 0.00 lbs Normal (applies to n on-numeric results) 0.00 lbs [facility] ([facility]) Body mass index (BMI) [Ratio] 0.00 kg/m2 No rmal (applies to non-numeric results) 0.00 kg/m2 [facility] ([facility]) Systolic blood pressure 0 mm[Hg] Normal (applies t o non-numeric results) 0 mm[Hg] [facility] ([facility]) Diastolic blood pressure 0 mm[Hg] Normal (applies to non-numeric results) 0 mm[Hg] [facility] ([facility]) Body height 0.00 in Normal (applies to non-numeric resu lts) 0.00 in [facility] ([facility]) Body weight Measured 0.00 lbs Normal (applies to n on-numeric results) 0.00 lbs [facility] ([facility]) Body mass index (BMI) [Ratio] 0.00 kg/m2 No rmal (applies to non-numeric results) 0.00 kg/m2 [facility] ([facility]) Systolic blood pressure 0 mm[Hg] Normal (applies t o non-numeric results) 0 mm[Hg] [facility] ([facility]) Diastolic blood pressure 0 mm[Hg] Normal (applies to non-numeric results) 0 mm[Hg] [facility] ([facility]) Body height 0.00 in Normal (applies to non-numeric resu lts) 0.00 in [facility] ([facility]) Body weight Measured 0.00 lbs Normal (applies to n on-numeric results) 0.00 lbs [facility] ([facility]) Body mass index (BMI) [Ratio] 0.00 kg/m2 No rmal (applies to non-numeric results) 0.00 kg/m2 [facility] ([facility]) Systolic blood pressure 0 mm[Hg] Normal (applies t o non-numeric results) 0 mm[Hg] [facility] ([facility]) Diastolic blood pressure 0 mm[Hg] Normal (applies to non-numeric results) 0 mm[Hg] [facility] ([facility]) Body height 0.00 in Normal (applies to non-numeric resu lts) 0.00 in [facility] ([facility]) Body weight Measured 0.00 lbs Normal (applies to n on-numeric results) 0.00 lbs [facility] ([facility]) Body mass index (BMI) [Ratio] 0.00 kg/m2 No rmal (applies to non-numeric results) 0.00 kg/m2 [facility] ([facility]) Systolic blood pressure 0 mm[Hg] Normal (applies t o non-numeric results) 0 mm[Hg] [facility] ([facility]) Diastolic blood pressure 0 mm[Hg] Normal (applies to non-numeric results) 0 mm[Hg] [facility] ([facility]) Body height 70 [in_i] 70 [in_i] eCW1 ([facility]) Body weight 183.8 [lb_av] 183.8 [lb_av] eCW1 ([facility]) Body mass index (BMI) [Ratio] 26.37 kg/m2 26.37 kg/m2 eCW1 ([facility]) Body temperature 98.6 [degF] 98.6 [degF] eCW1 ( [facility]) Heart rate 68 /min 68 /min eCW1 ([facility]) Respiratory rate 18 /min 18 /min eCW1 ([facility]) Oxygen saturation in Arterial blood by Pulse oximetry 99 % 99 % eCW1 ([facility]) Body height 0.00 in Normal (applies to non-numeric resu lts) 0.00 in [facility] ([facility]) Body weight Measured 0.00 lbs Normal (applies to n on-numeric results) 0.00 lbs [facility] ([facility]) Body mass index (BMI) [Ratio] 0.00 kg/m2 No rmal (applies to non-numeric results) 0.00 kg/m2 [facility] ([facility]) Systolic blood pressure 0 mm[Hg] Normal (applies t o non-numeric results) 0 mm[Hg] [facility] ([facility]) Diastolic blood pressure 0 mm[Hg] Normal (applies to non-numeric results) 0 mm[Hg] [facility] ([facility]) Body height 70 [in_i] 70 [in_i] eCW1 ([facility]) Body weight 180.6 [lb_av] 180.6 [lb_av] eCW1 ([facility]) Body mass index (BMI) [Ratio] 25.91 kg/m2 25.91 kg/m2 eCW1 ([facility]) Body temperature 98.6 [degF] 98.6 [degF] eCW1 ( [facility]) Heart rate 77 /min 77 /min eCW1 ([facility]) Respiratory rate 18 /min 18 /min eCW1 ([facility]) Oxygen saturation in Arterial blood by Pulse oximetry 98 % 98 % eCW1 ([facility]) Body height 0.00 in Normal (applies to non-numeric resu lts) 0.00 in [facility] ([facility]) Body weight Measured 0.00 lbs Normal (applies to n on-numeric results) 0.00 lbs [facility] ([facility]) Body mass index (BMI) [Ratio] 0.00 kg/m2 No rmal (applies to non-numeric results) 0.00 kg/m2 [facility] ([facility]) Systolic blood pressure 0 mm[Hg] Normal (applies t o non-numeric results) 0 mm[Hg] [facility] ([facility]) Diastolic blood pressure 0 mm[Hg] Normal (applies to non-numeric results) 0 mm[Hg] [facility] ([facility]) Body height 0.00 in Normal (applies to non-numeric resu lts) 0.00 in [facility] ([facility]) Body weight Measured 0.00 lbs Normal (applies to n on-numeric results) 0.00 lbs [facility] ([facility]) Body mass index (BMI) [Ratio] 0.00 kg/m2 No rmal (applies to non-numeric results) 0.00 kg/m2 [facility] ([facility]) Systolic blood pressure 0 mm[Hg] Normal (applies t o non-numeric results) 0 mm[Hg] [facility] ([facility]) Diastolic blood pressure 0 mm[Hg] Normal (applies to non-numeric results) 0 mm[Hg] [facility] ([facility]) Body height 0.00 in Normal (applies to non-numeric resu lts) 0.00 in [facility] ([facility]) Body weight Measured 0.00 lbs Normal (applies to n on-numeric results) 0.00 lbs [facility] ([facility]) Body mass index (BMI) [Ratio] 0.00 kg/m2 No rmal (applies to non-numeric results) 0.00 kg/m2 [facility] ([facility]) Systolic blood pressure 0 mm[Hg] Normal (applies t o non-numeric results) 0 mm[Hg] [facility] ([facility]) Diastolic blood pressure 0 mm[Hg] Normal (applies to non-numeric results) 0 mm[Hg] [facility] ([facility])
[2021-02-22] MEDS ORDERED: INVE3TAB2 PO (19:22)
[2021-02-22] MEDS ORDERED: CHOL50003 PO (19:22)
[2021-02-22] MEDS ORDERED: EQL50TAB2 PO (19:22)
[2021-02-22] MEDS ORDERED: MULT-90 PO (19:22)
[2021-02-22] MEDS ORDERED: HOME MED LIST COMPLETE! XX SCH (19:25)
[2021-02-22] MEDS ORDERED: PALIPERIDONE 3 MG ER TAB (INVEGA) PO SCH (21:00)
[2021-02-22 22:45] VITALS: BP 140/91
[2021-02-23 07:09] VITALS: BP 142/86
[2021-02-23] MEDS: hydrOXYzine 50 MG TAB PO PRN (07:59)
[2021-02-23] MEDS: NICOTINE 21MG/24HR 1 EA TRANSDERMAL TD SCH (08:00)
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
[2021-02-23] MEDS: OLANZapine ORAL DISINTEGRATING TAB 5MG PO PRN (11:26)
--- NOTE | 2021-02-23 16:31 | HPEPDOC ---
[facility] Medical History & Physical Date of Admission Feb 23, 2021 Date of Service: Feb 23, 2021 History and Physical CHIEF COMPLAINT: Behaviors HISTORY OF PRESENT ILLNESS: 64-year-old male with a past medical history of schizophrenia and anxiety, admitted to [facility] for abnormal behaviors, psychosis. Hospitalist service consulted for medical intake. Patient denies any physical symptoms which include chest pain palpitations nausea vomiting diarrhea subjective fevers and chills. PAST MEDICAL HISTORY: Schizophrenia and anxiety PAST SURGICAL HISTORY: Left inguinal hernia repair SOCIAL HISTORY: Active smoker Reports frequent alcohol use with past occurrences of alcohol FAMILY HISTORY: Reviewed with patient, did not volunteer family history ALLERGIES: Please see below. REVIEW OF SYSTEMS: 10 point ROS conducted, relevant findings noted in HPI HOME MEDICATIONS: Please see below. PHYSICAL EXAMINATION: VITAL SIGNS: please see below General: NAD, comfortable HEENT: PERRLA, EOMI, sclerae clear Neck: supple, normal ROM, no JVD Respiratory: lungs CTAB, no wheeze, no rales, no crackles CVS: RRR, normal S1, S2, no murmurs Abdo: Patient has an abdominal hernia above the umbilicus nontender reducible Extremities: no edema, pulses 2+ MSK: no joint deformities, normal ROM Neuro: no focal neuro deficits, moving all 4 extremities, CN2-12 intact. Strength 5/5 in all 4 extremities. No nystagmus. Psych: calm, cooperative, AAO x 3 LABORATORY DATA: See below. MICROBIOLOGY: Please see below. ASSESSMENT: 64-year-old male with a past medical history of schizophrenia and anxiety, admitted to [facility] for abnormal behaviors, psychosis. Hospitalist service consulted for medical intake. Patient denies any physical symptoms which include chest pain palpitations nausea vomiting diarrhea subjective fevers and chills. . PLAN: Psychosis/schizophrenia: Per psychiatry Alcohol use disorder: Start CIWA protocol, monitor for withdrawal Abdominal hernia: Reducible nontender no overlying skin changes. Follow-up with PCP. May need referral to general surgery for repair. Thank you for involving the care of this patient. Please reconsult as needed. Vital Signs Vital Signs Date Time Temp Pulse Resp B/P (MAP) Pulse Ox O2 Delivery O2 Flow Rate FiO2 02/23/21 07:09 97.3 70 20 142/86 (104) 96 Room Air Laboratory Data Labs 24H Laboratory Tests 2 02/22/21 16:56: Coronavirus (COVID-19)(PCR) NEGATIVE, Influenza Type A (RT-PCR) NEGATIVE, Influenza Type B (RT-PCR) NEGATIVE, Respiratory Syncytial Virus (PCR) NEGATIVE Home Medications Scheduled Cholecalciferol (Vitamin D3) (Vitamin D3) 125 Mcg Capsule, 125 MCG PO DAILY Multivitamin (Multivitamin) 1 Each Tablet, 1 TAB PO DAILY Nicotine (Nicotine Patch) 21 Mg Patch.td24, 1 PATCH TD DAILY for nicotine cravings Paliperidone (Paliperidone ER) 3 Mg Tab.er.24, 6 MG PO QHS for psychosis Paliperidone (Paliperidone ER) 3 Mg Tab.er.24, 3 MG PO QAM for psychosis Vitamin B Complex (Vitamin B Complex) 1 Each Tablet, 1 TAB PO DAILY Scheduled PRN Hydroxyzine HCl (Hydroxyzine HCl) 50 Mg Tablet, 50 MG PO BID PRN for ANXIETY Propranolol HCl (Propranolol HCl) 20 Mg Tablet, 20 MG PO DAILY PRN for ANXIETY Trazodone HCl (Trazodone HCl) 50 Mg Tablet, 50 MG PO QHSP PRN for INSOMNIA Allergies Coded Allergies: No Known Allergies (Unverified , 02/22/21) A-FIB/CHADSVASC A-FIB History Current/History of A-Fib/PAF?: No Age/Risk Factor Scoring CHADSVASC: CHADSVASC Response (Comments) Value Age Risk Factor Age 65-74 years old 1 Gender Risk Factor Male 0 Hx of CHF No 0 Hx of HTN Yes 1 Hx of Stroke/TIA/or VTE No 0 Hx of Diabetes No 0 Hx of Vascular Disease No 0 Total 2 ANMOL GRIMES MD Feb 23, 2021 16:31
[2021-02-23 16:38] VITALS: BP 139/87
[2021-02-23] MEDS: PROPRANOLOL 20 MG TAB PO PRN (16:58)
[2021-02-23] MEDS ORDERED: PALIPERIDONE 3 MG ER TAB (INVEGA) PO SCH (21:00)
[2021-02-23] MEDS ORDERED: LORazepam 2 MG TAB PO PRN (21:20)
[2021-02-23] MEDS: PALIPERIDONE 3 MG ER TAB (INVEGA) PO SCH (21:33)
[2021-02-23] MEDS: THIAMINE 100 MG TAB PO SCH (21:33)
[2021-02-24] MEDS: OLANZapine ORAL DISINTEGRATING TAB 5MG PO PRN (04:20)
[2021-02-24 04:23] VITALS: BP 127/76
[2021-02-24 06:27] VITALS: BP 127/76
[2021-02-24] MEDS: FOLIC ACID 1 MG TAB PO SCH (09:29)
[2021-02-24] MEDS: NICOTINE 21MG/24HR 1 EA TRANSDERMAL TD SCH (09:29)
[2021-02-24] MEDS: THIAMINE 100 MG TAB PO SCH ×2 (09:29→20:40)
[2021-02-24] MEDS: MULTIVITAMINS/MINERALS THERAP 1 TAB PO SCH (09:29)
[2021-02-24] MEDS: hydrOXYzine 50 MG TAB PO PRN (10:56)
[2021-02-24 11:08] LABS: HEMOGLOBIN A1c 5.2 %
[2021-02-24 11:21] LABS: CHOLESTEROL RISK RATIO 3.123 (<5)
[2021-02-24 12:30] VITALS: BP 127/76
[2021-02-24 16:11] VITALS: BP 133/83
[2021-02-24] MEDS: traZODone 50 MG TAB PO PRN (20:40)
[2021-02-24] MEDS: PALIPERIDONE 3 MG ER TAB (INVEGA) PO SCH (20:40)
[2021-02-24] MEDS: ACETAMINOPHEN TAB 650MG DOSE (2X325MG) PO PRN (20:44)
[2021-02-25] MEDS: hydrOXYzine 50 MG TAB PO PRN (05:43)
[2021-02-25 06:22] VITALS: BP 123/74
[2021-02-25 07:57] VITALS: BP 123/74
[2021-02-25] MEDS: THIAMINE 100 MG TAB PO SCH ×2 (08:27→23:37)
[2021-02-25] MEDS: FOLIC ACID 1 MG TAB PO SCH (08:27)
[2021-02-25] MEDS: MULTIVITAMINS/MINERALS THERAP 1 TAB PO SCH (08:27)
[2021-02-25] MEDS: NICOTINE 21MG/24HR 1 EA TRANSDERMAL TD SCH (08:28)
[2021-02-25] MEDS: ACETAMINOPHEN TAB 650MG DOSE (2X325MG) PO PRN (13:41)
[2021-02-25 16:21] VITALS: BP 134/70
[2021-02-25] MEDS: PALIPERIDONE 3 MG ER TAB (INVEGA) PO SCH (23:36)
[2021-02-25] MEDS: traZODone 50 MG TAB PO PRN (23:38)
[2021-02-26] MEDS: ACETAMINOPHEN TAB 650MG DOSE (2X325MG) PO PRN (05:16)
[2021-02-26 06:21] VITALS: BP 105/78
[2021-02-26] MEDS: NICOTINE 21MG/24HR 1 EA TRANSDERMAL TD SCH (08:02)
[2021-02-26] MEDS: FOLIC ACID 1 MG TAB PO SCH (08:03)
[2021-02-26] MEDS: THIAMINE 100 MG TAB PO SCH (08:03)
[2021-02-26] MEDS: MULTIVITAMINS/MINERALS THERAP 1 TAB PO SCH (08:03)
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
[2021-02-26] MEDS: hydrOXYzine 50 MG TAB PO PRN (11:48)
--- NOTE | 2021-02-26 13:07 | MHIPN ---
COUNTS INCLUDE 234 BEDS AT THE [facility] PROGRESS NOTE DATE: 02/25/2021 VITAL SIGNS: Blood pressure 150/83, pulse 67, temperature 98.4. This is a video assessment. He is aware of it and agrees to it. He is in the inpatient psychiatry unit. He is seen in the presence of staff. I am at home. CHIEF COMPLAINT: Says is doing okay. SUBJECTIVE: Seen for followup. Indicates has been doing okay and that he had a good night. Indicates is getting better but somewhat vague on this. Says has been eating okay. MENTAL STATUS EXAMINATION: He is neat. He is cooperative. No agitation. No psychomotor retardation. Answers questions briefly, logically. Has a restricted affect. Some reactivity. Denies any suicidal thoughts or intents. No homicidal ideas or intents. Does not appear internally preoccupied at present. Judgment and insight are compromised. ASSESSMENT: Schizophrenia. PLAN: Continue current care and observations. Encourage participation in activities in the unit.
--- NOTE | 2021-02-26 16:59 | MHIPN ---
[facility] PROGRESS NOTE DATE: 02/25/2021 VITAL SIGNS: Blood pressure 123/74, pulse 99, temperature 96.9. This is a video assessment. He is seen in the presence of staff. He is in the inpatient psychiatry unit. I am at home. CHIEF COMPLAINT: Says feels okay. SUBJECTIVE: Seen for followup. Indicates feels okay but that sleep was a bit diminished. He has been eating well. He feels that his paranoia is less intense. He suggests that but cannot expand on that. MENTAL STATUS EXAMINATION: He is cooperative, coherent. No agitation. No psychomotor retardation. Gives brief answers, but when they are more elaborate displays looseness of associations in his speech. He denies any suicidal thoughts or intents. Denies any homicidal ideas or intents. He is paranoid. Judgment and insight are compromised. ASSESSMENT: Schizophrenia. PLAN: Continue current care, observations. Encourage participation in activities in the unit. He will be seeing the assigned clinicians tomorrow. Further recommendations will then be made.
[2021-02-26 17:40] VITALS: BP 144/77
[2021-02-26] MEDS: PALIPERIDONE 3 MG ER TAB (INVEGA) PO SCH (20:54)
[2021-02-26] MEDS: traZODone 50 MG TAB PO PRN (21:08)
[2021-02-27 07:00] VITALS: BP 126/78
[2021-02-27] MEDS: hydrOXYzine 50 MG TAB PO PRN ×2 (07:17→12:53)
[2021-02-27] MEDS: MULTIVITAMINS/MINERALS THERAP 1 TAB PO SCH (09:00)
[2021-02-27] MEDS: FOLIC ACID 1 MG TAB PO SCH (09:00)
[2021-02-27] MEDS: NICOTINE 21MG/24HR 1 EA TRANSDERMAL TD SCH (09:00)
--- NOTE | 2021-02-27 12:46 | MHIPNPDOC ---
[facility] Progress Note Progress Note DATE OF SERVICE: 02/27/21 HISTORY: Patient is a 65 -year-old , male, who has a past psychiatric hx of schizophrenia, paranoid, cannabis use, was in [place], [place]. Was di sorganized at AOT meeting on zoom, police were called to bring patient in due to psychotic hallucinations and level of disorganization. States he doesn't like taking needles due to the pain, reports had last injection of Invega Trinza 1.5 months ago, states he drinks "coffee to break down the medication". Reports was taking the oral medication, 3 mg qhs, states he missed his dose the day of admission. States he wants to help the reefer smokers, states trustee of estate saved his life because of the enemy of man kind, the devil. Reports ED staff over came the enemy. Says he tolerates the oral medication well and "sleeps like a baby on it". Agrees to increasing dose to 6 mg qhs for psychosis. Patient has >10-30 admissions reportedly, last admissions Apr, 2020 for psychotic and disorganized behavior. Positive for cannabis on toxicology, educated on risks of use in context of primary psychotic disorder. Interval: Patient continues to be less disorganized and has consistently been going to most groups, currently denies paranoia, follows myself and staff in the hallway asking when he will be discharged, reports good response to medication without side effects, at times appears internally preoccupied, at one point stated his roommate was having a hard time and having trouble adjusting to the light in his room, the roommate wages him stating he was okay and that this was not the case. VITAL SIGNS: See below. NEW TEST RESULTS: CURRENT MEDICATIONS: See below. MENTAL STATUS EXAMINATION: Patient is a 65-year old male, who is in no acute distress, good eye contact, cooperative, appears stated age, good hygiene, average build Speech: Is normal amount, spontaneous, normal. Language skills are improved Thought processes including: Mildly disorganized. Thought content: Denies suicidal ideation, intent or plan, continues to be less religiously preoccupied. Abstract reasoning, and computation: Fair description of associations: No longer concrete on questioning Description of abnormal or psychotic thoughts: Delusions, no longer paranoid Judgment: Improving Insight: Poor to fair, improving Orientation: X3. Recent and remote memory: Good, as symptoms improve may conduct [place]. Attention span and concentration: Fair. Language: [place]. Fund of knowledge: Average. Mood: "good doc". Affect: Less disorganized, no longer anxious, euthymic, mildly internally preoccupied DIAGNOSES: Schizophrenia, paranoid Tobacco use disorder Cannabis use disorder ASSESSMENT: Patient continues to improve in the unit, less disorganized on interview, does have delusions of others being harmed and yet with some internal proc occupations, reports mood is improved, less anxious, denies paranoia, needs more time for acute stabilization with possible discharge , if continues to improve. Per staff report to the patient before he is approaching his baseline. MANAGEMENT PLAN: Continue oral paliperidone 6 mg nightly. We will suggest the patient gets the 3-month injection earlier than scheduled April 11, 2021, appears to have decompensated off periods since needs to be on the higher dose of oral medication. Continue other medications, encouraged to continue going to groups. Will likely have AOT meeting on . TIME SPENT: 25 minutes. Vital Signs Vital Signs Date Time Temp Pulse Resp B/P (MAP) Pulse Ox O2 Delivery O2 Flow Rate FiO2 02/27/21 07:00 98.2 89 20 126/78 (94) 99 Room Air Current Medications Current Medications Medications (Trade) Dose Ordered Sig/Marcelino Route PRN Reason Start Time Stop Time Status Last Admin Dose Admin Acetaminophen (Tylenol Tab) 650 mg Q6HP PRN PO HEADACHE or MILD DISCOMFORT 02/22/21 18:25 02/26/21 05:16 Al Hydrox/Mg Hydrox/Simethicone (Mylanta) 30 ml Q4HP PRN PO HEARTBURN/INDIGESTION 02/22/21 18:25 Folic Acid (Folic Acid) 1 mg DAILY PO 02/24/21 09:00 02/27/21 09:00 Home Med (Home Med List Complete!) ASDIRECTED XX 02/22/21 19:25 02/22/21 19:25 DC Hydroxyzine HCl (Atarax) 50 mg BID PRN PO ANXIETY 02/22/21 20:10 02/27/21 07:17 Lorazepam (Ativan) 2 mg ASDIRECTED PRN PO SEE PROTOCOL 02/23/21 21:20 Magnesium Hydroxide (Milk Of Magnesia) 30 ml DAILYPRN PRN PO CONSTIPATION 02/22/21 18:25 02/26/21 08:06 Multivitamins (Theragram-M) 1 tab DAILY PO 02/24/21 09:00 02/27/21 09:00 Nicotine (Nicoderm Cq 21mg) 1 patch DAILY TD 02/23/21 09:00 02/27/21 09:00 Olanzapine (ZyPREXA ZYDIS) 5 mg Q6HP PRN PO Anxiety/Agitation 02/22/21 18:25 02/24/21 04:20 Paliperidone (Invega) 3 mg QHS PO 02/22/21 21:00 02/23/21 09:54 DC 02/22/21 23:04 Paliperidone (Invega) 3 mg QHS PO 02/23/21 21:00 02/26/21 09:24 DC 02/25/21 23:36 Paliperidone (Invega) 6 mg QHS PO 02/23/21 21:00 02/23/21 10:44 DC Paliperidone (Invega) 6 mg QHS PO 02/26/21 21:00 02/26/21 20:54 Propranolol HCl (Inderal) 20 mg DAILY PRN PO ANXIETY 02/22/21 20:10 02/23/21 16:58 Thiamine HCl (Thiamine HCl) 100 mg BID PO 02/23/21 21:00 02/26/21 09:01 DC 02/26/21 08:03 Trazodone HCl (Desyrel) 50 mg QHSP PRN PO INSOMNIA 02/22/21 18:25 02/26/21 21:08 Allergies Coded Allergies: No Known Allergies (Unverified , 02/22/21) SILVIA MAHMOOD MD Feb 27, 2021 12:46
[2021-02-27 19:06] VITALS: BP 147/79
[2021-02-27] MEDS: PALIPERIDONE 3 MG ER TAB (INVEGA) PO SCH (21:37)
[2021-02-28 06:00] VITALS: BP 118/75
[2021-02-28 06:31] VITALS: BP 118/75
[2021-02-28 07:14] VITALS: BP 118/75
[2021-02-28] MEDS: PROPRANOLOL 20 MG TAB PO PRN (07:14)
[2021-02-28] MEDS: MULTIVITAMINS/MINERALS THERAP 1 TAB PO SCH (08:28)
[2021-02-28] MEDS: FOLIC ACID 1 MG TAB PO SCH (08:28)
[2021-02-28] MEDS: NICOTINE 21MG/24HR 1 EA TRANSDERMAL TD SCH (08:28)
--- NOTE | 2021-02-28 12:37 | MHIPNPDOC ---
[facility] Progress Note Progress Note DATE OF SERVICE: 02/28/21 HISTORY: Patient is a 65 -year-old , male, who has a past psychiatric hx of schizophrenia, paranoid, cannabis use, was in [place], [place]. Was d isorganized at AOT meeting on zoom, police were called to bring patient in due to psychotic hallucinations and level of disorganization. States he doesn't like taking needles due to the pain, reports had last injection of Invega Trinza 1.5 months ago, states he drinks "coffee to break down the medication". Reports was taking the oral medication, 3 mg qhs, states he missed his dose the day of admission. States he wants to help the reefer smokers, states state editor saved his life because of the enemy of man kind, the devil. Reports ED staff over came the enemy. Says he tolerates the oral medication well and "sleeps like a baby on it". Agrees to increasing dose to 6 mg qhs for psychosis. Patient has >10-30 admissions reportedly, last admissions Apr, 2020 for psychotic and disorganized behavior. Positive for cannabis on toxicology, educated on risks of use in context of primary psychotic disorder. Interval: States one of them is a devil, one is a women and one is a doctor. I've tried to talk to the devil, he's determined to take over clinic. States will take medications. Denies SI/HI. Sleep is normal, "like a baby". At one point interview as a devil to leave us alone during her appointment. Despite the states he is not scared by the hallucinations. VITAL SIGNS: See below. NEW TEST RESULTS: None CURRENT MEDICATIONS: See below. MENTAL STATUS EXAMINATION: Patient is a 65-year old male, who is in no acute distress, good eye contact, cooperative, appears stated age, good hygiene, average build Speech: Is normal amount, spontaneous, normal. Language skills are improved Thought processes including: Mildly disorganized. Thought content: Denies suicidal ideation, intent or plan, continues to be less religiously preoccupied. Abstract reasoning, and computation: Fair description of associations: No longer concrete on questioning Description of abnormal or psychotic thoughts: Delusions, no longer paranoid Judgment: Improving Insight: Poor to fair, improving Orientation: X3. Recent and remote memory: Good, as symptoms improve may conduct [place]. Attention span and concentration: Fair. Language: Danish. Fund of knowledge: Average. Mood: "fine". Affect: Continues to be disorganized, delusional, responding to internal stimuli, less anxious, euthymic Able to spell world backwards, 4/5 on recall. DIAGNOSES: Schizophrenia, paranoid Tobacco use disorder Cannabis use disorder ASSESSMENT: Patient reports VH, AH, delusions and continues to be disorganized. Agrees to increase his paliperidone from 6 mg nightly to 3 mg daily and 6 mg nightly. Aims scoring is 0. Will consider Harrison testing if memory symptoms do not improve, once less disorganized with treatment. MANAGEMENT PLAN: Increase paliperidone from 6 mg nightly to 3 mg daily and 60 mg nightly. we will suggest the patient gets the 3-month injection earlier than scheduled April 11, 2021, appears to have decompensated off periods since needs to be on the higher dose of oral medication. Continue other medications, encouraged to continue going to groups. Will likely have AOT meeting on . TIME SPENT: 20 minutes. Vital Signs Vital Signs Date Time Temp Pulse Resp B/P (MAP) Pulse Ox O2 Delivery O2 Flow Rate FiO2 02/28/21 07:14 88 118/75 02/28/21 06:31 97.9 16 95 Room Air Current Medications Current Medications Medications (Trade) Dose Ordered Sig/Marcelino Route PRN Reason Start Time Stop Time Status Last Admin Dose Admin Acetaminophen (Tylenol Tab) 650 mg Q6HP PRN PO HEADACHE or MILD DISCOMFORT 02/22/21 18:25 02/26/21 05:16 Al Hydrox/Mg Hydrox/Simethicone (Mylanta) 30 ml Q4HP PRN PO HEARTBURN/INDIGESTION 02/22/21 18:25 Folic Acid (Folic Acid) 1 mg DAILY PO 02/24/21 09:00 02/28/21 08:28 Home Med (Home Med List Complete!) ASDIRECTED XX 02/22/21 19:25 02/22/21 19:25 DC Hydroxyzine HCl (Atarax) 50 mg BID PRN PO ANXIETY 02/22/21 20:10 02/27/21 12:53 Lorazepam (Ativan) 2 mg ASDIRECTED PRN PO SEE PROTOCOL 02/23/21 21:20 Magnesium Hydroxide (Milk Of Magnesia) 30 ml DAILYPRN PRN PO CONSTIPATION 02/22/21 18:25 02/26/21 08:06 Multivitamins (Theragram-M) 1 tab DAILY PO 02/24/21 09:00 02/28/21 08:28 Nicotine (Nicoderm Cq 21mg) 1 patch DAILY TD 02/23/21 09:00 02/28/21 08:28 Olanzapine (ZyPREXA ZYDIS) 5 mg Q6HP PRN PO Anxiety/Agitation 02/22/21 18:25 02/24/21 04:20 Paliperidone (Invega) 3 mg QHS PO 02/22/21 21:00 02/23/21 09:54 DC 02/22/21 23:04 Paliperidone (Invega) 3 mg QHS PO 02/23/21 21:00 02/26/21 09:24 DC 02/25/21 23:36 Paliperidone (Invega) 6 mg QHS PO 02/23/21 21:00 02/23/21 10:44 DC Paliperidone (Invega) 6 mg QHS PO 02/26/21 21:00 02/27/21 21:37 Propranolol HCl (Inderal) 20 mg DAILY PRN PO ANXIETY 02/22/21 20:10 02/28/21 07:14 Thiamine HCl (Thiamine HCl) 100 mg BID PO 02/23/21 21:00 02/26/21 09:01 DC 02/26/21 08:03 Trazodone HCl (Desyrel) 50 mg QHSP PRN PO INSOMNIA 02/22/21 18:25 02/26/21 21:08 Allergies Coded Allergies: No Known Allergies (Unverified , 02/22/21) SILVIA MAHMOOD MD Feb 28, 2021 12:37
[2021-02-28] MEDS: PALIPERIDONE 3 MG ER TAB (INVEGA) PO SCH ×2 (13:36→21:13)
[2021-02-28] MEDS: hydrOXYzine 50 MG TAB PO PRN (16:18)
[2021-02-28 17:26] VITALS: BP 124/69
[2021-02-28] MEDS: traZODone 50 MG TAB PO PRN (21:13)
[2021-03-01] MEDS: hydrOXYzine 50 MG TAB PO PRN (05:55)
[2021-03-01 06:04] VITALS: BP 128/79
[2021-03-01] MEDS: NICOTINE 21MG/24HR 1 EA TRANSDERMAL TD SCH (08:14)
[2021-03-01] MEDS: PALIPERIDONE 3 MG ER TAB (INVEGA) PO SCH (08:15)
[2021-03-01] MEDS ORDERED: PALI1TAB2 PO ×2 (08:50)
[2021-03-01] MEDS ORDERED: NICO21PAT TD (08:50)
[2021-03-01] MEDS ORDERED: TRAZ-252 PO (08:50)
--- NOTE | 2021-03-01 10:36 | MHDSPDOC ---
[facility] Discharge Summary Discharge Summary DATE OF ADMISSION: Feb 22, 2021 at 18:23 DATE OF DISCHARGE: March 01 2021 Discharge diagnoses: Schizophrenia, paranoid Tobacco use disorder Cannabis use disorder Reason for admission: Patient is a 65 -year-old , male, who has a past psychiatric hx of schizophrenia, paranoid, cannabis use, was in [place], [place]. Was disorganized at AOT meeting on zoom, police were called to bring patient in due to psychotic hallucinations and level of disorganization. States he doesn't like taking needles due to the pain, reports had last injection of I nvega Trinza 1.5 months ago, states he drinks "coffee to break down the medication". Reports was taking the oral medication, 3 mg qhs, states he missed his dose the day of admission. States he wants to help the reefer smokers, states real estate account executive saved his life because of the enemy of man kind, the devil. Reports ED staff over came the enemy. Says he tolerates the oral medication well and "sleeps like a baby on it". Agrees to increasing dose to 6 mg qhs for psychosis. Patient has >10-30 admissions reportedly, last admissions Apr, 2020 for psychotic and disorganized behavior. Positive for cannabis on toxicology, educated on risks of use in context of primary psychotic disorder. Vital signs: See below Consultants involved: See medical H&P by hospitalist Treatment and progress on the unit: Patient was admitted to the [facility] on a 9.39 legal status and was afforded the following treatment modalities: 1. Individual therapy 2. Group therapy 3. Medication management 4. Milieu therapy 5. Safe environment Hospital course: Patient was admitted to the [facility] on a 9.39 legal status. Was medically cleared prior to coming up to the [facility]. Patient presented bizarre, with taoist preoccupations, having visual and auditory hallucinations, paranoia and acute disorganized thought process. Toxicology screen was positive for cannabis, patient was educated on risks of taking cannabis in context of the primary psychotic disorder including worsening of psychotic symptoms, worsening mood and anxiety symptoms, which the patient has reported, risk for harm to self and others. Was started on paliperidone 6 mg nightly and titrated up to 3 mg every morning and 6 mg nightly with improvement in level of disorganization, memory was intact and was alert and oriented x3. Continues to be religiously preoccupied, but denied any suicidal or homicidal ideations, and endorses auditory and visual hallucinations subsided with medications, appeared less disorganized, and more goal oriented, with stable and even mood which was improved with medications. Patient found medications beneficial and tolerated them well, without side effects. Denies mood anxiety and intrusive thoughts which improved with treatment. Patient attended groups daily during stay. Patient symptoms improved with treatment. On day of discharge patient denied depression, anxiety, insomnia, suicidal or homicidal ideations intent or plan, hallucinations, delusions. Patient was discharged home with follow-up. Patient felt safe for discharge. Was offered continued stay on voluntary admission but refused. Discharge assessment: On today's interview patient is alert and oriented, dressed appropriately. Eye contact is improved, less intense than previous days. Was goal oriented wanting to return home and educated on need for medication compliance as historically has stopped his medications. Made aware he should take his Invega trinza 819 mg IM PRICE 2 weeks earlier than scheduled, next dose is due April 11, 2021, however it is recommended he receive the next dose 2 weeks prior. Hygiene and grooming is well-kept. Smiles on approach and is pleasant and engaged on interview. Denies depression and anxiety. Denies suicidal homicidal ideation, intent or planning. Denies and is not observed with ivan or psychotic symptoms of delusions, hallucinations, bizarre thinking, obsessions, paranoia, ruminations, illogical thoughts, flight of ideas or having poor insight or judgment. Patient has normal mentation, declines further hospitalization of voluntary status and meets criteria for discharge today, patient encouraged to return the hospital if symptoms worsen or change and encouraged to call unit if they feel they need provider's questions to be answered or help with medications or care. Mental status: Medications on discharge: -see medication reconciliation: CSSRS on discharge: Wish to be : No nonspecific active suicidal thoughts: No lifetime attempts: x1, OD in 1979 in context of break-up interrupted attempts: 0 aborted attempts: 0 preparatory acts or behavior: None Taking into consideration safety state, status, modifiable, non-modifiable risk factors patient is at low risk on discharge for suicide according to [place] suicide evaluation. PLAN/FOLLOWUP ARRANGEMENTS: Follow Up Care Education Label * Mental Health Appt 1 * [facility] * Established With This Provider Yes * Therapist PETE * Date Mar 06, 2021 * Time 09:00 * Address of Clinic or Practice [address] [facility] * Follow Up Care Education Label * Mental Health Appt 2 * [facility] * Established With This Provider Yes * Therapist KATH * Date Mar 29, 2021 * Time 10:30 * Address of Clinic or Practice [address] * Follow Up Care Education Label * Medical * Medical Follow Up [facility] * Established With This Provider Yes * Therapist BROWN * Date Mar 12, 2021 * Time 11:00 * Address of Clinic or Practice [address] [place] [address] * Phone Num The amount of time spent in the coordination of care for this patient was approximately 40 minutes. ETOH/Disorder Med Rx ETOH/DRUG DISORDER RX: Offrd @ d/c & pt refused Vital Signs/I&Os Vital Signs Date Time Temp Pulse Resp B/P (MAP) Pulse Ox O2 Delivery O2 Flow Rate FiO2 03/01/21 06:04 98.4 70 18 128/79 (95) 95 Room Air Medications Scheduled Cholecalciferol (Vitamin D3) (Vitamin D3) 125 Mcg Capsule, 125 MCG PO DAILY, (Reported) Multivitamin (Multivitamin) 1 Each Tablet, 1 TAB PO DAILY, (Reported) Nicotine (Nicotine Patch) 21 Mg Patch.td24, 1 PATCH TD DAILY for nicotine cravings, #7 Paliperidone (Paliperidone ER) 3 Mg Tab.er.24, 6 MG PO QHS for psychosis, #7 Paliperidone (Paliperidone ER) 3 Mg Tab.er.24, 3 MG PO QAM for psychosis, #7 Vitamin B Complex (Vitamin B Complex) 1 Each Tablet, 1 TAB PO DAILY, (Reported) Scheduled PRN Hydroxyzine HCl (Hydroxyzine HCl) 50 Mg Tablet, 50 MG PO BID PRN for ANXIETY, (Reported) Propranolol HCl (Propranolol HCl) 20 Mg Tablet, 20 MG PO DAILY PRN for ANXIETY, (Reported) Trazodone HCl (Trazodone HCl) 50 Mg Tablet, 50 MG PO QHSP PRN for INSOMNIA, #7 Allergies Coded Allergies: No Known Allergies (Unverified , 02/22/21) SILVIA MAHMOOD MD Mar 01, 2021 10:36
== END 2021-03-01 13:31 | disposition home or self-care (01) | DRG 885 ==
LOC: M ED 13:09 → M ED INP 18:23 → M PSY 22:02
PROVIDERS: ADMIT Student in an Organized Health Care Education/Training Program; ATTEND Student in an Organized Health Care Education/Training Program
DX: F20.0 Paranoid schizophrenia (principal); F17.210 Nicotine dependence, cigarettes, uncomplicated; F12.10 Cannabis abuse, uncomplicated; K46.9 Unspecified abdominal hernia without obstruction or gangrene; Z20.822 Contact with and (suspected) exposure to COVID-19; Z79.899 Other long term (current) drug therapy

== ENCOUNTER → 2021-03-20 | Outpatient (CLI) | payer MEDICARE, MEDICAID ==
[~2021-03-20] MED LIST changes: +CHOL50003 PO; +EQL50TAB2 PO; +INVE3TAB2 PO; +MULT-90 PO; +NICO21PAT TD
== END ==
LOC: M OUTALCOH 08:53
PROVIDERS: ATTEND Psychiatry & Neurology Psychiatry
DX: F12.20 Cannabis dependence, uncomplicated (principal); F10.20 Alcohol dependence, uncomplicated

== ENCOUNTER → 2021-04-10 | Outpatient (RCR) | payer MEDICARE, MEDICAID ==
[~2021-04-10] MED LIST changes: -HALO5TA PO; +HALO5TAB33 PO
== END ==
LOC: M OUTALCOH 03-28 14:52
PROVIDERS: ATTEND Psychiatry & Neurology Psychiatry
DX: F12.20 Cannabis dependence, uncomplicated (principal); F10.20 Alcohol dependence, uncomplicated; F17.200 Nicotine dependence, unspecified, uncomplicated

== ENCOUNTER 2021-05-09 08:56 | Outpatient (RCR) | payer MEDICARE, MEDICAID ==
[~2021-05-09 08:56] MED LIST changes: +HALO5TA PO; -HALO5TAB33 PO
== END 2021-05-11 ==
LOC: M OUTALCOH 08:56
PROVIDERS: ATTEND Psychiatry & Neurology Psychiatry
DX: F11.220 Opioid dependence with intoxication, uncomplicated (principal); F10.20 Alcohol dependence, uncomplicated; F17.200 Nicotine dependence, unspecified, uncomplicated

== ENCOUNTER 2021-06-08 13:36 | Outpatient (RCR) | payer MEDICARE, MEDICAID ==
[~2021-06-08 13:36] MED LIST changes: -HALO5TA PO; +HALO5TAB33 PO
== END 2021-06-11 ==
LOC: M OUTALCOH 13:36
PROVIDERS: ATTEND Psychiatry & Neurology Psychiatry
DX: F12.20 Cannabis dependence, uncomplicated (principal); F10.20 Alcohol dependence, uncomplicated; F17.200 Nicotine dependence, unspecified, uncomplicated

== ENCOUNTER 2021-06-29 15:00 | Outpatient (RCR) | payer MEDICARE, MEDICAID | END 2021-07-09 | LOC: M OUTALCOH 15:00 | PROVIDERS: ATTEND Psychiatry & Neurology Psychiatry | DX: F12.20 Cannabis dependence, uncomplicated (principal); F10.20 Alcohol dependence, uncomplicated; F17.200 Nicotine dependence, unspecified, uncomplicated ==

== ENCOUNTER 2021-08-03 15:00 | Outpatient (RCR) | payer MEDICARE, MEDICAID | END 2021-08-09 | LOC: M OUTALCOH 15:00 | PROVIDERS: ATTEND Psychiatry & Neurology Psychiatry | DX: F12.20 Cannabis dependence, uncomplicated (principal); F10.20 Alcohol dependence, uncomplicated; F17.200 Nicotine dependence, unspecified, uncomplicated ==

== ENCOUNTER 2021-09-07 15:00 | Outpatient (RCR) | payer MEDICARE, MEDICAID | END 2021-09-08 | LOC: M OUTALCOH 15:00 | PROVIDERS: ATTEND Psychiatry & Neurology Psychiatry | DX: F12.20 Cannabis dependence, uncomplicated (principal); F10.20 Alcohol dependence, uncomplicated; F17.200 Nicotine dependence, unspecified, uncomplicated ==

== ENCOUNTER 2021-09-13 14:33 | Outpatient (RCR) | payer MEDICARE, MEDICAID | END 2021-10-09 | LOC: M OUTALCOH 14:33 | PROVIDERS: ATTEND Psychiatry & Neurology Psychiatry | DX: F12.20 Cannabis dependence, uncomplicated (principal); F10.20 Alcohol dependence, uncomplicated; F17.200 Nicotine dependence, unspecified, uncomplicated ==

== ENCOUNTER 2021-10-26 08:00 | Outpatient (RCR) | payer MEDICARE, MEDICAID | END 2021-11-08 | LOC: M OUTALCOH 08:00 | PROVIDERS: ATTEND Psychiatry & Neurology Psychiatry | DX: F12.20 Cannabis dependence, uncomplicated (principal); F10.20 Alcohol dependence, uncomplicated; F17.200 Nicotine dependence, unspecified, uncomplicated ==

== ENCOUNTER 2021-12-07 15:54 | Outpatient (RCR) | payer MEDICARE, MEDICAID | END 2021-12-09 | LOC: M OUTALCOH 15:54 | PROVIDERS: ATTEND Psychiatry & Neurology Psychiatry | DX: F12.20 Cannabis dependence, uncomplicated (principal); F10.20 Alcohol dependence, uncomplicated; F17.200 Nicotine dependence, unspecified, uncomplicated ==

== ENCOUNTER 2022-01-15 10:48 | Outpatient (RCR) | payer MEDICARE, MEDICAID | END 2022-02-08 | LOC: M OUTALCOH 10:48 | PROVIDERS: ATTEND Psychiatry & Neurology Psychiatry | DX: F12.20 Cannabis dependence, uncomplicated (principal); F10.20 Alcohol dependence, uncomplicated; F17.200 Nicotine dependence, unspecified, uncomplicated ==

== ENCOUNTER 2022-03-08 11:00 | Outpatient (RCR) | payer MEDICARE, MEDICAID | END 2022-03-11 | LOC: M OUTALCOH 11:00 | PROVIDERS: ATTEND Psychiatry & Neurology Psychiatry | DX: F12.20 Cannabis dependence, uncomplicated (principal); F10.20 Alcohol dependence, uncomplicated; F17.200 Nicotine dependence, unspecified, uncomplicated ==

== ENCOUNTER → 2022-04-10 | Outpatient (RCR) | payer MEDICARE, MEDICAID | LOC: M OUTALCOH 11:59 | PROVIDERS: ATTEND Psychiatry & Neurology Psychiatry | DX: F12.20 Cannabis dependence, uncomplicated (principal); F10.20 Alcohol dependence, uncomplicated; F17.200 Nicotine dependence, unspecified, uncomplicated ==

== ENCOUNTER → 2022-05-17 | Outpatient (CLI) | payer MEDICARE, MEDICAID | LOC: M OUTALCOH 12:28 | PROVIDERS: ATTEND Psychiatry & Neurology Psychiatry | DX: Z03.89 Encounter for observation for other suspected diseases and conditions ruled out (principal) ==

== ENCOUNTER 2022-06-10 14:00 | Outpatient (RCR) | payer MEDICARE, MEDICAID | END 2022-06-11 | LOC: M OUTALCOH 14:00 | PROVIDERS: ATTEND Psychiatry & Neurology Psychiatry | DX: F10.20 Alcohol dependence, uncomplicated (principal); F12.20 Cannabis dependence, uncomplicated; Z72.0 Tobacco use ==

== ENCOUNTER 2022-07-08 14:00 | Outpatient (RCR) | payer MEDICARE, MEDICAID | END 2022-07-09 | LOC: M OUTALCOH 14:00 | PROVIDERS: ATTEND Psychiatry & Neurology Psychiatry | DX: F10.20 Alcohol dependence, uncomplicated (principal); F12.20 Cannabis dependence, uncomplicated; F17.200 Nicotine dependence, unspecified, uncomplicated ==

== ENCOUNTER → 2022-08-09 | Outpatient (RCR) | payer MEDICARE, MEDICAID | LOC: M OUTALCOH 07-12 15:24 | PROVIDERS: ATTEND Psychiatry & Neurology Psychiatry | DX: F10.20 Alcohol dependence, uncomplicated (principal); F12.20 Cannabis dependence, uncomplicated; F17.200 Nicotine dependence, unspecified, uncomplicated ==

== ENCOUNTER 2022-09-05 09:00 | Outpatient (RCR) | payer MEDICARE, MEDICAID ==
[~2022-09-05 09:00] MED LIST changes: +BENZ0.5T2 PO; -BENZ0.5T23 PO
== END 2022-09-08 ==
LOC: M OUTALCOH 09:00
PROVIDERS: ATTEND Psychiatry & Neurology Psychiatry
DX: F10.20 Alcohol dependence, uncomplicated (principal); F12.20 Cannabis dependence, uncomplicated; F17.200 Nicotine dependence, unspecified, uncomplicated

== ENCOUNTER 2022-10-03 09:00 | Outpatient (RCR) | payer MEDICARE, MEDICAID | END 2022-10-09 | LOC: M OUTALCOH 09:00 | PROVIDERS: ATTEND Psychiatry & Neurology Psychiatry | DX: F10.20 Alcohol dependence, uncomplicated (principal); F12.20 Cannabis dependence, uncomplicated; F17.200 Nicotine dependence, unspecified, uncomplicated ==

== ENCOUNTER 2022-10-16 09:56 | Outpatient (RCR) | payer MEDICARE, MEDICAID | END 2022-11-08 | LOC: M OUTALCOH 09:56 | PROVIDERS: ATTEND Psychiatry & Neurology Psychiatry | DX: F10.20 Alcohol dependence, uncomplicated (principal); F12.20 Cannabis dependence, uncomplicated; F17.200 Nicotine dependence, unspecified, uncomplicated ==

== ENCOUNTER 2022-10-30 09:48 | Outpatient (RCR) | payer MEDICARE, MEDICAID | END 2022-11-08 | LOC: M OUTALCOH 09:48 | PROVIDERS: ATTEND Psychiatry & Neurology Psychiatry | DX: F10.20 Alcohol dependence, uncomplicated (principal); F12.20 Cannabis dependence, uncomplicated; F17.200 Nicotine dependence, unspecified, uncomplicated ==

== ENCOUNTER 2022-12-04 10:00 | Outpatient (RCR) | payer MEDICARE, MEDICAID | END 2022-12-09 | LOC: M OUTALCOH 10:00 | PROVIDERS: ATTEND Psychiatry & Neurology Psychiatry | DX: F10.20 Alcohol dependence, uncomplicated (principal); F12.20 Cannabis dependence, uncomplicated; F17.200 Nicotine dependence, unspecified, uncomplicated ==

== ENCOUNTER 2023-01-07 10:00 | Outpatient (RCR) | payer MEDICARE, MEDICAID | END 2023-01-09 | LOC: M OUTALCOH 10:00 | PROVIDERS: ATTEND Psychiatry & Neurology Psychiatry | DX: F10.20 Alcohol dependence, uncomplicated (principal); F12.20 Cannabis dependence, uncomplicated; F17.200 Nicotine dependence, unspecified, uncomplicated ==

== ENCOUNTER → 2023-03-11 | Outpatient (RCR) | payer MEDICARE, MEDICAID | LOC: M OUTALCOH 11:23 | PROVIDERS: ATTEND Psychiatry & Neurology Psychiatry | DX: F10.20 Alcohol dependence, uncomplicated (principal); F12.20 Cannabis dependence, uncomplicated; F17.200 Nicotine dependence, unspecified, uncomplicated ==

== ENCOUNTER 2023-03-25 08:58 | Outpatient (RCR) | payer MEDICARE, MEDICAID ==
[2023-04-09] MEDS ORDERED: HYDR-3363 PO (13:47)
[2023-04-09] MEDS ORDERED: INVE1.75 IM (13:47)
[2023-04-09] MEDS ORDERED: PROP40TA62 PO (13:47)
[2023-04-09] MEDS ORDERED: PALI1TAB3 PO (13:47)
== END 2023-04-10 ==
LOC: M OUTALCOH 08:58
PROVIDERS: ATTEND Psychiatry & Neurology Psychiatry
DX: F10.20 Alcohol dependence, uncomplicated (principal); F12.20 Cannabis dependence, uncomplicated; F17.200 Nicotine dependence, unspecified, uncomplicated

== ENCOUNTER 2023-04-09 09:46 | Inpatient (IN) | payer MEDICARE, MEDICAID ==
[~2023-04-09] VITALS: Ht 182.9 cm; Wt 78.3 kg
[2023-04-09 10:46] LABS: HEMATOCRIT 39.5 % (42.0-52.0); HEMOGLOBIN 13.5 g/dl (13.5-17.5); MEAN CORPUSCULAR HEMOGLOBIN 32.1 pg (27.0-33.0); MEAN CORPUSCULAR HGB CONC 34.2 g/dl (32.0-36.5); PLATELET COUNT, AUTOMATED 241 10^3/uL (150-450); WHITE BLOOD COUNT 7.2 10^3/uL (4.0-10.0)
[2023-04-09 11:15] LABS: AMPHETAMINES LEVEL URINE NEGATIVE (NEGATIVE); BARBITURATES URINE NEGATIVE (NEGATIVE); BENZODIAZEPINES URINE NEGATIVE (NEGATIVE)
[2023-04-09 11:16] LABS: COCAINE METABOLITE URINE NEGATIVE (NEGATIVE); METHADONE URINE NEGATIVE (NEGATIVE); OPIATES URINE NEGATIVE (NEGATIVE); PHENCYCLIDINE URINE NEGATIVE (NEGATIVE)
[2023-04-09 11:18] LABS: ETHYL ALCOHOL (ETHANOL) < 0.003 % (0.000-0.010)
[2023-04-09 11:19] LABS: SALICYLATE LEVEL < 3.0 MG/DL (<30)
[2023-04-09 11:20] LABS: ALBUMIN 3.8 G/DL (3.2-5.2); ALKALINE PHOSPHATASE 62 U/L (46-116); ALT/SGPT 39 U/L (7.0-40); AST/SGOT 44 U/L (<34); BILIRUBIN,DIRECT 0.2 MG/DL (<0.4); BILIRUBIN,TOTAL 0.5 MG/DL (0.3-1.2); BLOOD UREA NITROGEN 15 MG/DL (9-23); CALCIUM LEVEL 9.2 MG/DL (8.3-10.6); CARBON DIOXIDE LEVEL 25 MMOL/L (20-31); CHLORIDE LEVEL 104 MMOL/L (98-107); CREATININE FOR GFR 0.68 MG/DL (0.70-1.30); GLOMERULAR FILTRATION RATE > 60.0 (>49); GLUCOSE, FASTING 88 MG/DL (74-106); SODIUM LEVEL 139 MMOL/L (136-145); TOTAL PROTEIN 6.9 G/DL (5.7-8.2)
[2023-04-09 11:21] LABS: THYROID STIMULATING HORMONE 1.606 uIU/ML (0.55-4.78)
[2023-04-09 11:38] LABS: CANNABINOIDS URINE POSITIVE (NEGATIVE)
[2023-04-09] MEDS ORDERED: MED REC IN PROGRESS XX SCH (13:30)
[2023-04-09] MEDS ORDERED: MAALOX 30 ML SUSP *UDC PO PRN (13:35)
[2023-04-09] MEDS ORDERED: INVE1.75 IM (13:47)
[2023-04-09] MEDS ORDERED: PROP40TA62 PO (13:47)
[2023-04-09] MEDS ORDERED: HYDR-3363 PO (13:47)
[2023-04-09] MEDS ORDERED: PALI1TAB3 PO (13:47)
[2023-04-09] MEDS ORDERED: HOME MED LIST COMPLETE! XX SCH (13:50)
[2023-04-09 21:27] VITALS: BP 137/80; TEMP 98.2; O2SAT 94
[2023-04-10] MEDS: IBUPROFEN 400MG TAB PO PRN (05:46)
[2023-04-10 06:47] VITALS: BP 139/77; TEMP 98.7; O2SAT 95
[2023-04-10] MEDS ORDERED: PROPRANOLOL 20 MG TAB PO PRN (08:20)
[2023-04-10] MEDS ORDERED: CURRENT HEIGHT AND WEIGHT NEEDED ON PATIENT XX SCH (09:00)
[2023-04-10] MEDS: NICOTINE 21MG/24HR 1 EA TRANSDERMAL TD SCH (09:38)
[2023-04-10] MEDS: ACETAMINOPHEN TAB 650MG DOSE (2X325MG) PO PRN (12:58)
[2023-04-10 16:31] VITALS: BP 150/88; TEMP 97.4; O2SAT 100
[2023-04-10] MEDS: OLANZapine ORAL DISINTEGRATING TAB 5MG PO PRN (16:32)
[2023-04-10] MEDS: PALIPERIDONE 6MG ER TAB (INVEGA) PO SCH (20:46)
[2023-04-11 06:35] VITALS: BP 142/80; TEMP 98.1; O2SAT 100
[2023-04-11] MEDS: NICOTINE 21MG/24HR 1 EA TRANSDERMAL TD SCH (08:03)
[2023-04-11] MEDS: IBUPROFEN 400MG TAB PO PRN (11:59)
[2023-04-11 16:15] VITALS: BP 142/84; TEMP 98.7; O2SAT 97
[2023-04-11] MEDS: PALIPERIDONE 6MG ER TAB (INVEGA) PO SCH (21:27)
[2023-04-12 06:39] VITALS: BP 144/73; TEMP 98.7; O2SAT 95
[2023-04-12] MEDS: OLANZapine ORAL DISINTEGRATING TAB 5MG PO PRN (08:23)
[2023-04-12] MEDS: NICOTINE 21MG/24HR 1 EA TRANSDERMAL TD SCH (08:24)
[2023-04-12 12:36] LABS: CHOLESTEROL RISK RATIO 2.81 (<5); HDL CHOLESTEROL 72.8 MG/DL (>40); LDL CHOLESTEROL 107.6 MG/DL (<100); NON-HDL-C 132.2 MG/DL
[2023-04-12 17:00] VITALS: BP 155/86; TEMP 98.3
[2023-04-12] MEDS: PALIPERIDONE 6MG ER TAB (INVEGA) PO SCH (20:46)
[2023-04-13 05:52] VITALS: BP 114/78; TEMP 97.5; O2SAT 97
[2023-04-13] MEDS: NICOTINE 21MG/24HR 1 EA TRANSDERMAL TD SCH (08:48)
[2023-04-13] MEDS: OLANZapine ORAL DISINTEGRATING TAB 5MG PO PRN (10:01)
[2023-04-13 18:20] VITALS: TEMP 98.4
[2023-04-13] MEDS: PALIPERIDONE 6MG ER TAB (INVEGA) PO SCH (21:33)
[2023-04-14 06:34] VITALS: BP 147/84; TEMP 98.7; O2SAT 100
[2023-04-14] MEDS: PALIPERIDONE 3MG ER TAB (INVEGA) PO SCH (09:23)
[2023-04-14] MEDS: NICOTINE 21MG/24HR 1 EA TRANSDERMAL TD SCH (09:24)
[2023-04-14 14:00] VITALS: BP 149/82; TEMP 99.5; O2SAT 97
[2023-04-14] MEDS: PALIPERIDONE 6MG ER TAB (INVEGA) PO SCH (20:57)
[2023-04-15 06:39] VITALS: BP 138/80; TEMP 97.8; O2SAT 97
[2023-04-15] MEDS: NICOTINE 21MG/24HR 1 EA TRANSDERMAL TD SCH (08:32)
[2023-04-15] MEDS: PALIPERIDONE 3MG ER TAB (INVEGA) PO SCH (08:32)
[2023-04-15 16:34] VITALS: BP 130/73; TEMP 98.7; O2SAT 97
[2023-04-15] MEDS: PALIPERIDONE 6MG ER TAB (INVEGA) PO SCH (20:47)
[2023-04-16 06:47] VITALS: BP 115/78; TEMP 98; O2SAT 98
[2023-04-16] MEDS: PALIPERIDONE 3MG ER TAB (INVEGA) PO SCH (08:02)
[2023-04-16] MEDS: NICOTINE 21MG/24HR 1 EA TRANSDERMAL TD SCH (08:04)
[2023-04-16] MEDS: MOM 30ML SUSPENSION UDC PO PRN (11:16)
[2023-04-16 18:35] VITALS: BP 136/76; TEMP 98.1; O2SAT 98
[2023-04-16] MEDS: PALIPERIDONE 6MG ER TAB (INVEGA) PO SCH (21:09)
[2023-04-17] MEDS: PALIPERIDONE 3MG ER TAB (INVEGA) PO SCH (10:02)
[2023-04-17] MEDS: NICOTINE 21MG/24HR 1 EA TRANSDERMAL TD SCH (10:08)
[2023-04-17] MEDS: PALIPERIDONE 6MG ER TAB (INVEGA) PO SCH (21:37)
[2023-04-18 06:04] VITALS: BP 130/75; TEMP 97.5; O2SAT 97
[2023-04-18] MEDS: NICOTINE 21MG/24HR 1 EA TRANSDERMAL TD SCH (08:55)
[2023-04-18] MEDS: PALIPERIDONE 3MG ER TAB (INVEGA) PO SCH (08:55)
[2023-04-18] MEDS: IBUPROFEN 400MG TAB PO PRN (14:51)
[2023-04-18 16:17] VITALS: BP 145/79; TEMP 98.5; O2SAT 97
[2023-04-18] MEDS: PALIPERIDONE 6MG ER TAB (INVEGA) PO SCH (21:06)
[2023-04-19 06:46] VITALS: BP 113/63; TEMP 97.5; O2SAT 95
[2023-04-19] MEDS: PALIPERIDONE 3MG ER TAB (INVEGA) PO SCH (08:51)
[2023-04-19] MEDS: NICOTINE 21MG/24HR 1 EA TRANSDERMAL TD SCH (08:52)
[2023-04-19 16:15] VITALS: BP 138/78; TEMP 98.9; O2SAT 98
[2023-04-19] MEDS: traZODone 50 MG TAB PO PRN (20:09)
[2023-04-19] MEDS: PALIPERIDONE 6MG ER TAB (INVEGA) PO SCH (20:09)
[2023-04-20 06:46] VITALS: BP 148/88; TEMP 98.9; O2SAT 98
[2023-04-20] MEDS: PALIPERIDONE 3MG ER TAB (INVEGA) PO SCH (08:31)
[2023-04-20] MEDS: NICOTINE 21MG/24HR 1 EA TRANSDERMAL TD SCH (08:32)
[2023-04-20] MEDS: IBUPROFEN 400MG TAB PO PRN (15:30)
[2023-04-20 16:13] VITALS: BP 135/69; TEMP 98; O2SAT 99
[2023-04-20] MEDS: PALIPERIDONE 6MG ER TAB (INVEGA) PO SCH (20:10)
[2023-04-21] MEDS: PALIPERIDONE 3MG ER TAB (INVEGA) PO SCH (09:28)
[2023-04-21] MEDS: NICOTINE 21MG/24HR 1 EA TRANSDERMAL TD SCH (09:30)
[2023-04-21 19:14] VITALS: BP 185/77; TEMP 99.3; O2SAT 97
[2023-04-21 19:15] VITALS: BP 138/79
[2023-04-21] MEDS: traZODone 50 MG TAB PO PRN (20:43)
[2023-04-21] MEDS: PALIPERIDONE 6MG ER TAB (INVEGA) PO SCH (20:43)
[2023-04-22 06:26] VITALS: BP 116/54; TEMP 97.7; O2SAT 98
[2023-04-22] MEDS: PALIPERIDONE 3MG ER TAB (INVEGA) PO SCH (08:54)
[2023-04-22] MEDS: NICOTINE 21MG/24HR 1 EA TRANSDERMAL TD SCH (08:54)
[2023-04-22 17:38] VITALS: BP 132/78; TEMP 98.4; O2SAT 97
[2023-04-22] MEDS: PALIPERIDONE 6MG ER TAB (INVEGA) PO SCH (20:56)
[2023-04-22] MEDS: traZODone 50 MG TAB PO PRN (20:57)
[2023-04-23 06:12] VITALS: BP 137/74; TEMP 99.2; O2SAT 96
[2023-04-23] MEDS: IBUPROFEN 400MG TAB PO PRN (07:38)
[2023-04-23] MEDS: PALIPERIDONE 3MG ER TAB (INVEGA) PO SCH (08:06)
[2023-04-23] MEDS: NICOTINE 21MG/24HR 1 EA TRANSDERMAL TD SCH (08:07)
[2023-04-23 18:49] VITALS: BP 135/82; TEMP 98.1; O2SAT 96
[2023-04-23] MEDS: PALIPERIDONE 6MG ER TAB (INVEGA) PO SCH (20:58)
[2023-04-24 06:41] VITALS: BP 120/57; TEMP 98.4; O2SAT 95
[2023-04-24] MEDS: NICOTINE 21MG/24HR 1 EA TRANSDERMAL TD SCH (09:15)
[2023-04-24] MEDS: PALIPERIDONE 3MG ER TAB (INVEGA) PO SCH (09:15)
[2023-04-24] MEDS: IBUPROFEN 400MG TAB PO PRN (09:16)
[2023-04-24] MEDS: ACETAMINOPHEN TAB 650MG DOSE (2X325MG) PO PRN (15:35)
[2023-04-24 17:30] VITALS: BP 123/71; TEMP 98.2; O2SAT 99
[2023-04-24] MEDS: PALIPERIDONE 6MG ER TAB (INVEGA) PO SCH (20:59)
[2023-04-25 06:38] VITALS: BP 137/73; TEMP 100.4; O2SAT 95
[2023-04-25] MEDS: PALIPERIDONE 3MG ER TAB (INVEGA) PO SCH (08:53)
[2023-04-25] MEDS: NICOTINE 21MG/24HR 1 EA TRANSDERMAL TD SCH (08:54)
[2023-04-25] MEDS: OLANZapine ORAL DISINTEGRATING TAB 5MG PO PRN (11:34)
[2023-04-25 16:37] VITALS: BP 116/53; TEMP 98.5; O2SAT 99
[2023-04-25] MEDS: PALIPERIDONE 6MG ER TAB (INVEGA) PO SCH (21:18)
[2023-04-26 06:14] VITALS: BP 129/64; TEMP 99.5; O2SAT 95
[2023-04-26] MEDS: PALIPERIDONE 3MG ER TAB (INVEGA) PO SCH (08:40)
[2023-04-26] MEDS: NICOTINE 21MG/24HR 1 EA TRANSDERMAL TD SCH (08:40)
[2023-04-26 16:37] VITALS: BP 128/75; TEMP 99.3; O2SAT 97
[2023-04-26] MEDS: ACETAMINOPHEN TAB 650MG DOSE (2X325MG) PO PRN ×2 (17:01→23:29)
[2023-04-26] MEDS: PALIPERIDONE 6MG ER TAB (INVEGA) PO SCH (21:17)
[2023-04-27 06:47] VITALS: BP 127/75; TEMP 99.2; O2SAT 95
[2023-04-27] MEDS: NICOTINE 21MG/24HR 1 EA TRANSDERMAL TD SCH (08:45)
[2023-04-27] MEDS: PALIPERIDONE 3MG ER TAB (INVEGA) PO SCH (08:45)
[2023-04-27] MEDS: ACETAMINOPHEN TAB 650MG DOSE (2X325MG) PO PRN (16:36)
[2023-04-27 18:14] VITALS: BP 137/80; TEMP 100.5; O2SAT 95
[2023-04-27] MEDS: PALIPERIDONE 6MG ER TAB (INVEGA) PO SCH (20:29)
[2023-04-28] MEDS: PALIPERIDONE 3MG ER TAB (INVEGA) PO SCH (08:41)
[2023-04-28] MEDS: NICOTINE 21MG/24HR 1 EA TRANSDERMAL TD SCH (08:52)
[2023-04-28] MEDS: ACETAMINOPHEN TAB 650MG DOSE (2X325MG) PO PRN (08:54)
[2023-04-28] MEDS ORDERED: PALIPERIDONE PALMITATE IM SCH (09:00)
[2023-04-28 16:14] VITALS: BP 122/77; TEMP 98.7; O2SAT 96
[2023-04-28] MEDS: PALIPERIDONE 6MG ER TAB (INVEGA) PO SCH (21:15)
[2023-04-29 06:37] VITALS: BP 123/83; TEMP 97.4; O2SAT 95
[2023-04-29] MEDS: NICOTINE 21MG/24HR 1 EA TRANSDERMAL TD SCH (09:36)
[2023-04-29] MEDS: SODIUM CHLORIDE NASAL 0.65% SPRAY BTL (OCEAN) PRN ×2 (12:40→14:59)
[2023-04-29 17:37] VITALS: BP 139/78; TEMP 98.9; O2SAT 97
[2023-04-29] MEDS: PALIPERIDONE 6MG ER TAB (INVEGA) PO SCH (20:49)
[2023-04-30 06:32] VITALS: BP 132/80; TEMP 98.3; O2SAT 96
[2023-04-30] MEDS: NICOTINE 21MG/24HR 1 EA TRANSDERMAL TD SCH (08:41)
[2023-04-30 18:18] VITALS: BP 138/85; TEMP 97.8; O2SAT 97
[2023-04-30] MEDS: PALIPERIDONE 6MG ER TAB (INVEGA) PO SCH (20:32)
[2023-05-01 06:23] VITALS: BP 127/84; TEMP 97.7; O2SAT 95
[2023-05-01] MEDS: diphenhydrAMINE 25MG CAP PO PRN (10:57)
[2023-05-01] MEDS: NICOTINE 21MG/24HR 1 EA TRANSDERMAL TD SCH (11:00)
[2023-05-01] MEDS: SODIUM CHLORIDE NASAL 0.65% SPRAY BTL (OCEAN) PRN (11:10)
[2023-05-01 16:29] VITALS: BP 136/86; TEMP 97.5; O2SAT 99
[2023-05-01] MEDS: PALIPERIDONE 6MG ER TAB (INVEGA) PO SCH (20:16)
[2023-05-02 06:26] VITALS: BP 99/57; TEMP 98; O2SAT 95
[2023-05-02] MEDS: NICOTINE 21MG/24HR 1 EA TRANSDERMAL TD SCH (10:13)
[2023-05-02 16:32] VITALS: BP 142/76; TEMP 97.7; O2SAT 98
[2023-05-02] MEDS: PALIPERIDONE 6MG ER TAB (INVEGA) PO SCH (21:10)
[2023-05-03 06:02] VITALS: BP 136/75; TEMP 98; O2SAT 94
[2023-05-03] MEDS: NICOTINE 21MG/24HR 1 EA TRANSDERMAL TD SCH (09:23)
[2023-05-03] MEDS: PILL CUTTER 1 EACH XX PRN (09:23)
[2023-05-03 15:52] VITALS: BP 134/79; TEMP 97.1; O2SAT 100
[2023-05-03] MEDS: traZODone 50 MG TAB PO PRN (21:01)
[2023-05-03] MEDS: PALIPERIDONE 6MG ER TAB (INVEGA) PO SCH (21:01)
[2023-05-04 07:00] VITALS: BP 123/69; TEMP 98.6; O2SAT 95
[2023-05-04] MEDS: PILL CUTTER 1 EACH XX PRN (09:14)
[2023-05-04] MEDS: NICOTINE 21MG/24HR 1 EA TRANSDERMAL TD SCH (09:15)
[2023-05-04 15:30] VITALS: BP 125/67; TEMP 97.1; O2SAT 99
[2023-05-04] MEDS: PALIPERIDONE 6MG ER TAB (INVEGA) PO SCH (21:04)
[2023-05-04] MEDS: ACETAMINOPHEN TAB 650MG DOSE (2X325MG) PO PRN (21:04)
[2023-05-05 06:31] VITALS: BP 158/75; TEMP 97.5; O2SAT 94
[2023-05-05] MEDS: OLANZapine ORAL DISINTEGRATING TAB 5MG PO PRN (06:34)
[2023-05-05] MEDS: SODIUM CHLORIDE NASAL 0.65% SPRAY BTL (OCEAN) PRN (07:22)
[2023-05-05] MEDS: NICOTINE 21MG/24HR 1 EA TRANSDERMAL TD SCH (09:11)
[2023-05-05 19:45] VITALS: BP 147/92; TEMP 96.2; O2SAT 99
[2023-05-05] MEDS: PALIPERIDONE 6MG ER TAB (INVEGA) PO SCH (22:10)
[2023-05-06 05:55] VITALS: BP 116/74; TEMP 96.9; O2SAT 99
[2023-05-06] MEDS: PILL CUTTER 1 EACH XX PRN (09:44)
[2023-05-06] MEDS: NICOTINE 21MG/24HR 1 EA TRANSDERMAL TD SCH (09:46)
[2023-05-06] MEDS: traZODone 50 MG TAB PO PRN (21:01)
[2023-05-06] MEDS: PALIPERIDONE 6MG ER TAB (INVEGA) PO SCH (21:01)
[2023-05-07 06:16] VITALS: BP 127/76; TEMP 98.1; O2SAT 93
[2023-05-07] MEDS: PILL CUTTER 1 EACH XX PRN (09:37)
[2023-05-07] MEDS: NICOTINE 21MG/24HR 1 EA TRANSDERMAL TD SCH (09:38)
[2023-05-07 15:00] VITALS: BP 134/90; TEMP 98.4; O2SAT 98
[2023-05-07] MEDS: PALIPERIDONE 6MG ER TAB (INVEGA) PO SCH (21:27)
[2023-05-08 06:28] VITALS: BP 140/88; TEMP 98.4; O2SAT 95
[2023-05-08] MEDS: NICOTINE 21MG/24HR 1 EA TRANSDERMAL TD SCH (09:09)
[2023-05-08] MEDS: MOM 30ML SUSPENSION UDC PO PRN (17:12)
[2023-05-08 17:57] VITALS: BP 123/78; TEMP 97.5; O2SAT 98
[2023-05-08] MEDS: PALIPERIDONE 6MG ER TAB (INVEGA) PO SCH (19:58)
[2023-05-09 06:38] VITALS: BP 119/76; TEMP 97.5; O2SAT 99
[2023-05-09] MEDS: NICOTINE 21MG/24HR 1 EA TRANSDERMAL TD SCH (08:47)
[2023-05-09 17:21] VITALS: BP 126/68; TEMP 97.9
[2023-05-09] MEDS: traZODone 50 MG TAB PO PRN (20:18)
[2023-05-09] MEDS: PALIPERIDONE 6MG ER TAB (INVEGA) PO SCH (20:18)
[2023-05-10 06:31] VITALS: BP 135/75; TEMP 97.6; O2SAT 93
[2023-05-10] MEDS: NICOTINE 21MG/24HR 1 EA TRANSDERMAL TD SCH (10:00)
[2023-05-10] MEDS: diphenhydrAMINE 25MG CAP PO PRN (17:05)
[2023-05-10 17:42] VITALS: BP 136/82; TEMP 97.2
[2023-05-10] MEDS: PALIPERIDONE 6MG ER TAB (INVEGA) PO SCH (20:05)
[2023-05-11 06:31] VITALS: BP 142/73; TEMP 98.6; O2SAT 93
[2023-05-11] MEDS: NICOTINE 21MG/24HR 1 EA TRANSDERMAL TD SCH (09:46)
[2023-05-11] MEDS: OLANZapine ORAL DISINTEGRATING TAB 5MG PO PRN (12:55)
[2023-05-11 17:54] VITALS: BP 145/80; TEMP 98.9
[2023-05-11] MEDS: PALIPERIDONE 6MG ER TAB (INVEGA) PO SCH (20:56)
[2023-05-11] MEDS: traZODone 50 MG TAB PO PRN (20:56)
[2023-05-12 06:24] VITALS: BP 118/65; TEMP 97.6; O2SAT 95
[2023-05-12] MEDS: NICOTINE 21MG/24HR 1 EA TRANSDERMAL TD SCH (09:13)
[2023-05-12 16:10] VITALS: BP 138/76; TEMP 97.9; O2SAT 97
[2023-05-12] MEDS: PALIPERIDONE 3MG ER TAB (INVEGA) PO SCH (21:05)
[2023-05-13] MEDS: NICOTINE 21MG/24HR 1 EA TRANSDERMAL TD SCH (09:02)
[2023-05-13] MEDS: OLANZapine ORAL DISINTEGRATING TAB 5MG PO PRN (09:46)
[2023-05-13 18:20] VITALS: BP 148/81; TEMP 98.4
[2023-05-13] MEDS: PALIPERIDONE 3MG ER TAB (INVEGA) PO SCH (20:23)
[2023-05-14 06:34] VITALS: BP 144/81; TEMP 98.2; O2SAT 96
[2023-05-14] MEDS: NICOTINE 21MG/24HR 1 EA TRANSDERMAL TD SCH ×2 (09:00→10:03)
[2023-05-14] MEDS: ACETAMINOPHEN TAB 650MG DOSE (2X325MG) PO PRN (10:03)
[2023-05-14 17:18] VITALS: BP 133/77; TEMP 98.2; O2SAT 100
[2023-05-14] MEDS: PALIPERIDONE 3MG ER TAB (INVEGA) PO SCH (20:00)
[2023-05-15] MEDS: ACETAMINOPHEN TAB 650MG DOSE (2X325MG) PO PRN (06:08)
[2023-05-15 06:31] VITALS: BP 126/78; TEMP 97.2; O2SAT 96
[2023-05-15] MEDS: NICOTINE 21MG/24HR 1 EA TRANSDERMAL TD SCH (08:25)
[2023-05-15] MEDS ORDERED: HALO10TA20 PO (09:28)
[2023-05-15] MEDS ORDERED: HYDR-3363 PO (09:28)
[2023-05-15] MEDS ORDERED: PALI1TAB2 PO (09:28)
== END 2023-05-15 12:34 | disposition home or self-care (01) | DRG 885 ==
LOC: M ED 09:46 → M ED INP 14:18 → M PSY 21:00
PROVIDERS: ADMIT Student in an Organized Health Care Education/Training Program; ATTEND Student in an Organized Health Care Education/Training Program
DX: F20.0 Paranoid schizophrenia (principal); F17.200 Nicotine dependence, unspecified, uncomplicated; F12.10 Cannabis abuse, uncomplicated; F41.9 Anxiety disorder, unspecified; Z71.6 Tobacco abuse counseling; Z71.51 Drug abuse counseling and surveillance of drug abuser; Z79.899 Other long term (current) drug therapy; Z20.822 Contact with and (suspected) exposure to COVID-19; Z81.8 Family history of other mental and behavioral disorders

== ENCOUNTER → 2023-05-28 | Outpatient (CLI) | payer MEDICARE, MEDICAID ==
[~2023-05-28] MED LIST changes: +HALO10TA20 PO; +HYDR-3363 PO; +PALI1TAB3 PO; +PROP40TA62 PO
== END ==
LOC: M OUTALCOH 08:35
PROVIDERS: ATTEND Psychiatry & Neurology Psychiatry
DX: Z13.39 Encounter for screening examination for other mental health and behavioral disorders (principal)

== ENCOUNTER → 2023-06-04 | Outpatient (CLI) | payer MEDICARE, MEDICAID | LOC: M OUTALCOH 08:18 | PROVIDERS: ATTEND Psychiatry & Neurology Psychiatry | DX: Z13.39 Encounter for screening examination for other mental health and behavioral disorders (principal); F20.0 Paranoid schizophrenia ==

== ENCOUNTER → 2023-07-10 | Outpatient (RCR) | payer MEDICARE, MEDICAID | LOC: M OUTALCOH 06-17 08:39 | PROVIDERS: ATTEND Psychiatry & Neurology Psychiatry | DX: F12.20 Cannabis dependence, uncomplicated (principal); F10.10 Alcohol abuse, uncomplicated; F17.200 Nicotine dependence, unspecified, uncomplicated ==

== ENCOUNTER 2023-08-07 09:00 | Outpatient (RCR) | payer MEDICARE, MEDICAID ==
[~2023-08-07 09:00] MED LIST changes: +RISP-106; -RISP-9
== END 2023-08-10 ==
LOC: M OUTALCOH 09:00
PROVIDERS: ATTEND Psychiatry & Neurology Psychiatry
DX: F10.20 Alcohol dependence, uncomplicated (principal); F12.20 Cannabis dependence, uncomplicated; Z72.0 Tobacco use

== ENCOUNTER → 2023-09-09 | Outpatient (RCR) | payer MEDICARE, MEDICAID | LOC: M OUTALCOH 08-12 08:30 | PROVIDERS: ATTEND Psychiatry & Neurology Psychiatry | DX: F12.20 Cannabis dependence, uncomplicated (principal); F10.10 Alcohol abuse, uncomplicated; F17.200 Nicotine dependence, unspecified, uncomplicated ==

== ENCOUNTER → 2023-10-10 | Outpatient (RCR) | payer MEDICARE, MEDICAID | LOC: M OUTALCOH 09-17 08:53 | PROVIDERS: ATTEND Psychiatry & Neurology Psychiatry | DX: F10.20 Alcohol dependence, uncomplicated (principal); F12.20 Cannabis dependence, uncomplicated; F17.200 Nicotine dependence, unspecified, uncomplicated ==

== ENCOUNTER 2023-11-07 09:00 | Outpatient (RCR) | payer MEDICARE, MEDICAID | END 2023-11-09 | LOC: M OUTALCOH 09:00 | PROVIDERS: ATTEND Psychiatry & Neurology Psychiatry | DX: F12.20 Cannabis dependence, uncomplicated (principal); F10.10 Alcohol abuse, uncomplicated; F17.200 Nicotine dependence, unspecified, uncomplicated ==

== ENCOUNTER 2023-12-05 08:52 | Outpatient (RCR) | payer MEDICARE, MEDICAID | END 2023-12-10 | LOC: M OUTALCOH 08:52 | PROVIDERS: ATTEND Psychiatry & Neurology Psychiatry | DX: F10.10 Alcohol abuse, uncomplicated (principal); F12.20 Cannabis dependence, uncomplicated; F17.200 Nicotine dependence, unspecified, uncomplicated ==

== ENCOUNTER 2024-01-09 09:00 | Outpatient (RCR) | payer MEDICARE, MEDICAID | END 2024-01-10 | LOC: M OUTALCOH 09:00 | PROVIDERS: ATTEND Psychiatry & Neurology Psychiatry | DX: F10.20 Alcohol dependence, uncomplicated (principal); F12.20 Cannabis dependence, uncomplicated; F17.200 Nicotine dependence, unspecified, uncomplicated ==

== ENCOUNTER 2024-02-20 08:50 | Outpatient (RCR) | payer MEDICARE, MEDICAID | END 2024-03-11 | LOC: M OUTALCOH 08:50 | PROVIDERS: ATTEND Psychiatry & Neurology Psychiatry | DX: F10.20 Alcohol dependence, uncomplicated (principal); F12.20 Cannabis dependence, uncomplicated; F17.200 Nicotine dependence, unspecified, uncomplicated ==

== ENCOUNTER 2024-04-02 08:52 | Outpatient (RCR) | payer MEDICARE, MEDICAID | END 2024-04-10 | LOC: M OUTALCOH 08:52 | PROVIDERS: ATTEND Psychiatry & Neurology Psychiatry | DX: F10.20 Alcohol dependence, uncomplicated (principal); F12.20 Cannabis dependence, uncomplicated; Z72.0 Tobacco use ==

== ENCOUNTER 2024-05-11 12:17 | Inpatient (IN) | payer MEDICAID, MEDICARE, OTHER ==
[~2024-05-11] VITALS: Ht 180.3 cm; Wt 70.8 kg
[2024-05-11 12:59] LABS: HEMATOCRIT 37.3 % (42.0-52.0); HEMOGLOBIN 12.8 g/dl (13.5-17.5); MEAN CORPUSCULAR HEMOGLOBIN 32.7 pg (27.0-33.0); MEAN CORPUSCULAR HGB CONC 34.3 g/dl (32.0-36.5); MEAN CORPUSCULAR VOLUME 95.2 fl (80.0-96.0); PLATELET COUNT, AUTOMATED 253 10^3/uL (150-450); RED BLOOD COUNT 3.92 10^6/uL (4.30-6.10); WHITE BLOOD COUNT 7.2 10^3/uL (4.0-10.0)
[2024-05-11 13:23] LABS: AMPHETAMINES LEVEL URINE NEGATIVE (NEGATIVE); BARBITURATES URINE NEGATIVE (NEGATIVE); PHENCYCLIDINE URINE NEGATIVE (NEGATIVE)
[2024-05-11 13:24] LABS: BENZODIAZEPINES URINE NEGATIVE (NEGATIVE); COCAINE METABOLITE URINE NEGATIVE (NEGATIVE); METHADONE URINE NEGATIVE (NEGATIVE); OPIATES URINE NEGATIVE (NEGATIVE)
[2024-05-11 13:25] LABS: CANNABINOIDS URINE POSITIVE (NEGATIVE); ETHYL ALCOHOL (ETHANOL) 0.005 % (0.000-0.010)
[2024-05-11 13:27] LABS: SALICYLATE LEVEL < 3.0 MG/DL (<30)
[2024-05-11 13:28] LABS: ALBUMIN 3.5 G/DL (3.2-5.2); ALKALINE PHOSPHATASE 68 U/L (40-129); ALT/SGPT 35 U/L (7.0-40); AST/SGOT 41 U/L (<34); BILIRUBIN,DIRECT < 0.1 MG/DL (<0.4); BILIRUBIN,TOTAL 0.3 MG/DL (0.3-1.2); BLOOD UREA NITROGEN 11 MG/DL (9-23); CALCIUM LEVEL 9.3 MG/DL (8.3-10.6); CARBON DIOXIDE LEVEL 25 MMOL/L (20-31); CHLORIDE LEVEL 104 MMOL/L (98-107); CREATININE FOR GFR 0.71 MG/DL (0.70-1.30); GLOMERULAR FILTRATION RATE > 60.0 (>49); GLUCOSE, FASTING 91 MG/DL (74-106); POTASSIUM SERUM 3.7 MMOL/L (3.5-5.1); SODIUM LEVEL 138 MMOL/L (136-145); TOTAL PROTEIN 6.9 G/DL (5.7-8.2)
[2024-05-11 13:30] LABS: THYROID STIMULATING HORMONE 1.476 uIU/ML (0.55-4.78)
[2024-05-11] MEDS ORDERED: HOME MED LIST COMPLETE! XX SCH (17:15)
[2024-05-11 17:53] VITALS: BP 142/75; TEMP 97.4; O2SAT 98
[2024-05-12] MEDS: IBUPROFEN 400MG TAB PO PRN (03:59)
[2024-05-12 06:12] VITALS: BP 113/67; TEMP 97.4; O2SAT 96
[2024-05-12] MEDS: NICOTINE 21MG/24HR 1 EA TRANSDERMAL TD SCH (08:34)
[2024-05-12 16:26] VITALS: BP 137/78; TEMP 97.6; O2SAT 99
[2024-05-13 06:38] VITALS: BP 142/79; TEMP 96.8; O2SAT 94
[2024-05-13] MEDS ORDERED: NICOTINE 21MG/24HR 1 EA TRANSDERMAL TD SCH (09:00)
[2024-05-13] MEDS: MULTIVITAMINS/MINERALS THERAP 1 TAB PO SCH (09:14)
[2024-05-13] MEDS: DIVALPROEX 250MG TAB PO ONE (10:54)
[2024-05-13] MEDS: VITAMIN D (CHOLECALCIFEROL) 400 INTERNATIONAL UNITS TAB PO SCH (10:54)
[2024-05-13] MEDS: VITAMIN B COMPLEX/VIT C CAP PO SCH (10:54)
[2024-05-13 15:22] VITALS: BP 137/86; TEMP 96.2; O2SAT 99
[2024-05-13] MEDS ORDERED: PILL CUTTER 1 EACH XX PRN (16:30)
[2024-05-13] MEDS: SIMETHICONE 80MG CHEW TAB PO PRN (18:23)
[2024-05-13] MEDS: PALIPERIDONE 3MG ER TAB (INVEGA) PO SCH (21:00)
[2024-05-14 06:43] VITALS: BP 105/62; TEMP 96.8; O2SAT 95
[2024-05-14] MEDS: DIVALPROEX 500 MG TAB PO SCH ×2 (09:17→20:41)
[2024-05-14 15:00] VITALS: BP 142/67; TEMP 98.5; O2SAT 97
[2024-05-14] MEDS: traZODone 50 MG TAB PO PRN (20:42)
[2024-05-15 06:19] VITALS: BP 113/59; TEMP 97.4; O2SAT 99
[2024-05-15] MEDS: ACETAMINOPHEN 325 MG TAB PO PRN (11:06)
[2024-05-15 16:40] VITALS: BP 147/74; TEMP 97.7; O2SAT 98
[2024-05-15 16:43] VITALS: BP 128/72; TEMP 96; O2SAT 96
[2024-05-16 06:16] VITALS: BP 100/66; TEMP 96.8; O2SAT 97
[2024-05-16] MEDS: MOM 30ML SUSPENSION UDC PO PRN (14:54)
[2024-05-17 06:23] VITALS: BP 125/79; TEMP 98.3; O2SAT 100
[2024-05-17 06:30] VITALS: BP 139/79; TEMP 97.5; O2SAT 99
[2024-05-17 15:48] VITALS: BP 164/78; TEMP 98.6; O2SAT 98
[2024-05-18 06:16] VITALS: BP 135/77; TEMP 98.2; O2SAT 98
[2024-05-18 16:53] VITALS: BP 156/84; TEMP 98.5; O2SAT 97
[2024-05-18] MEDS: diphenhydrAMINE 25MG CAP PO PRN (17:07)
[2024-05-18] MEDS: traZODone 50 MG TAB PO SCH (21:35)
[2024-05-19 06:30] VITALS: BP 137/65; TEMP 98.5; O2SAT 94
[2024-05-19] MEDS: FLUTICASONE PROP 0.05% NASAL SPRAY 16 GM (FLONASE) NARES SCH (08:45)
[2024-05-19 15:07] VITALS: BP 133/73; TEMP 97.8; O2SAT 98
[2024-05-19] MEDS: PALIPERIDONE 3MG ER TAB (INVEGA) PO SCH (21:01)
[2024-05-20 06:22] VITALS: BP 132/64; TEMP 97.9; O2SAT 96
[2024-05-20 08:01] LABS: CHOLESTEROL RISK RATIO 2.52 (<5); HDL CHOLESTEROL 81.7 MG/DL (>40); LDL CHOLESTEROL 112.1 MG/DL (<100); NON-HDL-C 124.3 MG/DL
[2024-05-21 06:37] VITALS: BP 129/65; TEMP 97.3; O2SAT 97
[2024-05-21 14:43] VITALS: BP 111/83; TEMP 97.8; O2SAT 100
[2024-05-22 06:28] VITALS: BP 131/66; TEMP 97.5; O2SAT 95
[2024-05-22 16:10] VITALS: BP 137/68; TEMP 98.1; O2SAT 99
[2024-05-23 07:06] VITALS: BP 115/76; TEMP 96.9; O2SAT 97
[2024-05-23 14:53] VITALS: BP 117/58; TEMP 98.3; O2SAT 100
[2024-05-24 06:25] VITALS: BP 140/79; TEMP 99.1; O2SAT 96
[2024-05-24] MEDS: PALIPERIDONE PALMITATE 819 MG/2.63 ML IM ONE (12:36)
[2024-05-24 15:45] VITALS: BP 107/54; TEMP 99; O2SAT 99
[2024-05-25 06:46] VITALS: BP 152/72; TEMP 98.3; O2SAT 96
[2024-05-25 14:58] VITALS: BP 122/79; TEMP 98.5; O2SAT 99
[2024-05-26 06:10] VITALS: BP 121/66; TEMP 98.3; O2SAT 96
[2024-05-26 16:40] VITALS: BP 168/89; TEMP 97.4; O2SAT 97
[2024-05-26] MEDS: MAALOX 30 ML SUSP *UDC PO PRN (18:19)
[2024-05-27 06:52] VITALS: BP 138/77; TEMP 98; O2SAT 98
[2024-05-27 16:50] VITALS: BP 141/80; TEMP 97.5; O2SAT 97
[2024-05-27] MEDS: PALIPERIDONE 3MG ER TAB (INVEGA) PO SCH (20:28)
[2024-05-28] MEDS: BENZTROPINE 0.5 MG TAB PO SCH (08:08)
[2024-05-28 17:22] VITALS: BP 119/70; TEMP 97; O2SAT 99
[2024-05-29 06:36] VITALS: BP 134/77; TEMP 97.5; O2SAT 96
[2024-05-29 15:30] VITALS: BP 134/62; TEMP 98.4; O2SAT 97
[2024-05-30 06:46] VITALS: BP 141/87; TEMP 97; O2SAT 100
[2024-05-30 15:53] VITALS: BP 130/78; TEMP 97.6; O2SAT 97
[2024-05-31 06:23] VITALS: BP 121/58; TEMP 97.8; O2SAT 97
[2024-05-31 15:30] VITALS: BP 141/79; TEMP 98; O2SAT 98
[2024-05-31] MEDS: DIVALPROEX 250MG TAB PO SCH (21:33)
[2024-06-01 06:40] VITALS: BP 133/76; TEMP 97.8; O2SAT 97
[2024-06-01 16:01] VITALS: BP 122/65; TEMP 97.8; O2SAT 100
[2024-06-02 06:38] VITALS: BP 144/75; TEMP 97.6; O2SAT 99
[2024-06-02 17:21] VITALS: BP 156/81; TEMP 98.4; O2SAT 95
[2024-06-03 06:27] VITALS: BP 120/68; TEMP 97.2; O2SAT 98
[2024-06-03] MEDS: PALIPERIDONE 6MG ER TAB (INVEGA) PO SCH (09:28)
[2024-06-03 15:30] VITALS: BP 127/68; TEMP 97.7; O2SAT 97
[2024-06-04] MEDS ORDERED: NICO21PAT TD (05:12)
[2024-06-04] MEDS ORDERED: SIME80TA16 PO (05:12)
[2024-06-04] MEDS ORDERED: B-CO1TAB14 PO (05:12)
[2024-06-04] MEDS ORDERED: BENZ0.5T2 PO (05:12)
[2024-06-04] MEDS ORDERED: TRAZ-252 PO (05:12)
[2024-06-04] MEDS ORDERED: PALI1TAB3 PO (05:12)
[2024-06-04] MEDS ORDERED: VITAD400CA PO (05:12)
[2024-06-04] MEDS ORDERED: DEPA250T32 PO (05:12)
[2024-06-04] MEDS ORDERED: INVE1.75 IM (05:12)
[2024-06-04] MEDS ORDERED: Multivitamins PO (05:12)
[2024-06-04] MEDS ORDERED: HALO10TA20 PO (05:12)
[2024-06-04] MEDS ORDERED: Pill Cutter XX (05:12)
[2024-06-04 06:34] VITALS: BP 124/67; TEMP 97.6; O2SAT 96
== END 2024-06-04 16:15 | disposition home or self-care (01) | DRG 885 ==
LOC: M ED 12:17 → M ED INP 17:00 → M PSY 17:43
PROVIDERS: ADMIT Psychiatry & Neurology Psychiatry; ATTEND Psychiatry & Neurology Psychiatry
DX: F20.0 Paranoid schizophrenia (principal); Z91.51 Personal history of suicidal behavior; Z81.1 Family history of alcohol abuse and dependence; Z81.8 Family history of other mental and behavioral disorders; Z56.0 Unemployment, unspecified; F17.200 Nicotine dependence, unspecified, uncomplicated; Z79.899 Other long term (current) drug therapy

== ENCOUNTER 2024-07-02 13:57 | Outpatient (RCR) | payer MEDICARE ==
[~2024-07-02 13:57] MED LIST changes: +B-CO1TAB14 PO; +Multivitamins PO; +Pill Cutter XX; +SIME80TA16 PO; +VITAD400CA PO
== END 2024-07-09 ==
LOC: M OUTALCOH 13:57
PROVIDERS: ATTEND Psychiatry & Neurology Psychiatry
DX: F10.20 Alcohol dependence, uncomplicated (principal); F12.20 Cannabis dependence, uncomplicated; F17.200 Nicotine dependence, unspecified, uncomplicated

== ENCOUNTER 2024-08-06 14:00 | Outpatient (RCR) | payer MEDICARE | END 2024-08-09 | LOC: M OUTALCOH 14:00 | PROVIDERS: ATTEND Psychiatry & Neurology Psychiatry | DX: F10.20 Alcohol dependence, uncomplicated (principal); F12.20 Cannabis dependence, uncomplicated; F17.200 Nicotine dependence, unspecified, uncomplicated ==

== ENCOUNTER 2024-08-27 14:00 | Outpatient (RCR) | payer MEDICARE | END 2024-09-08 | LOC: M OUTALCOH 14:00 | PROVIDERS: ATTEND Psychiatry & Neurology Psychiatry | DX: F10.20 Alcohol dependence, uncomplicated (principal); F12.20 Cannabis dependence, uncomplicated; F17.200 Nicotine dependence, unspecified, uncomplicated ==

== ENCOUNTER 2024-12-03 09:59 | Outpatient (RCR) | payer MEDICARE ==
[~2024-12-03 09:59] MED LIST changes: +DIVA-65 PO; -EQL50TAB2 PO; +VITA1TAB82 PO
== END 2024-12-09 ==
LOC: M OUTALCOH 09:59
PROVIDERS: ATTEND Psychiatry & Neurology Psychiatry
DX: F12.20 Cannabis dependence, uncomplicated (principal); F10.10 Alcohol abuse, uncomplicated; F17.200 Nicotine dependence, unspecified, uncomplicated

== ENCOUNTER 2024-12-30 10:02 | Outpatient (RCR) | payer MEDICARE | END 2025-01-09 | LOC: M OUTALCOH 10:02 | PROVIDERS: ATTEND Psychiatry & Neurology Psychiatry | DX: F10.20 Alcohol dependence, uncomplicated (principal); F12.20 Cannabis dependence, uncomplicated; F17.200 Nicotine dependence, unspecified, uncomplicated ==

== ENCOUNTER 2025-01-27 13:09 | Outpatient (RCR) | payer MEDICARE | END 2025-02-08 | LOC: M OUTALCOH 13:09 | PROVIDERS: ATTEND Psychiatry & Neurology Psychiatry | DX: F10.20 Alcohol dependence, uncomplicated (principal); F12.20 Cannabis dependence, uncomplicated; F17.200 Nicotine dependence, unspecified, uncomplicated ==

== ENCOUNTER 2025-02-17 09:47 | Outpatient (RCR) | payer MEDICARE | END 2025-03-11 | LOC: M OUTALCOH 09:47 | PROVIDERS: ATTEND Psychiatry & Neurology Psychiatry | DX: F10.20 Alcohol dependence, uncomplicated (principal); F12.20 Cannabis dependence, uncomplicated; F17.200 Nicotine dependence, unspecified, uncomplicated ==

== ENCOUNTER 2025-03-17 09:54 | Outpatient (RCR) | payer MEDICARE | END 2025-04-10 | LOC: M OUTALCOH 09:54 | PROVIDERS: ATTEND Psychiatry & Neurology Psychiatry | DX: F10.20 Alcohol dependence, uncomplicated (principal); F12.20 Cannabis dependence, uncomplicated; F17.200 Nicotine dependence, unspecified, uncomplicated ==

== ENCOUNTER 2025-04-14 09:58 | Outpatient (RCR) | payer MEDICARE, MEDICAID ==
[~2025-04-14 09:58] MED LIST changes: +RISP-39 PO; -RISP3TAB20 PO
== END 2025-05-11 ==
LOC: M OUTALCOH 09:58
PROVIDERS: ATTEND Psychiatry & Neurology Psychiatry
DX: F10.20 Alcohol dependence, uncomplicated (principal); F12.20 Cannabis dependence, uncomplicated; F17.200 Nicotine dependence, unspecified, uncomplicated